=== PATIENT | male | born 1940 | race Caucasian/White ===

== ENCOUNTER 2017-10-29 11:41 | Inpatient (IN) ==
[2017-10-29] MEDS ORDERED: Morphine Inj 4 MG/ML Vial IV.PUSH ONE (13:33)
[2017-10-29] MEDS ORDERED: RESP: Albuterol Concentrated 2.5 MG/0.5 ML Neb NEB ONE (13:35)
[2017-10-29] MEDS ORDERED: MethylPREDNISolone Sod Succinate Inj 125 MG/2 ML Vial IV.PUSH ONE (13:35)
--- NOTE | 2017-10-29 13:44 | ED ---
HPI General Chief Complaint: Respiratory Symptoms Stated Complaint: Poss pneumonia/seen last night History of Present Illness HPI Narrative: 37-year-old male with a past medical history of hypertension, COPD, chronic kidney disease presents to the emergency room complaining of right -sided chest pain patient was seen in the emergency room yesterday RLL pneumonia. Patient received antibiotics yesterday and today as an outpatient however he returns to the emergency room due to pain in the right lower lung area. Pain is pleuritic in nature mild to moderate radiating to the back. Patient denies shortness of breath, productive cough, chest pain otherwise or lower extremity swelling. Related Data Home Medications Medication Instructions Recorded Confirmed aspirin [Aspir-81] 81 mg PO DAILY 10/28/17 10/29/17 levothyroxine [Synthroid] 112 mcg PO DAILY 10/28/17 10/29/17 atenolol 50 mg PO DAILY 10/29/17 10/29/17 Previous Rx's Medication Instructions Recorded azithromycin 500 mg PO DAILY 4 Days #4 tab 10/28/17 Allergies Allergy/AdvReac Type Severity Reaction Status Date / Time No Known Allergies Allergy Verified 10/29/17 13:00 Review of Systems Constitutional Reports chills, Reports fatigue and Reports fever(s) Eyes Denies change in vision ENT Denies headache(s) and Denies nasal congestion Cardiovascular Reports chest pain Respiratory Reports change in phlegm color, Reports cough, Reports excessive phlegm production, Reports pain on inspiration, Reports pain with cough, Reports dyspnea, Reports dyspnea on exertion and Reports wheezing Gastrointestinal Denies abdominal pain Genitourinary Denies difficulty urinating Musculoskeletal Denies myalgias Integumentary/Breasts Denies rash Neurologic Denies headache(s) Psychiatric Denies depression Endocrine Denies polyuria Hematologic/Lymphatic Denies easy bruising FORMERLY [facility], 1928–1983 Medical History Medical History COPD (chronic obstructive pulmonary disease) (Acute) Pneumonia (Acute) Surgical History Surgical History History of appendectomy (Acute) History of tonsillectomy (Acute) Social History Social History Substance History: Active Abuse Smoking Status: Former smoker How Often Do You Have a Drink Containing Alcohol: Monthly or less Recent Travel in [facility] within the Last 8 Weeks: No Recent Out of Country Travel within the Last 8 Weeks: No Substance Abuse Detail Marijuana: Substance Use Status: Active Route Used Substance Abuse: Inhalation Substance Frequency: occ Reason for Use: Get High Immunization History Tetanus Immunization: >5 Years Hx Influenza Vaccine This Season: No Exam Narrative Exam Narrative: GENERAL: Patient is alert and oriented -3 SKIN: Focused skin assessment warm/dry. HEAD: Atraumatic. Normocephalic. EYES: Pupils equal and round. No scleral icterus. No injection or drainage. ENT: No nasal bleeding or discharge. Mucous membranes pink and moist. NECK: Trachea midline. No JVD. CARDIOVASCULAR: Regular rate and rhythm. No murmur appreciated. RESPIRATORY: No accessory muscle use. Decreased air entry on the right with mild rails and scattered rhonchi. There is tender to palpation on the posterior thoracic and subscapular area. GASTROINTESTINAL: Abdomen soft, non-tender, nondistended. Hepatic and splenic margins not palpable. MUSCULOSKELETAL: No obvious deformities. No clubbing. No cyanosis. No edema. NEUROLOGICAL: Awake and alert. No obvious cranial nerve deficits. Motor grossly within normal limits. Normal speech. PSYCHIATRIC: Appropriate mood and affect; insight and judgment normal. Course Hospital Course: Patient feels better after nebulizer treatment. I will admit the patient to the hospital for failure of outpatient treatment and persistent and worsening pneumonia on the right. Reevaluation(s) Reevaluation #1: Patient condition improved during the ER course. I personally reexamined and counseled the patient about his diagnosis, admission and results. Time: 14:59 Initial Documented Vital Signs Temperature 97.5 F L 10/29/17 12:57 Pulse Rate 70 10/29/17 12:57 Respiratory Rate 18 10/29/17 12:57 Blood Pressure 131/62 10/29/17 12:57 Pulse Oximetry 100 10/29/17 12:57 Last Documented Vital Signs Temperature 97.5 F L 10/29/17 12:57 Pulse Rate 69 10/29/17 14:50 Respiratory Rate 24 10/29/17 14:50 Blood Pressure 112/70 10/29/17 14:11 Pulse Oximetry 97 10/29/17 14:11 Medical Decision Making MDM Narrative Medical Screen Exam Complete: Yes Emergency Medical Condition: Yes Lab Data Result diagrams: 10/29/17 14:00 10/29/17 14:00 Lab Results 10/29/17 10/29/17 Range/Units 14:00 14:00 CBC w Diff Auto diff final WBC 15.3 H (4.0-11.0) th/mm3 RBC 3.95 L (4.50-5.90) mil/mm3 Hgb 11.8 L (13.0-17.0) gm/dL Hct 34.4 L (39.0-51.0) % MCV 87.1 (80.0-100.0) fL MCH 30.0 (27.0-34.0) pg MCHC 34.4 (32.0-36.0) % RDW 15.0 (11.6-17.2) % Plt Count 255 (150-450) th/mm3 MPV 8.0 (7.0-11.0) fL Neut % (Auto) 84.1 H (16.0-70.0) % Lymph % (Auto) 7.4 L (9.0-44.0) % [place]kin % (Auto) 4.9 (0.0-8.0) % Eos % (Auto) 1.6 (0.0-4.0) % Baso % (Auto) 2.0 (0.0-2.0) % Neut # (Auto) 12.9 H (1.8-7.7) th/mm3 Lymph # (Auto) 1.1 (1.0-4.8) th/mm3 [place] # (Auto) 0.7 (0.0-0.9) th/mm3 Eos # (Auto) 0.2 (0.0-0.4) th/mm3 Baso # (Auto) 0.3 H (0.0-0.2) th/mm3 WBC Differential . Differential Comment . Sodium 140 (136-145) meq/L Potassium 3.9 (3.5-5.1) meq/L Chloride 105 (98-107) meq/L Carbon Dioxide 25.9 (21.0-32.0) meq/L Anion Gap 9 (5-15) meq/L BUN 39 H (7-18) mg/dL Creatinine 2.40 H (0.60-1.30) mg/dL Estimated GFR 27 L (>89) mL/min Random Glucose 94 (74-106) mg/dL Calcium 10.3 H (8.5-10.1) mg/dL Total Bilirubin 0.7 (0.2-1.0) mg/dL AST 20 (15-37) U/L ALT 22 (12-78) U/L Alkaline Phosphatase 60 (45-117) U/L Total Protein 7.9 (6.4-8.2) g/dL Albumin 3.6 (3.4-5.0) g/dL Imaging Data Radiologist's impression: Chest X-Ray 10/29/17 13:33 CONCLUSION: New right midlung radiopacity which may represent developing airspace disease. COPD Otherwise stable chest. Discharge Plan Discharge Disposition Patient Disposition: Transfer to [facility] Discharge Condition Condition: Fair Discharge Details Discharge Comment: Patient is admitted to the hospital and was accepted by Dr. Nunez Diagnosis: Pneumonia, COPD exacerbation Physicians Team ED Provider: Roderick Ross Rxs /Orders / Referrals /Forms Prescriptions: No Action atenolol 50 mg Tablet 50 mg PO DAILY RF: 0 aspirin [Aspir-81] 81 mg Tablet,Delayed Release (Dr/Ec) 81 mg PO DAILY RF: 0 levothyroxine [Synthroid] 25 mcg Tablet 112 mcg PO DAILY RF: 0 azithromycin 500 mg tablet 500 mg PO DAILY 4 Days Qty: 4 RF: 0 Discharge Interventions Interventions: Vital Signs Last Done: 10/29/17 14:11 Status ED Status: In Room
[2017-10-29] MEDS ORDERED: Sodium Chlor 0.9% Inj 1,000 ML IV.SIG SCH (14:00)
--- NOTE | 2017-10-29 14:17 | XR ---
EXAM DATE: 10/29/2017 1:58 PM EDT AGE/SEX: 77 years / Male INDICATIONS: Shortness of breath. CLINICAL DATA: This is the patient's initial encounter. Patient reports that signs and symptoms have been present for 3 days and indicates a pain score of 0/10. MEDICAL/SURGICAL HISTORY: Chronic obstructive pulmonary disease. None. COMPARISON: [facility]PO, CHEST 1V SINGLE AP, 10/28/2017. . FINDINGS: Lungs are hyperinflated. There is interstitial prominence throughout both lungs. A faint radiopacity has developed in the right midlung which cannot be identified on the previous study. Heart and mediastinal structures are stable. CONCLUSION: New right midlung radiopacity which may represent developing airspace disease. COPD Otherwise stable chest. Electronically signed by: Rios Mccord MD 10/29/2017 2:15 PM EDT
[2017-10-29 14:28] LABS: Chloride 105 meq/L (98-107); Potassium 3.9 meq/L (3.5-5.1); Sodium 140 meq/L (136-145)
[2017-10-29 14:31] LABS: Baso # (Auto) 0.3 th/mm3 (0.0-0.2); Calcium 10.3 mg/dL (8.5-10.1); Eos # (Auto) 0.2 th/mm3 (0.0-0.4); Eos % (Auto) 1.6 % (0.0-4.0); Hematocrit 34.4 % (39.0-51.0); Hemoglobin 11.8 gm/dL (13.0-17.0); Lymph # (Auto) 1.1 th/mm3 (1.0-4.8); Lymph % (Auto) 7.4 % (9.0-44.0); Mean Corpuscular HGB Conc 34.4 % (32.0-36.0); Mean Corpuscular Volume 87.1 fL (80.0-100.0); Mono # (Auto) 0.7 th/mm3 (0.0-0.9); Mono % (Auto) 4.9 % (0.0-8.0); Neut # (Auto) 12.9 th/mm3 (1.8-7.7); Neut % (Auto) 84.1 % (16.0-70.0); Platelet Count 255 th/mm3 (150-450); Red Blood Count 3.95 mil/mm3 (4.50-5.90); White Blood Count 15.3 th/mm3 (4.0-11.0)
[2017-10-29 14:32] LABS: Albumin 3.6 g/dL (3.4-5.0); Anion Gap 9 meq/L (5-15); Blood Urea Nitrogen 39 mg/dL (7-18); Carbon Dioxide 25.9 meq/L (21.0-32.0); Glucose,Random 94 mg/dL (74-106)
[2017-10-29 14:35] LABS: Alanine Aminotransferase 22 U/L (12-78); Aspartate Aminotransferase 20 U/L (15-37); Glomerular Filtration Rate 27 mL/min (>89)
[2017-10-29 14:36] LABS: Total Protein 7.9 g/dL (6.4-8.2)
[2017-10-29 14:38] LABS: Alkaline Phosphatase 60 U/L (45-117)
[2017-10-29] MEDS ORDERED: Acetaminophen 325 MG Tablet PO PRN (15:32)
[2017-10-29] MEDS ORDERED: Morphine Inj 4 MG/ML Vial IV.PUSH PRN (15:56)
--- NOTE | 2017-10-29 16:42 | P.HPIM ---
History of Present Illness Primary Care Physician: Bay Moreno MD Chief Complaint: Chest wall pain History of Present Illness: The patient is a 77-year-old male with past medical history of hypertension and hydronephrosis who is presenting to the hospital with chest wall pain. The patient states that on Saturday he woke up with intense pain in his right chest wall. He says the pain was an 8 out of 10 in severity. The pain is located at the right upper chest and goes around to involve the right shoulder blade. He says that any movement of his right upper extremity makes the pain worse. He says the pain is constant. The patient has been endorsing cold sweats. He came to the emergency department yesterday and was told he had pneumonia and was discharged with antibiotics. He said that he had to leave the emergency department yesterday because he had to get some affairs in order. He represents to the hospital today with the same right upper chest wall pain. He says he has never had pain like this before. He denies any recent trauma to the area. He denies any shortness of breath. He denies any cough or mucus production. He does endorse a chronic slow and dribbling urine stream. Inpatient Certification: I certify that the inpatient services were ordered in accordance with Medicare regulations governing the order. This includes certification that hospital inpatient services are reasonable and necessary and in the case of services not specified as inpatient-only under 42 CFR 419.22(n), that they are appropriately provided as inpatient services in accordance to with the 2-midnight benchmark under 43 CFR 412.3(e) Estimated Total Length of Stay (Days): 2 Plans for Post Hospital Care: Home Review of Systems All other systems reviewed negative except as stated in HPI PMFSH - History History Provided By: Patient - Medical History Medical History: Medical History (Last Updated 10/29/17 @ 16:28 by Cody Nunez DO) Hydronephrosis, right Hypertension Hypothyroidism Pneumonia COPD (chronic obstructive pulmonary disease) - Surgical History Surgical History: Surgical History (Last Reviewed 10/29/17 @ 15:01 by Roderick Ross) History of appendectomy History of tonsillectomy - Family History Family History: Family History (Last Updated 10/29/17 @ 16:28 by Cody Nunez DO) Other Patient denies significant medical history - Social History I have reviewed the patient's Social History: Yes - Tobacco History Smoking Status: Former smoker - Alcohol History How Often Do You Have a Drink Containing Alcohol: Monthly or less - Substance Use History 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 Route Used: Inhalation Frequency: occ Reason for Use: Get High - Travel History Recent Travel in the [place] Within the Last 8 Weeks: No Recent Travel Out of the Country Within the Last 8 Weeks: No - Immunization History Tetanus Immunization: >5 Years Hx Influenza Vaccine This Season: No Medications and Allergies Active Medications: Active Medications Acetaminophen (Tylenol) 650 mg PO Q4H PRN PRN Reason: Temp > 100.4 Aspirin (Ecotrin) 81 mg PO DAILY JAVIER Atenolol (Tenormin) 50 mg PO DAILY JAVIER Heparin Sodium (Porcine) (Heparin Inj) 5,000 units SQ Q8HR JAVIER Sodium Chloride (Ns Inj) 1,000 mls @ 0 mls/hr IV.SIG BOLUS JAVIER Last Infusion: 10/29/17 15:45 Dose: Infused Ceftriaxone Sodium 1,000 mg/ (Sodium Chloride) 100 mls @ 200 mls/hr IV.SIG Q24H JAVIER Azithromycin 500 mg/ Sodium (Chloride) 250 mls @ 250 mls/hr IV.SIG Q24H JAVIER Sodium Chloride (Ns Inj) 1,000 mls @ 100 mls/hr IV.CONT .Q10H JAVIER Levothyroxine Sodium (Synthroid) 112 mcg PO DAILY@0600 JAVIER Morphine Sulfate (Morphine Inj) 4 mg IV.PUSH Q4H PRN PRN Reason: BREAKTHROUGH PAIN Oxycodone HCl (Roxicodone) 5 mg PO Q4H PRN PRN Reason: pain 1-5 Oxycodone HCl (Roxicodone) 10 mg PO Q4H PRN PRN Reason: Pain 6-10 Senna/Docusate Sodium (Diane-Colace) 1 tab PO BID JAVIER Allergies Allergy/AdvReac Type Severity Reaction Status Date / Time No Known Allergies Allergy Verified 10/29/17 13:00 Home Medications Medication Instructions Recorded Confirmed Type aspirin [Aspir-81] 81 mg PO DAILY 10/28/17 10/29/17 History levothyroxine [Synthroid] 112 mcg PO DAILY 10/28/17 10/29/17 History atenolol 50 mg PO DAILY 10/29/17 10/29/17 History Exam Vital signs: Vital Signs 10/29/17 12:57 10/29/17 13:20 10/29/17 14:05 Temperature 97.5 F L Pulse Rate 70 68 Respiratory Rate 18 18 19 Blood Pressure 131/62 123/78 Pulse Oximetry 100 96 10/29/17 14:11 10/29/17 14:50 10/29/17 15:22 Temperature Pulse Rate 68 69 78 Respiratory Rate 20 24 22 Blood Pressure 112/70 108/67 Pulse Oximetry 97 99 10/29/17 16:15 Temperature Pulse Rate 77 Respiratory Rate Blood Pressure 109/69 Pulse Oximetry 99 Intake & Output 10/28/17 10/29/17 10/29/17 18:59 06:59 18:59 Intake Total 1100 / 1100 Balance 1100 / 1100 Weight 92.4 kg Intake: IV 1100 / 1100 NS Inj 1,000 ML @ Wide Open IV. 1000 / 1000 SIG BOLUS JAVIER Rx#:[id number] Rocephin Inj 2,000 MG In NS Inj 100 / 100 100 ML @ 200 mls/hr IV.SIG Q24H JAVIER Rx#:[id number] Narrative: GENERAL: No distress. SKIN: Focused skin assessment warm/dry. HEAD: Atraumatic. Normocephalic. EYES: Pupils equal and round. No scleral icterus. No injection or drainage. ENT: No nasal bleeding or discharge. Mucous membranes pink and moist. NECK: Trachea midline. No JVD. CARDIOVASCULAR: Regular rate and rhythm. No murmur appreciated. RESPIRATORY: No accessory muscle use. Scattered rhonchi on right. GASTROINTESTINAL: Abdomen soft, non-tender, nondistended. Hepatic and splenic margins not palpable. MUSCULOSKELETAL: Tenderness to palpation of right chest wall and right scapular area. Decreased ROM of RUE s/t pain. No obvious deformities. No clubbing. No cyanosis. 1+ edema. NEUROLOGICAL: Awake and alert. No obvious cranial nerve deficits. Motor grossly within normal limits. Normal speech. Results - Labs CBC & Chem 7: 10/29/17 14:00 10/29/17 14:00 Labs: Short CBC 10/29/17 Range/Units 14:00 WBC 15.3 H (4.0-11.0) th/mm3 Hgb 11.8 L (13.0-17.0) gm/dL Hct 34.4 L (39.0-51.0) % Plt Count 255 (150-450) th/mm3 BMP 10/29/17 14:00 Sodium 140 Potassium 3.9 Chloride 105 Carbon Dioxide 25.9 BUN 39 H Creatinine 2.40 H Calcium 10.3 H Liver Function 10/29/17 Range/Units 14:00 Total Bilirubin 0.7 (0.2-1.0) mg/dL AST 20 (15-37) U/L ALT 22 (12-78) U/L Alkaline Phosphatase 60 (45-117) U/L Albumin 3.6 (3.4-5.0) g/dL - Imaging Impressions Chest X-Ray 10/29/17 13:33 CONCLUSION: New right midlung radiopacity which may represent developing airspace disease. COPD Otherwise stable chest. Caprini VTE Risk Assessment Caprini VTE Risk Assessment: Moderate/High Risk (score >= 2) Caprini Risk Assessment Model: Point Value = 1 Point Value = 2 Point Value = 3 Point Value = 5 Age 41-60 Minor surgery BMI > 25 kg/m2 Swollen legs Varicose veins or History of unexplained or recurrent spontaneous Oral contraceptives or hormone replacement Sepsis (< 1 month) Serious lung disease, including pneumonia (< 1 month) Abnormal pulmonary function Acute myocardial infarction Congestive heart failure (< 1 month) History of inflammatory bowel disease Medical patient at bed rest Age 61-74 Arthroscopic surgery Major open surgery (> 45 min) Laparoscopic surgery (> 45 min) Malignancy Confined to bed (> 72 hours) Immobilizing plaster cast Central venous access Age >= 75 History of VTE Family history of VTE Factor V Leiden Prothrombin [id number] Lupus anticoagulant Anticardiolipin antibodies Elevated serum homocysteine Heparin-induced thrombocytopenia Other congenital or acquired thrombophilia Stroke (< 1 month) Elective arthroplasty Hip, pelvis, or leg fracture Acute spinal cord injury (< 1 month) Prophylaxis Regimen: Total Risk Factor Score Risk Level Prophylaxis Regimen 0-1 Low Early ambulation 2 Moderate Order ONE of the following: *Sequential Compression Device (SCD) *Heparin 5000 units SQ BID 3-4 Higher Order ONE of the following medications: *Heparin 5000 units SQ TID *Enoxaparin/Lovenox 40 mg SQ daily (WT < 150 kg, CrCl > 30 mL/min) *Enoxaparin/Lovenox 30 mg SQ daily (WT < 150 kg, CrCl > 10-29 mL/min) *Enoxaparin/Lovenox 30 mg SQ BID (WT < 150 kg, CrCl > 30 mL/min) AND/OR *Sequential Compression Device (SCD) 5 or more Highest Order ONE of the following medications: *Heparin 5000 units SQ TID (Preferred with Epidurals) *Enoxaparin/Lovenox 40 mg SQ daily (WT < 150 kg, CrCl > 30 mL/min) *Enoxaparin/Lovenox 30 mg SQ daily (WT < 150 kg, CrCl > 10-29 mL/min) *Enoxaparin/Lovenox 30 mg SQ BID (WT < 150 kg, CrCl > 30 mL/min) AND *Sequential Compression Device (SCD) Assessment and Plan - Plan CAP/ Musculoskeletal chest wall pain The pt presents with chest wall pain and right scapular pain on the right. Imaging indicative of PNA on that side. Not currently septic. He has leukocytosis. -IV azithromycin and ceftriaxone. -follow blood cultures. -incentive spirometry. -pain control with a bowel regimen. -oxygen and nebs as needed. -trend trops and monitor on telemetry. Renal insufficiency Likely chronic as pt has a history of right hydronephrosis s/p multiple stents. -IVFs. -monitor BMP and avoid nephrotoxins. HTN Blood pressure well controlled. -continue home atenolol. PPx: Heparin
[2017-10-29] MEDS: Sod Chloride 0.9% Inj 1,000 ML IV.CONT SCH (17:02)
[2017-10-29] MEDS: Heparin - SQ 10,000 UNITS/ML Vial SQ SCH ×2 (17:03→21:31)
[2017-10-29] MEDS: Senna/Docusate Sodium 8.6/50 MG Tablet PO SCH (21:31)
[2017-10-29] MEDS ORDERED: Melatonin 5 MG Tablet PO PRN (23:51)
[2017-10-30] MEDS: Sod Chloride 0.9% Inj 1,000 ML IV.CONT SCH ×4 (01:18→22:07)
[2017-10-30] MEDS: Levothyroxine 112 MCG Tablet PO SCH (05:43)
[2017-10-30] MEDS: Heparin - SQ 10,000 UNITS/ML Vial SQ SCH ×3 (05:43→22:02)
[2017-10-30] MEDS: Atenolol 50 MG Tablet PO SCH (08:22)
[2017-10-30] MEDS: Senna/Docusate Sodium 8.6/50 MG Tablet PO SCH ×2 (08:23→22:03)
[2017-10-30 11:10] LABS: Hematocrit 29.9 % (39.0-51.0); Hemoglobin 10.8 gm/dL (13.0-17.0); Mean Corpuscular Hemoglobin 30.9 pg (27.0-34.0); Mean Corpuscular Volume 85.7 fL (80.0-100.0); Mean Platelet Volume 8.5 fL (7.0-11.0); Platelet Count 236 th/mm3 (150-450); Red Blood Count 3.49 mil/mm3 (4.50-5.90); Red Cell Distribution Width 15.8 % (11.6-17.2); White Blood Count 13.1 th/mm3 (4.0-11.0)
[2017-10-30 11:21] LABS: Potassium 3.8 meq/L (3.5-5.1)
--- NOTE | 2017-10-30 11:28 | P.PNIM ---
Subjective Interval history: The patient said that he did not get any sleep overnight. He says his breathing is worse because he has not gotten any sleep. He said he did well with Ambien in the past. He says his right chest wall pain has improved. Physical Exam Vital signs: Vital Signs 10/29/17 12:57 10/29/17 13:20 10/29/17 14:05 Temperature 97.5 F L Pulse Rate 70 68 Respiratory Rate 18 18 19 Blood Pressure 131/62 123/78 Pulse Oximetry 100 96 10/29/17 14:11 10/29/17 14:50 10/29/17 15:22 Temperature Pulse Rate 68 69 78 Respiratory Rate 20 24 22 Blood Pressure 112/70 108/67 Pulse Oximetry 97 99 10/29/17 16:15 10/29/17 16:46 10/29/17 19:50 Temperature 96.8 F L Pulse Rate 77 70 Respiratory Rate 20 Blood Pressure 109/69 169/75 H Pulse Oximetry 99 94 L 94 L 10/29/17 20:00 10/29/17 21:25 10/29/17 22:26 Temperature 97.0 F L Pulse Rate 67 66 Respiratory Rate 18 18 Blood Pressure 119/58 L Pulse Oximetry 96 10/30/17 00:00 10/30/17 08:00 Temperature 97.1 F L 96.4 F L Pulse Rate 61 58 L Respiratory Rate 18 19 Blood Pressure 122/56 L 134/60 Pulse Oximetry 96 98 Intake & Output 10/29/17 10/30/17 10/30/17 18:59 06:59 18:59 Intake Total 1100 / 1100 1050 / 1050 1000 / 1000 Output Total 900 / 900 Balance 1100 / 1100 150 / 150 1000 / 1000 Weight 97.1 kg 97.1 kg Intake: IV 1100 / 1100 1000 / 1000 1000 / 1000 NS Inj 1,000 ML @ 100 mls/hr IV 1000 / 1000 1000 / 1000 .CONT .Q10H JAVIER Rx#:[id number] NS Inj 1,000 ML @ Wide Open IV. 1000 / 1000 SIG BOLUS JAVIER Rx#:[id number] Rocephin Inj 2,000 MG In NS Inj 100 / 100 100 ML @ 200 mls/hr IV.SIG Q24H JAVIER Rx#:[id number] Oral 50 / 50 Output: Urine 900 / 900 Other: Date of Last Bowel Movement 10/29/17 10/29/17 Weight On Admission 97.1 kg Narrative: GENERAL: No distress. SKIN: Focused skin assessment warm/dry. HEAD: Atraumatic. Normocephalic. EYES: Pupils equal and round. No scleral icterus. No injection or drainage. ENT: No nasal bleeding or discharge. Mucous membranes pink and moist. NECK: Trachea midline. No JVD. CARDIOVASCULAR: Regular rate and rhythm. No murmur appreciated. RESPIRATORY: No accessory muscle use. Scattered rhonchi on right. GASTROINTESTINAL: Abdomen soft, non-tender, nondistended. Hepatic and splenic margins not palpable. MUSCULOSKELETAL: Tenderness to palpation of right chest wall and right scapular area. Decreased ROM of RUE s/t pain. No obvious deformities. No clubbing. No cyanosis. 1+ edema. NEUROLOGICAL: Awake and alert. No obvious cranial nerve deficits. Motor grossly within normal limits. Normal speech. Results - Labs CBC & Chem 7: 10/30/17 05:48 10/30/17 05:48 Laboratory Results - last 24 hr 10/29/17 10/29/17 10/29/17 14:00 14:00 15:08 CBC w Diff Auto diff final WBC 15.3 H RBC 3.95 L Hgb 11.8 L Hct 34.4 L MCV 87.1 MCH 30.0 MCHC 34.4 RDW 15.0 Plt Count 255 MPV 8.0 Neut % (Auto) 84.1 H Lymph % (Auto) 7.4 L [place] % (Auto) 4.9 Eos % (Auto) 1.6 Baso % (Auto) 2.0 Neut # (Auto) 12.9 H Lymph # (Auto) 1.1 [place] # (Auto) 0.7 Eos # (Auto) 0.2 Baso # (Auto) 0.3 H WBC Differential . Differential Comment . Sodium 140 Potassium 3.9 Chloride 105 Carbon Dioxide 25.9 Anion Gap 9 BUN 39 H Creatinine 2.40 H Estimated GFR 27 L Random Glucose 94 Lactic Acid 1.6 Calcium 10.3 H Total Bilirubin 0.7 AST 20 ALT 22 Alkaline Phosphatase 60 Troponin I Total Protein 7.9 Albumin 3.6 10/29/17 10/29/17 10/30/17 17:44 23:40 05:48 CBC w Diff WBC RBC Hgb Hct MCV MCH MCHC RDW Plt Count MPV Neut % (Auto) Lymph % (Auto) [place] % (Auto) Eos % (Auto) Baso % (Auto) Neut # (Auto) Lymph # (Auto) [place] # (Auto) Eos # (Auto) Baso # (Auto) WBC Differential Differential Comment Sodium Potassium Chloride Carbon Dioxide Anion Gap BUN Creatinine Estimated GFR Random Glucose Lactic Acid Calcium Total Bilirubin AST ALT Alkaline Phosphatase Troponin I Less than 0.02 L Less than 0.02 L Less than 0.02 L Total Protein Albumin 10/30/17 10/30/17 05:48 05:48 CBC w Diff WBC 13.1 H RBC 3.49 L Hgb 10.8 L Hct 29.9 L MCV 85.7 MCH 30.9 MCHC 36.0 RDW 15.8 Plt Count 236 MPV 8.5 Neut % (Auto) Lymph % (Auto) [place] % (Auto) Eos % (Auto) Baso % (Auto) Neut # (Auto) Lymph # (Auto) [place] # (Auto) Eos # (Auto) Baso # (Auto) WBC Differential Differential Comment Sodium 141 Potassium 3.8 Chloride 108 H Carbon Dioxide Anion Gap BUN Creatinine Estimated GFR Random Glucose Lactic Acid Calcium Total Bilirubin AST ALT Alkaline Phosphatase Troponin I Total Protein Albumin Microbiology 10/29/17 15:08 Blood - Peripheral Aerobic Blood Culture - Preliminary No growth in 1 day 10/29/17 15:08 Blood - Peripheral Anaerobic Blood Culture - Preliminary No growth in 1 day 10/29/17 15:10 Blood - Peripheral Aerobic Blood Culture - Preliminary No growth in 1 day 10/29/17 15:10 Blood - Peripheral Anaerobic Blood Culture - Preliminary No growth in 1 day - Imaging Impressions Chest X-Ray 10/29/17 13:33 CONCLUSION: New right midlung radiopacity which may represent developing airspace disease. COPD Otherwise stable chest. Assessment and Plan - Plan CAP/ Musculoskeletal chest wall pain The pt presents with chest wall pain and right scapular pain on the right. Imaging indicative of PNA on that side. Not currently septic. He has leukocytosis. -continue IV azithromycin and ceftriaxone. -follow blood cultures. -incentive spirometry. -add standing nebs. -oxygen as needed. -pain control with a bowel regimen. Renal insufficiency Likely chronic as pt has a history of right hydronephrosis s/p multiple stents. Has had a recent renal study via his urologist. -IVFs. -monitor BMP and avoid nephrotoxins. -outpt follow-up with urology as scheduled. HTN Blood pressure well controlled. -continue home atenolol. Insomnia Melatonin didn't work. -trial of Ambien. PPx: Heparin Discharge Planning: Will need improvement in respiratory status. Consider discharge in 1-2 days if doing well.
[2017-10-30 11:31] LABS: Calcium 9.2 mg/dL (8.5-10.1); Carbon Dioxide 21.1 meq/L (21.0-32.0)
[2017-10-30] MEDS: Azithromycin Inj 500 MG in Sodium Chlor 0.9% Inj 250 ML IV.SIG SCH (16:19)
[2017-10-30] MEDS: Zolpidem Tartrate 5 MG Tablet PO PRN (22:03)
[2017-10-31] MEDS: Heparin - SQ 10,000 UNITS/ML Vial SQ SCH ×3 (05:16→22:03)
[2017-10-31] MEDS: Levothyroxine 112 MCG Tablet PO SCH (05:16)
[2017-10-31] MEDS: Sod Chloride 0.9% Inj 1,000 ML IV.CONT SCH ×2 (06:54→22:06)
[2017-10-31 07:27] LABS: Baso % (Auto) 0.3 % (0.0-2.0); Eos # (Auto) 0.3 th/mm3 (0.0-0.4); Eos % (Auto) 2.4 % (0.0-4.0); Hematocrit 31.4 % (39.0-51.0); Hemoglobin 10.9 gm/dL (13.0-17.0); Lymph # (Auto) 1.1 th/mm3 (1.0-4.8); Lymph % (Auto) 9.1 % (9.0-44.0); Mean Corpuscular HGB Conc 34.5 % (32.0-36.0); Mean Corpuscular Hemoglobin 29.3 pg (27.0-34.0); Mean Corpuscular Volume 84.9 fL (80.0-100.0); Mean Platelet Volume 8.3 fL (7.0-11.0); Mono # (Auto) 0.6 th/mm3 (0.0-0.9); Mono % (Auto) 5.3 % (0.0-8.0); Neut # (Auto) 9.8 th/mm3 (1.8-7.7); Neut % (Auto) 82.9 % (16.0-70.0); Platelet Count 224 th/mm3 (150-450); Red Cell Distribution Width 15.5 % (11.6-17.2); White Blood Count 11.8 th/mm3 (4.0-11.0)
[2017-10-31 07:31] LABS: Potassium 3.6 meq/L (3.5-5.1)
[2017-10-31 07:37] LABS: Calcium 9.2 mg/dL (8.5-10.1); Carbon Dioxide 23.2 meq/L (21.0-32.0); Magnesium 1.7 mg/dL (1.5-2.5)
[2017-10-31 07:41] LABS: Phosphorus 3.1 mg/dL (2.5-4.9)
[2017-10-31] MEDS: Atenolol 50 MG Tablet PO SCH (08:50)
[2017-10-31] MEDS: Senna/Docusate Sodium 8.6/50 MG Tablet PO SCH ×2 (08:50→21:51)
--- NOTE | 2017-10-31 08:54 | P.PNIM ---
Subjective Interval history: Mr. Max was afebrile with stable vital signs overnight. Patient reports that he has improvement in his chest pain but that he still has some pain when laying on his left side. Patient denies significant cough/sputum production. No reported shortness of breath. Patient reports being tired and having chronic back pain. Patient reports normal urination and decreased bowel movements. He reports that he slept better with Ambien last night. Physical Exam Vital signs: Vital Signs 10/30/17 12:00 10/30/17 16:00 10/30/17 20:00 Temperature 96.6 F L 96.2 F L 97.1 F L Pulse Rate 55 L 56 L 53 L Respiratory Rate 19 17 18 Blood Pressure 139/64 144/69 H 138/64 Pulse Oximetry 97 98 96 10/30/17 20:34 10/30/17 20:52 10/31/17 00:00 Temperature Pulse Rate 56 L 57 L Respiratory Rate 18 20 Blood Pressure Pulse Oximetry 98 10/31/17 02:02 10/31/17 05:12 10/31/17 08:00 Temperature 97.0 F L 96.8 F L Pulse Rate 64 60 Respiratory Rate 20 20 17 Blood Pressure 149/67 H 142/62 H Pulse Oximetry 97 97 Intake & Output 10/30/17 10/31/17 10/31/17 18:59 06:59 18:59 Intake Total 2130 / 2130 2100 / 2100 Output Total 550 / 550 1100 / 1100 Balance 1580 / 1580 1000 / 1000 Intake: IV 2130 / 2130 1999 / 1999 NS Inj 1,000 ML @ 100 mls/hr IV 1780 / 1780 1999 .CONT .Q10H JAVIER Rx#:[id number] Azithromycin Inj 500 MG In NS 250 / 250 Inj 250 ML @ 250 mls/hr IV.SIG Q24H JAVIER Rx#:[id number] Rocephin Inj 1,000 MG In NS Inj 100 / 100 100 ML @ 200 mls/hr IV.SIG Q24H JAVIER Rx#:[id number] Oral 100 / 100 Output: Urine 550 / 550 1100 / 1100 Other: # Voids 600 Date of Last Bowel Movement 10/29/17 10/29/17 Narrative: GENERAL: No distress. SKIN: No visible lesions EYES: EOM grossly I ENT: Mucous membranes pink and moist. CARDIOVASCULAR: Regular rate and rhythm without murmurs. Grossly normal perfusion RESPIRATORY: CTAB; normal rate GASTROINTESTINAL: Abdomen soft, non-tender, nondistended. Normal bowel sounds MUSCULOSKELETAL: Grossly normal ROM and motor function NEUROLOGICAL: Awake and alert. No obvious cranial nerve deficits. Grossly normal peripheral motor/sensory function Results - Labs CBC & Chem 7: 10/31/17 06:34 10/31/17 06:34 Laboratory Results - last 24 hr 10/30/17 10/30/17 10/31/17 05:48 05:48 06:34 CBC w Diff Slide review pending WBC 13.1 H 11.8 H RBC 3.49 L 3.70 L Hgb 10.8 L 10.9 L Hct 29.9 L 31.4 L MCV 85.7 84.9 MCH 30.9 29.3 MCHC 36.0 34.5 RDW 15.8 15.5 Plt Count 236 224 MPV 8.5 8.3 Neut % (Auto) 82.9 H Lymph % (Auto) 9.1 Orange % (Auto) 5.3 Eos % (Auto) 2.4 Baso % (Auto) 0.3 Neut # (Auto) 9.8 H Lymph # (Auto) 1.1 Orange # (Auto) 0.6 Eos # (Auto) 0.3 Baso # (Auto) 0.0 WBC Differential . Diff Scan Auto diff confirmed Differential Comment . Sodium 141 Potassium 3.8 Chloride 108 H Carbon Dioxide 21.1 Anion Gap 12 BUN 38 H Creatinine 2.10 H Estimated GFR 31 L Random Glucose 103 Calcium 9.2 D Phosphorus Magnesium 10/31/17 06:34 CBC w Diff WBC RBC Hgb Hct MCV MCH MCHC RDW Plt Count MPV Neut % (Auto) Lymph % (Auto) Orange % (Auto) Eos % (Auto) Baso % (Auto) Neut # (Auto) Lymph # (Auto) Orange # (Auto) Eos # (Auto) Baso # (Auto) WBC Differential Diff Scan Differential Comment Sodium 142 Potassium 3.6 Chloride 109 H Carbon Dioxide 23.2 Anion Gap 10 BUN 28 H Creatinine 1.60 H Estimated GFR 42 L Random Glucose 81 Calcium 9.2 Phosphorus 3.1 Magnesium 1.7 Microbiology 10/29/17 15:08 Blood - Peripheral Aerobic Blood Culture - Preliminary No growth in 1 day 10/29/17 15:08 Blood - Peripheral Anaerobic Blood Culture - Preliminary No growth in 1 day 10/29/17 15:10 Blood - Peripheral Aerobic Blood Culture - Preliminary No growth in 1 day 10/29/17 15:10 Blood - Peripheral Anaerobic Blood Culture - Preliminary No growth in 1 day Assessment and Plan - Plan Mr. Max is a 77 yo M with: CAP/ Musculoskeletal chest wall pain Impression: chest wall pain and right scapular pain on the right. Imaging indicative of PNA on R. Patient with downtrending leukocytosis (15.3k-> 11.8k). -Continue empiric CAP treatment -continue IV azithromycin and ceftriaxone. -follow blood cultures (negative x2 days) -incentive spirometry. -Continue nebs -Continue to monitor O2 saturations and give O2 as needed -Continue PRN pain control w/ Oxycodone/Morphine Renal insufficiency Impression: Cr 2.4 on admission. Reported history of R hydronephrosis w/ stenting; has upcoming follow-up with Urology Cr trendin.4-> 2.1-> 1.6 today -Continue IVF with NS at 100ml/hr -monitor BMP and avoid nephrotoxins. -outpt follow-up with urology as scheduled. HTN Blood pressure well controlled. -continue home atenolol. Insomnia -Continue PRN Ambien. PPx: Heparin 5K q8hrs Code Status: Full code Discharge Planning: Anticipate discharge tomorrow morning assuming continued improvement
[2017-10-31] MEDS: Azithromycin Inj 500 MG in Sodium Chlor 0.9% Inj 250 ML IV.SIG SCH (16:02)
[2017-10-31] MEDS: Zolpidem Tartrate 5 MG Tablet PO PRN (22:03)
[2017-11-01] MEDS: Heparin - SQ 10,000 UNITS/ML Vial SQ SCH ×2 (05:13→12:59)
[2017-11-01] MEDS: Levothyroxine 112 MCG Tablet PO SCH (05:14)
[2017-11-01 07:56] VITALS: O2SAT 96
[2017-11-01] MEDS: Atenolol 50 MG Tablet PO SCH (08:03)
[2017-11-01] MEDS: Senna/Docusate Sodium 8.6/50 MG Tablet PO SCH (08:04)
[2017-11-01] MEDS: Sod Chloride 0.9% Inj 1,000 ML IV.CONT SCH ×2 (09:37→14:32)
[2017-11-01 09:49] LABS: Baso # (Auto) 0.3 th/mm3 (0.0-0.2); Eos # (Auto) 0.3 th/mm3 (0.0-0.4); Eos % (Auto) 2.3 % (0.0-4.0); Hematocrit 32.7 % (39.0-51.0); Hemoglobin 10.8 gm/dL (13.0-17.0); Lymph # (Auto) 1.2 th/mm3 (1.0-4.8); Lymph % (Auto) 10.9 % (9.0-44.0); Mean Corpuscular HGB Conc 33.2 % (32.0-36.0); Mean Corpuscular Hemoglobin 28.5 pg (27.0-34.0); Mean Corpuscular Volume 85.9 fL (80.0-100.0); Mean Platelet Volume 7.5 fL (7.0-11.0); Mono # (Auto) 0.5 th/mm3 (0.0-0.9); Mono % (Auto) 4.7 % (0.0-8.0); Neut % (Auto) 79.1 % (16.0-70.0); Platelet Count 216 th/mm3 (150-450); Red Cell Distribution Width 14.7 % (11.6-17.2); White Blood Count 11.3 th/mm3 (4.0-11.0)
[2017-11-01 10:15] LABS: Potassium 3.6 meq/L (3.5-5.1)
[2017-11-01 10:20] LABS: Carbon Dioxide 23.4 meq/L (21.0-32.0)
[2017-11-01 11:43] VITALS: RESP 18; TEMP 98.4
--- NOTE | 2017-11-01 12:03 | P.PNIM ---
Subjective Interval history: Mr. Max was afebrile with stable vital signs overnight. Patient reports continued poor sleep; he has also been more weak over the past couple days since being hospitalized. Patient reports that he is breathing well ; no reported chest pain. No urination or bowel abnormalities. Physical Exam Vital signs: Vital Signs 10/31/17 16:00 10/31/17 20:00 10/31/17 20:06 Temperature 96.8 F L 96.6 F L Pulse Rate 74 59 L Respiratory Rate 17 20 20 Blood Pressure 146/68 H 151/72 H Pulse Oximetry 97 98 11/01/17 00:00 11/01/17 01:46 11/01/17 04:00 Temperature 98 F 96.8 F L Pulse Rate 65 69 Respiratory Rate 20 20 20 Blood Pressure 143/73 H 154/69 H Pulse Oximetry 95 95 11/01/17 07:40 11/01/17 07:56 11/01/17 08:00 Temperature 98.8 F Pulse Rate 77 65 65 Respiratory Rate 18 18 Blood Pressure 155/74 H Pulse Oximetry 98 96 11/01/17 09:37 11/01/17 11:42 Temperature 98.4 F Pulse Rate 69 Respiratory Rate 20 18 Blood Pressure 133/75 Pulse Oximetry 96 Intake & Output 10/31/17 11/01/17 11/01/17 18:59 06:59 18:59 Intake Total 1350 / 1350 240 / 240 1000 / 1000 Output Total 775 / 775 Balance 1350 / 1350 -535 / -535 1000 / 1000 Weight 102.5 kg Intake: IV 1350 / 1350 1000 / 1000 NS Inj 1,000 ML @ 100 mls/hr IV 1000 / 1000 1000 / 1000 .CONT .Q10H JAV[facility] Rx#:[id number] Azithromycin Inj 500 MG In NS 250 / 250 Inj 250 ML @ 250 mls/hr IV.SIG Q24H JAVIER Rx#:[id number] Rocephin Inj 1,000 MG In NS Inj 100 / 100 100 ML @ 200 mls/hr IV.SIG Q24H JAVIER Rx#:[id number] Oral 240 / 240 Output: Urine 775 / 775 Other: # Voids 2 2 Date of Last Bowel Movement 10/29/17 10/29/17 Narrative: GENERAL: No distress. SKIN: No visible lesions EYES: EOM grossly I ENT: Mucous membranes pink and moist. CARDIOVASCULAR: Regular rate and rhythm without murmurs. Grossly normal perfusion RESPIRATORY: CTAB; normal rate GASTROINTESTINAL: Abdomen soft, non-tender, nondistended. Normal bowel sounds MUSCULOSKELETAL: Grossly normal ROM and motor function NEUROLOGICAL: Awake and alert. No obvious cranial nerve deficits. Grossly normal peripheral motor/sensory function Results - Labs CBC & Chem 7: 11/01/17 09:30 11/01/17 09:30 Laboratory Results - last 24 hr 11/01/17 11/01/17 09:30 09:30 CBC w Diff Auto diff final WBC 11.3 H RBC 3.80 L Hgb 10.8 L Hct 32.7 L MCV 85.9 MCH 28.5 MCHC 33.2 RDW 14.7 Plt Count 216 MPV 7.5 Neut % (Auto) 79.1 H Lymph % (Auto) 10.9 Pettis % (Auto) 4.7 Eos % (Auto) 2.3 Baso % (Auto) 3.0 H Neut # (Auto) 9.0 H Lymph # (Auto) 1.2 Pettis # (Auto) 0.5 Eos # (Auto) 0.3 Baso # (Auto) 0.3 H WBC Differential . Differential Comment . Sodium 140 Potassium 3.6 Chloride 106 Carbon Dioxide 23.4 Anion Gap 11 BUN 20 H Creatinine 1.40 H Estimated GFR 49 L Random Glucose 87 Calcium 9.0 Microbiology 10/29/17 15:08 Blood - Peripheral Aerobic Blood Culture - Preliminary No growth in 3 days 10/29/17 15:08 Blood - Peripheral Anaerobic Blood Culture - Preliminary No growth in 3 days 10/29/17 15:10 Blood - Peripheral Aerobic Blood Culture - Preliminary No growth in 3 days 10/29/17 15:10 Blood - Peripheral Anaerobic Blood Culture - Preliminary No growth in 3 days Assessment and Plan - Assessment (1) Renal insufficiency Code(s): N28.9 - Disorder of kidney and ureter, unspecified Status: Acute (2) COPD exacerbation Code(s): J44.1 - Chronic obstructive pulmonary disease with (acute) exacerbation Status: Acute (3) HTN (hypertension) Code(s): I10 - Essential (primary) hypertension Status: Acute - Plan Mr. Max is a 77 yo M with: CAP/ Musculoskeletal chest wall pain Impression: chest wall pain and right scapular pain on the right. Imaging indicative of PNA on R. Patient with downtrending leukocytosis (15.3k-> 11.8k). -Continue empiric CAP treatment - IV azithromycin and ceftriaxone (started 10/30) -Will transition to oral Azithromycin and Augmentin at discharge -follow blood cultures (negative x3 days) -incentive spirometry. -Continue nebs -Continue to monitor O2 saturations and give O2 as needed -Continue PRN pain control w/ Oxycodone/Morphine Renal insufficiency Impression: Cr 2.4 on admission. Reported history of R hydronephrosis w/ stenting; has upcoming follow-up with Urology Cr trendin.4-> 2.1-> 1.6-> 1.4 today -Will recommend outpatient BMP -monitor BMP and avoid nephrotoxins. -outpt follow-up with urology as scheduled. HTN Blood pressure well controlled. -continue home atenolol. Discussed with PT; declined HH with PT but patient agreeable to front wheeled walker Insomnia -Continue PRN Ambien. Code Status: Full code Discharge Planning: Anticipate discharge today with follow-up with PCP next week
[2017-11-01] MEDS: Azithromycin Inj 500 MG in Sodium Chlor 0.9% Inj 250 ML IV.SIG SCH (15:00)
[2017-11-01 15:47] VITALS: BP 129/65; PULSE 65
--- NOTE | 2017-11-05 21:16 | P.DS ---
Date of admission: 10/29/17 14:57 Primary care physician: Bay Moreno MD Attending physician on discharge: Elian Castro Anticipated date of discharge: 11/01/17 Brief History from admission: The patient is a 77-year-old male with past medical history of hypertension and hydronephrosis who is presenting to the hospital with chest wall pain. The patient states that on Saturday he woke up with intense pain in his right chest wall. He says the pain was an 8 out of 10 in severity. The pain is located at the right upper chest and goes around to involve the right shoulder blade. He says that any movement of his right upper extremity makes the pain worse. He says the pain is constant. The patient has been endorsing cold sweats. He came to the emergency department yesterday and was told he had pneumonia and was discharged with antibiotics. He said that he had to leave the emergency department yesterday because he had to get some affairs in order. He represents to the hospital today with the same right upper chest wall pain. He says he has never had pain like this before. He denies any recent trauma to the area. He denies any shortness of breath. He denies any cough or mucus production. He does endorse a chronic slow and dribbling urine stream. Patient update on day of discharge: Mr. Max was afebrile with stable vital signs overnight. Patient reports continued poor sleep; he has also been more weak over the past couple days since being hospitalized. Patient reports that he is breathing well ; no reported chest pain. No urination or bowel abnormalities. DS: Diagnosis - Discharge Diagnosis (1) Renal insufficiency Status: Acute (2) COPD exacerbation Status: Acute (3) HTN (hypertension) Status: Acute DS: Medications - Discharge Medications Prescriptions: amoxicillin-pot clavulanate [Augmentin] 1 tab PO Q12H #14 tab azithromycin [Zithromax] 500 mg PO DAILY #5 tab oxycodone 5 mg PO Q4H PRN #12 tab PRN Reason: Acute Pain sennosides-docusate sodium [Senna Plus] 1 tab PO BID #30 tab DS: Summary Hospital Course: Mr. Max is a 77-year-old male with PMH HTN and hydronephrosis who presented to [facility] ED with chest pain and cold sweats; he was recently diagnosed with pneumonia in ED 10/28 and discharged with antibiotics. Vital signs stable in ED. CXR on admission was suggestive of R sided pneumonia. Labs on admission with leukocytosis (WBC ~15K) and renal insufficiency (Cr 2.4). Blood cultures obtained (negative). Patient was empirically treated for CAP with Azithromycin and Azithromycin. Patient's chest pain was controlled with opiate pain medications. Patient's Cr improved to 1.4 during hospitalization. PT consulted; HH advised but patient declined; he was given a wheeled walker on discharge. His chest pain resolved and his leukocytosis downtrended. Patient was discharged home 11/01 on Azithromycin and Augmentin for continued CAP treatment with plans to f/u with his PCP and Urology. - Time Spent with Patient Total time spent providing and/or coordinating discharge services: Less than 30 minutes - Quality: VTE Deep Vein Thrombosis/Pulmonary Embolism Present on Admission: No Exam Vital signs: Initial Documented Vital Signs Temperature 97.5 F L 10/29/17 12:57 Pulse Rate 70 10/29/17 12:57 Respiratory Rate 18 10/29/17 12:57 Blood Pressure 131/62 10/29/17 12:57 Pulse Oximetry 100 10/29/17 12:57 Last Documented Vital Signs Temperature 98.4 F 11/01/17 15:46 Pulse Rate 65 11/01/17 15:46 Respiratory Rate 18 11/01/17 15:46 Blood Pressure 129/65 11/01/17 15:46 Pulse Oximetry 96 11/01/17 15:46 Narrative: GENERAL: No distress. SKIN: No visible lesions EYES: EOM grossly I ENT: Mucous membranes pink and moist. CARDIOVASCULAR: Regular rate and rhythm without murmurs. Grossly normal perfusion RESPIRATORY: CTAB; normal rate GASTROINTESTINAL: Abdomen soft, non-tender, nondistended. Normal bowel sounds MUSCULOSKELETAL: Grossly normal ROM and motor function NEUROLOGICAL: Awake and alert. No obvious cranial nerve deficits. Grossly normal peripheral motor/sensory function Results Procedures completed during hospitalization: None - Impressions ITS Impressions Chest X-Ray 10/29/17 13:33 CONCLUSION: New right midlung radiopacity which may represent developing airspace disease. COPD Otherwise stable chest. Discharge Plan - Discharge Disposition Patient Disposition: 01 Discharge Home - Discharge Condition Condition: Fair - Discharge Order Discharge Orders: Discharge Order (Routine); Ordered 11/01/17 Ordered By: Elian Castro - Physicians Team Primary Care Provider: Bay Moreno Attending Provider: Elian Castro Other Providers: Cat Shelton - Rxs /Orders / Referrals /Forms Prescriptions: New amoxicillin-pot clavulanate [Augmentin] 875-125 mg Tablet 1 tab PO Q12H Qty: 14 RF: 0 azithromycin [Zithromax] 250 mg Tablet 500 mg PO DAILY Qty: 5 RF: 0 oxycodone 5 mg Tablet 5 mg PO Q4H PRN (Reason: Acute Pain) Qty: 12 RF: 0 sennosides-docusate sodium [Senna Plus] 8.6-50 mg Tablet 1 tab PO BID Qty: 30 RF: 0 Continue aspirin [Aspir-81] 81 mg Tablet,Delayed Release (Dr/Ec) 81 mg PO DAILY atenolol 50 mg Tablet 50 mg PO DAILY levothyroxine [Synthroid] 25 mcg Tablet 112 mcg PO DAILY Ambulatory Orders / Order Sets / DME: Walker With Front Wheels (1 each) (Routine) Location: Determined by Patient Ordered By: Elian Castro Basic Metabolic Panel (Routine) Timeframe: 3 Days Location: Determined by Patient Ordered By: Elian Castro Referrals: Bay Moreno MD [Primary Care Provider] - See Instructions (Please follow-up with PCP next week Please also follow-up with your Urologist as scheduled) - Post Discharge Care Plan Care Plan Goals: Your Health Problems: Goals to Promote Your Health: * To prevent worsening of your condition * To maintain your health at the optimal level Directions to Meet Your Goals: * Take your medications as prescribed * Follow your dietary instruction * Follow activity as directed * Keep your appointments as scheduled * Take your immunizations and boosters as scheduled * If your symptoms worsen call your PCP * If no PCP go to Urgent Care or Emergency Room Smoking is dangerous to your health. Avoid second hand smoke. You may reach the 24-hour crisis hotline for domestic abuse at .
== END 2017-11-01 17:45 | disposition home or self-care (01) ==
LOC: PHED 11:41 → PHEDA 14:57 → PHED 16:10 → PH3 16:32
PROVIDERS: ADMIT Family Medicine; ATTEND Family Medicine

== ENCOUNTER 2017-11-14 14:15 | Inpatient (IN) ==
--- NOTE | 2017-11-14 15:24 | XR ---
EXAM DATE: 11/14/2017 12:00 AM EDT AGE/SEX: 77 years / Male INDICATIONS: . Short of breath, sent by the drJigna CLINICAL DATA: This is the patient's initial encounter. Patient reports that signs and symptoms have been present for 1 day and indicates a pain score of 0/10. MEDICAL/SURGICAL HISTORY: . pneumonia 2 weeks ago, COPD None. COMPARISON: [facility], CHEST 1V SINGLE AP, 10/29/2017. . FINDINGS: Near expiratory PA and lateral views. Mild interstitial prominence exaggerated by low lung volumes. N o significant new focal pleural or parenchymal opacities.. The cardiomediastinal contours are unrema rkable. Osseous structures are intact. CONCLUSION: 1. No acute abnormality or significant interval change. Electronically signed by: Germán Katz MD 11/14/2017 3:23 PM EDT
--- NOTE | 2017-11-14 18:11 | ED ---
HPI General Chief complaint: Respiratory Symptoms Stated complaint: Medical Time Seen by Provider: 11/14/17 17:48 Source: patient and RN notes reviewed Mode of arrival: wheelchair Limitations: no limitations History of Present Illness HPI narrative: 77-year-old male presents to the emergency department for evaluation of shortness of breath. He states his primary care physician, Dr. Moreno, symptom to the emergency department because his oxygen saturation becomes low when he stands up. He reports shortness of breath and low back pain. Reports history of chronic back pain with states this is worse than normal. Patient denies any chest pain. No fevers. He reports intermittent chills. No nausea, vomiting, diarrhea. Patient has past medical history of hypertension, COPD, hypothyroidism, pneumonia, renal insufficiency. 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 Patient was recently admitted to the [facility] for pneumonia and received IV antibiotics. He is not currently on antibiotics. Moderate severity. Patient does report having some mild diffuse abdominal cramping as well. Radiation: non-radiation Severity: moderate Exacerbating factors: other (exertion) Associated symptoms: shortness of breath and other (low back pain) Related Data Home Medications Medication Instructions Recorded Confirmed aspirin [Aspir-81] 81 mg PO DAILY 10/28/17 10/29/17 levothyroxine [Synthroid] 112 mcg PO DAILY 10/28/17 10/29/17 atenolol 50 mg PO DAILY 10/29/17 10/29/17 Previous Rx's Medication Instructions Recorded amoxicillin-pot clavulanate 1 tab PO Q12H #14 tab 11/01/17 [Augmentin] azithromycin [Zithromax] 500 mg PO DAILY #5 tab 11/01/17 oxycodone 5 mg PO Q4H PRN #12 tab 11/01/17 sennosides-docusate sodium [Senna 1 tab PO BID #30 tab 11/01/17 Plus] Allergies Allergy/AdvReac Type Severity Reaction Status Date / Time No Known Allergies Allergy Verified 11/14/17 14:41 Review of Systems ROS: all other systems reviewed are negative PMF Family History Family History Other Patient denies significant medical history Social History Social History Substance History: Active Abuse Second Hand Smoke Exposure: No Smoking Status: Former smoker Tobacco Type: Cigarettes How Often Do You Have a Drink Containing Alcohol: 2 to 4 times a month Recent Travel in [facility] [place] within the Last 8 Weeks: No Recent Out of Country Travel within the Last 8 Weeks: No Substance Abuse Detail Marijuana: Substance Use Status: Active Immunization History Tetanus Immunization: <5 Years Hx Influenza Vaccine This Season: No Exam Narrative Exam Narrative: GENERAL: Well-nourished, well-developed male patient, afebrile. SKIN: Focused skin assessment warm/dry. HEAD: Normocephalic. Atraumatic. EYES: No scleral icterus. No injection or drainage. NECK: Supple, trachea midline. No JVD or lymphadenopathy. CARDIOVASCULAR: Regular rate and rhythm without murmurs, gallops, or rubs. Bilateral radial and pedal pulses are 2+ RESPIRATORY: Breath sounds equal bilaterally. No accessory muscle use. Lung sounds are clear to auscultation. GASTROINTESTINAL: Abdomen soft, non-tender, nondistended. MUSCULOSKELETAL: No cyanosis. 2+ bilateral lower extremity edema. BACK: Nontender without obvious deformity. No CVA tenderness. Course Initial Documented Vital Signs Temperature 97.8 F 11/14/17 14:38 Pulse Rate 85 11/14/17 14:38 Respiratory Rate 20 11/14/17 14:38 Blood Pressure 108/54 L 11/14/17 14:38 Pulse Oximetry 99 11/14/17 14:38 Last Documented Vital Signs Temperature 97.8 F 11/14/17 14:38 Pulse Rate 62 11/14/17 18:32 Respiratory Rate 30 H 11/14/17 18:32 Blood Pressure 119/58 L 11/14/17 18:32 Pulse Oximetry 96 11/14/17 18:32 Medical Decision Making [facility] Narrative Medical decision making narrative: 37-year-old male presents to the emergency department for evaluation of shortness of breath, sent by his primary care physician. On saturation is 99-100% on room air. Chest x-ray was done in triage which shows no acute abnormality. IV access is obtained. EKG, CBC, CMP , CK, troponin, magnesium, BNP, PTT, PT/INR are ordered and pending. CT of the chest and CT abdomen/pelvis without contrast ordered and pending. Patient is given morphine 2 mg IV, Zofran 4 mg IV for pain. EKG shows sinus rhythm, heart rate 81, no acute ST changes. CBC shows leukocytosis 16.2, no acute abnormality. CMP shows elevated BUN 59, creatinine 2.77, this is increased from previous BUN of 20, creatinine of 1.40 on November 01. CK is 29. Troponin is less than 0.02. Magnesium is 2.0. PTT is 32.9. PT/INR is 11.4/1.1. CT of the chest shows multiple new findings in the chest highly suspicious for malignancy including numerous bilateral masses, 2 of which are cavitary, and a greater than 7 cm lobular right retrocrural mass. CT of the abdomen/pelvis shows abnormal appearance to the right kidney with loss of architecture, masslike extension expanding the inferior vena cava and possibly involving the arterial cavityand possible extension to the liver, there are 2 low-density lesions the liver, right lobe and central left lobe which cannot be further characterized on noncontrast study, but given the other findings, are suspicious for metastasis, greater than 7 cm lobular right retrocrural mass. Patient reports no history of cancer. He states he has been seeing Dr. Dunlap for urology, Dr. Moreno his primary care physician. Patient will be admitted for further evaluation. Patient complains of further back pain. He is given morphine 4 mg IV. Patient is given normal saline [address] Bazan accepted admission. Medical Screen Exam Complete: Yes Emergency Medical Condition: Yes Differential Diagnosis Differential Diagnosis: Pneumonia versus COPD exacerbation versus CHF versus UTI versus electrolyte abnormality Medical Records Medical records reviewed: Yes I reviewed the patient's medical records. Lab Data Result diagrams: 11/14/17 18:16 11/14/17 18:16 Lab Results 11/14/17 11/14/17 11/14/17 Range/Units 18:16 18:16 18:16 WBC 16.2 H (4.0-11.0) th/mm3 RBC 4.12 L (4.50-5.90) mil/mm3 Hgb 11.7 L (13.0-17.0) gm/dL Hct 36.3 L (39.0-51.0) % MCV 88.1 (80.0-100.0) fL MCH 28.4 (27.0-34.0) pg MCHC 32.2 (32.0-36.0) % RDW 16.2 (11.6-17.2) % Plt Count 335 D (150-450) th/mm3 MPV 8.0 (7.0-11.0) fL Neut % (Auto) 87.1 H (16.0-70.0) % Lymph % (Auto) 6.1 L (9.0-44.0) % [place] % (Auto) 4.7 (0.0-8.0) % Eos % (Auto) 1.7 (0.0-4.0) % Baso % (Auto) 0.4 (0.0-2.0) % Neut # (Auto) 14.1 H (1.8-7.7) th/mm3 Lymph # (Auto) 1.0 (1.0-4.8) th/mm3 [place] # (Auto) 0.8 (0.0-0.9) th/mm3 Eos # (Auto) 0.3 (0.0-0.4) th/mm3 Baso # (Auto) 0.1 (0.0-0.2) th/mm3 WBC Differential . Differential Comment Auto diff final PT 11.4 (9.8-11.6) sec INR 1.1 Ratio APTT 32.9 H (24.3-30.1) sec Sodium 136 (136-145) meq/L Potassium 4.6 (3.5-5.1) meq/L Chloride 102 (98-107) meq/L Carbon Dioxide 21.7 (21.0-32.0) meq/L Anion Gap 12 (5-15) meq/L BUN 59 H (7-18) mg/dL Creatinine 2.77 H (0.60-1.30) mg/dL Estimated GFR 22 L (>89) mL/min Random Glucose 95 (74-106) mg/dL Calcium 9.9 (8.5-10.1) mg/dL Magnesium 2.0 (1.5-2.5) mg/dL Total Bilirubin 0.7 (0.2-1.0) mg/dL AST 30 (15-37) U/L ALT 30 (12-78) U/L Alkaline Phosphatase 73 (45-117) U/L Total Creatine Kinase 29 L (39-308) U/L Troponin I Less than 0.02 L (0.02-0.05) ng/mL Total Protein 8.7 H (6.4-8.2) g/dL Albumin 3.7 (3.4-5.0) g/dL Imaging Data Radiologist's impression: Chest X-Ray 11/14/17 00:00 CONCLUSION: 1. No acute abnormality or significant interval change. Chest CT 11/14/17 18:02 CONCLUSION: 1. Multiple new findings in the chest highly suspicious for malignancy including numerous bilateral irregular margin along masses, 2 of which are cavitary, and a greater than 7 cm lobular right retrocrural mass. Abdomen/Pelvis CT 11/14/17 18:04 CONCLUSION: 1. Abnormal appearance to the right kidney with loss of architecture, masslike extension expanding the inferior vena cava and possibly involving the aortocaval space and possible extension into the liver. 2. There are 2 low density lesions in the liver, right lobe and central left lobe which cannot be further characterized on noncontrast study, but given the other findings, are suspicious for metastasis. 3. Greater than 7 cm lobular right retrocrural mass. Discharge Plan Discharge Disposition Patient Disposition: 30 Still Patient Discharge Details Diagnosis: Lung mass, Mass of right kidney, ANIA (acute kidney injury) Physicians Team ED Provider: Sree Allen ED Midlevel Provider: Darlene Roman Primary Care Provider: Bay Moreno Rxs /Orders / Referrals /Forms Prescriptions: No Action atenolol 50 mg Tablet 50 mg PO DAILY RF: 0 azithromycin [Zithromax] 250 mg Tablet 500 mg PO DAILY Qty: 5 RF: 0 sennosides-docusate sodium [Senna Plus] 8.6-50 mg Tablet 1 tab PO BID Qty: 30 RF: 0 amoxicillin-pot clavulanate [Augmentin] 875-125 mg Tablet 1 tab PO Q12H Qty: 14 RF: 0 oxycodone 5 mg Tablet 5 mg PO Q4H PRN (Reason: Acute Pain) Qty: 12 RF: 0 aspirin [Aspir-81] 81 mg Tablet,Delayed Release (Dr/Ec) 81 mg PO DAILY RF: 0 levothyroxine [Synthroid] 25 mcg Tablet 112 mcg PO DAILY RF: 0 Discharge Interventions Interventions: Vital Signs Last Done: 11/14/17 18:32 Status ED Status: With Doctor
[2017-11-14] MEDS ORDERED: Morphine Sulfate Inj 2 MG/ML Vial IV.PUSH ONE (18:18)
[2017-11-14 18:50] LABS: Baso # (Auto) 0.1 th/mm3 (0.0-0.2); Baso % (Auto) 0.4 % (0.0-2.0); Eos # (Auto) 0.3 th/mm3 (0.0-0.4); Eos % (Auto) 1.7 % (0.0-4.0); Hematocrit 36.3 % (39.0-51.0); Hemoglobin 11.7 gm/dL (13.0-17.0); Lymph % (Auto) 6.1 % (9.0-44.0); Mean Corpuscular HGB Conc 32.2 % (32.0-36.0); Mean Corpuscular Hemoglobin 28.4 pg (27.0-34.0); Mean Corpuscular Volume 88.1 fL (80.0-100.0); Mono # (Auto) 0.8 th/mm3 (0.0-0.9); Mono % (Auto) 4.7 % (0.0-8.0); Neut # (Auto) 14.1 th/mm3 (1.8-7.7); Neut % (Auto) 87.1 % (16.0-70.0); Platelet Count 335 th/mm3 (150-450); Red Blood Count 4.12 mil/mm3 (4.50-5.90); Red Cell Distribution Width 16.2 % (11.6-17.2); White Blood Count 16.2 th/mm3 (4.0-11.0)
[2017-11-14 18:59] LABS: Activated Partial Thrombo Time 32.9 sec (24.3-30.1); INR 1.1 Ratio; Prothrombin Time 11.4 sec (9.8-11.6)
[2017-11-14 19:13] LABS: Albumin 3.7 g/dL (3.4-5.0); Anion Gap 12 meq/L (5-15); Aspartate Aminotransferase 30 U/L (15-37); Blood Urea Nitrogen 59 mg/dL (7-18); Calcium 9.9 mg/dL (8.5-10.1); Carbon Dioxide 21.7 meq/L (21.0-32.0); Chloride 102 meq/L (98-107); Glomerular Filtration Rate 22 mL/min (>89); Glucose,Random 95 mg/dL (74-106); Potassium 4.6 meq/L (3.5-5.1); Sodium 136 meq/L (136-145)
[2017-11-14 19:14] LABS: Alanine Aminotransferase 30 U/L (12-78)
[2017-11-14 19:17] LABS: Alkaline Phosphatase 73 U/L (45-117); Total Protein 8.7 g/dL (6.4-8.2)
[2017-11-14 19:23] LABS: Creatine Kinase 29 U/L (39-308)
--- NOTE | 2017-11-14 19:49 | CT ---
EXAM DATE: 11/14/2017 6:11 PM EDT AGE/SEX: 77 years / Male INDICATIONS: Shortness of breath. CLINICAL DATA: This is the patient's initial encounter. Patient reports that signs and symptoms have been present for 1 day and indicates a pain score of 0/10. MEDICAL/SURGICAL HISTORY: Chronic obstructive pulmonary disease. Hypertension. Chronic renal insu fficiency. Appendectomy. RADIATION DOSE: 5.51 CTDI (mGy) ; Combined studies COMPARISON: POI, CT LUNG SCREENING, 11/21/2016. . TECHNIQUE: Multiple contiguous axial images were obtained through the chest without contrast. Image s were obtained in suspended respiration using multiple row detector helical technique. Using automa celena exposure control and adjustment of the mA and/or kV according to patient size, radiation dose was kept as low as reasonably achievable to obtain optimal diagnostic quality images. DICOM format imag e data is available electronically for review and comparison. FINDINGS: Lungs: Abnormal. There are multiple new irregular margin mass like lesions located medial right midl mendoza measuring 7 mm (image #19), lateral left midlung measuring 5 mm, about the left lower lobe vascul ar bundle measuring 1 cm, posterior lateral right midlung measuring 5 mm, cavitary lesion in the post erior left midlung measuring 1.6 cm, cavitary lesion in the medial right lower lung measuring 6 mm an d a irregular spiculated mass in the right costophrenic angle measuring 6 mm. Mediastinum: There is good visualization of the great vessels of the middle mediastinum. No evidenc e of mediastinal or hilar adenopathy/mass. 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 Coronary artery calcifications. Pleurae: No evidence of focal thickening or pleural effusion. Axillae: Unremarkable. Bony Structures: Unremarkable. Other: There is a new lobular mass in the retrocrural region on the right side measuring 7.2 x 4.9 cm . This causes loss of delineation of the interface with the descending aorta from the 9:00 to 6:[address] density in this mass is 17 Hounsfield units. The mass does cause lateral deviation of t he right diaphragmatic crura. CONCLUSION: 1. Multiple new findings in the chest highly suspicious for malignancy including numerous bilateral irregular margin along masses, 2 of which are cavitary, and a greater than 7 cm lobular right retrocr ural mass. Electronically signed by: Kieran Coles MD 11/14/2017 7:48 PM EDT
--- NOTE | 2017-11-14 19:57 | CT ---
EXAM DATE: 11/14/2017 6:11 PM EDT AGE/SEX: 77 years / Male INDICATIONS: Lower abdomen and back pain. CLINICAL DATA: This is the patient's initial encounter. Patient reports that signs and symptoms have been present for 1 day and indicates a pain score of 10/10. MEDICAL/SURGICAL HISTORY: Chronic obstructive pulmonary disease. Hypertension. Chronic renal insufficiency. Appendectomy. RADIATION DOSE: 5.51 CTDI (mGy) ; Combined studies COMPARISON: No prior exams available for comparison. TECHNIQUE: Multiple contiguous axial images were obtained through the abdomen. Images were obtained using multiple row detector helical technique. Using automated exposure control and adjustment of the mA and/or kV according to patient size, radiation dose was kept as low as reasonably achievable to o btain optimal diagnostic quality images. DICOM format image data is available electronically for rev iew and comparison. FINDINGS: Lower Lungs: New lobular right retrocrural mass measuring 7.2 x 4.9 cm. Liver: 2.2 cm low-density mass in the posterior right lobe and ill-defined hypodensity in the central left lobe measuring 1.3 cm. Peripherally calcified gallstone measuring 2.4 cm. Spleen: Homogeneous density without enlargement. Pancreas: Unremarkable without mass or calcification. Kidneys: Markedly abnormal appearance to the right kidney with diffuse enlargement and loss of delin eation of the central collecting system. There is lobular extension, low density into the IVC measuri ng 4.4 cm and an exophytic component superior and anterior which either indents or invades the right lobe of the liver, measuring 4.8 cm. There is a 3.8 cm exophytic low density lesion arising from the lower pole which could represent a cyst. There is a dominant transcortical cyst in the midpole of the left kidney measuring 4.5 cm. No evidence of hydronephrosis. Adrenal Glands: Unremarkable. 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 Ther e is loss of fat in the aortocaval space adjacent to the introducer adenopathy. Bowel/Mesentery: No dilated loops of small or large bowel. Abdominal Wall: Intact. Retroperitoneum: No evidence of adenopathy in the retrocrural, para-aortic, or deep pelvic regions. Bladder: Contours are smooth. Reproductive Organs: No abnormal masses or calcifications seen. Inguinal: The inguinal region is unremarkable without evidence of adenopathy. Bony Structures: No lytic or sclerotic lesions seen.. CONCLUSION: 1. Abnormal appearance to the right kidney with loss of architecture, masslike extension expanding t he inferior vena cava and possibly involving the aortocaval space and possible extension into the penelope er. 2. There are 2 low density lesions in the liver, right lobe and central left lobe which cannot be fu rther characterized on noncontrast study, but given the other findings, are suspicious for metastasis . 3. Greater than 7 cm lobular right retrocrural mass. Electronically signed by: Kieran Coles MD 11/14/2017 7:56 PM EDT
[2017-11-14] MEDS ORDERED: Morphine Inj 4 MG/ML Vial IV.PUSH ONE (20:23)
[2017-11-14] MEDS ORDERED: Sod Chloride 0.9% Inj 1,000 ML IV.SIG ONE (20:23)
[2017-11-14] MEDS ORDERED: Bisacodyl 10 MG Supp RECTAL PRN (20:38)
[2017-11-14] MEDS ORDERED: Morphine Inj 4 MG/ML Vial IV.PUSH PRN (20:40)
[2017-11-14] MEDS ORDERED: HYDROmorphone PF Inj 2 MG/ML Vial IV.PUSH PRN (20:40)
[2017-11-14] MEDS ORDERED: Naloxone Inj 0.4 MG/ML Vial IV.PUSH PRN (20:40)
[2017-11-14] MEDS ORDERED: Promethazine 25 MG Supp RECTAL PRN (20:41)
[2017-11-14] MEDS: Sod Chloride 0.9% Inj 1,000 ML IV.CONT SCH (21:51)
--- NOTE | 2017-11-14 22:28 | P.HPIM ---
History of Present Illness Service: [facility] Primary Care Physician: Bay Moreno MD Chief Complaint: sob and back pain History of Present Illness: 77-year-old male with a history of COPD, hypertension, hypothyroid, CKD presented to the ED with complaints of sob. He was seen by his PCP who sent him in for evaluation because his O2 sat drops when standing. He complains of sob with exertion and lower back pain that radiates along his belt line. He states since getting morphine he feels no sob and back pain is only worse with movement. He does state he has had a 40 unintentional weight loss in the last 2 months. Denies any associated nausea, vomiting, cough, sputum production or dysuria. Inpatient Certification: I certify that the inpatient services were ordered in accordance with Medicare regulations governing the order. This includes certification that hospital inpatient services are reasonable and necessary and in the case of services not specified as inpatient-only under 42 CFR 419.22(n), that they are appropriately provided as inpatient services in accordance to with the 2-midnight benchmark under 43 CFR 412.3(e) Estimated Total Length of Stay (Days): 2 Plans for Post Hospital Care: Home Review of Systems All other systems reviewed negative except as stated in HPI PMFSH - History History Provided By: Patient - Medical History Medical History: Medical History (Last Updated 11/14/17 @ 22:14 by ANJALI Tillman) COPD (chronic obstructive pulmonary disease) Hydronephrosis, right Hypertension Hypothyroidism Pneumonia - Surgical History Surgical History: Surgical History (Last Reviewed 11/14/17 @ 22:14 by ANJALI Tillman) Heel bone fracture History of appendectomy History of tonsillectomy - Family History Family History: Family History (Last Reviewed 11/14/17 @ 22:13 by ANJALI Tillman) Mother CAD (coronary artery disease) - Tobacco History Second Hand Smoke Exposure: No Smoking Status: Former smoker Tobacco Type: Cigarettes Smoking End Date: 2005 - Alcohol History How Often Do You Have a Drink Containing Alcohol: 2 to 4 times a month - Substance Use History 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 - Travel History Recent Travel in the [place] Within the Last 8 Weeks: No Recent Travel Out of the Country Within the Last 8 Weeks: No - Immunization History Tetanus Immunization: <5 Years Hx Influenza Vaccine This Season: No Medications and Allergies Active Medications: Active Medications Al Hydroxide/Mg Hydroxide (Milk Of Magnesia Liq) 30 ml PO Q12H PRN PRN Reason: Mild Constipation Bisacodyl (Dulcolax Supp) 10 mg RECTAL DAILY PRN PRN Reason: SEVERE CONSITIPATION Hydromorphone HCl (Dilaudid Pf Inj) 1 mg IV.PUSH Q3H PRN PRN Reason: PAIN 6-10;IF UNABLE TO TAKE PO Sodium Chloride (Ns Inj) 1,000 mls @ 100 mls/hr IV.CONT .Q10H JAVIER Last Admin: 11/14/17 21:51 Dose: 100 mls/hr Lactulose (Lactulose Liq) 30 ml PO DAILY PRN PRN Reason: SEVERE CONSITIPATION Morphine Sulfate (Morphine Inj) 2 mg IV.PUSH Q3H PRN PRN Reason: PAIN 3-5; IF UABLE TO TAKE PO Morphine Sulfate (Morphine Inj) 4 mg IV.PUSH Q3H PRN PRN Reason: BREAKTHROUGH PAIN Naloxone HCl (Narcan Inj) 0.4 mg IV.PUSH UNSCH PRN PRN Reason: SEE LABEL COMMENTS Ondansetron HCl (Zofran Odt) 4 mg PO Q6H PRN PRN Reason: NAUSEA OR VOMITING Ondansetron HCl (Zofran Inj) 4 mg IV.PUSH Q6H PRN PRN Reason: NAUSEA OR VOMITING Oxycodone/Acetaminophen (Percocet 10/325 Mg) 1 tab PO Q6H PRN PRN Reason: PAIN SCALE 6 TO 10 Oxycodone/Acetaminophen (Percocet 5/325 Mg) 1 tab PO Q6H PRN PRN Reason: PAIN SCALE 3 TO 5 Promethazine HCl (Phenergan) 25 mg PO Q6H PRN PRN Reason: NAUSEA OR VOMITING Promethazine HCl (Phenergan Supp) 25 mg RECTAL Q6H PRN PRN Reason: NAUSEA OR VOMITING Sennosides (Senokot) 17.2 mg PO Q12H PRN PRN Reason: Moderate Constipation Allergies Allergy/AdvReac Type Severity Reaction Status Date / Time No Known Allergies Allergy Verified 11/14/17 14:41 Home Medications Medication Instructions Recorded Confirmed Type levothyroxine [Synthroid] 112 mcg PO DAILY 10/28/17 11/14/17 History atenolol 50 mg PO DAILY 10/29/17 11/14/17 History Exam Vital signs: Vital Signs 11/14/17 14:38 11/14/17 18:31 11/14/17 18:32 Temperature 97.8 F Pulse Rate 85 62 Respiratory Rate 20 30 H Blood Pressure 108/54 L 119/58 L Pulse Oximetry 99 96 96 11/14/17 20:45 11/14/17 21:11 Temperature Pulse Rate 88 Respiratory Rate 18 18 Blood Pressure 122/66 Pulse Oximetry 100 Intake & Output 11/14/17 11/14/17 11/15/17 06:59 18:59 06:59 Intake Total 1000 / 1000 Balance 1000 / 1000 Weight 90.718 kg Intake: IV 1000 / 1000 NS Inj 1,000 ML @ Wide Open IV. 1000 / 1000 SIG BOLUS ONE Rx#:[id number] Narrative: GENERAL: This is a well-nourished, well-developed patient, who appears in less pain CARDIOVASCULAR: Regular rate and rhythm without murmurs, gallops, or rubs. RESPIRATORY:Diminished breath sounds, no wheezes or rhonchi GASTROINTESTINAL: Abdomen soft, lower abdominal tender, nondistended. Normal active bowel sounds MUSCULOSKELETAL: bilateral lower extremities +2 edema, minimal pitting NEURO: Alert & Oriented x4 to person, place, time, situation. Moves all ext x4 Results - Labs CBC & Chem 7: 11/14/17 18:16 11/14/17 18:16 Labs: Short CBC 11/14/17 Range/Units 18:16 WBC 16.2 H (4.0-11.0) th/mm3 Hgb 11.7 L (13.0-17.0) gm/dL Hct 36.3 L (39.0-51.0) % Plt Count 335 D (150-450) th/mm3 BMP 11/14/17 18:16 Sodium 136 Potassium 4.6 Chloride 102 Carbon Dioxide 21.7 BUN 59 H Creatinine 2.77 H Calcium 9.9 Cardiac Enzymes 11/14/17 Range/Units 18:16 Total Creatine Kinase 29 L (39-308) U/L Troponin I Less than 0.02 L (0.02-0.05) ng/mL Liver Function 11/14/17 Range/Units 18:16 Total Bilirubin 0.7 (0.2-1.0) mg/dL AST 30 (15-37) U/L ALT 30 (12-78) U/L Alkaline Phosphatase 73 (45-117) U/L Albumin 3.7 (3.4-5.0) g/dL - Imaging Impressions Chest X-Ray 11/14/17 00:00 CONCLUSION: 1. No acute abnormality or significant interval change. Chest CT 11/14/17 18:02 CONCLUSION: 1. Multiple new findings in the chest highly suspicious for malignancy including numerous bilateral irregular margin along masses, 2 of which are cavitary, and a greater than 7 cm lobular right retrocrural mass. Abdomen/Pelvis CT 11/14/17 18:04 CONCLUSION: 1. Abnormal appearance to the right kidney with loss of architecture, masslike extension expanding the inferior vena cava and possibly involving the aortocaval space and possible extension into the liver. 2. There are 2 low density lesions in the liver, right lobe and central left lobe which cannot be further characterized on noncontrast study, but given the other findings, are suspicious for metastasis. 3. Greater than 7 cm lobular right retrocrural mass. Caprini VTE Risk Assessment Caprini VTE Risk Assessment: Moderate/High Risk (score >= 2) Caprini Risk Assessment Model: Point Value = 1 Point Value = 2 Point Value = 3 Point Value = 5 Age 41-60 Minor surgery BMI > 25 kg/m2 Swollen legs Varicose veins or History of unexplained or recurrent spontaneous Oral contraceptives or hormone replacement Sepsis (< 1 month) Serious lung disease, including pneumonia (< 1 month) Abnormal pulmonary function Acute myocardial infarction Congestive heart failure (< 1 month) History of inflammatory bowel disease Medical patient at bed rest Age 61-74 Arthroscopic surgery Major open surgery (> 45 min) Laparoscopic surgery (> 45 min) Malignancy Confined to bed (> 72 hours) Immobilizing plaster cast Central venous access Age >= 75 History of VTE Family history of VTE Factor V Leiden Prothrombin 44088H Lupus anticoagulant Anticardiolipin antibodies Elevated serum homocysteine Heparin-induced thrombocytopenia Other congenital or acquired thrombophilia Stroke (< 1 month) Elective arthroplasty Hip, pelvis, or leg fracture Acute spinal cord injury (< 1 month) Prophylaxis Regimen: Total Risk Factor Score Risk Level Prophylaxis Regimen 0-1 Low Early ambulation 2 Moderate Order ONE of the following: *Sequential Compression Device (SCD) *Heparin 5000 units SQ BID 3-4 Higher Order ONE of the following medications: *Heparin 5000 units SQ TID *Enoxaparin/Lovenox 40 mg SQ daily (WT < 150 kg, CrCl > 30 mL/min) *Enoxaparin/Lovenox 30 mg SQ daily (WT < 150 kg, CrCl > 10-29 mL/min) *Enoxaparin/Lovenox 30 mg SQ BID (WT < 150 kg, CrCl > 30 mL/min) AND/OR *Sequential Compression Device (SCD) 5 or more Highest Order ONE of the following medications: *Heparin 5000 units SQ TID (Preferred with Epidurals) *Enoxaparin/Lovenox 40 mg SQ daily (WT < 150 kg, CrCl > 30 mL/min) *Enoxaparin/Lovenox 30 mg SQ daily (WT < 150 kg, CrCl > 10-29 mL/min) *Enoxaparin/Lovenox 30 mg SQ BID (WT < 150 kg, CrCl > 30 mL/min) AND *Sequential Compression Device (SCD) Assessment and Plan - Plan 77-year-old male with a history of COPD, hypertension, hypothyroid, CKD presented to the ED with complaints of sob and back pain. Abdominal and back pain, likely related to multiple lesions Abd CT reviewed and shows 2 lesions in the liver and a 7cm lobular right retrocrural mass -Consult to oncology for evaluation -pain management with IV morphine and Percocet -Consult IR for biopsy of mass Dyspnea Chest CT reviewed and shows numerous bilateral irregular masses -Await oncology recommendations -DuoNeb as needed -walk test ordered -Echo ordered, patient with lower extremity edema Leukocytosis, likely reactive -CBC in AM -UA pending -Hold on antibiotics at this time ANIA on CKD, creatine 2.7, baseline -NS bolus given in ED -trend creatine -avoid nephrotoxins Hypertension, chronic -Resume home atenolol, monitor vitals Hypothyroidism, chronic -Resume home levothyroxine DVT prophylaxis: SCDs, hold chemical until evaluated by onc Discussed Condition With: Patient and RN
[2017-11-14 23:01] LABS: Bilirubin,Urine Negative (Negative); Clarity,Urine Hazy (Clear); Color,Urine Yellow (Yellw/Straw); Glucose,Urine (UA) Negative (Negative); Leukocyte Esterase,Urine Negative (Negative); Mucus,Urine Few /lpf (Occasional); Nitrite,Urine Negative (Negative); Transitional Epi Cells,Urine 1 /hpf
[2017-11-15] MEDS: oxyCODONE/Acetaminophen 10/325 Tablet PO PRN ×4 (05:55→22:02)
[2017-11-15 07:22] LABS: Baso % (Auto) 0.4 % (0.0-2.0); Eos # (Auto) 0.3 th/mm3 (0.0-0.4); Eos % (Auto) 2.3 % (0.0-4.0); Hematocrit 29.4 % (39.0-51.0); Hemoglobin 9.7 gm/dL (13.0-17.0); Lymph % (Auto) 9.1 % (9.0-44.0); Mean Corpuscular Hemoglobin 28.5 pg (27.0-34.0); Mean Corpuscular Volume 86.5 fL (80.0-100.0); Mean Platelet Volume 7.5 fL (7.0-11.0); Mono # (Auto) 0.6 th/mm3 (0.0-0.9); Mono % (Auto) 5.3 % (0.0-8.0); Neut # (Auto) 9.3 th/mm3 (1.8-7.7); Neut % (Auto) 82.9 % (16.0-70.0); Platelet Count 250 th/mm3 (150-450); Red Cell Distribution Width 16.2 % (11.6-17.2); White Blood Count 11.2 th/mm3 (4.0-11.0)
[2017-11-15] MEDS: Atenolol 50 MG Tablet PO SCH (08:31)
[2017-11-15 08:42] LABS: Alanine Aminotransferase 25 U/L (12-78); Albumin 2.9 g/dL (3.4-5.0); Alkaline Phosphatase 60 U/L (45-117); Anion Gap 8 meq/L (5-15); Aspartate Aminotransferase 21 U/L (15-37); Blood Urea Nitrogen 54 mg/dL (7-18); Calcium 8.9 mg/dL (8.5-10.1); Carbon Dioxide 23.9 meq/L (21.0-32.0); Chloride 108 meq/L (98-107); Glomerular Filtration Rate 26 mL/min (>89); Glucose,Random 81 mg/dL (74-106); Potassium 4.3 meq/L (3.5-5.1); Sodium 140 meq/L (136-145); Total Protein 6.8 g/dL (6.4-8.2)
--- NOTE | 2017-11-15 09:41 | US ---
EXAM DATE: 11/15/2017 9:02 AM EDT AGE/SEX: 77 years / Male INDICATIONS: Right leg swelling. CLINICAL DATA: This is the patient's initial encounter. Patient reports that signs and symptoms have been present for 1 day and indicates a pain score of 0/10. MEDICAL/SURGICAL HISTORY: Chronic obstructive pulmonary disease. Hypertension. Hypothyroidism . Hydronephrosis. Appendectomy. Tonsillectomy. Bone fracture. COMPARISON: No prior exams available for comparison. TECHNIQUE: Venous ultrasound of both lower extremities was performed from the inguinal ligament to t he proximal calf. Real-time, color Doppler and spectral tracing, compression and augmentation techni ques were used. FINDINGS: Normal compression of the deep venous system from the inguinal region to the proximal calf . No echogenic clot is seen. Normal response of the venous system to augmentation and respiration. CONCLUSION: 1. No sonographic evidence for lower extremity DVT. Electronically signed by: Germán Katz MD 11/15/2017 9:40 AM EDT
[2017-11-15] MEDS: Sod Chloride 0.9% Inj 1,000 ML IV.CONT SCH ×2 (09:58→17:03)
--- NOTE | 2017-11-15 10:47 | P.PN ---
Subjective Interval history: Nursing denies any deterioration since last night. says he is not as short of breath now. Physical Exam Vital signs: Vital Signs 11/14/17 14:38 11/14/17 18:31 11/14/17 18:32 Temperature 97.8 F Pulse Rate 85 62 Respiratory Rate 20 30 H Blood Pressure 108/54 L 119/58 L Pulse Oximetry 99 96 96 11/14/17 20:45 11/14/17 21:11 11/15/17 01:30 Temperature 98.7 F Pulse Rate 88 86 Respiratory Rate 18 18 17 Blood Pressure 122/66 105/66 Pulse Oximetry 100 96 11/15/17 02:00 11/15/17 04:00 11/15/17 05:44 Temperature 98.0 F Pulse Rate 73 71 Respiratory Rate 19 20 Blood Pressure 110/48 L 100/55 L Pulse Oximetry 96 96 99 11/15/17 08:00 11/15/17 09:00 Temperature 98.2 F Pulse Rate 69 68 Respiratory Rate 18 Blood Pressure 104/62 Pulse Oximetry 100 Intake & Output 11/14/17 11/15/17 11/15/17 18:59 06:59 18:59 Intake Total 1000 / 1000 1000 / 1000 Output Total 100 / 100 Balance 900 / 900 1000 / 1000 Weight 90.718 kg 91.6 kg Intake: IV 1000 / 1000 1000 / 1000 NS Inj 1,000 ML @ 100 mls/hr IV 1000 / 1000 .CONT .Q10H JAVIER Rx#:[id number] NS Inj 1,000 ML @ Wide Open IV. 1000 / 1000 SIG BOLUS ONE Rx#:[id number] Output: Urine 100 / 100 Other: Date of Last Bowel Movement 11/14/17 Results - Labs CBC & Chem 7: 11/15/17 06:59 11/15/17 06:59 Laboratory Results - last 24 hr 11/14/17 11/14/17 11/14/17 18:16 18:16 18:16 WBC 16.2 H RBC 4.12 L Hgb 11.7 L Hct 36.3 L MCV 88.1 MCH 28.4 MCHC 32.2 RDW 16.2 Plt Count 335 D MPV 8.0 Neut % (Auto) 87.1 H Lymph % (Auto) 6.1 L [place] % (Auto) 4.7 Eos % (Auto) 1.7 Baso % (Auto) 0.4 Neut # (Auto) 14.1 H Lymph # (Auto) 1.0 [place] # (Auto) 0.8 Eos # (Auto) 0.3 Baso # (Auto) 0.1 WBC Differential . Differential Comment Auto diff final PT 11.4 INR 1.1 APTT 32.9 H Sodium 136 Potassium 4.6 Chloride 102 Carbon Dioxide 21.7 Anion Gap 12 BUN 59 H Creatinine 2.77 H Estimated GFR 22 L Random Glucose 95 Calcium 9.9 Magnesium 2.0 Total Bilirubin 0.7 AST 30 ALT 30 Alkaline Phosphatase 73 Total Creatine Kinase 29 L Troponin I Less than 0.02 L B-Natriuretic Peptide Total Protein 8.7 H Albumin 3.7 Urine Color Urine Clarity Urine pH Ur Specific [place] Urine Protein Urine Glucose (UA) Urine Ketones Urine Occult Blood Urine Nitrate Urine Bilirubin Urine Urobilinogen Ur Leukocyte Esterase Urine RBC Urine WBC Ur Transition Epith Cell Granular Casts Urine Mucus Micro UA Comment Ur Microscopic Review Urine Culture Comments 11/14/17 11/14/17 11/15/17 18:16 22:30 06:59 WBC 11.2 H RBC 3.40 L Hgb 9.7 L D Hct 29.4 L MCV 86.5 MCH 28.5 MCHC 33.0 RDW 16.2 Plt Count 250 MPV 7.5 Neut % (Auto) 82.9 H Lymph % (Auto) 9.1 [place] % (Auto) 5.3 Eos % (Auto) 2.3 Baso % (Auto) 0.4 Neut # (Auto) 9.3 H Lymph # (Auto) 1.0 [place] # (Auto) 0.6 Eos # (Auto) 0.3 Baso # (Auto) 0.0 WBC Differential . Differential Comment Auto diff final PT INR APTT Sodium Potassium Chloride Carbon Dioxide Anion Gap BUN Creatinine Estimated GFR Random Glucose Calcium Magnesium Total Bilirubin AST ALT Alkaline Phosphatase Total Creatine Kinase Troponin I B-Natriuretic Peptide 106 H Total Protein Albumin Urine Color Yellow Urine Clarity Hazy H Urine pH 5.0 Ur Specific [place] 1.020 Urine Protein Negative Urine Glucose (UA) Negative Urine Ketones Negative Urine Occult Blood Negative Urine Nitrate Negative Urine Bilirubin Negative Urine Urobilinogen Less than 2 Ur Leukocyte Esterase Negative Urine RBC 1 Urine WBC 5 Ur Transition Epith Cell 1 Granular Casts 7 Urine Mucus Few H Micro UA Comment Culture not ind Ur Microscopic Review Not Reportable Urine Culture Comments Culture not ind 11/15/17 06:59 WBC RBC Hgb Hct MCV MCH MCHC RDW Plt Count MPV Neut % (Auto) Lymph % (Auto) [place] % (Auto) Eos % (Auto) Baso % (Auto) Neut # (Auto) Lymph # (Auto) [place] # (Auto) Eos # (Auto) Baso # (Auto) WBC Differential Differential Comment PT INR APTT Sodium 140 Potassium 4.3 Chloride 108 H Carbon Dioxide 23.9 Anion Gap 8 BUN 54 H Creatinine 2.41 H Estimated GFR 26 L Random Glucose 81 Calcium 8.9 D Magnesium Total Bilirubin 0.7 AST 21 ALT 25 Alkaline Phosphatase 60 Total Creatine Kinase Troponin I B-Natriuretic Peptide Total Protein 6.8 D Albumin 2.9 L D Urine Color Urine Clarity Urine pH Ur Specific [place] Urine Protein Urine Glucose (UA) Urine Ketones Urine Occult Blood Urine Nitrate Urine Bilirubin Urine Urobilinogen Ur Leukocyte Esterase Urine RBC Urine WBC Ur Transition Epith Cell Granular Casts Urine Mucus Micro UA Comment Ur Microscopic Review Urine Culture Comments - Imaging Impressions Chest X-Ray 11/14/17 00:00 CONCLUSION: 1. No acute abnormality or significant interval change. Chest CT 11/14/17 18:02 CONCLUSION: 1. Multiple new findings in the chest highly suspicious for malignancy including numerous bilateral irregular margin along masses, 2 of which are cavitary, and a greater than 7 cm lobular right retrocrural mass. Abdomen/Pelvis CT 11/14/17 18:04 CONCLUSION: 1. Abnormal appearance to the right kidney with loss of architecture, masslike extension expanding the inferior vena cava and possibly involving the aortocaval space and possible extension into the liver. 2. There are 2 low density lesions in the liver, right lobe and central left lobe which cannot be further characterized on noncontrast study, but given the other findings, are suspicious for metastasis. 3. Greater than 7 cm lobular right retrocrural mass. Venous Doppler Study 11/15/17 09:02 CONCLUSION: 1. No sonographic evidence for lower extremity DVT. Assessment and Plan - Plan 77-year-old male with a history of COPD, hypertension, hypothyroid, CKD presented to the ED with complaints of sob and back pain. 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 Blood cultures obtained. Urology feels this is likely due to the patient's retrocrural mass, hold off on antibiotics at this time, -trend white count which is improving ANIA on CKD, -improving, continue IVFs Hypertension, chronic -atenolol, monitor vitals Hypothyroidism, chronic -levothyroxine SCDs
[2017-11-15] MEDS ORDERED: fentaNYL Citrate Inj 250 MCG/5 ML Ampul ONE (11:35)
--- NOTE | 2017-11-15 11:59 | ECHRPT ---
Indication: SHORTNESS OF BREATH CONCLUSIONS The left ventricular systolic function is normal with an estimated ejection fraction in the range of 60-65%. Normal left ventricular size and wall thickness. No regional wall motion abnormalities are present. Grade 1 diastolic heart failure. No significant valvular heart disease. Normal estimated pulmonary pressures. BP: / HR: Rhythm: Sinus Technical Quality:Fair FINDINGS LEFT VENTRICLE The left ventricular systolic function is normal with an estimated ejection fraction in the range of 60-65%. Normal left ventricular size. Wall thickness is normal. No regional wall motion abnormalities are present. Grade 1 diastolic heart failure RIGHT VENTRICLE Normal right ventricular size and systolic function. LEFT ATRIUM The left atrial size is normal. RIGHT ATRIUM The right atrial size is normal. ATRIAL SEPTUM Normal atrial septal thickness without atrial level shunting by limited color doppler interrogation. AORTA The aortic root and proximal ascending aorta are normal in size on limited imaging. MITRAL VALVE Structurally normal mitral valve. No mitral valve stenosis or regurgitation. AORTIC VALVE Trileaflet aortic valve. No aortic valve stenosis or regurgitation. TRICUSPID VALVE Structurally normal tricuspid valve. There is trace tricuspid valve regurgitation. Normal estimated pulmonary pressures. PULMONARY VALVE Trivial pulmonary valve regurgitation. VESSELS The inferior vena cava is likely normal in size. Unable to determine collapse secondary to inadequa te subcostal imaging. PERICARDIUM No pericardial effusion. Luly Diaz MD (Electronically Signed) Final Date:15 November 2017 11:58
--- NOTE | 2017-11-15 13:13 | P.RAD ---
Post Procedure Progress Note - Pre Procedure Diagnosis (1) Mass of right kidney - Post Procedure Diagnosis (1) Mass of right kidney - Procedure Information Procedure Date: 11/15/17 Supervising Radiologist: Juice Camacho MD Estimated blood loss (mL): 0 Anesthesia: Local, Conscious Sedation - Plan of Activity Patient to Unit: ROPU Patient Condition: Poor Additional Comments: Retroperitoneal mass biopsied tissue obtained 8cc of purulent fluid removed. 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 Not a defined pocket in the kidney that a drain can be placed into See PACS Report for procedural detail/treatment.
--- NOTE | 2017-11-15 14:25 | P.CONURO ---
History of Present Illness Service: Urology Consult date: 11/15/17 Requesting Physician: Per Paredes Reason for Consult: Abnormal CT Primary Care Provider: Bay Moreno MD Family Provider: Bay Moreno MD Chief Complaint: sob and back pain History of Present Illness: 77-year-old male with a history of COPD, hypertension, hypothyroid, CKD presented to the ED with complaints of sob and right back pain. He was seen by his PCP who sent him in for evaluation because his O2 sat drops when standing. He complains of sob with exertion and lower back pain that radiates along his belt line. He states since getting morphine he feels no sob and back pain is only worse with movement. He does state he has had a 40lb unintentional weight loss in the last 2 months. Denies any associated nausea, vomiting, cough, sputum production or dysuria. He has no fever. no hematuria or any significant abnormal urine findings. CT scan showed: Multiple new findings in the chest highly suspicious for malignancy including numerous bilateral irregular margin along masses, 2 of which are cavitary, and a greater than 7 cm lobular right retrocrural mass.. 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 NO UC available. Pt has no classic histological/cytological or other classic findings related to XGP. He has large retroperitoneal mass that was biopsied, no results yet. Also RP fluid analysis in not conclusive. Oncology is consulted too. His Leukocytosis and Cr is improving with fluids and antbx Review of Systems All other systems reviewed negative except as stated in HPI PMFSH - History History Provided By: Patient - Medical History Medical History: Medical History (Last Updated 11/14/17 @ 22:14 by ANJALI Tillman) COPD (chronic obstructive pulmonary disease) Hydronephrosis, right Hypertension Hypothyroidism Pneumonia - Surgical History Surgical History: Surgical History (Last Reviewed 11/14/17 @ 22:14 by ANJALI Tillman) Heel bone fracture History of appendectomy History of tonsillectomy - Family History Family History: Family History (Last Reviewed 11/14/17 @ 22:13 by ANJALI Tillman) Mother CAD (coronary artery disease) - Tobacco History Second Hand Smoke Exposure: No Tobacco Use In Past 30 Days: No Smoking Status: Former smoker Tobacco Type: Cigarettes Smoking End Date: 2005 - Alcohol History How Often Do You Have a Drink Containing Alcohol: Monthly or less - Substance Use History Substance History: Past History - Substance Use Type Marijuana Status: Active Last Used: one month ago Reason for Use: Calm Down - Travel History Recent Travel in the [place] Within the Last 8 Weeks: No Recent Travel Out of the Country Within the Last 8 Weeks: No - Immunization History Tetanus Immunization: >5 Years Hx Influenza Vaccine This Season: Yes Medications and Allergies Active Medications: Active Medications Al Hydroxide/Mg Hydroxide (Milk Of Magnesia Liq) 30 ml PO Q12H PRN PRN Reason: Mild Constipation Albuterol (Duoneb Neb (Prn)) 1 ampul NEB Q2HR NEB PRN PRN Reason: sob Atenolol (Tenormin) 50 mg PO DAILY [facility] Last Admin: 11/15/17 08:31 Dose: 50 mg Bisacodyl (Dulcolax Supp) 10 mg RECTAL DAILY PRN PRN Reason: SEVERE CONSITIPATION Sodium Chloride (Ns Inj) 1,000 mls @ 100 mls/hr IV.CONT .Q10H [facility] Last Admin: 11/15/17 09:58 Dose: 100 mls/hr Ceftriaxone Sodium 1,000 mg/ (Sodium Chloride) 100 mls @ 200 mls/hr IV.SIG Q12H [facility] Lactulose (Lactulose Liq) 30 ml PO DAILY PRN PRN Reason: SEVERE CONSITIPATION Levothyroxine Sodium (Synthroid) 112 mcg PO DAILY@0600 [facility] Last Admin: 11/15/17 05:48 Dose: 112 mcg Morphine Sulfate (Morphine Inj) 2 mg IV.PUSH Q3H PRN PRN Reason: PAIN 3-5; IF UABLE TO TAKE PO Naloxone HCl (Narcan Inj) 0.4 mg IV.PUSH UNSCH PRN PRN Reason: SEE LABEL COMMENTS Ondansetron HCl (Zofran Odt) 4 mg PO Q6H PRN PRN Reason: NAUSEA OR VOMITING Ondansetron HCl (Zofran Inj) 4 mg IV.PUSH Q6H PRN PRN Reason: NAUSEA OR VOMITING Oxycodone/Acetaminophen (Percocet 10/325 Mg) 1 tab PO Q6H PRN PRN Reason: PAIN SCALE 6 TO 10 Last Admin: 11/15/17 10:26 Dose: 1 tab Oxycodone/Acetaminophen (Percocet 5/325 Mg) 1 tab PO Q6H PRN PRN Reason: PAIN SCALE 3 TO 5 Last Admin: 11/15/17 00:45 Dose: 1 tab Promethazine HCl (Phenergan) 25 mg PO Q6H PRN PRN Reason: NAUSEA OR VOMITING Promethazine HCl (Phenergan Supp) 25 mg RECTAL Q6H PRN PRN Reason: NAUSEA OR VOMITING Sennosides (Senokot) 17.2 mg PO Q12H PRN PRN Reason: Moderate Constipation Allergies Allergy/AdvReac Type Severity Reaction Status Date / Time No Known Allergies Allergy Verified 11/14/17 14:41 Home Medications Medication Instructions Recorded Confirmed Type levothyroxine [Synthroid] 112 mcg PO DAILY 10/28/17 11/14/17 History atenolol 50 mg PO DAILY 10/29/17 11/14/17 History Physical Exam Vital Signs - 24 hr 11/14/17 14:38 11/14/17 18:31 11/14/17 18:32 Temperature 97.8 F Pulse Rate 85 62 Respiratory Rate 20 30 H Blood Pressure 108/54 L 119/58 L Pulse Oximetry 99 96 96 11/14/17 20:45 11/14/17 21:11 11/15/17 01:30 Temperature 98.7 F Pulse Rate 88 86 Respiratory Rate 18 18 17 Blood Pressure 122/66 105/66 Pulse Oximetry 100 96 11/15/17 02:00 11/15/17 04:00 11/15/17 05:44 Temperature 98.0 F Pulse Rate 73 71 Respiratory Rate 19 20 Blood Pressure 110/48 L 100/55 L Pulse Oximetry 96 96 99 11/15/17 08:00 11/15/17 09:00 11/15/17 11:19 Temperature 98.2 F Pulse Rate 69 68 Respiratory Rate 18 18 Blood Pressure 104/62 Pulse Oximetry 100 11/15/17 11:39 Temperature Pulse Rate Respiratory Rate Blood Pressure Pulse Oximetry 97 Physical Exam: GENERAL: This is a well-nourished, well-developed patient, in no apparent distress. SKIN: No rashes, ecchymoses or lesions. Cool and dry. HEAD: Atraumatic. Normocephalic. CARDIOVASCULAR: Regular rate and rhythm without murmurs, gallops, or rubs. RESPIRATORY: Clear to auscultation. Diminished breath sounds GASTROINTESTINAL: Abdomen soft, non-tender, nondistended. . GENITOURINARY: No CVAT MUSCULOSKELETAL: Extremities without clubbing, 2+ edema NEUROLOGICAL: Awake and alert. Laboratory Results - last 24 hr 11/14/17 11/14/17 11/14/17 18:16 18:16 18:16 WBC 16.2 H RBC 4.12 L Hgb 11.7 L Hct 36.3 L MCV 88.1 MCH 28.4 MCHC 32.2 RDW 16.2 Plt Count 335 D MPV 8.0 Neut % (Auto) 87.1 H Lymph % (Auto) 6.1 L [place] % (Auto) 4.7 Eos % (Auto) 1.7 Baso % (Auto) 0.4 Neut # (Auto) 14.1 H Lymph # (Auto) 1.0 [place] # (Auto) 0.8 Eos # (Auto) 0.3 Baso # (Auto) 0.1 WBC Differential . Differential Comment Auto diff final PT 11.4 INR 1.1 APTT 32.9 H Sodium 136 Potassium 4.6 Chloride 102 Carbon Dioxide 21.7 Anion Gap 12 BUN 59 H Creatinine 2.77 H Estimated GFR 22 L Random Glucose 95 Calcium 9.9 Magnesium 2.0 Total Bilirubin 0.7 AST 30 ALT 30 Alkaline Phosphatase 73 Total Creatine Kinase 29 L Troponin I Less than 0.02 L B-Natriuretic Peptide Total Protein 8.7 H Albumin 3.7 Urine Color Urine Clarity Urine pH Ur Specific [place] Urine Protein Urine Glucose (UA) Urine Ketones Urine Occult Blood Urine Nitrate Urine Bilirubin Urine Urobilinogen Ur Leukocyte Esterase Urine RBC Urine WBC Ur Transition Epith Cell Granular Casts Urine Mucus Micro UA Comment Ur Microscopic Review Urine Culture Comments 11/14/17 11/14/17 11/15/17 18:16 22:30 06:59 WBC 11.2 H RBC 3.40 L Hgb 9.7 L D Hct 29.4 L MCV 86.5 MCH 28.5 MCHC 33.0 RDW 16.2 Plt Count 250 MPV 7.5 Neut % (Auto) 82.9 H Lymph % (Auto) 9.1 [place] % (Auto) 5.3 Eos % (Auto) 2.3 Baso % (Auto) 0.4 Neut # (Auto) 9.3 H Lymph # (Auto) 1.0 [place] # (Auto) 0.6 Eos # (Auto) 0.3 Baso # (Auto) 0.0 WBC Differential . Differential Comment Auto diff final PT INR APTT Sodium Potassium Chloride Carbon Dioxide Anion Gap BUN Creatinine Estimated GFR Random Glucose Calcium Magnesium Total Bilirubin AST ALT Alkaline Phosphatase Total Creatine Kinase Troponin I B-Natriuretic Peptide 106 H Total Protein Albumin Urine Color Yellow Urine Clarity Hazy H Urine pH 5.0 Ur Specific [place] 1.020 Urine Protein Negative Urine Glucose (UA) Negative Urine Ketones Negative Urine Occult Blood Negative Urine Nitrate Negative Urine Bilirubin Negative Urine Urobilinogen Less than 2 Ur Leukocyte Esterase Negative Urine RBC 1 Urine WBC 5 Ur Transition Epith Cell 1 Granular Casts 7 Urine Mucus Few H Micro UA Comment Culture not ind Ur Microscopic Review Not Reportable Urine Culture Comments Culture not ind 11/15/17 06:59 WBC RBC Hgb Hct MCV MCH MCHC RDW Plt Count MPV Neut % (Auto) Lymph % (Auto) [place] % (Auto) Eos % (Auto) Baso % (Auto) Neut # (Auto) Lymph # (Auto) [place] # (Auto) Eos # (Auto) Baso # (Auto) WBC Differential Differential Comment PT INR APTT Sodium 140 Potassium 4.3 Chloride 108 H Carbon Dioxide 23.9 Anion Gap 8 BUN 54 H Creatinine 2.41 H Estimated GFR 26 L Random Glucose 81 Calcium 8.9 D Magnesium Total Bilirubin 0.7 AST 21 ALT 25 Alkaline Phosphatase 60 Total Creatine Kinase Troponin I B-Natriuretic Peptide Total Protein 6.8 D Albumin 2.9 L D Urine Color Urine Clarity Urine pH Ur Specific [place] Urine Protein Urine Glucose (UA) Urine Ketones Urine Occult Blood Urine Nitrate Urine Bilirubin Urine Urobilinogen Ur Leukocyte Esterase Urine RBC Urine WBC Ur Transition Epith Cell Granular Casts Urine Mucus Micro UA Comment Ur Microscopic Review Urine Culture Comments Microbiology 11/15/17 13:07 Gram Stain - Final Fluid - Other Result Diagrams: 11/15/17 06:59 11/15/17 06:59 Imaging: ITS Impressions Chest X-Ray 11/14/17 00:00 CONCLUSION: 1. No acute abnormality or significant interval change. Chest CT 11/14/17 18:02 CONCLUSION: 1. Multiple new findings in the chest highly suspicious for malignancy including numerous bilateral irregular margin along masses, 2 of which are cavitary, and a greater than 7 cm lobular right retrocrural mass. Abdomen/Pelvis CT 11/14/17 18:04 CONCLUSION: 1. Abnormal appearance to the right kidney with loss of architecture, masslike extension expanding the inferior vena cava and possibly involving the aortocaval space and possible extension into the liver. 2. There are 2 low density lesions in the liver, right lobe and central left lobe which cannot be further characterized on noncontrast study, but given the other findings, are suspicious for metastasis. 3. Greater than 7 cm lobular right retrocrural mass. Venous Doppler Study 11/15/17 09:02 CONCLUSION: 1. No sonographic evidence for lower extremity DVT. Assessment and Plan - Plan 77y.o M with abnormal HPI and CT scan as per HPI Urology consulted for possible XGP - Continue care as per primary team - Follow oncology recs - Follow up on final biopsy results - No abnormal XGP related findings present as well as no clear diagnosis of renal mass - Most likely its all related to his large right retrocrural mass - No acute intervention needed until clear urological diagnosis is established, Urology remains available as needed Discussed Condition With: Dr Cece OLMSTEAD attending who agrees with this plan
--- NOTE | 2017-11-15 15:02 | CT ---
EXAM DATE: 11/15/2017 11:14 AM EDT AGE/SEX: 77 years / Male INDICATIONS: Abdominal mass. CLINICAL DATA: This is the patient's initial encounter. Patient reports that signs and symptoms have been present for 1 day and indicates a pain score of 0/10. MEDICAL/SURGICAL HISTORY: Chronic obstructive pulmonary disease. Hypertension. Right hydroneph rosis. Hypothyroid. Appendectomy. [place]PAR[place]: [facility] [place] & [place]ELVIS W/O CONTRAST, 11/14/2017. . BIOPSY SITE: . . Abdomen MEDICATION(S): 2mg midazolam (Versed) IV 100mcg fentanyl (Sublimaze) IV DEVICE(S): 18 gauge BARD biopsy needle 18 gauge BARD biopsy needle 17 gauge Introducer Two core specimen(s) sent to the laboratory for pathologic evaluation. . . PROCEDURE: CT guided . . Abdomen biopsy Prior to the procedure informed consent was obtained. Any appropriate prior imaging studies were rev iewed. Using automated exposure control and adjustment of the mA and/or kV according to patient size, radiat ion dose was kept as low as reasonably achievable to obtain optimal diagnostic quality images. DICOM format image data is available electronically for review and comparison. The patient's previous CT imaging of the abdomen was reviewed. This demonstrates an enlarged right ki dney with masslike density extending into the retroperitoneum and up along the diaphragmatic crura in the right. The decision was made to biopsy the lesion along the diaphragmatic crura as it was close to the skin surface. The site was prepped in a sterile fashion. Full sterile technique was used, including cap, mask, aysha rile gloves and gown and a large sterile sheet. Hand hygiene and 2% chlorhexidine and/or betadine/al cohol prep was utilized per protocol for cutaneous antisepsis. The skin and subcutaneous tissues wer e infiltrated with local anesthetic solution. With CT guidance the previously identified mass was localized. A 17-gauge cannula was advanced down t o the lesion. Biopsy was performed using an 18-gauge core needle biopsy gun. After the initial biopsy approximately 7/8 cc of purulent fluid was aspirated from the lesion. 2 other passes were made into the lesion. Adequate hemostasis was obtained with compression at the puncture site. The post procedure images were reviewed. The entire right kidney is abnormal in appearance. I do not see a stone within the right kidney or significant hydronephrosis however primary differential consid eration for this would be a xanthogranulomatous hilar nephritis. Follow-up CT scan reveals no hemorrhage. The patient tolerated the procedure well and there were no complications. The patient was returned to the Radiology Outpatient Unit in stable condition. CONCLUSION: 1. Uncomplicated CT guided biopsy. 2. Samples were sent for pathology. 3. 8 cc of purulent appearing fluid was sent for Gram stain, culture and sensitivity. 4. 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
--- NOTE | 2017-11-15 15:20 | ECG ---
Date Performed: 11/14/2017 Time Performed: 18:25:56 PTAGE: 77 years EKG: Sinus rhythm NORMAL ECG Since the PREVIOUS TRACING , no significant change noted PREVIOUS TRACIN10/28/2017 14.45 DOCTOR: Dorothea Cordova Interpretating Date/Time 11/15/2017 15:15:43
--- NOTE | 2017-11-15 15:34 | XR ---
EXAM DATE: 11/15/2017 1:07 PM EDT AGE/SEX: 77 years / Male INDICATIONS: Evaluate for pneumothorax, post lung biopsy. CLINICAL DATA: This is the patient's subsequent encounter. Patient reports that signs and symptoms h ave been present for 1 day and indicates a pain score of 0/10. MEDICAL/SURGICAL HISTORY: Chronic obstructive pulmonary disease. Hypertension. Appendectomy. COMPARISON: [facility] – [place], [place] CHEST W/O CONTRAST, 11/14/2017. . FINDINGS: No pneumothorax status following aspiration/biopsy in the inferior right medial hemithorax. Cardiomed iastinal contours are within normal limits. Bony thorax is intact.. CONCLUSION: 1. No pneumothorax. Electronically signed by: Germán Katz MD 11/15/2017 3:32 PM EDT
[2017-11-15 17:01] LABS: % Iron Saturation 14.4 % (20-50)
--- NOTE | 2017-11-15 17:34 | MB ---
cc: Alonzo Hooker MD DATE: 11/15/2017 REQUESTING PHYSICIAN: Hospitalist team. REASON FOR CONSULTATION: Newly diagnosed renal mass. HISTORY OF PRESENT ILLNESS: Hal is a 77-year-old gentleman with history of smoking, COPD, hypertension, hypothyroidism, and chronic renal disease, who presented to the emergency room with shortness of breath and right back pain and lower abdominal pain. He was suspected to be hypoxemic when he was seen in the primary physician's office and he was complaining of shortness of breath, both at rest and on exertion, hence he was admitted to the hospital and further workup revealed multiple masses in the abdomen, specifically in the right kidney and on questioning, Mr. Max admitted to having 40 pounds of intended weight loss in the last 2-3 months, but he has not sought specific medical attention for that and a CT scan today showed numerous bilateral irregular lung nodules, 2 of which are cavitary, and a greater than 7 cm lobular right retrocrural mass with an abnormal looking right kidney, possibly pyelonephritis versus mass versus xanthogranulomatous. I was asked to consult him for possible renal cancer and he is scheduled for a CT-guided biopsy this morning. REVIEW OF SYSTEMS: Mr. Max denies any headaches, back pain or bone pains other than those mentioned above. No cough, chest pain or hemoptysis. Abdominal symptoms as mentioned. No nausea, vomiting, blood in the stool or black stools. No constipation, diarrhea, or recent change in bowel habit. No frequency, urgency, or hematuria. B symptoms as mentioned above. PAST MEDICAL HISTORY: As above. He also has hypothyroidism and hypertension. PAST SURGICAL HISTORY: Appendectomy and tonsillectomy. FAMILY HISTORY: Noncontributory. SOCIAL HISTORY: Ex-Smoker and non-alcohol abuser. 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 No occupational exposures to chemicals or radiation. PHYSICAL EXAMINATION: GENERAL: Obese, middle-aged gentleman, appearing older, with evidence of recent weight loss, in mild distress secondary to pain. Not dyspneic looking. Pallor present. No icterus, no palpable adenopathy in the neck or axilla. HEENT: Without oropharyngeal lesions. Alert and oriented x4. CARDIOVASCULAR: S1, S2. Regular rate and rhythm with occasional irregularity. Grade 2 systolic murmur without gallops or rubs. LUNGS: Without crackles or wheeze. ABDOMEN: Obese, distended, soft and with a tender mass in the right half of the abdomen with renal angle fullness on the right and no ascites. EXTREMITIES: Right lower extremity swollen with thickening of the skin over the calf with no definite evidence of calf tenderness. LABORATORY DATA: White count 11.2, hemoglobin 9.7, hematocrit 29.4, platelets 250. The hemoglobin was 11.7 yesterday on admission. Chemistry significant for BNP of 106, creatinine of 2.4. CT abdomen and pelvis as above. Chest x-ray is negative. CT-guided biopsy of the right renal mass was performed this afternoon and results are pending. 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 The pathology from the renal biopsy is pending. Currently, his main problem is shortness of breath, which could be secondary to his anemia, as well as his multiple lung metastasis. In addition, he also has abdominal pain from the tumor and the right leg swelling is worrisome for DVT given his extensive metastatic disease. I ordered an ultrasound Doppler of the right lower extremity and if it is positive, he will need to be on long-term anticoagulation essentially for the rest of his life due to his extensive metastatic disease. His specific therapy for his metastatic renal cancer will be determined after looking at the pathology report on the renal biopsy that was performed today. In the interim, I have recommended iron studies and stool occult blood for anemia workup and I will follow him up in the hospital. Alonzo Hooker MD [facility]/ , 03:39 PM , 03:50 PM
[2017-11-15] MEDS: Temazepam 15 MG Capsule PO PRN (22:02)
[2017-11-16] MEDS: Sod Chloride 0.9% Inj 1,000 ML IV.CONT SCH ×4 (04:08→22:52)
[2017-11-16 07:35] LABS: Baso % (Auto) 0.3 % (0.0-2.0); Eos # (Auto) 0.2 th/mm3 (0.0-0.4); Eos % (Auto) 2.2 % (0.0-4.0); Hematocrit 30.5 % (39.0-51.0); Hemoglobin 10.2 gm/dL (13.0-17.0); Lymph # (Auto) 0.9 th/mm3 (1.0-4.8); Lymph % (Auto) 7.9 % (9.0-44.0); Mean Corpuscular HGB Conc 33.4 % (32.0-36.0); Mean Corpuscular Hemoglobin 29.4 pg (27.0-34.0); Mean Corpuscular Volume 88.2 fL (80.0-100.0); Mono # (Auto) 0.6 th/mm3 (0.0-0.9); Mono % (Auto) 5.3 % (0.0-8.0); Neut # (Auto) 9.2 th/mm3 (1.8-7.7); Neut % (Auto) 84.3 % (16.0-70.0); Platelet Count 227 th/mm3 (150-450); Red Blood Count 3.45 mil/mm3 (4.50-5.90); Red Cell Distribution Width 16.2 % (11.6-17.2); White Blood Count 10.9 th/mm3 (4.0-11.0)
[2017-11-16] MEDS: Atenolol 50 MG Tablet PO SCH (08:15)
[2017-11-16] MEDS: oxyCODONE/Acetaminophen 10/325 Tablet PO PRN ×2 (08:16→15:03)
[2017-11-16] MEDS ORDERED: Senna/Docusate Sodium 8.6/50 MG Tablet PO PRN (11:09)
--- NOTE | 2017-11-16 16:59 | P.PNIM ---
Subjective Interval history: Patient denies that he has been short of breath, he does admit that his back has been hurting with abdominal discomfort radiating through his mid and lower abdomen. He has apparent lung cancer with metastasis to the liver and elsewhere. Physical Exam Vital signs: Vital Signs 11/15/17 17:28 11/15/17 17:36 11/15/17 20:00 Temperature 98.3 F Pulse Rate 61 Respiratory Rate 18 18 Blood Pressure 120/64 Pulse Oximetry 99 100 Pulse Oximetry [Exertion on Room Air] Pulse Oximetry [Resting on Room Air] 11/16/17 00:00 11/16/17 01:05 11/16/17 04:00 Temperature 98.3 F Pulse Rate 59 L 61 58 L Respiratory Rate 16 Blood Pressure 117/55 L Pulse Oximetry 98 Pulse Oximetry [Exertion on Room Air] Pulse Oximetry [Resting on Room Air] 11/16/17 04:03 11/16/17 07:00 11/16/17 08:00 Temperature 98.0 F 98.0 F Pulse Rate 58 L 63 63 Respiratory Rate 17 18 Blood Pressure 114/60 153/81 H Pulse Oximetry 100 93 L Pulse Oximetry [Exertion on Room Air] Pulse Oximetry [Resting on Room Air] 11/16/17 09:18 11/16/17 11:00 11/16/17 11:36 Temperature Pulse Rate 62 Respiratory Rate 18 Blood Pressure Pulse Oximetry Pulse Oximetry [Exertion on Room Air] 97 Pulse Oximetry [Resting on Room Air] 99 11/16/17 12:00 11/16/17 16:21 Temperature 98.6 F Pulse Rate 69 Respiratory Rate 18 18 Blood Pressure 108/72 Pulse Oximetry 99 Pulse Oximetry [Exertion on Room Air] Pulse Oximetry [Resting on Room Air] Intake & Output 11/15/17 11/16/17 11/16/17 18:59 06:59 18:59 Intake Total 2400 / 2400 1620 / 1620 1000 / 1000 Output Total 400 / 400 1100 / 1100 Balance 1999 520 / 520 1000 / 1000 Weight 91.5 kg Intake: IV 1999 900 / 900 1000 / 1000 NS Inj 1,000 ML @ 100 mls/hr IV 1999 900 / 900 1000 / 1000 .CONT .Q10H [facility] Rx#:[id number] Oral 400 / 400 720 / 720 Output: Urine 400 / 400 1100 / 1100 Other: Date of Last Bowel Movement 11/13/17 Narrative: GENERAL: AAOx3, no acute distress SKIN: Warm and dry. No rashes HEAD: Atruamtic, normocephalic. EYES: No scleral icterus. No injection or drainage. ENT: Moist mucous membranes, patent nares, no erythema of oropharynx. NECK: Supple, trachea midline. No JVD or lymphadenopathy. Normal thyroid. CARDIOVASCULAR: Regular rate and rhythm. No murmurs, gallops, or rubs. RESPIRATORY: Scattered congestive sounds bilaterally, bibasilar atelectatic sounds, no crackles.. No accessory muscle use. GASTROINTESTINAL: Abdomen soft, non-tender, nondistended, normal active bowel sounds MUSCULOSKELETAL: No cyanosis, or edema. NEURO: CN II-XII grossly intact, no focal deficits, no slurring of speech Results - Labs CBC & Chem 7: 11/16/17 06:10 11/15/17 06:59 Laboratory Results - last 24 hr 11/15/17 11/16/17 06:59 06:10 WBC 10.9 RBC 3.45 L Hgb 10.2 L Hct 30.5 L MCV 88.2 MCH 29.4 MCHC 33.4 RDW 16.2 Plt Count 227 MPV 8.0 Neut % (Auto) 84.3 H Lymph % (Auto) 7.9 L [place] % (Auto) 5.3 Eos % (Auto) 2.2 Baso % (Auto) 0.3 Neut # (Auto) 9.2 H Lymph # (Auto) 0.9 L [place] # (Auto) 0.6 Eos # (Auto) 0.2 Baso # (Auto) 0.0 WBC Differential . Differential Comment Auto diff final Iron 42 L TIBC 293 % Saturation 14.4 L Ferritin 286 Microbiology 11/15/17 13:07 Fluid - Other Gram Stain - Final 11/15/17 13:07 Fluid - Other Wound Culture - Preliminary No growth in 24 hours 11/15/17 19:09 Blood - Peripheral Aerobic Blood Culture - Preliminary No growth in 1 day 11/15/17 19:09 Blood - Peripheral Anaerobic Blood Culture - Preliminary No growth in 1 day 11/15/17 19:00 Blood - Peripheral Aerobic Blood Culture - Preliminary No growth in 1 day 11/15/17 19:00 Blood - Peripheral Anaerobic Blood Culture - Preliminary No growth in 1 day Assessment and Plan - Plan 77-year-old male with a history of COPD, hypertension, hypothyroid, CKD presented to the ED with complaint of back pain. Abdominal and back pain likely related to multiple lesions Abd CT reviewed and shows 2 lesions in the liver and a 7cm lobular right retrocrural mass Biopsy of masses collected, pathology pending Continue pain management with IV morphine and p.o. Percocet Appreciate oncology consult Lung masses Chest CT reviewed and shows numerous bilateral irregular masses Echocardiogram within normal limits Doppler study of lower extremities within normal limits Appreciate oncology following Suspicious renal mass possible renal mass versus xanthogranulomatous pyelonephritis Urology feels this is likely due to the patient's retrocrural mass, recommend holding off on antibiotics at this time Leukocytosis has normalized Blood cultures negative thus far Constipation This may be contributing to patient's abdominal pain Patient is refusing laxatives and GI motility agents, he feels his constipation is not related to his abdominal pain Acute renal insufficiency Patient has chronic renal insufficiency as well Continue with gentle IV fluid hydration and follow trend which is improving Hypertension, chronic Continue atenolol, monitor vitals Hypothyroidism, chronic Continue levothyroxine DVT prophylaxis SCDs
[2017-11-16] MEDS: Temazepam 15 MG Capsule PO PRN (21:28)
[2017-11-17 06:38] LABS: Hematocrit 29.8 % (39.0-51.0); Hemoglobin 9.9 gm/dL (13.0-17.0); Mean Corpuscular HGB Conc 33.3 % (32.0-36.0); Mean Corpuscular Hemoglobin 28.9 pg (27.0-34.0); Mean Corpuscular Volume 86.9 fL (80.0-100.0); Mean Platelet Volume 7.4 fL (7.0-11.0); Platelet Count 221 th/mm3 (150-450); Red Blood Count 3.43 mil/mm3 (4.50-5.90); Red Cell Distribution Width 16.2 % (11.6-17.2); White Blood Count 10.1 th/mm3 (4.0-11.0)
[2017-11-17 07:19] LABS: Calcium 8.8 mg/dL (8.5-10.1); Carbon Dioxide 21.1 meq/L (21.0-32.0); Potassium 3.6 meq/L (3.5-5.1)
[2017-11-17] MEDS: Atenolol 50 MG Tablet PO SCH (09:27)
[2017-11-17] MEDS: Sod Chloride 0.9% Inj 1,000 ML IV.CONT SCH ×2 (09:28→19:21)
--- NOTE | 2017-11-17 12:27 | P.DIET ---
Nutritional Evaluation Type of nutrition evaluation: initial Nutrition screening: Weight Loss > 10 lbs Screening comments: Reported unintentional 40-lb wt loss over the last two months Subjective Subjective Comments: 75% po intake for breakfast today Objective - Diagnosis Multiple Lung Masses, Mass on Right Kidney, ANIA - Objective [place] body weight: 83.6 kg % IBW: 109 Body Weight Used for Calculations: Actual (91.5kg) Energy Needs - Lower Range (kCal/kg): 22 Energy Needs - Upper Range (kCal/kg): 27 Lower Limit kCal/kg (kCals): 2,013 Upper Limit kCal/kg (kCals): 2,471 Lower Limit Protein Factor (Grams per Kg): 0.9 Upper Limit Protein Factor (Grams per Kg): 1.2 Lower Protein Needs (Protein): 82 Upper Protein Needs (Protein): 110 Dietitian Reviewed in Medical Record: Current diet, Curent medications, Intake & Output, Labs, Medical history Diet Order: Regular Oral Diet Intake Amount: Good 75-90% Objective Comments: PMH: COPD, hydronephrosis, right; HTN, hypothyroidism, PNA Labs Include: BUN 34, Creatinine 1.63, estGFR 41 Meds Include: Tenormin, Synthroid, Zofran LBM 11/11, +UOP 2650ml Assessment Assessment: Pt is at nutritional risk r/t diagnosis and recent unintentional 40-lb wt loss. Pt w/Adequate PO intake 50% or greater for meals here. Send Ensure w/meals for additional nutrition(= 250 kcal and 9g Protein per serving). Labs reviewed- renal labs improving-monitor. Dietitian will follow. Recommendations: 1. Send Ensure w/meals for additional nutrition 2. Dietitian will follow Dietitian to Monitor: Lab values, Renal labs, Supplement acceptance, Intake & Output, Weight change, PO Intake, Medical course
[2017-11-17] MEDS: oxyCODONE/Acetaminophen 10/325 Tablet PO PRN ×2 (13:16→19:24)
--- NOTE | 2017-11-17 16:39 | P.PNIM ---
Subjective Interval history: Patient is resting comfortably today, has no new complaints. Tolerating food well. Physical Exam Vital signs: Vital Signs 11/16/17 19:00 11/16/17 20:00 11/16/17 23:00 Temperature 97.9 F Pulse Rate 64 64 64 Respiratory Rate 20 Blood Pressure 112/70 Pulse Oximetry 98 11/17/17 00:00 11/17/17 03:00 11/17/17 04:00 Temperature 98.0 F 98.0 F Pulse Rate 65 62 61 Respiratory Rate 18 18 Blood Pressure 123/74 126/64 Pulse Oximetry 100 99 11/17/17 06:49 11/17/17 08:00 11/17/17 12:00 Temperature 98.2 F 97.9 F Pulse Rate 63 67 Respiratory Rate 17 18 18 Blood Pressure 142/77 H 110/79 Pulse Oximetry 99 98 Intake & Output 11/16/17 11/17/17 11/17/17 18:59 06:59 18:59 Intake Total 1580 / 1580 1480 / 1480 1000 / 1000 Output Total 1000 / 1000 1650 / 1650 Balance 580 / 580 -170 / -170 1000 / 1000 Weight 92.5 kg Intake: IV 1000 / 1000 1000 / 1000 1000 / 1000 NS Inj 1,000 ML @ 100 mls/hr IV 1000 / 1000 1000 / 1000 1000 / 1000 .CONT .Q10H [facility] Rx#:[id number] Oral 580 / 580 480 / 480 Output: Urine 1000 / 1000 1650 / 1650 Other: Date of Last Bowel Movement 11/11/17 11/11/17 Narrative: GENERAL: AAOx3, no acute distress SKIN: Warm and dry. No rashes HEAD: Atruamtic, normocephalic. EYES: No scleral icterus. No injection or drainage. ENT: Moist mucous membranes, patent nares, no erythema of oropharynx. NECK: Supple, trachea midline. No JVD or lymphadenopathy. Normal thyroid. CARDIOVASCULAR: Regular rate and rhythm. No murmurs, gallops, or rubs. RESPIRATORY: Scattered congestive sounds bilaterally, bibasilar atelectatic sounds, no crackles.. No accessory muscle use. GASTROINTESTINAL: Abdomen soft, non-tender, nondistended, normal active bowel sounds MUSCULOSKELETAL: No cyanosis, or edema. NEURO: CN II-XII grossly intact, no focal deficits, no slurring of speech Results - Labs CBC & Chem 7: 11/17/17 05:35 11/17/17 05:35 Laboratory Results - last 24 hr 11/17/17 11/17/17 05:35 05:35 WBC 10.1 RBC 3.43 L Hgb 9.9 L Hct 29.8 L MCV 86.9 MCH 28.9 MCHC 33.3 RDW 16.2 Plt Count 221 MPV 7.4 Sodium 139 Potassium 3.6 Chloride 107 Carbon Dioxide 21.1 Anion Gap 11 BUN 34 H Creatinine 1.63 H Estimated GFR 41 L Random Glucose 86 Calcium 8.8 Microbiology 11/15/17 19:09 Blood - Peripheral Aerobic Blood Culture - Preliminary No growth in 2 days 11/15/17 19:09 Blood - Peripheral Anaerobic Blood Culture - Preliminary No growth in 2 days 11/15/17 19:00 Blood - Peripheral Aerobic Blood Culture - Preliminary No growth in 2 days 11/15/17 19:00 Blood - Peripheral Anaerobic Blood Culture - Preliminary No growth in 2 days 11/15/17 13:07 Fluid - Other Gram Stain - Final 11/15/17 13:07 Fluid - Other Wound Culture - Preliminary No growth in 48 hours Assessment and Plan - Plan 77-year-old male with a history of COPD, hypertension, hypothyroid, CKD presented to the ED with complaint of back pain. 11/17/17 = no changes today, still awaiting pathology, no change to current plan Abdominal and back pain likely related to multiple lesions Abd CT reviewed and shows 2 lesions in the liver and a 7cm lobular right retrocrural mass Biopsy of masses collected, pathology pending Continue pain management with IV morphine and p.o. Percocet Appreciate oncology consult Lung masses Chest CT reviewed and shows numerous bilateral irregular masses Echocardiogram within normal limits Doppler study of lower extremities within normal limits Appreciate oncology following Suspicious renal mass possible renal mass versus xanthogranulomatous pyelonephritis Urology feels this is likely due to the patient's retrocrural mass, recommend holding off on antibiotics at this time Leukocytosis has normalized Blood cultures negative thus far Constipation This may be contributing to patient's abdominal pain Patient is refusing laxatives and GI motility agents, he feels his constipation is not related to his abdominal pain Acute renal insufficiency Patient has chronic renal insufficiency as well Continue with gentle IV fluid hydration and follow trend which is improving Hypertension, chronic Continue atenolol, monitor vitals Hypothyroidism, chronic Continue levothyroxine DVT prophylaxis SCDs
[2017-11-17] MEDS: Temazepam 15 MG Capsule PO PRN (23:07)
[2017-11-18] MEDS: oxyCODONE/Acetaminophen 10/325 Tablet PO PRN ×4 (04:16→23:26)
[2017-11-18] MEDS: Sod Chloride 0.9% Inj 1,000 ML IV.CONT SCH ×2 (04:19→14:27)
[2017-11-18] MEDS: Morphine Inj 4 MG/ML Vial IV.PUSH PRN ×3 (04:22→18:08)
[2017-11-18] MEDS: Atenolol 50 MG Tablet PO SCH (09:22)
--- NOTE | 2017-11-18 10:26 | P.PNONC ---
Subjective Interval history: Afebrile. Sitting at the bedside. Patient has no complaints at this time. He denies any shortness of breath, pain or bleeding. He reports he has been urinating. He has not had a bowel movement yet, however he does not want medications for this time. Reports normal appetite. Objective Vital Signs/Intake & Output: Vital Signs 11/17/17 11:00 11/17/17 12:00 11/17/17 15:00 Temperature 97.9 F Pulse Rate 68 67 65 Respiratory Rate 18 Blood Pressure 110/79 Pulse Oximetry 98 11/17/17 16:00 11/17/17 19:00 11/17/17 20:00 Temperature 98.0 F 98.5 F Pulse Rate 67 66 62 Respiratory Rate 18 18 Blood Pressure 128/78 127/71 Pulse Oximetry 99 99 11/17/17 23:00 11/18/17 00:00 11/18/17 03:00 Temperature Pulse Rate 62 63 67 Respiratory Rate 18 Blood Pressure 128/71 Pulse Oximetry 98 11/18/17 04:00 11/18/17 09:08 11/18/17 09:41 Temperature 98.5 F Pulse Rate 66 81 Respiratory Rate 18 20 Blood Pressure 123/71 108/72 Pulse Oximetry 99 98 97 Intake & Output 11/17/17 11/18/17 11/18/17 18:59 06:59 18:59 Intake Total 1740 / 1740 2240 / 2240 Output Total 350 / 350 625 / 625 Balance 1390 / 1390 1615 / 1615 Weight 96.3 kg Intake: IV 1000 / 1000 1999 NS Inj 1,000 ML @ 100 mls/hr IV 1000 / 1000 1999 .CONT .Q10H [facility] Rx#:[id number] Oral 740 / 740 240 / 240 Output: Urine 350 / 350 625 / 625 Other: Date of Last Bowel Movement 11/11/17 11/13/17 # Bowel Movements 0 Result Diagrams: 11/19/17 05:59 11/19/17 05:59 Culture Results: Microbiology 11/15/17 19:09 Aerobic Blood Culture - Preliminary Blood - Peripheral No growth in 2 days Anaerobic Blood Culture - Preliminary No growth in 2 days 11/15/17 19:00 Aerobic Blood Culture - Preliminary Blood - Peripheral No growth in 2 days Anaerobic Blood Culture - Preliminary No growth in 2 days 11/15/17 13:07 Gram Stain - Final Fluid - Other Wound Culture - Preliminary No growth in 48 hours Medications: Active Medications Generic Name Dose Route Start Last Admin Trade Name Freq PRN Reason Stop Dose Admin Atenolol 50 mg 11/15/17 09:00 11/18/17 09:22 Tenormin PO 50 mg DAILY [facility] Administration Sodium Chloride 1,000 mls @ 100 mls/hr 11/14/17 20:45 11/18/17 04:19 Ns Inj IV.CONT 100 mls/hr .Q10H [facility] Administration Levothyroxine Sodium 112 mcg 11/15/17 06:00 11/18/17 05:29 Synthroid PO 112 mcg DAILY@0600 [facility] Administration Morphine Sulfate 2 mg 11/14/17 20:40 11/18/17 04:22 Morphine Inj IV.PUSH 2 mg Q3H PRN Administration PAIN 3-5; IF UABLE TO TAKE PO Oxycodone/Acetaminophen 1 tab 11/14/17 20:40 11/18/17 04:16 Percocet 10/325 Mg PO 1 tab Q6H PRN Administration PAIN SCALE 6 TO 10 Oxycodone/Acetaminophen 1 tab 11/14/17 20:40 11/17/17 09:27 Percocet 5/325 Mg PO 1 tab Q6H PRN Administration PAIN SCALE 3 TO 5 Temazepam 15 mg 11/15/17 21:22 11/17/17 23:07 Restoril PO 15 mg HS PRN Administration INSOMNIA Objective Remarks: GENERAL: Elderly male patient, sitting at bedside, in no acute distress. SKIN: Warm and dry. HEAD: Normocephalic. EYES: No scleral icterus. No injection or drainage. NECK: Supple, trachea midline. CARDIOVASCULAR: Regular rate and rhythm without murmurs. RESPIRATORY: Posterior breath sounds equal bilaterally. No accessory muscle use. Band-Aid to right mid back dry/intact. GASTROINTESTINAL: Abdomen soft, non-tender, nondistended. EXTREMITIES: SCD stockings in place. Bilateral non-pitting edema. MUSCULOSKELETAL: Adequate muscle tone. NEUROLOGICAL: No obvious focal deficit. Awake, alert, and oriented x3. PSYCHIATRIC: Appropriate mood and affect; insight and judgment normal. Assessment/Plan - Plan Mr. Max, is a 77-year-old gentleman, who originally presented to the hospital with shortness of breath. Patient is currently being evaluated for metastatic renal carcinoma. Pathology is pending. Plan: 1. Suspected metastatic renal carcinoma, retroperitoneal mass biopsied on 2017, 8 mL of purulent fluid removed, pathology is pending. 2. Shortness of breath, currently controlled. CT chest showed multiple new findings which were highly suspicious for malignancy including numerous bilateral irregular margin along mass, 2 of which are cavitary and a greater than 7 cm lobular right retrocrural mass. 3. Right leg edema, venous Doppler study on 11/15/2017 was negative for RLE DVT. SCD's in place. Given patient's high likelihood of metastatic disease he would be at increased risk of thrombosis, we would therefore recommend DVT prophylaxis with renal dose adjusted Lovenox or subcu heparin. 4. Continue supportive care. - Attending Statement Pt seen in room after [employer]. Discussed and agree with recommendations. Informed pt that we will have a detailed discussion after obtaining path result. He is aware of the most likely dx of mets RCC.
--- NOTE | 2017-11-18 12:23 | P.PNIM ---
Subjective Interval history: Patient states he did not sleep well overnight, having a difficult time waking up and eating. He ate most of his breakfast but feels some stomach pain because he feels he ate before he was fully awake. He has not yet had a bowel movement in the last 3 days. Physical Exam Vital signs: Vital Signs 11/17/17 15:00 11/17/17 16:00 11/17/17 19:00 Temperature 98.0 F Pulse Rate 65 67 66 Respiratory Rate 18 Blood Pressure 128/78 Pulse Oximetry 99 11/17/17 20:00 11/17/17 23:00 11/18/17 00:00 Temperature 98.5 F Pulse Rate 62 62 63 Respiratory Rate 18 18 Blood Pressure 127/71 128/71 Pulse Oximetry 99 98 11/18/17 03:00 11/18/17 04:00 11/18/17 07:00 Temperature Pulse Rate 67 66 69 Respiratory Rate 18 Blood Pressure 123/71 Pulse Oximetry 99 11/18/17 09:08 11/18/17 09:41 Temperature 98.5 F Pulse Rate 81 Respiratory Rate 20 Blood Pressure 108/72 Pulse Oximetry 98 97 Intake & Output 11/17/17 11/18/17 11/18/17 18:59 06:59 18:59 Intake Total 1740 / 1740 2240 / 2240 Output Total 350 / 350 625 / 625 Balance 1390 / 1390 1615 / 1615 Weight 96.3 kg Intake: IV 1000 / 1000 1999 / 1999 NS Inj 1,000 ML @ 100 mls/hr IV 1000 / 1000 1999 .CONT .Q10H [facility] Rx#:[id number] Oral 740 / 740 240 / 240 Output: Urine 350 / 350 625 / 625 Other: Date of Last Bowel Movement 11/11/17 11/13/17 11/11/17 # Bowel Movements 0 Narrative: GENERAL: AAOx3, no acute distress, generally weak and SKIN: Warm and dry. No rashes HEAD: Atruamtic, normocephalic. EYES: No scleral icterus. No injection or drainage. ENT: Moist mucous membranes, patent nares, no erythema of oropharynx. NECK: Supple, trachea midline. No JVD or lymphadenopathy. Normal thyroid. CARDIOVASCULAR: Regular rate and rhythm. No murmurs, gallops, or rubs. RESPIRATORY: Breath sounds clear equal bilaterally. No crackles or wheezes. No accessory muscle use. GASTROINTESTINAL: Abdomen soft, non-tender, nondistended, normal active bowel sounds MUSCULOSKELETAL: No cyanosis, or edema. NEURO: CN II-XII grossly intact, no focal deficits, no slurring of speech Results - Labs CBC & Chem 7: 11/17/17 05:35 11/17/17 05:35 Microbiology 11/15/17 19:09 Blood - Peripheral Aerobic Blood Culture - Preliminary No growth in 3 days 11/15/17 19:09 Blood - Peripheral Anaerobic Blood Culture - Preliminary No growth in 3 days 11/15/17 19:00 Blood - Peripheral Aerobic Blood Culture - Preliminary No growth in 3 days 11/15/17 19:00 Blood - Peripheral Anaerobic Blood Culture - Preliminary No growth in 3 days 11/15/17 13:07 Fluid - Other Gram Stain - Final 11/15/17 13:07 Fluid - Other Wound Culture - Final No growth in 72 hours (aerobically and anaerobically ) Assessment and Plan - Plan 77-year-old male with a history of COPD, hypertension, hypothyroid, CKD presented to the ED with complaint of back pain. 11/17/17 = no changes today, still awaiting pathology, no change to current plan 11/18/17 = poor sleep overnight, persisting abdominal discomfort, still awaiting pathology results Abdominal and back pain likely related to multiple lesions Abd CT reviewed and shows 2 lesions in the liver and a 7cm lobular right retrocrural mass Continue pain management with IV morphine and p.o. Percocet Appreciate oncology consult Lung/Liver masses Chest CT reviewed and shows numerous bilateral irregular masses Echocardiogram within normal limits Doppler study of lower extremities within normal limits Liver biopsy results pending, suspicious for renal cell carcinoma with metastasis Appreciate oncology following Suspicious renal mass possible renal mass versus xanthogranulomatous pyelonephritis Urology feels this is likely due to the patient's retrocrural mass, recommend holding off on antibiotics at this time Leukocytosis has normalized Blood cultures negative thus far Constipation This may be contributing to patient's abdominal pain, patient denies this Patient is still refusing laxatives and GI motility agents Acute renal insufficiency Patient has chronic renal insufficiency as well Continue with gentle IV fluid hydration and follow trend which is improving Hypertension, chronic Continue atenolol, monitor vitals Hypothyroidism, chronic Continue levothyroxine DVT prophylaxis Lovenox
[2017-11-18] MEDS: Enoxaparin Inj 40 MG/0.4 ML Syringe SQ SCH (13:26)
[2017-11-18] MEDS ORDERED: Zolpidem Tartrate 5 MG Tablet PO PRN (23:50)
[2017-11-19] MEDS: Sod Chloride 0.9% Inj 1,000 ML IV.CONT SCH ×3 (00:02→19:45)
[2017-11-19] MEDS: oxyCODONE/Acetaminophen 10/325 Tablet PO PRN ×3 (06:47→21:16)
[2017-11-19 07:03] LABS: Calcium 8.8 mg/dL (8.5-10.1); Carbon Dioxide 20.6 meq/L (21.0-32.0); Potassium 3.9 meq/L (3.5-5.1)
[2017-11-19 07:10] LABS: Hematocrit 29.7 % (39.0-51.0); Hemoglobin 10.2 gm/dL (13.0-17.0); Mean Corpuscular HGB Conc 34.4 % (32.0-36.0); Mean Corpuscular Hemoglobin 29.9 pg (27.0-34.0); Mean Platelet Volume 7.5 fL (7.0-11.0); Platelet Count 199 th/mm3 (150-450); Red Blood Count 3.41 mil/mm3 (4.50-5.90); Red Cell Distribution Width 15.9 % (11.6-17.2); White Blood Count 10.3 th/mm3 (4.0-11.0)
[2017-11-19] MEDS: Morphine Inj 4 MG/ML Vial IV.PUSH PRN ×5 (07:38→23:10)
[2017-11-19] MEDS: Atenolol 50 MG Tablet PO SCH (09:10)
[2017-11-19] MEDS: Enoxaparin Inj 40 MG/0.4 ML Syringe SQ SCH (09:10)
--- NOTE | 2017-11-19 12:23 | P.PNIM ---
Subjective Interval history: Patient states he had another sleepless night. He reports the fatigue from lack of sleep for the last 3 days and starting to build up as inflammation causing body aches and discomfort for him. Physical Exam Vital signs: Vital Signs 11/18/17 15:00 11/18/17 16:37 11/18/17 19:00 Temperature 98.6 F 98.9 F Pulse Rate 66 62 59 L Respiratory Rate 18 16 Blood Pressure 125/65 116/67 Pulse Oximetry 100 98 11/18/17 20:00 11/18/17 23:00 11/19/17 03:00 Temperature 98.6 F 98.7 F Pulse Rate 62 63 Respiratory Rate 16 16 Blood Pressure 133/73 132/71 Pulse Oximetry 100 100 100 11/19/17 07:00 11/19/17 08:00 11/19/17 10:45 Temperature 98.5 F Pulse Rate 69 Respiratory Rate 16 Blood Pressure 124/72 Pulse Oximetry 99 99 100 11/19/17 11:00 Temperature 98.5 F Pulse Rate 62 Respiratory Rate 16 Blood Pressure 131/72 Pulse Oximetry 100 Intake & Output 11/18/17 11/19/17 11/19/17 18:59 06:59 18:59 Intake Total 1480 / 1480 1240 / 1240 1000 / 1000 Output Total 770 / 770 500 / 500 Balance 710 / 710 740 / 740 1000 / 1000 Weight 97 kg Intake: IV 1000 / 1000 1000 / 1000 1000 / 1000 NS Inj 1,000 ML @ 100 mls/hr IV 1000 / 1000 1000 / 1000 1000 / 1000 .CONT .Q10H [facility] Rx#:[id number] Oral 480 / 480 240 / 240 Output: Urine 770 / 770 500 / 500 Other: Date of Last Bowel Movement 11/11/17 11/11/17 11/11/17 Narrative: GENERAL: AAOx3, no acute distress, generally weak and SKIN: Warm and dry. No rashes HEAD: Atruamtic, normocephalic. EYES: No scleral icterus. No injection or drainage. ENT: Moist mucous membranes, patent nares, no erythema of oropharynx. NECK: Supple, trachea midline. No JVD or lymphadenopathy. Normal thyroid. CARDIOVASCULAR: Regular rate and rhythm. No murmurs, gallops, or rubs. RESPIRATORY: Breath sounds clear equal bilaterally. No crackles or wheezes. No accessory muscle use. GASTROINTESTINAL: Abdomen soft, non-tender, nondistended, normal active bowel sounds MUSCULOSKELETAL: No cyanosis, or edema. NEURO: CN II-XII grossly intact, no focal deficits, no slurring of speech Results - Labs CBC & Chem 7: 11/19/17 05:59 11/19/17 05:59 Laboratory Results - last 24 hr 11/19/17 11/19/17 05:59 05:59 WBC 10.3 RBC 3.41 L Hgb 10.2 L Hct 29.7 L MCV 87.0 MCH 29.9 MCHC 34.4 RDW 15.9 Plt Count 199 MPV 7.5 Sodium 139 Potassium 3.9 Chloride 108 H Carbon Dioxide 20.6 L Anion Gap 10 BUN 20 H Creatinine 1.34 H Estimated GFR 52 L Random Glucose 79 Calcium 8.8 Microbiology 11/15/17 19:09 Blood - Peripheral Aerobic Blood Culture - Preliminary No growth in 4 days 11/15/17 19:09 Blood - Peripheral Anaerobic Blood Culture - Preliminary No growth in 4 days 11/15/17 19:00 Blood - Peripheral Aerobic Blood Culture - Preliminary No growth in 4 days 11/15/17 19:00 Blood - Peripheral Anaerobic Blood Culture - Preliminary No growth in 4 days 11/15/17 13:07 Abscess - Abdominal Fungal Smear - Final No fungal elements seen 11/15/17 15:20 Abscess - Abdominal Acid Fast Bacilli Smear - Final No acid fast bacilli seen 11/15/17 13:07 Fluid - Other Gram Stain - Final 11/15/17 13:07 Fluid - Other Wound Culture - Final No growth in 72 hours (aerobically and anaerobically ) Assessment and Plan - Plan 77-year-old male with a history of COPD, hypertension, hypothyroid, CKD presented to the ED with complaint of back pain. 11/17/17 = no changes today, still awaiting pathology, no change to current plan 11/18/17 = poor sleep overnight, persisting abdominal discomfort, still awaiting pathology results 11/19/17 = no sleep overnight again, complains of body aches now, pathology still pending Abdominal and back pain likely related to multiple lesions Abd CT reviewed and shows 2 lesions in the liver and a 7cm lobular right retrocrural mass Continue pain management with IV morphine and p.o. Percocet Appreciate oncology consult Lung/Liver masses Chest CT reviewed and shows numerous bilateral irregular masses Echocardiogram within normal limits Doppler study of lower extremities within normal limits Liver biopsy results pending, suspicious for renal cell carcinoma with metastasis Appreciate oncology following Suspicious renal mass possible renal mass versus xanthogranulomatous pyelonephritis Urology feels this is likely due to the patient's retrocrural mass, recommend holding off on antibiotics at this time Leukocytosis has normalized Blood cultures negative Insomnia Patient failed treatment with Restoril, failed treatment with zolpidem Will give scheduled melatonin prior to bedtime, trazodone added as treatment for breakthrough insomnia Constipation This may be contributing to patient's abdominal pain, patient denies this Patient is still refusing laxatives and GI motility agents Acute renal insufficiency Patient has chronic renal insufficiency as well Continue with gentle IV fluid hydration and follow trend which is improving Hypertension, chronic Continue atenolol, monitor vitals Hypothyroidism, chronic Continue levothyroxine DVT prophylaxis Lovenox
[2017-11-19] MEDS ORDERED: Ketorolac Inj 30 MG/ML (IVP) Vial IV.PUSH ONE (13:00)
--- NOTE | 2017-11-19 16:25 | P.PNONC ---
Subjective Interval history: Afebrile. Patient reports no sleep and 3 nights. Attending has added trazodone and melatonin, patient is hopeful he will get some rest tonight. He reports back pain was also a contributing factor in his insomnia. He was given Toradol today and he states that this helped his pain the most. He also reports the Toradol decrease the all over body aches. Path is still pending. Objective Vital Signs/Intake & Output: Vital Signs 11/18/17 16:37 11/18/17 19:00 11/18/17 20:00 Temperature 98.6 F 98.9 F Pulse Rate 62 59 L Respiratory Rate 18 16 Blood Pressure 125/65 116/67 Pulse Oximetry 100 98 100 11/18/17 23:00 11/19/17 03:00 11/19/17 07:00 Temperature 98.6 F 98.7 F 98.5 F Pulse Rate 62 63 69 Respiratory Rate 16 16 16 Blood Pressure 133/73 132/71 124/72 Pulse Oximetry 100 100 99 11/19/17 08:00 11/19/17 10:45 11/19/17 11:00 Temperature 98.5 F Pulse Rate 62 Respiratory Rate 16 Blood Pressure 131/72 Pulse Oximetry 99 100 100 11/19/17 15:00 Temperature Pulse Rate 58 L Respiratory Rate 16 Blood Pressure 124/65 Pulse Oximetry 99 Intake & Output 11/18/17 11/19/17 11/19/17 18:59 06:59 18:59 Intake Total 1480 / 1480 1240 / 1240 1000 / 1000 Output Total 770 / 770 500 / 500 Balance 710 / 710 740 / 740 1000 / 1000 Weight 97 kg Intake: IV 1000 / 1000 1000 / 1000 1000 / 1000 NS Inj 1,000 ML @ 100 mls/hr IV 1000 / 1000 1000 / 1000 1000 / 1000 .CONT .Q10H [facility] Rx#:[id number] Oral 480 / 480 240 / 240 Output: Urine 770 / 770 500 / 500 Other: Date of Last Bowel Movement 11/11/17 11/11/17 11/11/17 Result Diagrams: 11/19/17 05:59 11/19/17 05:59 Laboratory Results: Laboratory Results - last 24 hr 11/19/17 11/19/17 05:59 05:59 WBC 10.3 RBC 3.41 L Hgb 10.2 L Hct 29.7 L MCV 87.0 MCH 29.9 MCHC 34.4 RDW 15.9 Plt Count 199 MPV 7.5 Sodium 139 Potassium 3.9 Chloride 108 H Carbon Dioxide 20.6 L Anion Gap 10 BUN 20 H Creatinine 1.34 H Estimated GFR 52 L Random Glucose 79 Calcium 8.8 Culture Results: Microbiology 11/15/17 19:09 Aerobic Blood Culture - Preliminary Blood - Peripheral No growth in 4 days Anaerobic Blood Culture - Preliminary No growth in 4 days 11/15/17 19:00 Aerobic Blood Culture - Preliminary Blood - Peripheral No growth in 4 days Anaerobic Blood Culture - Preliminary No growth in 4 days 11/15/17 13:07 Fungal Smear - Final Abscess - Abdominal No fungal elements seen 11/15/17 15:20 Acid Fast Bacilli Smear - Final Abscess - Abdominal No acid fast bacilli seen 11/15/17 13:07 Gram Stain - Final Fluid - Other Wound Culture - Final No growth in 72 hours (aerobically and anaerobically) Medications: Active Medications Generic Name Dose Route Start Last Admin Trade Name Freq PRN Reason Stop Dose Admin Atenolol 50 mg 11/15/17 09:00 11/19/17 09:10 Tenormin PO 50 mg DAILY [facility] Administration Enoxaparin Sodium 40 mg 11/18/17 13:30 11/19/17 09:10 Lovenox Inj SQ 40 mg DAILY [facility] Administration Sodium Chloride 1,000 mls @ 100 mls/hr 11/14/17 20:45 11/19/17 11:34 Ns Inj IV.CONT 100 mls/hr .Q10H [facility] Administration Levothyroxine Sodium 112 mcg 11/15/17 06:00 11/19/17 05:02 Synthroid PO 112 mcg DAILY@0600 [facility] Administration Morphine Sulfate 2 mg 11/14/17 20:40 11/19/17 15:27 Morphine Inj IV.PUSH 2 mg Q3H PRN Administration PAIN 3-5; IF UABLE TO TAKE PO Ondansetron HCl 4 mg 11/14/17 20:41 11/18/17 23:30 Zofran Inj IV.PUSH 4 mg Q6H PRN Administration NAUSEA OR VOMITING Oxycodone/Acetaminophen 1 tab 11/14/17 20:40 11/19/17 13:10 Percocet 10/325 Mg PO 1 tab Q6H PRN Administration PAIN SCALE 6 TO 10 Oxycodone/Acetaminophen 1 tab 11/14/17 20:40 11/17/17 09:27 Percocet 5/325 Mg PO 1 tab Q6H PRN Administration PAIN SCALE 3 TO 5 Objective Remarks: GENERAL: Elderly male patient, sitting at bedside, in no acute distress. SKIN: Warm and dry. HEAD: Normocephalic. EYES: No scleral icterus. No injection or drainage. NECK: Supple, trachea midline. CARDIOVASCULAR: Regular rate and rhythm without murmurs. RESPIRATORY: Posterior breath sounds equal bilaterally. No accessory muscle use. Biopsy site, unremarkable. GASTROINTESTINAL: Abdomen soft, non-tender, nondistended. EXTREMITIES: SCD stockings in place. Bilateral edema. MUSCULOSKELETAL: Adequate muscle tone. NEUROLOGICAL: No obvious focal deficit. Awake, alert, and oriented x3. PSYCHIATRIC: Appropriate mood and affect; insight and judgment normal. Assessment/Plan - Plan Mr. Max, is a 77-year-old gentleman, who originally presented to the hospital with shortness of breath. Patient is currently being evaluated for metastatic renal carcinoma. Pathology is pending. Plan: 1. Suspected metastatic renal carcinoma, retroperitoneal mass biopsied on 2017, 8 mL of purulent fluid removed, pathology is pending. 2. Shortness of breath, currently controlled. CT chest showed multiple new findings which were highly suspicious for malignancy including numerous bilateral irregular margin along mass, 2 of which are cavitary and a greater than 7 cm lobular right retrocrural mass. 3. Right leg edema, venous Doppler study on 11/15/2017 was negative for RLE DVT. SCD's in place. Continue Lovenox for DVT prophylaxis. 4. Back pain, continue pain management. Once pathology has resulted, patient will likely need radiation for better pain control. Monitor for oversedation. 5. Continue supportive care.
[2017-11-19] MEDS: Ketorolac Inj 30 MG/ML (IVP) Vial IV.PUSH PRN ×2 (18:21→22:26)
[2017-11-19] MEDS ORDERED: Melatonin 5 MG Tablet PO SCH (21:00)
[2017-11-19] MEDS ORDERED: traZODone 100 MG Tablet PO PRN (21:00)
[2017-11-20] MEDS: Morphine Inj 4 MG/ML Vial IV.PUSH PRN ×5 (02:25→22:20)
[2017-11-20] MEDS: oxyCODONE/Acetaminophen 10/325 Tablet PO PRN ×5 (03:02→23:38)
[2017-11-20] MEDS: Ketorolac Inj 30 MG/ML (IVP) Vial IV.PUSH PRN ×2 (04:37→12:03)
[2017-11-20] MEDS: Sod Chloride 0.9% Inj 1,000 ML IV.CONT SCH ×3 (04:42→23:40)
[2017-11-20] MEDS: Atenolol 50 MG Tablet PO SCH (09:53)
[2017-11-20] MEDS: Enoxaparin Inj 40 MG/0.4 ML Syringe SQ SCH (09:54)
--- NOTE | 2017-11-20 14:26 | P.PNIM ---
Subjective Interval history: The patient complained about not being able to sleep at all. He said that he heard the results were cancer from biopsy. His friends were at the bedside. Discussed with nursing at the bedside. Physical Exam Vital signs: Vital Signs 11/19/17 15:00 11/19/17 17:18 11/19/17 18:51 Temperature Pulse Rate 58 L Respiratory Rate 16 18 Blood Pressure 124/65 Pulse Oximetry 99 99 11/19/17 19:40 11/19/17 19:43 11/19/17 20:23 Temperature 98.4 F Pulse Rate 63 65 Respiratory Rate 18 16 Blood Pressure 106/62 Pulse Oximetry 97 11/19/17 21:46 11/19/17 22:56 11/19/17 23:12 Temperature Pulse Rate Respiratory Rate 18 18 18 Blood Pressure Pulse Oximetry 11/19/17 23:15 11/20/17 00:06 11/20/17 02:27 Temperature 97.9 F Pulse Rate 59 L 58 L Respiratory Rate 19 18 Blood Pressure 94/60 L Pulse Oximetry 98 11/20/17 03:30 11/20/17 03:58 11/20/17 04:40 Temperature 97.9 F Pulse Rate 54 L 57 L Respiratory Rate 16 18 Blood Pressure 127/66 Pulse Oximetry 95 11/20/17 05:07 11/20/17 10:27 11/20/17 11:00 Temperature 98 F Pulse Rate 63 Respiratory Rate 18 17 20 Blood Pressure 111/66 Pulse Oximetry 98 Intake & Output 11/19/17 11/20/17 11/20/17 18:59 06:59 18:59 Intake Total 1600 / 1600 1999 Output Total 510 / 510 400 / 400 Balance 1090 / 1090 1599 / 1599 Weight 97.2 kg Intake: IV 1000 / 1000 1999 NS Inj 1,000 ML @ 100 mls/hr IV 1000 / 1000 1999 .CONT .Q10H [facility] Rx#:[id number] Oral 600 / 600 Output: Urine 510 / 510 400 / 400 Other: Date of Last Bowel Movement 11/11/17 Narrative: GENERAL: No acute distress. SKIN: Warm and dry. No rashes. HEAD: Atraumatic, normocephalic. EYES: No scleral icterus. No injection or drainage. ENT: Moist mucous membranes, patent nares, no erythema of oropharynx. NECK: Supple, trachea midline. No JVD or lymphadenopathy. Normal thyroid. CARDIOVASCULAR: Regular rate and rhythm. No murmurs, gallops, or rubs. RESPIRATORY: Breath sounds clear equal bilaterally. No crackles or wheezes. No accessory muscle use. GASTROINTESTINAL: Abdomen soft, non-tender, nondistended, normal active bowel sounds MUSCULOSKELETAL: No cyanosis, or edema. NEURO: CN II-XII grossly intact, no focal deficits, no slurring of speech Results - Labs CBC & Chem 7: 11/19/17 05:59 11/19/17 05:59 Microbiology 11/15/17 19:09 Blood - Peripheral Aerobic Blood Culture - Final No growth in 5 days 11/15/17 19:09 Blood - Peripheral Anaerobic Blood Culture - Final No growth in 5 days 11/15/17 19:00 Blood - Peripheral Aerobic Blood Culture - Final No growth in 5 days 11/15/17 19:00 Blood - Peripheral Anaerobic Blood Culture - Final No growth in 5 days Assessment and Plan - Plan Abdominal and back pain likely related to multiple lesions Abd CT reviewed and shows 2 lesions in the liver and a 7cm lobular right retrocrural mass Continue pain management with IV morphine and increase frequency of Percocet. 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 -Appreciate oncology following. Suspicious renal mass possible renal mass versus xanthogranulomatous pyelonephritis Urology feels this is likely due to the patient's retrocrural mass, recommend holding off on antibiotics at this time Leukocytosis has normalized Blood cultures negative Insomnia Ongoing. -Ambien 10 mg HS. Restoril 30 mg HS for breakthrough insomnia. Constipation This may be contributing to patient's abdominal pain, patient denies this Patient is still refusing laxatives and GI motility agents Acute renal insufficiency Patient has chronic renal insufficiency as well Continue with gentle IV fluid hydration and follow trend which is improving -d/c Toradol. Hypertension, chronic Continue atenolol, monitor vitals Hypothyroidism, chronic Continue levothyroxine DVT prophylaxis Lovenox
--- NOTE | 2017-11-20 16:53 | P.PNONC ---
Subjective Interval history: Patient lying in bed, in no acute distress. Patient reports he was still unable to sleep last night. He states he is exhausted. He continues have pain in his back and his right side. He states relief with pain medication depends on the severity of the pain. We have discussed his pathology findings. Objective Vital Signs/Intake & Output: Vital Signs 11/19/17 17:18 11/19/17 18:51 11/19/17 19:40 Temperature Pulse Rate Respiratory Rate 18 18 Blood Pressure Pulse Oximetry 99 11/19/17 19:43 11/19/17 20:23 11/19/17 21:46 Temperature 98.4 F Pulse Rate 63 65 Respiratory Rate 16 18 Blood Pressure 106/62 Pulse Oximetry 97 11/19/17 22:56 11/19/17 23:12 11/19/17 23:15 Temperature 97.9 F Pulse Rate 59 L Respiratory Rate 18 18 19 Blood Pressure 94/60 L Pulse Oximetry 98 11/20/17 00:06 11/20/17 02:27 11/20/17 03:30 Temperature Pulse Rate 58 L Respiratory Rate 18 16 Blood Pressure Pulse Oximetry 11/20/17 03:58 11/20/17 04:40 11/20/17 05:07 Temperature 97.9 F Pulse Rate 54 L 57 L Respiratory Rate 18 18 Blood Pressure 127/66 Pulse Oximetry 95 11/20/17 08:00 11/20/17 10:27 11/20/17 11:00 Temperature 98 F Pulse Rate 63 Respiratory Rate 17 20 Blood Pressure 111/66 Pulse Oximetry 98 98 Intake & Output 11/19/17 11/20/17 11/20/17 18:59 06:59 18:59 Intake Total 1600 / 1600 1999 Output Total 510 / 510 400 / 400 Balance 1090 / 1090 1600 / 1600 Weight 97.2 kg Intake: IV 1000 / 1000 1999 / 1999 NS Inj 1,000 ML @ 100 mls/hr IV 1000 / 1000 1999 .CONT .Q10H [facility] Rx#:[id number] Oral 600 / 600 Output: Urine 510 / 510 400 / 400 Other: Date of Last Bowel Movement 11/11/17 12/11/17 Result Diagrams: 11/19/17 05:59 11/19/17 05:59 Culture Results: Microbiology 11/15/17 19:09 Aerobic Blood Culture - Final Blood - Peripheral No growth in 5 days Anaerobic Blood Culture - Final No growth in 5 days 11/15/17 19:00 Aerobic Blood Culture - Final Blood - Peripheral No growth in 5 days Anaerobic Blood Culture - Final No growth in 5 days 11/15/17 13:07 Fungal Smear - Final Abscess - Abdominal No fungal elements seen 11/15/17 15:20 Acid Fast Bacilli Smear - Final Abscess - Abdominal No acid fast bacilli seen 11/15/17 13:07 Gram Stain - Final Fluid - Other Wound Culture - Final No growth in 72 hours (aerobically and anaerobically) Medications: Active Medications Generic Name Dose Route Start Last Admin Trade Name Freq PRN Reason Stop Dose Admin Atenolol 50 mg 11/15/17 09:00 11/20/17 09:53 Tenormin PO 50 mg DAILY [facility] Administration Enoxaparin Sodium 40 mg 11/18/17 13:30 11/20/17 09:54 Lovenox Inj SQ 40 mg DAILY [facility] Administration Sodium Chloride 1,000 mls @ 100 mls/hr 11/14/17 20:45 11/20/17 04:42 Ns Inj IV.CONT 100 mls/hr .Q10H [facility] Administration Ketorolac Tromethamine 15 mg 11/19/17 16:21 11/20/17 12:03 Toradol Inj IV.PUSH 11/24/17 16:20 15 mg Q6H PRN Administration BACK PAIN Levothyroxine Sodium 112 mcg 11/15/17 06:00 11/20/17 07:14 Synthroid PO 112 mcg DAILY@0600 [facility] Administration Melatonin 5 mg 11/19/17 21:00 11/19/17 21:21 Melatonin PO 5 mg HS [facility] Administration Morphine Sulfate 2 mg 11/14/17 20:40 11/20/17 13:31 Morphine Inj IV.PUSH 2 mg Q3H PRN Administration PAIN 3-5; IF UABLE TO TAKE PO Ondansetron HCl 4 mg 11/14/17 20:41 11/18/17 23:30 Zofran Inj IV.PUSH 4 mg Q6H PRN Administration NAUSEA OR VOMITING Oxycodone/Acetaminophen 1 tab 11/14/17 20:40 11/20/17 10:32 Percocet 10/325 Mg PO 1 tab Q6H PRN Administration PAIN SCALE 6 TO 10 Oxycodone/Acetaminophen 1 tab 11/14/17 20:40 11/17/17 09:27 Percocet 5/325 Mg PO 1 tab Q6H PRN Administration PAIN SCALE 3 TO 5 Trazodone HCl 100 mg 11/19/17 21:00 11/20/17 02:26 Desyrel PO 100 mg HS PRN Administration Breakthrough Insomnia Objective Remarks: GENERAL: Elderly male patient, lying in bed, in no acute distress. SKIN: Warm and dry. HEAD: Normocephalic. EYES: No scleral icterus. No injection or drainage. NECK: Supple, trachea midline. CARDIOVASCULAR: Regular rate and rhythm without murmurs. RESPIRATORY: Anterior breath sounds equal bilaterally. Non-labored at rest. GASTROINTESTINAL: Abdomen soft, non-tender, nondistended. EXTREMITIES: SCD stockings in place. Bilateral edema. MUSCULOSKELETAL: Adequate muscle tone. NEUROLOGICAL: No obvious focal deficit. Awake, alert, and oriented x3. PSYCHIATRIC: Appropriate mood and affect; insight and judgment normal. Assessment/Plan - Plan Mr. Max, is a 77-year-old gentleman, who originally presented to the hospital with shortness of breath. Patient is currently being evaluated for metastatic renal carcinoma. Pathology is pending. Plan: 1. Retroperitoneal mass and abdominal mass biopsied on 11/15/2017, 8 mL of purulent fluid removed, pathology revealed necrotic debris, keratin debris and rare markedly atypical squamous cells, suspicious for squamous cell carcinoma. 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 2. Shortness of breath, currently controlled. CT chest showed multiple new findings which were highly suspicious for malignancy including numerous bilateral irregular margin along mass, 2 of which are cavitary and a greater than 7 cm lobular right retrocrural mass. 3. Right leg edema, venous Doppler study on 11/15/2017 was negative for RLE DVT. SCD's in place. Continue Lovenox for DVT prophylaxis. 4. Back and right side pain, not well controlled. We will increase his morphine breakthrough to 3 mg. Monitor for oversedation. 5. Insomnia, review of records revealed patient did not get trazodone until 2: 00 in the AM. I will change this from a as needed dosing to a scheduled dose. - Attending Statement He is seen in room 241After receiving the pathology report which shows invasive squamous cell cancer. I sat down with patient and had a 30-minute discussion with him regarding further options of diagnosis and therapy. 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 Patient will need a PET CT scan as outpatient and a Port-A-Cath for initiation of systemic therapy. More importantly he will need a molecular testing on the retroperitoneal tissue specimen with K-jeremiah mutation testing at first. If that is negative he would need to be tested it would need to be tested for EGFR, BF, ROS, and PDL 1. If the K-jeremiah is positive would not need further testing and would need to go on systemic chemotherapy only. All these issues were discussed with patient he understands his social situation was reviewed and he claims he has close friends and stepdaughter who will help him through his chemotherapy. I will see him in follow-up in the hospital in office.
[2017-11-20] MEDS ORDERED: Temazepam 15 MG Capsule PO PRN (17:14)
[2017-11-21] MEDS: Sod Chloride 0.9% Inj 1,000 ML IV.CONT SCH ×2 (04:11→17:59)
[2017-11-21] MEDS: Levothyroxine 112 MCG Tablet PO SCH (05:39)
[2017-11-21] MEDS ORDERED: ceFAZolin 2 GM Premix Inj 2 GM/50 ML PIGGYBACK IV.SIG ONE (08:56)
[2017-11-21] MEDS ORDERED: Vancomycin Inj 1 GM/200 ML PIGGYBACK IV.SIG SCH (08:58)
[2017-11-21] MEDS ORDERED: Vancomycin Inj 1,000 MG in Sodium Chlor 0.9% Inj 250 ML IV.SIG SCH (09:00)
[2017-11-21] MEDS: Enoxaparin Inj 40 MG/0.4 ML Syringe SQ SCH (09:44)
[2017-11-21] MEDS: Atenolol 50 MG Tablet PO SCH (09:55)
[2017-11-21] MEDS: oxyCODONE/Acetaminophen 10/325 Tablet PO PRN ×2 (10:08→14:43)
[2017-11-21] MEDS ORDERED: fentaNYL Citrate Inj 250 MCG/5 ML Ampul ONE (11:02)
--- NOTE | 2017-11-21 11:07 | P.PNIM ---
Subjective Interval history: The patient was on a stretcher on the way to getting his port placed. He said that he finally slept last night. He denied any acute complaints. Physical Exam Vital signs: Vital Signs 11/20/17 15:00 11/20/17 17:17 11/20/17 19:00 Temperature 97.6 F 97.2 F L Pulse Rate 65 59 L 73 Respiratory Rate 20 16 Blood Pressure 144/75 H 121/57 L Pulse Oximetry 98 100 11/20/17 20:00 11/21/17 00:00 11/21/17 04:00 Temperature 97.2 F L 97.5 F L Pulse Rate 69 70 Respiratory Rate 16 14 Blood Pressure 128/70 115/64 Pulse Oximetry 100 95 97 11/21/17 07:00 11/21/17 10:00 Temperature 97.9 F Pulse Rate 60 Respiratory Rate 16 Blood Pressure 140/76 Pulse Oximetry 97 Intake & Output 11/20/17 11/21/17 11/21/17 18:59 06:59 18:59 Intake Total 1720 / 1720 1000 / 1000 1000 / 1000 Output Total 650 / 650 500 / 500 Balance 1070 / 1070 500 / 500 1000 / 1000 Weight 97 kg Intake: IV 1000 / 1000 1000 / 1000 1000 / 1000 NS Inj 1,000 ML @ 100 mls/hr IV 1000 / 1000 1000 / 1000 1000 / 1000 .CONT .Q10H [facility] Rx#:[id number] Oral 720 / 720 Output: Urine 650 / 650 500 / 500 Other: Date of Last Bowel Movement 12/11/17 12/11/17 11/11/14 Narrative: GENERAL: No acute distress. SKIN: Warm and dry. No rashes. HEAD: Atraumatic, normocephalic. EYES: No scleral icterus. No injection or drainage. ENT: Moist mucous membranes, patent nares, no erythema of oropharynx. NECK: Supple, trachea midline. No JVD or lymphadenopathy. Normal thyroid. CARDIOVASCULAR: Regular rate and rhythm. No murmurs, gallops, or rubs. RESPIRATORY: Breath sounds clear equal bilaterally. No crackles or wheezes. No accessory muscle use. GASTROINTESTINAL: Abdomen soft, non-tender, nondistended, normal active bowel sounds MUSCULOSKELETAL: No cyanosis, or edema. NEURO: CN II-XII grossly intact, no focal deficits, no slurring of speech Results - Labs CBC & Chem 7: 11/19/17 05:59 11/19/17 05:59 Microbiology 11/15/17 19:09 Blood - Peripheral Aerobic Blood Culture - Final No growth in 5 days 11/15/17 19:09 Blood - Peripheral Anaerobic Blood Culture - Final No growth in 5 days 11/15/17 19:00 Blood - Peripheral Aerobic Blood Culture - Final No growth in 5 days 11/15/17 19:00 Blood - Peripheral Anaerobic Blood Culture - Final No growth in 5 days Assessment and Plan - Plan Abdominal and back pain Abd CT reviewed and shows 2 lesions in the liver and a 7cm lobular right retrocrural mass. -Continue pain management with IV morphine and increase frequency of Percocet. -Appreciate oncology consult Lung/Liver masses Chest CT reviewed and shows numerous bilateral irregular masses. Echocardiogram within normal limits. Doppler study of lower extremities within normal limits. Liver biopsy results and retroperitoneal biopsy results consistent with SCC. -Appreciate oncology following. Port placement scheduled. -PT eval. Suspicious renal mass Possible renal mass versus xanthogranulomatous pyelonephritis. Urology feels this is likely due to the patient's retrocrural mass, recommend holding off on antibiotics at this time. Leukocytosis has normalized. Blood cultures negative. -oncology following. Insomnia Improved. -Ambien 10 mg HS as needed. Constipation This may be contributing to patient's abdominal pain, patient denies this -Patient is still refusing laxatives and GI motility agents Acute renal insufficiency Patient has chronic renal insufficiency as well Continue with gentle IV fluid hydration and follow trend which is improving -d/c Toradol. Hypertension, chronic -Continue atenolol, monitor vitals Hypothyroidism, chronic -Continue levothyroxine DVT prophylaxis Lovenox Discharge Planning: Per oncology. Await PT eval
[2017-11-21] MEDS ORDERED: Lidocaine 1%/Epinephrine 1:100,000 Inj 20 ML Vial ONE (11:19)
[2017-11-21] MEDS ORDERED: *Heparin Central Flush 100 UNIT/ML 5 ML Vial PERIprocedural ONLY IV.FLUSH ONE (11:19)
--- NOTE | 2017-11-21 16:05 | IR ---
EXAM DATE: 11/21/2017 12:00 AM EDT AGE/SEX: 77 years / Male INDICATIONS: Patient here for insertion of Infusaport has metastatic renal cancer. CLINICAL DATA: This is the patient's initial encounter. Patient reports that signs and symptoms have been present for 3 weeks and indicates a pain score of 8/10. MEDICAL/SURGICAL HISTORY: Chronic renal insufficiency. Chronic obstructive pulmonary disease. Hypertension. hypothyroidism,pneumonia,hydronephrosis right. Appendectomy. Tonsillectomy. heel fr acture. biopsy abdominal mass. COMPARISON: No prior exams available for comparison. FLUORO TIME (min): 0.2 IMAGE SERIES: 1 SEDATION TIME (min): 30 MEDICATION(S): 5 mg midazolam (Versed) IV 250 mcg fentanyl (Sublimaze) IV Vancomycin within 2 hrs of procedure, Ancef (or alternative) within 1 hr of procedure. DEVICE(S): Right 8 FR XCELA PLUS PORT . . PROCEDURE : 1. Continuous pulse oximetry and EKG monitoring. 2. Intravenous conscious sedation. 3. Ultrasound guidance for venous access. 4. Fluoroscopic guided implantable central venous port placement. The patient was placed supine. The neck was prepped in sterile fashion. Full sterile technique was u sed, including cap, mask, sterile gloves and gown, and a large sterile sheet. Hand hygiene and 2% ch lorhexidine Betadine was utilized per protocol for cutaneous antisepsis with appropriate dry time for site. Sterile gel and sterile probe cover were utilized for ultrasound guidance. The skin and sub cutaneous tissues were infiltrated with local anesthetic solution. Under direct ultrasound guidance, central venous access was accomplished in the targeted vessel. The ultrasound images depicting access guidance were stored and saved to PACS for permanent record. A s ubcutaneous pocket was created using blunt dissection. The port was introduced to the pocket. The c atheter tubing was fed through a subcutaneous tunnel to the venotomy site. The catheter tubing was c ut to a suitable length and then was introduced through a valved Peel-Away sheath and positioned with catheter tubing tip at the cavo-atrial junction level. The pocket incision was closed with subcutic ular Vicryl suture. Steri-Strips were applied. The port was flushed and locked with heparin solutio n per protocol. Sterile dressing was applied to the site. The patient tolerated the procedure well. Conscious sedation was performed with the prescribed dosages and duration as above in the presence of an independent trained radiology nurse to assist in the monitoring of the patient. EKG and oximetry remained stable throughout the procedure. The patient tolerated the procedure well and there were no complications. The patient was sent to post anesthesia recovery in stable condition. CONCLUSION: 1. Uncomplicated ultrasound and fluoroscopic guided implanted central venous port catheter placement as described in detail above. An 8 [place] Power port was placed. Electronically signed by: Rocael Triplett MD 11/21/2017 4:03 PM EDT
--- NOTE | 2017-11-21 16:05 | P.PNONC ---
Subjective Interval history: Afebrile Pt sitting up on side of bed eating late lunch Recently returned from Infusaport placement Reports he had some back pain after the procedure Objective Vital Signs/Intake & Output: Vital Signs 11/20/17 17:17 11/20/17 19:00 11/20/17 20:00 Temperature 97.6 F 97.2 F L Pulse Rate 59 L 73 Respiratory Rate 20 16 Blood Pressure 144/75 H 121/57 L Pulse Oximetry 98 100 100 11/21/17 00:00 11/21/17 04:00 11/21/17 07:00 Temperature 97.2 F L 97.5 F L Pulse Rate 69 70 60 Respiratory Rate 16 14 Blood Pressure 128/70 115/64 Pulse Oximetry 95 97 11/21/17 10:00 11/21/17 12:10 11/21/17 13:10 Temperature 97.9 F 98.6 F 97.7 F Pulse Rate 66 63 Respiratory Rate 16 20 20 Blood Pressure 140/76 135/74 Pulse Oximetry 97 94 L 93 L 11/21/17 14:48 Temperature 98 F Pulse Rate 68 Respiratory Rate 16 Blood Pressure 145/77 H Pulse Oximetry 97 Intake & Output 11/20/17 11/21/17 11/21/17 18:59 06:59 18:59 Intake Total 1720 / 1720 1000 / 1000 1050 / 1050 Output Total 650 / 650 500 / 500 Balance 1070 / 1070 500 / 500 1050 / 1050 Weight 213 lb 13.574 oz Intake: IV 1000 / 1000 1000 / 1000 1050 / 1050 NS Inj 1,000 ML @ 100 mls/hr IV 1000 / 1000 1000 / 1000 1000 / 1000 .CONT .Q10H [facility] Rx#:[id number] Ancef 2 GM Premix Inj 2 gm In 50 / 50 50 ml @ 100 mls/hr IV.SIG ONCE ONE Rx#:[id number] Oral 720 / 720 Output: Urine 650 / 650 500 / 500 Other: Date of Last Bowel Movement 12/11/17 12/11/17 11/11/14 Result Diagrams: 11/19/17 05:59 11/19/17 05:59 Culture Results: Microbiology 11/15/17 19:09 Aerobic Blood Culture - Final Blood - Peripheral No growth in 5 days Anaerobic Blood Culture - Final No growth in 5 days 11/15/17 19:00 Aerobic Blood Culture - Final Blood - Peripheral No growth in 5 days Anaerobic Blood Culture - Final No growth in 5 days 11/15/17 13:07 Fungal Smear - Final Abscess - Abdominal No fungal elements seen 11/15/17 15:20 Acid Fast Bacilli Smear - Final Abscess - Abdominal No acid fast bacilli seen Medications: Active Medications Generic Name Dose Route Start Last Admin Trade Name Freq PRN Reason Stop Dose Admin Atenolol 50 mg 11/15/17 09:00 11/21/17 09:55 Tenormin PO 50 mg DAILY [facility] Administration Enoxaparin Sodium 40 mg 11/18/17 13:30 11/21/17 09:44 Lovenox Inj SQ Not Given DAILY [facility] Sodium Chloride 1,000 mls @ 100 mls/hr 11/14/17 20:45 11/21/17 09:19 Ns Inj IV.CONT Infused .Q10H [facility] Infusion Vancomycin HCl 1,000 mg/ 250 mls @ 250 mls/hr 11/21/17 09:00 11/21/17 14:37 Sodium Chloride IV.SIG 11/24/17 08:59 250 mls/hr [employer] [facility] Infusion Levothyroxine Sodium 112 mcg 11/21/17 06:00 11/21/17 05:39 Synthroid PO 112 mcg DAILY@0600 [facility] Administration Morphine Sulfate 4 mg 11/20/17 17:16 11/20/17 22:20 Morphine Inj IV.PUSH 4 mg Q4H PRN Administration BREAKTHROUGH PAIN Ondansetron HCl 4 mg 11/14/17 20:41 11/20/17 20:06 Zofran Inj IV.PUSH 4 mg Q6H PRN Administration NAUSEA OR VOMITING Oxycodone/Acetaminophen 1 tab 11/20/17 17:17 11/21/17 14:43 Percocet 10/325 Mg PO 1 tab Q4H PRN Administration Pain Scale 3 To 10 Zolpidem Tartrate 10 mg 11/20/17 17:13 11/20/17 22:20 Ambien PO 10 mg HS PRN Administration INSOMNIA Objective Remarks: GENERAL: Elderly male patient, lying in bed, in no acute distress. SKIN: Warm and dry. HEAD: Normocephalic. EYES: No scleral icterus. No injection or drainage. NECK: Supple, trachea midline. CARDIOVASCULAR: Regular rate and rhythm without murmurs. RESPIRATORY: Anterior breath sounds equal bilaterally; diminished to the bases. GASTROINTESTINAL: Abdomen soft, non-tender, nondistended. EXTREMITIES: SCD stockings in place. Bilateral edema. MUSCULOSKELETAL: Adequate muscle tone. NEUROLOGICAL: No obvious focal deficit. Awake, alert, and oriented x3. Assessment/Plan - Plan Mr. Max, is a 77-year-old gentleman, who originally presented to the hospital with shortness of breath. 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 Pathology from retroperitoneal mass shows atypical squamous cells, suspicious for squamous cell carcinoma. Primary is unknown. Plan: 1. Patient is status post [id number] placement today. 2. Clear for discharge from oncology standpoint. The patient will follow-up in clinic after he has PET scan to discuss chemo/ next plan of care. 3. Continue supportive care.
[2017-11-21] MEDS: Morphine Inj 4 MG/ML Vial IV.PUSH PRN ×2 (16:38→22:19)
[2017-11-22] MEDS: oxyCODONE/Acetaminophen 10/325 Tablet PO PRN ×2 (03:19→09:55)
[2017-11-22] MEDS: Levothyroxine 112 MCG Tablet PO SCH (05:55)
[2017-11-22] MEDS: Morphine Inj 4 MG/ML Vial IV.PUSH PRN (05:55)
[2017-11-22 07:56] VITALS: RESP 18
--- NOTE | 2017-11-22 09:23 | P.DS ---
Date of admission: 11/14/17 20:42 Primary care physician: Bay Moreno MD Anticipated date of discharge: 11/22/17 Brief History from admission: 77-year-old male with a history of COPD, hypertension, hypothyroid, CKD presented to the ED with complaints of sob. He was seen by his PCP who sent him in for evaluation because his O2 sat drops when standing. He complains of sob with exertion and lower back pain that radiates along his belt line. He states since getting morphine he feels no sob and back pain is only worse with movement. He does state he has had a 40 unintentional weight loss in the last 2 months. Denies any associated nausea, vomiting, cough, sputum production or dysuria. Patient update on day of discharge: No complaints, ready to go home. He did get some sleep overnight. DS: Diagnosis - Discharge Diagnosis (1) Mass of right kidney Status: Acute DS: Medications - Discharge Medications Prescriptions: oxycodone-acetaminophen 1 tab PO Q4H PRN #18 tab PRN Reason: Pain Scale 3 To 10 zolpidem 10 mg PO HS PRN #3 tab PRN Reason: Insomnia DS: Summary Hospital Course: Lung/ Liver/ Renal masses Chest CT showed numerous bilateral irregular masses. Echocardiogram within normal limits. Doppler study of lower extremities within normal limits. Abd CT showed 2 lesions in the liver and a 7 cm lobular right retrocrural mass. Oncology and urology were consulted. Liver biopsy and retroperitoneal biopsy results consistent with SCC. A port was placed and the patient will follow up with oncology as an outpt. He received pain control with Percocet and morphine. E-Forcse was checked. He worked with physical therapy. Insomnia Improved with Ambien 10 mg HS. Constipation The patient will continue taking stool softeners at home. Acute renal insufficiency Improved with IVFs. - Time Spent with Patient Total time spent providing and/or coordinating discharge services: Less than 30 minutes - Quality: VTE Deep Vein Thrombosis/Pulmonary Embolism Present on Admission: No Exam Vital signs: Vital Signs 11/21/17 10:00 11/21/17 12:10 11/21/17 13:10 Temperature 97.9 F 98.6 F 97.7 F Pulse Rate 66 63 Respiratory Rate 16 20 20 Blood Pressure 140/76 135/74 Pulse Oximetry 97 94 L 93 L 11/21/17 14:48 11/21/17 15:00 11/21/17 20:00 Temperature 98 F Pulse Rate 68 65 70 Respiratory Rate 16 20 Blood Pressure 145/77 H 113/71 Pulse Oximetry 97 96 11/21/17 22:35 11/21/17 23:00 11/22/17 00:00 Temperature Pulse Rate 72 Respiratory Rate 7 L 18 16 Blood Pressure Pulse Oximetry 95 11/22/17 04:00 11/22/17 05:51 11/22/17 06:03 Temperature Pulse Rate 69 Respiratory Rate 18 16 16 Blood Pressure 114/67 Pulse Oximetry 95 11/22/17 07:55 11/22/17 08:00 Temperature 97.9 F Pulse Rate 68 Respiratory Rate 18 Blood Pressure 122/69 Pulse Oximetry 96 96 Intake & Output 11/21/17 11/22/17 11/22/17 18:59 06:59 18:59 Intake Total 2280 / 2280 240 / 240 Output Total 1250 / 1250 525 / 525 Balance 1030 / 1030 -285 / -285 Weight 98.2 kg Intake: IV 1800 / 1800 NS Inj 1,000 ML @ 100 mls/hr IV 1500 / 1500 .CONT .Q10H [facility] Rx#:[id number] Vancomycin Inj 1,000 MG In NS 250 / 250 Inj 250 ML @ 250 mls/hr IV.SIG EARLY CHILDHOOD [facility], [facility]–1983 Rx#:[id number] Ancef 2 GM Premix Inj 2 gm In 50 / 50 50 ml @ 100 mls/hr IV.SIG ONCE ONE Rx#:[id number] Oral 480 / 480 240 / 240 Output: Urine 1250 / 1250 525 / 525 Other: Date of Last Bowel Movement 11/11/14 11/11/14 11/11/14 Narrative: GENERAL: No acute distress. SKIN: Warm and dry. No rashes. HEAD: Atraumatic, normocephalic. EYES: No scleral icterus. No injection or drainage. ENT: Moist mucous membranes, patent nares, no erythema of oropharynx. NECK: Supple, trachea midline. No JVD or lymphadenopathy. Normal thyroid. CARDIOVASCULAR: Regular rate and rhythm. No murmurs, gallops, or rubs. RESPIRATORY: Breath sounds clear equal bilaterally. No crackles or wheezes. No accessory muscle use. GASTROINTESTINAL: Abdomen soft, non-tender, nondistended, normal active bowel sounds MUSCULOSKELETAL: No cyanosis, or edema. NEURO: CN II-XII grossly intact, no focal deficits, no slurring of speech Results Procedures completed during hospitalization: See hospital course - Impressions ITS Impressions Chest CT 11/14/17 18:02 CONCLUSION: 1. Multiple new findings in the chest highly suspicious for malignancy including numerous bilateral irregular margin along masses, 2 of which are cavitary, and a greater than 7 cm lobular right retrocrural mass. Abdomen/Pelvis CT 11/14/17 18:04 CONCLUSION: 1. Abnormal appearance to the right kidney with loss of architecture, masslike extension expanding the inferior vena cava and possibly involving the aortocaval space and possible extension into the liver. 2. There are 2 low density lesions in the liver, right lobe and central left lobe which cannot be further characterized on noncontrast study, but given the other findings, are suspicious for metastasis. 3. Greater than 7 cm lobular right retrocrural mass. Abdomen Biopsy CT 11/15/17 00:00 CONCLUSION: 1. Uncomplicated CT guided biopsy. 2. Samples were sent for pathology. 3. 8 cc of purulent appearing fluid was sent for Gram stain, culture and sensitivity. 4. 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 No sonographic evidence for lower extremity DVT. Chest X-Ray 11/15/17 13:07 CONCLUSION: 1. No pneumothorax. Port Line Insertion 11/21/17 00:00 CONCLUSION: 1. Uncomplicated ultrasound and fluoroscopic guided implanted central venous port catheter placement as described in detail above. An 8 [place] Power port was placed. Discharge Plan - Discharge Disposition Patient Disposition: 01 Discharge Home - Discharge Condition Condition: Stable - Discharge Order Discharge Orders: Discharge Order (Routine); Ordered 11/22/17 Ordered By: Cody Nunez Oncology Clear for Discharge (Routine); Ordered 11/21/17 Ordered By: Nataly Ling - Discharge Details Anticipated Discharge Date: 11/22/17 Discharge Comment: OK to discharge patient once I have seen him, thanks - Physicians Team Primary Care Provider: Bay Moreno Attending Provider: Cody Nunez Other Providers: Alonzo Hooker MD ; Cat Shelton ; Vic Zhao MD
[2017-11-22] MEDS: Atenolol 50 MG Tablet PO SCH (09:56)
[2017-11-22] MEDS: Enoxaparin Inj 40 MG/0.4 ML Syringe SQ SCH (09:56)
[2017-11-22 12:59] VITALS: BP 130/72; PULSE 76; TEMP 98.2; O2SAT 95
== END 2017-11-22 13:23 | disposition home or self-care (01) ==
LOC: NEPE 14:15 → NEDA 20:42 → HCIN 11-15 01:25
PROVIDERS: ADMIT Hospitalist; ATTEND Hospitalist

== ENCOUNTER 2017-11-26 13:55 | Inpatient (IN) ==
--- NOTE | 2017-11-26 14:35 | ED ---
HPI General Chief complaint: Recheck/Abnormal Lab/Rx Stated complaint: Legs Swelling Complaint Time Seen by Provider: 11/26/17 14:12 History of Present Illness HPI narrative: 77-year-old male with a history of HTN, COPD, CKD, retroperitoneal mass recently diagnosed as squamous cell carcinoma presents to the emergency department for evaluation of lower extremity edema for 3 days. Patient states that he has a history of chronic swelling around his ankles however the swelling is much worse than it has ever been previously. He does complain of discomfort in his legs due to the swelling. He denies any chest pain, shortness of breath, abdominal pain, nausea, vomiting, diarrhea, fever, chills. He does note that he has had decreased urinary output since he was discharged from the hospital last week. States that he has a history of kidney disease and about 2 months ago was told by his urologist Dr. Dunlap that on renogram his right kidney is not working that only his left kidney is functioning. Patient complains of low back pain which has been present for a while, this is not new. No other complaints. PCP Dr. Moreno. Related Data Home Medications Medication Instructions Recorded Confirmed levothyroxine [Synthroid] 112 mcg PO DAILY 10/28/17 11/26/17 atenolol 50 mg PO DAILY 10/29/17 11/26/17 Previous Rx's Medication Instructions Recorded oxycodone-acetaminophen 1 tab PO Q4H PRN #18 tab 11/22/17 zolpidem 10 mg PO HS PRN #3 tab 11/22/17 Allergies Allergy/AdvReac Type Severity Reaction Status Date / Time No Known Allergies Allergy Verified 11/14/17 14:41 Review of Systems ROS: all other systems reviewed are negative PMFSH Social History Social History Substance History: Past History Second Hand Smoke Exposure: No Smoking Status: Former smoker Tobacco Type: Cigarettes Smoking End Date: 2005 How Often Do You Have a Drink Containing Alcohol: Never Recent Travel in [facility] within the Last 8 Weeks: No Recent Out of Country Travel within the Last 8 Weeks: No Exam Narrative Exam Narrative: GENERAL: Well-nourished and well-developed pleasant patient in no acute distress who is nontoxic appearing. SKIN: Warm and dry. HEAD: Normocephalic and atraumatic. EYES: No injection, drainage, or hyphema noted. PERRLA. EOMI. ENT: No nasal drainage noted. Oropharynx is clear NECK: Supple and the trachea is midline. CARDIOVASCULAR: Regular rate and rhythm. RESPIRATORY: Breath sounds are equal bilaterally with no accessory muscle use, wheezing, rhonchi, or crackles. GASTROINTESTINAL: Abdomen is soft, non-tender, and nondistended. MUSCULOSKELETAL: Bilateral lower extremity edema 2+ from knees to toes. No obvious deformities, cyanosis, or ecchymosis is present throughout the upper and lower extremities. Patient has full range of motion without any signs of neurovascular compromise. Distal pulses are 2+ throughout. NEUROLOGICAL: Awake, alert, and oriented. Normal speech and gait. Cranial nerves are grossly intact. Course Initial Documented Vital Signs Temperature 98.0 F 11/26/17 14:05 Pulse Rate 84 11/26/17 14:05 Respiratory Rate 16 11/26/17 14:05 Blood Pressure 105/59 L 11/26/17 14:05 Pulse Oximetry 98 11/26/17 14:05 Last Documented Vital Signs Temperature 98.0 F 11/26/17 14:05 Pulse Rate 80 11/26/17 17:21 Respiratory Rate 17 11/26/17 17:21 Blood Pressure 107/58 L 11/26/17 17:21 Pulse Oximetry 100 11/26/17 17:21 Medical Decision Making LETY Attestation LETY supervised visit: Yes Attestation: I, Dr. Burciaga, have reviewed the advance practice practitioner' s documentation and am in agreement, met with the patient face to face, made the diagnosis, and the medical decision making was done by me. *My assessment and Findings: marked pitting edema on bilateral lower extremities. [facility] Narrative Medical decision making narrative: 77-year-old male presents to the emergency department for evaluation of bilateral lower extremity edema. Patient is afebrile, vital signs are stable. IV access is obtained, labs have been drawn and sent. Patient is placed on cardiac telemetry and pulse oximetry monitoring. Patient was discharged from our facility 4 days ago. During that admission he was found to have a retroperitoneal mass and abdominal mass that was biopsied and showed squamous cell carcinoma. He also had an echocardiogram done 11/15/17 which showed EF 60-65%. CBC shows anemia with a hemoglobin 9.9, hematocrit 30.5. Coags are unremarkable. CMP show acute on chronic kidney disease with creatinine 2.01, BUN 29, GFR 33. Hyperkalemia noted with K 5.2. Troponin less than 0.02. Bilateral lower extremity ultrasound is negative for DVT. Chest x-ray shows new small right-sided effusion with new mild right lower lobe infiltrate. Patient is having productive cough. Patient will be admitted for hospital- acquired pneumonia due to recent hospitalization and new diagnosis of pneumonia. Patient administered cefepime 1 g IV, vancomycin 1 g IV, Levaquin in 750 mg IV. Patient also administered 1 L of NS for acute on chronic kidney injury and Lasix 20 mg IV for lower extremity edema. I spoke with Dr. Kline [facility] who agrees to admit patient to his service. Medical Screen Exam Complete: Yes Emergency Medical Condition: Yes Differential Diagnosis Differential Diagnosis: Fluid overload versus DVT versus CHF versus dependent edema Lab Data Result diagrams: 11/26/17 14:42 11/26/17 14:42 Lab Results 11/26/17 11/26/17 11/26/17 Range/Units 14:42 14:42 14:42 WBC 11.4 H (4.0-11.0) th/mm3 RBC 3.40 L (4.50-5.90) mil/mm3 Hgb 9.9 L (13.0-17.0) gm/dL Hct 30.5 L (39.0-51.0) % MCV 89.7 (80.0-100.0) fL MCH 29.1 (27.0-34.0) pg MCHC 32.4 (32.0-36.0) % RDW 16.5 (11.6-17.2) % Plt Count 212 (150-450) th/mm3 MPV 7.8 (7.0-11.0) fL Neut % (Auto) 85.3 H (16.0-70.0) % Lymph % (Auto) 6.9 L (9.0-44.0) % Isabela % (Auto) 5.7 (0.0-8.0) % Eos % (Auto) 1.4 (0.0-4.0) % Baso % (Auto) 0.7 (0.0-2.0) % Neut # (Auto) 9.8 H (1.8-7.7) th/mm3 Lymph # (Auto) 0.8 L (1.0-4.8) th/mm3 Isabela # (Auto) 0.6 (0.0-0.9) th/mm3 Eos # (Auto) 0.2 (0.0-0.4) th/mm3 Baso # (Auto) 0.1 (0.0-0.2) th/mm3 WBC Differential . Differential Comment Auto diff final PT 11.3 (9.8-11.6) sec INR 1.1 Ratio APTT 28.2 (24.3-30.1) sec Sodium 145 (136-145) meq/L Potassium 5.2 H (3.5-5.1) meq/L Chloride 110 H (98-107) meq/L Carbon Dioxide 22.8 (21.0-32.0) meq/L Anion Gap 12 (5-15) meq/L BUN 29 H (7-18) mg/dL Creatinine 2.01 H (0.60-1.30) mg/dL Estimated GFR 33 L (>89) mL/min Random Glucose 93 (74-106) mg/dL Calcium 8.9 (8.5-10.1) mg/dL Total Bilirubin 0.5 (0.2-1.0) mg/dL AST 21 (15-37) U/L ALT 20 (12-78) U/L Alkaline Phosphatase 111 (45-117) U/L Troponin I Less than 0.02 L (0.02-0.05) ng/mL B-Natriuretic Peptide (0-100) pg/mL Total Protein 7.0 (6.4-8.2) g/dL Albumin 2.9 L (3.4-5.0) g/dL 11/26/17 Range/Units 14:42 WBC (4.0-11.0) th/mm3 RBC (4.50-5.90) mil/mm3 Hgb (13.0-17.0) gm/dL Hct (39.0-51.0) % MCV (80.0-100.0) fL MCH (27.0-34.0) pg MCHC (32.0-36.0) % RDW (11.6-17.2) % Plt Count (150-450) th/mm3 MPV (7.0-11.0) fL Neut % (Auto) (16.0-70.0) % Lymph % (Auto) (9.0-44.0) % Isabela % (Auto) (0.0-8.0) % Eos % (Auto) (0.0-4.0) % Baso % (Auto) (0.0-2.0) % Neut # (Auto) (1.8-7.7) th/mm3 Lymph # (Auto) (1.0-4.8) th/mm3 Isabela # (Auto) (0.0-0.9) th/mm3 Eos # (Auto) (0.0-0.4) th/mm3 Baso # (Auto) (0.0-0.2) th/mm3 WBC Differential Differential Comment PT (9.8-11.6) sec INR Ratio APTT (24.3-30.1) sec Sodium (136-145) meq/L Potassium (3.5-5.1) meq/L Chloride (98-107) meq/L Carbon Dioxide (21.0-32.0) meq/L Anion Gap (5-15) meq/L BUN (7-18) mg/dL Creatinine (0.60-1.30) mg/dL Estimated GFR (>89) mL/min Random Glucose (74-106) mg/dL Calcium (8.5-10.1) mg/dL Total Bilirubin (0.2-1.0) mg/dL AST (15-37) U/L ALT (12-78) U/L Alkaline Phosphatase (45-117) U/L Troponin I (0.02-0.05) ng/mL B-Natriuretic Peptide 155 H (0-100) pg/mL Total Protein (6.4-8.2) g/dL Albumin (3.4-5.0) g/dL Imaging Data Radiologist's impression: Chest X-Ray 11/26/17 14:28 CONCLUSION: New small right-sided effusion with a new mild right lower lung infiltrate. Venous Doppler Study 11/26/17 14:28 CONCLUSION: 1. No evidence of DVT. No significant change. Discharge Plan Discharge Disposition Patient Disposition: 30 Still Patient Discharge Condition Condition: Good Discharge Details Diagnosis: HAP (hospital-acquired pneumonia), Acute on chronic renal insufficiency, Bilateral edema of lower extremity Physicians Team ED Provider: Manas Burciaga ED Midlevel Provider: Katy Webster Primary Care Provider: UNKNOWN, Attending Provider: Saurabh Kline Other Providers: Cat Shelton Discharge Interventions Interventions: ED Discharge Assessment Last Done: 11/26/17 18:14 Vital Signs Last Done: 11/26/17 14:44 Status ED Status: Left Department Discharge Information Discharge Date/Time: 11/26/17 18:15
--- NOTE | 2017-11-26 15:16 | US ---
EXAM DATE: 11/26/2017 2:28 PM EDT AGE/SEX: 77 years / Male INDICATIONS: Bilateral leg swelling. CLINICAL DATA: This is the patient's initial encounter. Patient reports that signs and symptoms have been present for 3 days and indicates a pain score of 0/10. MEDICAL/SURGICAL HISTORY: Chronic obstructive pulmonary disease. Hypertension. Hypothyroidism . Lung cancer. Right hydronephrosis. None. [place] [facility] [place]15[place]. . TECHNIQUE: Venous ultrasound of both lower extremities was performed from the inguinal ligament to t he proximal calf. Real-time, color Doppler and spectral tracing, compression and augmentation techni ques were used. FINDINGS: Right Leg: Normal compression of the deep venous system from the inguinal region to the proximal cary f. No echogenic clot is seen. Normal response of the venous system to augmentation and respiration. Left Leg: Normal compression of the deep venous system from the inguinal region to the proximal calf . No echogenic clot is seen. Normal response of the venous system to augmentation and respiration. Other: None. CONCLUSION: 1. No evidence of DVT. No significant change. Electronically signed by: Charlie Daniels MD 11/26/2017 3:15 PM EDT
[2017-11-26 15:19] LABS: Albumin 2.9 g/dL (3.4-5.0); Anion Gap 12 meq/L (5-15); Aspartate Aminotransferase 21 U/L (15-37); Blood Urea Nitrogen 29 mg/dL (7-18); Calcium 8.9 mg/dL (8.5-10.1); Carbon Dioxide 22.8 meq/L (21.0-32.0); Chloride 110 meq/L (98-107); Glomerular Filtration Rate 33 mL/min (>89); Glucose,Random 93 mg/dL (74-106); Potassium 5.2 meq/L (3.5-5.1); Sodium 145 meq/L (136-145)
[2017-11-26 15:22] LABS: Baso # (Auto) 0.1 th/mm3 (0.0-0.2); Baso % (Auto) 0.7 % (0.0-2.0); Eos # (Auto) 0.2 th/mm3 (0.0-0.4); Eos % (Auto) 1.4 % (0.0-4.0); Hematocrit 30.5 % (39.0-51.0); Hemoglobin 9.9 gm/dL (13.0-17.0); Lymph # (Auto) 0.8 th/mm3 (1.0-4.8); Lymph % (Auto) 6.9 % (9.0-44.0); Mean Corpuscular HGB Conc 32.4 % (32.0-36.0); Mean Corpuscular Hemoglobin 29.1 pg (27.0-34.0); Mean Corpuscular Volume 89.7 fL (80.0-100.0); Mean Platelet Volume 7.8 fL (7.0-11.0); Mono # (Auto) 0.6 th/mm3 (0.0-0.9); Mono % (Auto) 5.7 % (0.0-8.0); Neut # (Auto) 9.8 th/mm3 (1.8-7.7); Neut % (Auto) 85.3 % (16.0-70.0); Platelet Count 212 th/mm3 (150-450); Red Cell Distribution Width 16.5 % (11.6-17.2); White Blood Count 11.4 th/mm3 (4.0-11.0)
[2017-11-26 15:24] LABS: Alanine Aminotransferase 20 U/L (12-78); Alkaline Phosphatase 111 U/L (45-117)
[2017-11-26 15:25] LABS: Activated Partial Thrombo Time 28.2 sec (24.3-30.1); INR 1.1 Ratio; Prothrombin Time 11.3 sec (9.8-11.6)
--- NOTE | 2017-11-26 15:33 | XR ---
EXAM DATE: 11/26/2017 2:28 PM EDT AGE/SEX: 77 years / Male INDICATIONS: Short of breath, edema both lower extremities, pain left arm CLINICAL DATA: This is the patient's initial encounter. Patient reports that signs and symptoms have been present for 3 days and indicates a pain score of 3/10. MEDICAL/SURGICAL HISTORY: Carcinoma, lung. . infusaport COMPARISON: [facility] – [place], CHEST EXPIRATION ONLY, 11/15/2017. . FINDINGS: There is a new mild infiltrate in the right lung base. There is a small right effusion. The left lung is grossly clear. No definite pulmonary edema is seen. The heart size is stable. There is a new righ t-sided central line in place. The [id number] appears to be in good position. There is no pneumoth orax. The bony structures are stable. CONCLUSION: New small right-sided effusion with a new mild right lower lung infiltrate. Electronically signed by: Charlie Daniels MD 11/26/2017 3:32 PM EDT
[2017-11-26] MEDS ORDERED: Sod Chloride 0.9% Inj 1,000 ML IV.SIG SCH (15:45)
[2017-11-26] MEDS ORDERED: Vancomycin Inj 1 GM/200 ML PIGGYBACK IV.SIG SCH (16:00)
[2017-11-26] MEDS ORDERED: Morphine Inj 4 MG/ML Vial IV.PUSH ONE (16:24)
--- NOTE | 2017-11-26 16:59 | P.HP ---
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 Patient states that he has a history of chronic swelling around his ankles however the swelling is much worse than it has ever been previously. He does complain of discomfort in his legs due to the swelling. He denies any chest pain, shortness of breath, abdominal pain, nausea, vomiting, diarrhea, fever, chills. He does note that he has had decreased urinary output since he was discharged from the hospital last week. States that he has a history of kidney disease and about 2 months ago was told by his urologist Dr. Dunlap that on renogram his right kidney is not working that only his left kidney is functioning. Patient complains of low back pain which has been present for a while, this is not new. No other complaints. PCP Dr. Moreno. recently discharged from this facility, when he was sent by PCP due to O2 desaturation, found mass on right kidney, CT chest showed numerous bilateral irregular masses, CT abdomen showed 2 lesions in the liver and a 7 cm lobular right retrocrural mass, Liver biopsy and retroperitoneal biopsy demonstrated SCC, seen in Emergency Room, discussed with patient and His Stepdaughter Miss Middleton the patient developed worsening lower extremities also he stopped voiding once he was discharged, will perform Renal US, will need Nephrology consult, Albumin, IV fluids and diuretics, Wilkinson cath for strict Is and Os. Review of Systems All other systems reviewed negative except as stated in HPI PMFSH - History History Provided By: Patient - Medical History Medical History: Medical History (Last Reviewed 11/21/17 @ 12:35 by Glen Gracia) COPD (chronic obstructive pulmonary disease) Hydronephrosis, right Hypertension Hypothyroidism Pneumonia - Surgical History Surgical History: Surgical History (Last Reviewed 11/21/17 @ 12:35 by Glen Gracia) Heel bone fracture History of appendectomy History of tonsillectomy - Family History Family History: Family History (Last Reviewed 11/14/17 @ 22:13 by ANJALI Tillman) Mother CAD (coronary artery disease) - Tobacco History Second Hand Smoke Exposure: No Tobacco Use In Past 30 Days: No Smoking Status: Former smoker Tobacco Type: Cigarettes Smoking End Date: 2005 - Alcohol History How Often Do You Have a Drink Containing Alcohol: Never - Substance Use History Substance History: Past History - Travel History Recent Travel in the [place] Within the Last 8 Weeks: No Recent Travel Out of the Country Within the Last 8 Weeks: No - Immunization History Tetanus Immunization: Unsure Medications and Allergies Active Medications: Active Medications Sodium Chloride (Ns Inj) 1,000 mls @ 0 mls/hr IV.SIG BOLUS JAVIER Levofloxacin/Dextrose (Levaquin 750 Mg Premix Inj) 150 mls @ 100 mls/hr IV.SIG ONCE ONE Stop: 11/26/17 17:09 Vancomycin/Sodium Chloride (Vancomycin Inj) 1 gm in 200 mls @ 200 mls/hr IV.SIG 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 JAVIER Allergies Allergy/AdvReac Type Severity Reaction Status Date / Time No Known Allergies Allergy Verified 11/14/17 14:41 Home Medications Medication Instructions Recorded Confirmed Type levothyroxine [Synthroid] 112 mcg PO DAILY 10/28/17 11/26/17 History atenolol 50 mg PO DAILY 10/29/17 11/26/17 History Exam Vital signs: Vital Signs 11/26/17 14:05 11/26/17 14:44 Temperature 98.0 F Pulse Rate 84 79 Respiratory Rate 16 17 Blood Pressure 105/59 L 118/64 Pulse Oximetry 98 97 Intake & Output 11/25/17 11/26/17 11/26/17 18:59 06:59 18:59 Weight 90.718 kg Narrative: GENERAL: Well-developed patient, in no apparent distress. CARDIOVASCULAR: Regular rate and rhythm without murmurs, gallops, or rubs. RESPIRATORY: Clear to auscultation. Breath sounds equal bilaterally. No wheezes , rales, or rhonchi. GASTROINTESTINAL: Abdomen soft, tender on palpation and distended. MUSCULOSKELETAL: Extremities without clubbing, cyanosis, Edema 4+, Anasarca NEURO: Alert & Oriented x4 to person, place, time, situation. Moves all ext x4 Results - Labs CBC & Chem 7: 11/26/17 14:42 11/26/17 14:42 Labs: Laboratory Results - last 24 hr 11/26/17 11/26/17 11/26/17 14:42 14:42 14:42 WBC 11.4 H RBC 3.40 L Hgb 9.9 L Hct 30.5 L MCV 89.7 MCH 29.1 MCHC 32.4 RDW 16.5 Plt Count 212 MPV 7.8 Neut % (Auto) 85.3 H Lymph % (Auto) 6.9 L Wayne % (Auto) 5.7 Eos % (Auto) 1.4 Baso % (Auto) 0.7 Neut # (Auto) 9.8 H Lymph # (Auto) 0.8 L Wayne # (Auto) 0.6 Eos # (Auto) 0.2 Baso # (Auto) 0.1 WBC Differential . Differential Comment Auto diff final PT 11.3 INR 1.1 APTT 28.2 Sodium 145 Potassium 5.2 H Chloride 110 H Carbon Dioxide 22.8 Anion Gap 12 BUN 29 H Creatinine 2.01 H Estimated GFR 33 L Random Glucose 93 Calcium 8.9 Total Bilirubin 0.5 AST 21 ALT 20 Alkaline Phosphatase 111 Troponin I Less than 0.02 L B-Natriuretic Peptide Total Protein 7.0 Albumin 2.9 L 11/26/17 14:42 WBC RBC Hgb Hct MCV MCH MCHC RDW Plt Count MPV Neut % (Auto) Lymph % (Auto) Wayne % (Auto) Eos % (Auto) Baso % (Auto) Neut # (Auto) Lymph # (Auto) Wayne # (Auto) Eos # (Auto) Baso # (Auto) WBC Differential Differential Comment PT INR APTT Sodium Potassium Chloride Carbon Dioxide Anion Gap BUN Creatinine Estimated GFR Random Glucose Calcium Total Bilirubin AST ALT Alkaline Phosphatase Troponin I B-Natriuretic Peptide 155 H Total Protein Albumin - Imaging Impressions Chest X-Ray 11/26/17 14:28 CONCLUSION: New small right-sided effusion with a new mild right lower lung infiltrate. Venous Doppler Study 11/26/17 14:28 CONCLUSION: 1. No evidence of DVT. No significant change. Caprini VTE Risk Assessment Caprini VTE Risk Assessment: Moderate/High Risk (score >= 2) Caprini Risk Assessment Model: Point Value = 1 Point Value = 2 Point Value = 3 Point Value = 5 Age 41-60 Minor surgery BMI > 25 kg/m2 Swollen legs Varicose veins or History of unexplained or recurrent spontaneous Oral contraceptives or hormone replacement Sepsis (< 1 month) Serious lung disease, including pneumonia (< 1 month) Abnormal pulmonary function Acute myocardial infarction Congestive heart failure (< 1 month) History of inflammatory bowel disease Medical patient at bed rest Age 61-74 Arthroscopic surgery Major open surgery (> 45 min) Laparoscopic surgery (> 45 min) Malignancy Confined to bed (> 72 hours) Immobilizing plaster cast Central venous access Age >= 75 History of VTE Family history of VTE Factor V Leiden Prothrombin [id number] Lupus anticoagulant Anticardiolipin antibodies Elevated serum homocysteine Heparin-induced thrombocytopenia Other congenital or acquired thrombophilia Stroke (< 1 month) Elective arthroplasty Hip, pelvis, or leg fracture Acute spinal cord injury (< 1 month) Prophylaxis Regimen: Total Risk Factor Score Risk Level Prophylaxis Regimen 0-1 Low Early ambulation 2 Moderate Order ONE of the following: *Sequential Compression Device (SCD) *Heparin 5000 units SQ BID 3-4 Higher Order ONE of the following medications: *Heparin 5000 units SQ TID *Enoxaparin/Lovenox 40 mg SQ daily (WT < 150 kg, CrCl > 30 mL/min) *Enoxaparin/Lovenox 30 mg SQ daily (WT < 150 kg, CrCl > 10-29 mL/min) *Enoxaparin/Lovenox 30 mg SQ BID (WT < 150 kg, CrCl > 30 mL/min) AND/OR *Sequential Compression Device (SCD) 5 or more Highest Order ONE of the following medications: *Heparin 5000 units SQ TID (Preferred with Epidurals) *Enoxaparin/Lovenox 40 mg SQ daily (WT < 150 kg, CrCl > 30 mL/min) *Enoxaparin/Lovenox 30 mg SQ daily (WT < 150 kg, CrCl > 10-29 mL/min) *Enoxaparin/Lovenox 30 mg SQ BID (WT < 150 kg, CrCl > 30 mL/min) AND *Sequential Compression Device (SCD) Assessment and Plan - Plan 1. Anasarca will give Albumin, Diuretics and IV fluids 2. Acute Kidney Injury on chronic Kidney disease III at this time worsening Creatinine level obtain Renal US, urinary electrolytes, Nephrology consult, Albumin every 12 hours, continue gentle hydration, and diuretics, Wilkinson cath for strict Is and Os. 3. Hypertension continue Home medicines 4. COPD at this time non exacerbated continue bronchodilator, Mucolytic and Incentive spirometry 5. Health care associated Pneumonia will give him Cefepime and vancomycin, to avoid Nephrotoxin from Vancomycin depend vancomycin level, blood culture, sputum culture, legionella antigen and Pneumococcal antigen 6. Retroperitoneal squamous cell carcinoma unknown primary, Hematology to follow I am not sure how much of this compromise is related to the retroperitoneal Carcinoma. consult doctor Alonzo Hooker 7. Hypothyroidism continue Hormonal replacement echocardiogram done 11/15/17 which showed EF 60-65%. CBC shows anemia with a hemoglobin 9.9, hematocrit 30.5. Coags are unremarkable. CMP show acute on chronic kidney disease with creatinine 2.01, BUN 29, GFR 33. Hyperkalemia noted with K 5.2. Troponin less than 0.02. Bilateral lower extremity ultrasound is negative for DVT. Chest x-ray shows new small right-sided effusion with new mild right lower lobe infiltrate. Patient is having productive cough. Patient will be admitted for HCAP due to recent hospitalization and new diagnosis of pneumonia. Patient administered cefepime 1 g IV, vancomycin 1 g IV, Levaquin in 750 mg IV. Patient also administered 1 L of NS for acute on chronic kidney injury and Lasix 20 mg IV for lower extremity edema. DVT prophylaxis with Heparin Code Status: Full Code. Discussed Condition With: patient and his Stepdaughter Miss Middleton Discharge Planning: once cleared by specialists.
[2017-11-26] MEDS ORDERED: Acetaminophen 325 MG Tablet PO PRN (17:11)
[2017-11-26] MEDS ORDERED: Bisacodyl 10 MG Supp RECTAL PRN (17:11)
[2017-11-26] MEDS ORDERED: Vancomycin Inj 1,000 MG in Sodium Chlor 0.9% Inj 250 ML IV.SIG ONE ×2 (18:00→21:00)
[2017-11-26] MEDS: Heparin - SQ 10,000 UNITS/ML Vial SQ SCH (18:41)
[2017-11-26 18:43] LABS: Bilirubin,Urine Negative (Negative); Clarity,Urine Clear (Clear); Color,Urine Yellow (Yellw/Straw); Glucose,Urine (UA) Negative (Negative); Hyaline Casts,Urine 1 /lpf (0-3); Leukocyte Esterase,Urine Negative (Negative); Mucus,Urine Few /lpf (Occasional); Nitrite,Urine Negative (Negative); Specific Gravity,Urine 1.015 (1.002-1.035)
[2017-11-26] MEDS: oxyCODONE/Acetaminophen 10/325 Tablet PO PRN ×2 (18:46→23:22)
[2017-11-26] MEDS ORDERED: Vancomycin Consult Pharmacy OTHER PRN (18:53)
[2017-11-26] MEDS: guaiFENesin 600 MG ER Tablet PO SCH (20:57)
[2017-11-26] MEDS: Albumin Human 25% Inj 100 ML IV.SIG SCH (20:57)
[2017-11-26] MEDS: Sodium Chloride 0.45 % Inj 1,000 ML IV.CONT SCH (21:29)
--- NOTE | 2017-11-26 21:45 | MB ---
cc: Alonzo Hooker MD DATE: 11/26/2017 REQUESTING PHYSICIAN: Saurabh Kline MD REASON FOR CONSULTATION: Evaluation of retroperitoneal squamous cell carcinoma. HISTORY OF PRESENT ILLNESS: A 77-year-old gentleman, who is known to me from recent consultation in the hospital. He has been recently diagnosed with a retroperitoneal mass, biopsy of which was positive for squamous cell cancer with multiple lung lesions which were cavitating. The suspicion was of metastatic squamous cell lung cancer. He was discharged home with a plan to obtain a PET/CT scan and followup in the office for chemotherapy, etc. In the interim, he is admitted again now with bilateral leg swelling up to his groins and he has been having difficulty urinating. He has no urge to urinate and the quantity of urination is very minimal according to him. This has been going on for the last several days. Hence, the patient came to the emergency room and is admitted to the hospital. He is quite comfortable now except for chronic pain in the renal mass for which is requiring narcotics. REVIEW OF SYSTEMS: No headaches, motor or sensory symptoms. No cough or hemoptysis. No chest pains or palpitations. He does have shortness of breath on exertion and history of chronic right low back pain in the renal angle and also radiating to the left side. He has no radiation of the pain into the legs. He has bilateral leg swellings, no abdominal pain, distention, nausea or vomiting. No constipation or diarrhea, blood in the stool or black stools. No fevers, night sweats, or recent weight loss. PAST MEDICAL HISTORY: COPD, right hydronephrosis and nonfunctioning right kidney, hypertension, hypothyroidism, pneumonia. PAST SURGICAL HISTORY: He had appendectomy and tonsillectomy in the past. FAMILY HISTORY: Noncontributory. SOCIAL HISTORY: Heavy smoker and alcohol abuse in the past. PHYSICAL EXAMINATION: GENERAL: Reveals an obese, middle-aged gentleman, appearing older, chronically ill-appearing, in no acute distress. Pallor present. No icterus. No palpable adenopathy in the neck or axilla. Alert and oriented x4. HEENT: Dry mucous membranes. No oropharyngeal lesions. BACK: No spinal tenderness, but right renal angle fullness or tenderness noted. CARDIOVASCULAR: S1, S2, regular rate and rhythm. LUNGS: Bilaterally clear. Decreased air entry to the bases. No crackles or wheeze. ABDOMEN: Obese, distended, soft and tender in the right hypochondrium without definite palpable masses, guarding, rigidity or rebound. No free fluid clinically. EXTREMITIES: Bilateral 3 to 4+ edema without evidence of DVTs. No calf tenderness bilaterally. LABORATORY DATA: White count 11.4, hemoglobin 9.9, hematocrit 30.5, MCV 89.7, platelets 212. Creatinine is 2.0 with GFR of 33, potassium 5.2. Troponin I 0.02. BNP 155. IMAGING DATA: Ultrasound Doppler, bilateral lower extremities, negative. Chest x-ray shows new small right pleural effusion with a new mild right lower lung infiltrate. ASSESSMENT AND PLAN: A 77-year-old gentleman with metastatic squamous cell cancer on biopsy for retroperitoneal mass thought to be metastatic lung cancer. Please see my previous notes and consultations for details. At this point, he is admitted with worsening renal insufficiency, anasarca, specifically bilateral lower extremity swelling, possible urinary obstruction and hydronephrosis. An ultrasound of the retroperitoneum is pending at this time. He has anemia from renal insufficiency and malignancy. I will start him on Procrit for the same and await the ultrasound of the kidneys and nephrology input. The plan for his malignancy remains the same, i.e., obtaining a PET/CT scan and considering a repeat lung biopsy to get more tissue for molecular testing for possible immunotherapy versus targeted therapy, as opposed to chemotherapy if molecular markers are negative. I will see him in followup in consultation in hospital. MD HERIBERTO Tejeda/te/do , 08:09 PM , 08:20 PM
--- NOTE | 2017-11-26 23:16 | US ---
EXAM DATE: 11/26/2017 12:00 AM EDT AGE/SEX: 77 years / Male INDICATIONS: Increased lab values. CLINICAL DATA: This is the patient's initial encounter. Patient reports that signs and symptoms have been present for 3 weeks and indicates a pain score of 5/10. MEDICAL/SURGICAL HISTORY: Chronic obstructive pulmonary disease. Hypothyroidism. Hypertension . Hydronephrosis, right. Pneumonia. Appendectomy. Tonsillectomy. COMPARISON: No prior exams available for comparison. MEASUREMENTS: Right Kidney:__13.7 x 8.8 x 8.8 cm Left Kidney:__13.8 x 5.6 x 6.1 cm FINDINGS: Right Kidney: There is diffuse heterogeneity to the entire right kidney. The heterogeneous renal mass appears to extend into the posterior aspect of the liver. There is cystic change in this region. Left Kidney: There is a 4.4 cm cyst at the superior pole the left kidney. No hydronephrosis is seen. Bladder: Only a left ureteral jet is seen. No right ureteral jet is seen. Other: None. CONCLUSION: 1. Diffuse abnormal appearance of the right kidney consistent with a large mass. This appears to inv arnel into the liver. 2. 4.4 cm cyst at the superior aspect of the left kidney. Electronically signed by: Daniel Lisa MD 11/26/2017 11:14 PM EDT
[2017-11-27 05:03] LABS: Calcium 8.8 mg/dL (8.5-10.1); Carbon Dioxide 26.5 meq/L (21.0-32.0); Potassium 4.5 meq/L (3.5-5.1)
[2017-11-27 05:13] LABS: Baso % (Auto) 0.5 % (0.0-2.0); Eos # (Auto) 0.2 th/mm3 (0.0-0.4); Eos % (Auto) 1.8 % (0.0-4.0); Hematocrit 26.8 % (39.0-51.0); Hemoglobin 9.2 gm/dL (13.0-17.0); Lymph % (Auto) 10.5 % (9.0-44.0); Mean Corpuscular HGB Conc 34.2 % (32.0-36.0); Mean Corpuscular Hemoglobin 30.4 pg (27.0-34.0); Mean Corpuscular Volume 88.9 fL (80.0-100.0); Mean Platelet Volume 7.7 fL (7.0-11.0); Mono # (Auto) 0.5 th/mm3 (0.0-0.9); Neut # (Auto) 7.3 th/mm3 (1.8-7.7); Neut % (Auto) 81.2 % (16.0-70.0); Platelet Count 184 th/mm3 (150-450); Red Blood Count 3.02 mil/mm3 (4.50-5.90); Red Cell Distribution Width 16.1 % (11.6-17.2)
[2017-11-27] MEDS: Heparin - SQ 10,000 UNITS/ML Vial SQ SCH ×2 (06:14→17:47)
[2017-11-27] MEDS: oxyCODONE/Acetaminophen 10/325 Tablet PO PRN ×2 (06:15→14:59)
[2017-11-27] MEDS: Levothyroxine 112 MCG Tablet PO SCH (06:15)
[2017-11-27] MEDS: Sodium Chloride 0.45 % Inj 1,000 ML IV.CONT SCH ×2 (08:02→09:32)
[2017-11-27] MEDS: Atenolol 50 MG Tablet PO SCH (08:17)
[2017-11-27] MEDS: guaiFENesin 600 MG ER Tablet PO SCH ×2 (08:17→21:56)
[2017-11-27] MEDS: Albumin Human 25% Inj 100 ML IV.SIG SCH ×2 (08:19→21:48)
[2017-11-27] MEDS ORDERED: Naloxone Inj 0.4 MG/ML Vial IV.PUSH PRN (09:05)
[2017-11-27] MEDS: HYDROmorphone PF Inj 2 MG/ML Vial IV.PUSH PRN ×3 (09:30→17:45)
--- NOTE | 2017-11-27 10:55 | P.CON ---
History of Present Illness Service: Radiation oncology Consult date: 11/27/17 Requesting Physician: Alonzo Hooker Reason for Consult: Abdominal mass and pain Primary Care Provider: UNKNOWN Family Provider: Bay Moreno MD Chief Complaint: Leg Swelling History of Present Illness: This is a 77-year-old white male which apparently was admitted to the hospital initially a few weeks ago for the complaints of back pain. 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 Patient also has a multiple bilateral metastatic lung lesions. Patient was discharged charged with the intent of seeing the patient outpatient having a PET scan to complete his metastatic workup. In the interim the patient developed bilateral leg swelling and difficulty urinating for which he was readmitted again. Today I received a call from Dr. Hooker requesting for me to see the patient in consult for palliative radiation therapy to the retroperitoneal mass. A consult has been placed for discussion of palliative or therapy treatment options. Review of Systems Constitutional: Reports body ache(s), Reports fatigue, Reports malaise Eyes: Denies blind spots, Denies blurry vision, Denies bulging eyes, Denies change in vision, Denies double vision, Denies discharge, Denies dry eyes, Denies floaters, Denies irritation, Denies itchy eyes, Denies loss of vision, Denies pain, Denies requires corrective lenses, Denies sensitivity to light, Denies other Ears, Nose, Mouth, and Throat: Denies abnormal hearing, Denies bleeding gums, Denies bad breath, Denies change in voice, Denies dental pain, Denies difficulty swallowing, Denies dizziness, Denies dry mouth, Denies ear discharge , Denies ear pain, Denies facial pain, Denies headache(s), Denies hearing loss, Denies hoarseness, Denies lip swelling, Denies nosebleed, Denies mouth lesions, Denies mouth pain, Denies nasal congestion, Denies nasal discharge, Denies nasal obstruction, Denies nasal trauma, Denies neck lump, Denies neck pain, Denies nose pain, Denies pain with swallowing, Denies poor balance, Denies post nasal drip, Denies ringing in the ears, Denies sinus pain, Denies sinus pressure , Denies sore throat, Denies throat swelling, Denies tongue swelling, Denies other Cardiovascular: Denies chest pain, Denies chest pain at rest, Denies chest pain with activity, Denies excessive sweating, Denies fainting, Denies fast heart rate, Denies foot swelling, Denies generalized swelling, Denies irregular heart rhythm, Denies leg pain with activity, Denies leg sores, Denies leg swelling, Denies lightheadedness, Denies radiating jaw, neck or arm pain, Denies rapid, pounding, or irregular heartbeat, Denies shortness of breath, Denies shortness of breath with activity, Denies shortness of breath when lying down, Denies shortness of breath causing sudden awakening, Denies slow heart rate, Denies other Respiratory: Denies change in phlegm color, Denies chest congestion, Denies cough, Denies coughing up blood, Denies excessive phlegm production, Denies pain on inspiration, Denies pain with cough, Denies shortness of breath, Denies shortness of breath with activity, Denies snoring, Denies stridor, Denies wheezing, Denies other Gastrointestinal: Reports abdominal pain Genitourinary: Reports difficulty urinating, Reports side pain Musculoskeletal: Reports back pain, Reports joint pain Skin/Breast: Denies acne, Denies bleeding lesions, Denies boil, Denies breast swelling, Denies breast skin changes, Denies breast pain, Denies breast lump, Denies change in breast shape, Denies change in hair, Denies change in skin color, Denies changing lesions, Denies dry skin, Denies excessive hair growth, Denies hair loss, Denies itching, Denies lesions, Denies nail changes, Denies new lesions, Denies nipple discharge, Denies non-healing lesions, Denies redness , Denies sensitivity to light, Denies rash, Denies skin pain, Denies skin ulcer , Denies sores, Denies stretch parker, Denies unusual bruising, Denies wounds, Denies yellowing of the skin, Denies other Neurologic: Denies abnormal hearing, Denies abnormal movements, Denies abnormal speech, Denies abnormal walking, Denies behavioral changes, Denies burning sensations, Denies confusion, Denies dizziness, Denies fainting, Denies frequent falls, Denies headache(s), Denies lack of coordination, Denies localized weakness, Denies loss of vision, Denies memory loss, Denies numbness, Denies other visual disturbances, Denies radiating pain, Denies restless legs, Denies convulsions, Denies seizure-like activity, Denies sensory deficit, Denies tingling, Denies tingling/numbness/burning sensations, Denies tremor(s), Denies unsteadiness, Denies weakness, Denies other Psychiatric: Denies abnormal sleep pattern, Denies anxiety, Denies behavioral changes, Denies change in appetite, Denies change in sex drive, Denies confusion , Denies depression, Denies difficulty concentrating, Denies hearing things others do not hear, Denies hopelessness, Denies irritability, Denies lack of enjoyment, Denies memory loss, Denies mood swings, Denies panic attacks, Denies paranoia, Denies seeing things others do not see, Denies sensing things others do not sense, Denies tactile hallucinations, Denies thoughts of hurting/killing others, Denies thoughts of hurting/killing yourself, Denies other Endocrine: Denies cold intolerance, Denies excessive sweating, Denies flushing, Denies heat intolerance, Denies increased hunger, Denies increased thirst, Denies increased urination, Denies rapid, pounding, or irregular heartbeat, Denies other Allergic/Immunologic: Denies GI upset with certain foods, Denies hives, Denies itchy eyes, Denies lip swelling, Denies seasonal runny nose, Denies throat swelling, Denies tongue swelling, Denies wheezing, Denies other PMFSH - History History Provided By: Patient - Medical History Medical History: Medical History (Last Reviewed 11/27/17 @ 07:54 by Cody Esparza) COPD (chronic obstructive pulmonary disease) Hydronephrosis, right Hypertension Hypothyroidism Pneumonia - Surgical History Surgical History: Surgical History (Last Reviewed 11/27/17 @ 07:54 by Cody Esparza) Heel bone fracture History of appendectomy History of tonsillectomy - Family History Family History: Family History (Last Reviewed 11/14/17 @ 22:13 by ANJALI Tillman) Mother CAD (coronary artery disease) - Tobacco History Second Hand Smoke Exposure: No Tobacco Use In Past 30 Days: No Smoking Status: Former smoker Tobacco Type: Cigarettes Smoking End Date: 2005 - Alcohol History How Often Do You Have a Drink Containing Alcohol: Never - Substance Use History Substance History: Past History - Travel History Recent Travel in the [place] Within the Last 8 Weeks: No Recent Travel Out of the Country Within the Last 8 Weeks: No - Immunization History Tetanus Immunization: Unsure Medications and Allergies Active Medications: Active Medications Acetaminophen (Tylenol) 650 mg PO Q4H PRN PRN Reason: Temp > 100.4 Al Hydroxide/Mg Hydroxide (Milk Of Magnesia Liq) 30 ml PO Q12H PRN PRN Reason: Mild Constipation Albuterol (Duoneb Neb (Eric)) 1 ampul NEB Q4HR NEB [facility] Last Admin: 11/27/17 08:33 Dose: 1 ampul Atenolol (Tenormin) 50 mg PO DAILY [facility] Last Admin: 11/27/17 08:17 Dose: 50 mg Bisacodyl (Dulcolax Supp) 10 mg RECTAL DAILY PRN PRN Reason: SEVERE CONSITIPATION Cefepime HCl (Maxipime Inj) 1,000 mg IV.SIG DAILY@1800 [facility] Epoetin Gio (Epogen Inj) 10,000 unit SQ MoWeFr@0900 [facility] Last Admin: 11/27/17 08:18 Dose: 10,000 unit Furosemide (Lasix Inj) 20 mg IV.PUSH BID@0900,1800 [facility] Guaifenesin (Mucinex Er) 600 mg PO BID [facility] Last Admin: 11/27/17 08:17 Dose: 600 mg Heparin Sodium (Porcine) (Heparin Inj) 5,000 units SQ Q12H [facility] Last Admin: 11/27/17 06:14 Dose: 5,000 units Hydromorphone HCl (Dilaudid Pf Inj) 1 mg IV.PUSH Q4H PRN PRN Reason: BREAKTHROUGH PAIN Last Admin: 11/27/17 09:30 Dose: 1 mg Sodium Chloride (Ns Inj) 1,000 mls @ 0 mls/hr IV.SIG BOLUS [facility] Last Infusion: 11/26/17 18:37 Dose: Infused Levofloxacin/Dextrose (Levaquin 250 Mg Premix Inj) 250 mg in 50 mls @ 50 mls/ hr IV.SIG Q24H ERIC Sodium Chloride (1/2 Normal Saline Inj) 1,000 mls @ 84 mls/hr IV.CONT .[id number] [facility] Last Admin: 11/27/17 09:32 Dose: 84 mls/hr Albumin Human (Flexbumin 25% Inj) 100 mls @ 60 mls/hr IV.SIG Q12H [facility]CI Last Infusion: 11/27/17 08:54 Dose: Infused Vancomycin HCl 1,250 mg/ (Sodium Chloride) 262.5 mls @ 250 mls/hr IV.SIG Q24H ERIC Lactulose (Lactulose Liq) 30 ml PO DAILY PRN PRN Reason: SEVERE CONSITIPATION Levothyroxine Sodium (Synthroid) 112 mcg PO DAILY@0600 [facility] Last Admin: 11/27/17 06:15 Dose: 112 mcg Miscellaneous Information ([facility] Ordered Lab Info) 0 each OTHER ONCE ONE Stop: 11/29/17 17:46 Naloxone HCl (Narcan Inj) 0.4 mg IV.PUSH ONCE PRN PRN Reason: Opioid overdose Ondansetron HCl (Zofran Inj) 4 mg IV.PUSH Q4H PRN PRN Reason: NAUSEA OR VOMITING Oxycodone/Acetaminophen (Percocet 10/325 Mg) 1 tab PO Q4H PRN PRN Reason: Pain 7 to 10 Oxycodone/Acetaminophen (Percocet 5/325 Mg) 1 tab PO Q4H PRN PRN Reason: Pain 3 to 6 Pharmacy Profile Note (Vancomycin Consult Pharmacy) 1 each OTHER UNSCH PRN PRN Reason: Pharmacy to dose Sennosides (Senokot) 17.2 mg PO Q12H PRN PRN Reason: Moderate Constipation Zolpidem Tartrate (Ambien) 10 mg PO HS PRN PRN Reason: Insomnia Last Admin: 11/26/17 23:22 Dose: 10 mg Allergies Allergy/AdvReac Type Severity Reaction Status Date / Time No Known Allergies Allergy Verified 11/14/17 14:41 Home Medications Medication Instructions Recorded Confirmed Type levothyroxine [Synthroid] 112 mcg PO DAILY 10/28/17 11/26/17 History atenolol 50 mg PO DAILY 10/29/17 11/26/17 History Physical Exam Vital signs: Vital Signs 11/26/17 14:05 11/26/17 14:44 11/26/17 17:21 Temperature 98.0 F Pulse Rate 84 79 80 Respiratory Rate 16 17 17 Blood Pressure 105/59 L 118/64 107/58 L Pulse Oximetry 98 97 100 11/26/17 18:35 11/26/17 19:25 11/26/17 20:00 Temperature 97.7 F 98.1 F Pulse Rate 86 88 87 Respiratory Rate 20 18 18 Blood Pressure 116/68 102/65 Pulse Oximetry 99 98 11/27/17 00:00 11/27/17 00:30 11/27/17 02:59 Temperature 98.0 F Pulse Rate 84 77 Respiratory Rate 18 18 Blood Pressure 105/60 Pulse Oximetry 98 11/27/17 04:00 11/27/17 04:30 11/27/17 06:57 Temperature 98.0 F Pulse Rate 76 75 Respiratory Rate 18 12 Blood Pressure 152/70 H Pulse Oximetry 97 11/27/17 08:00 11/27/17 08:34 11/27/17 08:44 Temperature 97.8 F Pulse Rate 81 79 78 Respiratory Rate 16 20 Blood Pressure 153/73 H Pulse Oximetry 95 96 Intake & Output 11/26/17 11/27/17 11/27/17 18:59 06:59 18:59 Intake Total 1390 / 1390 450 / 450 1100 / 1100 Output Total 1500 / 1500 Balance 1390 / 1390 -1050 / -1050 1100 / 1100 Weight 90.718 kg 101.6 kg Intake: IV 1150 / 1150 450 / 450 1100 / 1100 1/2 Normal Saline Inj 1,000 ML 1000 / 1000 @ 84 mls/hr IV.CONT .[id number] [facility] Rx#:[id number] Flexbumin 25% Inj 100 ML @ 60 100 / 100 100 / 100 mls/hr IV.SIG Q12H ERIC Rx#: [id number] Maxipime Inj 1,000 MG In NS Inj 100 / 100 100 ML @ 200 mls/hr IV.SIG ONCE ONE Rx#:[id number] Levaquin 750 mg Premix Inj 150 150 / 150 ML @ 100 mls/hr IV.SIG ONCE ONE Rx#:[id number] NS Inj 1,000 ML @ Wide Open IV. 1000 / 1000 SIG B[facility]US [facility] Rx#:[id number] Vancomycin Inj 1,000 MG In NS 250 / 250 Inj 250 ML @ 250 mls/hr IV.SIG ONCE ONE Rx#:[id number] Oral 240 / 240 Output: Urine 1500 / 1500 - Constitutional no acute distress, average body habitus, cooperative - Routine HEENT Exam Head: Present: normocephalic, atraumatic Eye: Present: EOMI ENT: Present: mucous membranes moist, nares patent, external ear normal - Routine Neck Exam Present: supple - Routine Respiratory Exam Comments: To auscultation bilateral lungs were clear to auscultation. - Routine Cardiovascular Exam Comments: Heart was regular in rate and rhythm with no murmurs - Routine Abdominal Exam Present: tenderness - Routine Extremities Exam Comments: There was 2+ swelling of bilateral lower extremities. No clinical signs symptoms of DVT. - Routine Back/Spine/Pelvis Exam Back/Spine: Present: vertebral tenderness Comments: To the palpation percussion posterior back there was pain elicited in the right flank radiating to the middle of the spine. No masses palpated. - Routine Skin Exam Present: intact - Routine Neurological Exam Present: alert, oriented X3 - Routine Psychiatric Exam Present: normal affect, normal thought process, cooperative, good insight, good judgment Assessment and Plan - Assessment (1) Mass of right kidney Code(s): N28.89 - Other specified disorders of kidney and ureter Status: Acute - Plan Radiology: Ultrasound kidneys/renal/bladder 11/26/2017: CONCLUSION: 1. Diffuse abnormal appearance of the right kidney consistent with a large mass. This appears to invade into the liver. 2. 4.4 cm cyst at the superior aspect of the left kidney. Chest x-ray 12/06/2017: CONCLUSION: New small right-sided effusion with a new mild right lower lung infiltrate. 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 Patient been evaluated for palliative or therapy treatment options. Plan: I have discussed this case with Dr. Hooker. I have reviewed his films. I discussed with the patient the merits of palliative radiation therapy for pain control. I discussed side effects and complications of palliative radiation therapy to the abdomen. Discussed side effects complications that include but limited to: Weakness and fatigue, erythema the skin, necrosis of the skin, pain of the treated area, bone damage and rib fracture, liver damage, venoocclusive disease of the liver which lead to , stomach damage and perforation which lead to , bowel damage and perforation which lead to , bowel adhesions, nerve damage and spinal cord damage, nausea vomiting and diarrhea, decreased blood counts. Also kidney damage, bone damage and spinal cord damage. Also bowel damage and perforation which could lead to . After thorough discussion the patient understood everything that was explained. He wanted to proceed forward with radiation therapy for palliation of the pain. Patient is to return tomorrow for simulation and treatment planning and consent. He was advised if I could be of any further assistance or to please let me know otherwise we will proceed as above. Dr. Hooker thank you very much for the referral of this patient and allow me to participate in his care. Should you have any further questions or concerns please do not hesitate to contact me.
--- NOTE | 2017-11-27 11:06 | ECG ---
Date Performed: 11/26/2017 Time Performed: 16:27:14 PTAGE: 77 years EKG: Sinus rhythm NORMAL ECG PREVIOUS TRACING : 11/14/2017 18.25 DOCTOR: Williams Fry Interpretating Date/Time 11/27/2017 11:05:43
--- NOTE | 2017-11-27 12:20 | P.PNIM ---
Subjective Interval history: No new complaints from the patient today. He is breathing better. He complains of back pain still. Pain medications are adjusted. Plan for radiation therapy on 12/02/2017. Physical Exam Vital signs: Vital Signs 11/26/17 14:05 11/26/17 14:44 11/26/17 17:21 Temperature 98.0 F Pulse Rate 84 79 80 Respiratory Rate 16 17 17 Blood Pressure 105/59 L 118/64 107/58 L Pulse Oximetry 98 97 100 11/26/17 18:35 11/26/17 19:25 11/26/17 20:00 Temperature 97.7 F 98.1 F Pulse Rate 86 88 87 Respiratory Rate 20 18 18 Blood Pressure 116/68 102/65 Pulse Oximetry 99 98 11/27/17 00:00 11/27/17 00:30 11/27/17 02:59 Temperature 98.0 F Pulse Rate 84 77 Respiratory Rate 18 18 Blood Pressure 105/60 Pulse Oximetry 98 11/27/17 04:00 11/27/17 04:30 11/27/17 06:57 Temperature 98.0 F Pulse Rate 76 75 Respiratory Rate 18 12 Blood Pressure 152/70 H Pulse Oximetry 97 11/27/17 08:00 11/27/17 08:34 11/27/17 08:44 Temperature 97.8 F Pulse Rate 81 79 78 Respiratory Rate 16 20 Blood Pressure 153/73 H Pulse Oximetry 95 96 Intake & Output 11/26/17 11/27/17 11/27/17 18:59 06:59 18:59 Intake Total 1390 / 1390 450 / 450 1100 / 1100 Output Total 1500 / 1500 Balance 1390 / 1390 -1050 / -1050 1100 / 1100 Weight 90.718 kg 101.6 kg Intake: IV 1150 / 1150 450 / 450 1100 / 1100 1/2 Normal Saline Inj 1,000 ML 1000 / 1000 @ 84 mls/hr IV.CONT .[id number] [facility] Rx#:[id number] Flexbumin 25% Inj 100 ML @ 60 100 / 100 100 / 100 mls/hr IV.SIG Q12H [facility] Rx#: [id number] Maxipime Inj 1,000 MG In NS Inj 100 / 100 100 ML @ 200 mls/hr IV.SIG ONCE ONE Rx#:[id number] Levaquin 750 mg Premix Inj 150 150 / 150 ML @ 100 mls/hr IV.SIG ONCE ONE Rx#:[id number] NS Inj 1,000 ML @ Wide Open IV. 1000 / 1000 SIG BOLUS [facility] Rx#:[id number] Vancomycin Inj 1,000 MG In NS 250 / 250 Inj 250 ML @ 250 mls/hr IV.SIG ONCE ONE Rx#:[id number] Oral 240 / 240 Output: Urine 1500 / 1500 Narrative: GENERAL: NAD, A&Ox3 HEAD: Normocephalic. NECK: Supple, trachea midline. No lymphadenopathy. EYES: No scleral icterus. No injection or drainage. CARDIOVASCULAR: Regular rate and rhythm without murmurs, gallops, or rubs. RESPIRATORY: Breath sounds equal bilaterally. No accessory muscle use. GASTROINTESTINAL: Abdomen soft, non-tender, nondistended. MUSCULOSKELETAL: No cyanosis. bilateral lower extremity edema. SKIN: Warm and dry. NEURO: No focal neurological deficits. Results - Labs CBC & Chem 7: 11/27/17 03:00 11/27/17 03:00 Laboratory Results - last 24 hr 11/26/17 11/26/17 11/26/17 14:42 14:42 14:42 WBC 11.4 H RBC 3.40 L Hgb 9.9 L Hct 30.5 L MCV 89.7 MCH 29.1 MCHC 32.4 RDW 16.5 Plt Count 212 MPV 7.8 Neut % (Auto) 85.3 H Lymph % (Auto) 6.9 L [place] % (Auto) 5.7 Eos % (Auto) 1.4 Baso % (Auto) 0.7 Neut # (Auto) 9.8 H Lymph # (Auto) 0.8 L [place] # (Auto) 0.6 Eos # (Auto) 0.2 Baso # (Auto) 0.1 WBC Differential . Differential Comment Auto diff final PT 11.3 INR 1.1 APTT 28.2 Sodium 145 Potassium 5.2 H Chloride 110 H Carbon Dioxide 22.8 Anion Gap 12 BUN 29 H Creatinine 2.01 H Estimated GFR 33 L Random Glucose 93 Calcium 8.9 Total Bilirubin 0.5 AST 21 ALT 20 Alkaline Phosphatase 111 Troponin I Less than 0.02 L B-Natriuretic Peptide Total Protein 7.0 Albumin 2.9 L Urine Color Urine Clarity Urine pH Ur Specific [place] Urine Protein Urine Glucose (UA) Urine Ketones Urine Occult Blood Urine Nitrate Urine Bilirubin Urine Urobilinogen Ur Leukocyte Esterase Urine WBC Hyaline Casts Urine Mucus Micro UA Comment Ur Microscopic Review Urine Culture Comments 11/26/17 11/26/17 11/27/17 14:42 18:04 03:00 WBC 9.0 RBC 3.02 L Hgb 9.2 L Hct 26.8 L MCV 88.9 MCH 30.4 MCHC 34.2 RDW 16.1 Plt Count 184 MPV 7.7 Neut % (Auto) 81.2 H Lymph % (Auto) 10.5 [place] % (Auto) 6.0 Eos % (Auto) 1.8 Baso % (Auto) 0.5 Neut # (Auto) 7.3 Lymph # (Auto) 1.0 [place] # (Auto) 0.5 Eos # (Auto) 0.2 Baso # (Auto) 0.0 WBC Differential . Differential Comment Auto diff final PT INR APTT Sodium Potassium Chloride Carbon Dioxide Anion Gap BUN Creatinine Estimated GFR Random Glucose Calcium Total Bilirubin AST ALT Alkaline Phosphatase Troponin I B-Natriuretic Peptide 155 H Total Protein Albumin Urine Color Yellow Urine Clarity Clear Urine pH 5.0 Ur Specific [place] 1.015 Urine Protein Negative Urine Glucose (UA) Negative Urine Ketones Negative Urine Occult Blood Negative Urine Nitrate Negative Urine Bilirubin Negative Urine Urobilinogen Less than 2 Ur Leukocyte Esterase Negative Urine WBC 3 Hyaline Casts 1 Urine Mucus Few H Micro UA Comment Culture not ind Ur Microscopic Review Not Reportable Urine Culture Comments Culture not ind 11/27/17 03:00 WBC RBC Hgb Hct MCV MCH MCHC RDW Plt Count MPV Neut % (Auto) Lymph % (Auto) [place] % (Auto) Eos % (Auto) Baso % (Auto) Neut # (Auto) Lymph # (Auto) [place] # (Auto) Eos # (Auto) Baso # (Auto) WBC Differential Differential Comment PT INR APTT Sodium 142 Potassium 4.5 Chloride 109 H Carbon Dioxide 26.5 Anion Gap 7 BUN 31 H Creatinine 1.88 H Estimated GFR 35 L Random Glucose 89 Calcium 8.8 Total Bilirubin AST ALT Alkaline Phosphatase Troponin I B-Natriuretic Peptide Total Protein Albumin Urine Color Urine Clarity Urine pH Ur Specific [place] Urine Protein Urine Glucose (UA) Urine Ketones Urine Occult Blood Urine Nitrate Urine Bilirubin Urine Urobilinogen Ur Leukocyte Esterase Urine WBC Hyaline Casts Urine Mucus Micro UA Comment Ur Microscopic Review Urine Culture Comments Microbiology 11/26/17 21:43 Blood - Peripheral Aerobic Blood Culture - Preliminary No growth in 1 day 11/26/17 21:43 Blood - Peripheral Anaerobic Blood Culture - Preliminary No growth in 1 day 11/26/17 21:38 Blood - Peripheral Aerobic Blood Culture - Preliminary No growth in 1 day 11/26/17 21:38 Blood - Peripheral Anaerobic Blood Culture - Preliminary No growth in 1 day 11/26/17 21:00 Urine - Clean Catch Urine Streptococcus pneumoniae Antigen ( M - Final Presumptive negative for streptococcus pneumoniae antigen, suggesting no current or recent infection. Infection due to Streptococcus pneumoniae cannot be ruled out since the antigen present in the sample may be below the detection limit of the test. 11/26/17 21:00 Urine - Clean Catch Urine Legionella Antigen - Final Presumptive negative for Legionella pneumophila serogroup 1 antigen in urine, suggesting no recent or recurrent infection. Infection due to Legionella cannot be ruled out since other serogroups and species may cause disease, antigen may not be present in urine in early infection, and the level of antigen present in the urine may be below the detection limit of the test. 11/26/17 18:04 Nasal Wash Influenza Types A,B Antigen - Final Negative for FLU A and B antigen Infection due to influenza A or B cannot be ruled out since the antigen present in the sample may be below the detection limit of the test. - Imaging Impressions Abdomen/Bladder Ultrasound 11/26/17 00:00 CONCLUSION: 1. Diffuse abnormal appearance of the right kidney consistent with a large mass. This appears to invade into the liver. 2. 4.4 cm cyst at the superior aspect of the left kidney. Chest X-Ray 11/26/17 14:28 CONCLUSION: New small right-sided effusion with a new mild right lower lung infiltrate. Venous Doppler Study 11/26/17 14:28 CONCLUSION: 1. No evidence of DVT. No significant change. Assessment and Plan - Plan 77-year-old male admitted secondary to back pain with pneumonia. 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 Radiation therapy and planning process Tentative plan for 12/02/2017 Continue pain treatments This may be a component of the patient's pain Healthcare associated pneumonia Cefepime Vancomycin Probiotics Follow cultures COPD No acute exacerbation Continue bronchodilators Continue mucolytic's Incentive spirometry Anasarca Continue diuresis Degree is not significant enough for paracentesis IV fluids discontinued Acute kidney injury Improving Continue diuresis Continue to monitor renal function IV fluids discontinued Hypertension Continue baseline treatment Follow blood pressures Adjust treatments as needed Hypothyroidism Continue hormone replacements DVT prophylaxis Heparin
[2017-11-27] MEDS ORDERED: Vancomycin Inj 1,000 MG in Sodium Chlor 0.9% Inj 250 ML IV.SIG ONE (13:00)
[2017-11-27] MEDS: Lactobacillus Acidophilus/L. Spores Tablet PO SCH ×3 (13:41→17:47)
--- NOTE | 2017-11-27 13:52 | P.PNONC ---
Subjective Interval history: Afebrile. Patient lying in bed resting, he states he did not get much sleep last night. He still has episodes of back pain, he reports it is relieved with current medication regimen. Denies any shortness of breath. Objective Vital Signs/Intake & Output: Vital Signs 11/26/17 14:05 11/26/17 14:44 11/26/17 17:21 Temperature 98.0 F Pulse Rate 84 79 80 Respiratory Rate 16 17 17 Blood Pressure 105/59 L 118/64 107/58 L Pulse Oximetry 98 97 100 11/26/17 18:35 11/26/17 19:25 11/26/17 20:00 Temperature 97.7 F 98.1 F Pulse Rate 86 88 87 Respiratory Rate 20 18 18 Blood Pressure 116/68 102/65 Pulse Oximetry 99 98 11/27/17 00:00 11/27/17 00:30 11/27/17 02:59 Temperature 98.0 F Pulse Rate 84 77 Respiratory Rate 18 18 Blood Pressure 105/60 Pulse Oximetry 98 11/27/17 04:00 11/27/17 04:30 11/27/17 06:57 Temperature 98.0 F Pulse Rate 76 75 Respiratory Rate 18 12 Blood Pressure 152/70 H Pulse Oximetry 97 11/27/17 08:00 11/27/17 08:34 11/27/17 08:44 Temperature 97.8 F Pulse Rate 81 79 78 Respiratory Rate 16 20 Blood Pressure 153/73 H Pulse Oximetry 95 96 11/27/17 13:03 11/27/17 13:05 Temperature Pulse Rate 71 Respiratory Rate 12 Blood Pressure Pulse Oximetry Intake & Output 11/26/17 11/27/17 11/27/17 18:59 06:59 18:59 Intake Total 1390 / 1390 450 / 450 1352 / 1352 Output Total 1500 / 1500 Balance 1390 / 1390 -1050 / -1050 1352 / 1352 Weight 90.718 kg 101.6 kg Intake: IV 1150 / 1150 450 / 450 1352 / 1352 1/2 Normal Saline Inj 1,000 ML 1252 / 1252 @ 84 mls/hr IV.CONT .[id number] [facility] Rx#:[id number] Flexbumin 25% Inj 100 ML @ 60 100 / 100 100 / 100 mls/hr IV.SIG Q12H [facility] Rx#: [id number] Maxipime Inj 1,000 MG In NS Inj 100 / 100 100 ML @ 200 mls/hr IV.SIG ONCE ONE Rx#:[id number] Levaquin 750 mg Premix Inj 150 150 / 150 ML @ 100 mls/hr IV.SIG ONCE ONE Rx#:[id number] NS Inj 1,000 ML @ Wide Open IV. 1000 / 1000 SIG BOLUS [facility] Rx#:[id number] Vancomycin Inj 1,000 MG In NS 250 / 250 Inj 250 ML @ 250 mls/hr IV.SIG ONCE ONE Rx#:[id number] Oral 240 / 240 Output: Urine 1500 / 1500 Result Diagrams: 11/27/17 03:00 11/27/17 03:00 Laboratory Results: Laboratory Results - last 24 hr 11/26/17 11/26/17 11/26/17 14:42 14:42 14:42 WBC 11.4 H RBC 3.40 L Hgb 9.9 L Hct 30.5 L MCV 89.7 MCH 29.1 MCHC 32.4 RDW 16.5 Plt Count 212 MPV 7.8 Neut % (Auto) 85.3 H Lymph % (Auto) 6.9 L [place] % (Auto) 5.7 Eos % (Auto) 1.4 Baso % (Auto) 0.7 Neut # (Auto) 9.8 H Lymph # (Auto) 0.8 L [place] # (Auto) 0.6 Eos # (Auto) 0.2 Baso # (Auto) 0.1 WBC Differential . Differential Comment Auto diff final PT 11.3 INR 1.1 APTT 28.2 Sodium 145 Potassium 5.2 H Chloride 110 H Carbon Dioxide 22.8 Anion Gap 12 BUN 29 H Creatinine 2.01 H Estimated GFR 33 L Random Glucose 93 Calcium 8.9 Total Bilirubin 0.5 AST 21 ALT 20 Alkaline Phosphatase 111 Troponin I Less than 0.02 L B-Natriuretic Peptide Total Protein 7.0 Albumin 2.9 L Urine Color Urine Clarity Urine pH Ur Specific [place] Urine Protein Urine Glucose (UA) Urine Ketones Urine Occult Blood Urine Nitrate Urine Bilirubin Urine Urobilinogen Ur Leukocyte Esterase Urine WBC Hyaline Casts Urine Mucus Micro UA Comment Ur Microscopic Review Urine Culture Comments 11/26/17 11/26/17 11/27/17 14:42 18:04 03:00 WBC 9.0 RBC 3.02 L Hgb 9.2 L Hct 26.8 L MCV 88.9 MCH 30.4 MCHC 34.2 RDW 16.1 Plt Count 184 MPV 7.7 Neut % (Auto) 81.2 H Lymph % (Auto) 10.5 [place] % (Auto) 6.0 Eos % (Auto) 1.8 Baso % (Auto) 0.5 Neut # (Auto) 7.3 Lymph # (Auto) 1.0 [place] # (Auto) 0.5 Eos # (Auto) 0.2 Baso # (Auto) 0.0 WBC Differential . Differential Comment Auto diff final PT INR APTT Sodium Potassium Chloride Carbon Dioxide Anion Gap BUN Creatinine Estimated GFR Random Glucose Calcium Total Bilirubin AST ALT Alkaline Phosphatase Troponin I B-Natriuretic Peptide 155 H Total Protein Albumin Urine Color Yellow Urine Clarity Clear Urine pH 5.0 Ur Specific [place] 1.015 Urine Protein Negative Urine Glucose (UA) Negative Urine Ketones Negative Urine Occult Blood Negative Urine Nitrate Negative Urine Bilirubin Negative Urine Urobilinogen Less than 2 Ur Leukocyte Esterase Negative Urine WBC 3 Hyaline Casts 1 Urine Mucus Few H Micro UA Comment Culture not ind Ur Microscopic Review Not Reportable Urine Culture Comments Culture not ind 11/27/17 03:00 WBC RBC Hgb Hct MCV MCH MCHC RDW Plt Count MPV Neut % (Auto) Lymph % (Auto) [place] % (Auto) Eos % (Auto) Baso % (Auto) Neut # (Auto) Lymph # (Auto) [place] # (Auto) Eos # (Auto) Baso # (Auto) WBC Differential Differential Comment PT INR APTT Sodium 142 Potassium 4.5 Chloride 109 H Carbon Dioxide 26.5 Anion Gap 7 BUN 31 H Creatinine 1.88 H Estimated GFR 35 L Random Glucose 89 Calcium 8.8 Total Bilirubin AST ALT Alkaline Phosphatase Troponin I B-Natriuretic Peptide Total Protein Albumin Urine Color Urine Clarity Urine pH Ur Specific [place] Urine Protein Urine Glucose (UA) Urine Ketones Urine Occult Blood Urine Nitrate Urine Bilirubin Urine Urobilinogen Ur Leukocyte Esterase Urine WBC Hyaline Casts Urine Mucus Micro UA Comment Ur Microscopic Review Urine Culture Comments Culture Results: Microbiology 11/26/17 21:43 Aerobic Blood Culture - Preliminary Blood - Peripheral No growth in 1 day Anaerobic Blood Culture - Preliminary No growth in 1 day 11/26/17 21:38 Aerobic Blood Culture - Preliminary Blood - Peripheral No growth in 1 day Anaerobic Blood Culture - Preliminary No growth in 1 day 11/26/17 21:00 Streptococcus pneumoniae Antigen (M - Final Urine - Clean Catch Urine Presumptive negative for streptococcus pneumoniae antigen, suggesting no current or recent infection. Infection due to Streptococcus pneumoniae cannot be ruled out since the antigen present in the sample may be below the detection limit of the test. 11/26/17 21:00 Legionella Antigen - Final Urine - Clean Catch Urine Presumptive negative for Legionella pneumophila serogroup 1 antigen in urine, suggesting no recent or recurrent infection. Infection due to Legionella cannot be ruled out since other serogroups and species may cause disease, antigen may not be present in urine in early infection, and the level of antigen present in the urine may be below the detection limit of the test. 11/26/17 18:04 Influenza Types A,B Antigen - Final Nasal Wash Negative for FLU A and B antigen Infection due to influenza A or B cannot be ruled out since the antigen present in the sample may be below the detection limit of the test. Imaging Studies: Impressions Abdomen/Bladder Ultrasound 11/26/17 00:00 CONCLUSION: 1. Diffuse abnormal appearance of the right kidney consistent with a large mass. This appears to invade into the liver. 2. 4.4 cm cyst at the superior aspect of the left kidney. Chest X-Ray 11/26/17 14:28 CONCLUSION: New small right-sided effusion with a new mild right lower lung infiltrate. Venous Doppler Study 11/26/17 14:28 CONCLUSION: 1. No evidence of DVT. No significant change. Medications: Active Medications Generic Name Dose Route Start Last Admin Trade Name Freq PRN Reason Stop Dose Admin Albuterol 1 ampul 11/26/17 20:00 11/27/17 12:40 Duoneb Neb (Eric) NEB Not Given Q4HR NEB [facility] Atenolol 50 mg 11/27/17 09:00 11/27/17 08:17 Tenormin PO 50 mg DAILY ERIC Administration Epoetin Gio 10,000 unit 11/27/17 09:00 11/27/17 08:18 Epogen Inj SQ 10,000 unit MoWeFr@0900 [facility] Administration Guaifenesin 600 mg 11/26/17 21:00 11/27/17 08:17 Mucinex Er PO 600 mg BID ERIC Administration Heparin Sodium (Porcine) 5,000 units 11/26/17 18:00 11/27/17 06:14 Heparin Inj SQ 5,000 units Q12H [facility] Administration Hydromorphone HCl 1 mg 11/27/17 09:05 11/27/17 09:30 Dilaudid Pf Inj IV.PUSH 1 mg Q4H PRN Administration BREAKTHROUGH PAIN Sodium Chloride 1,000 mls @ 0 mls/hr 11/26/17 15:45 11/26/17 18:37 Ns Inj IV.SIG Infused BOLUS [facility] Infusion Wide Open Albumin Human 100 mls @ 60 mls/hr 11/26/17 20:00 11/27/17 08:54 Flexbumin 25% Inj IV.SIG Infused Q12H [facility] Infusion Levothyroxine Sodium 112 mcg 11/27/17 06:00 11/27/17 06:15 Synthroid PO 112 mcg DAILY@0600 [facility] Administration Zolpidem Tartrate 10 mg 11/26/17 17:14 11/26/17 23:22 Ambien PO 10 mg HS PRN Administration Insomnia Objective Remarks: GENERAL: Chronically ill-appearing elderly male patient, in no acute distress. SKIN: Pale, warm and dry. HEAD: Normocephalic. EYES: No scleral icterus. No injection or drainage. NECK: Supple, trachea midline. CARDIOVASCULAR: Regular rate and rhythm without murmurs. RESPIRATORY: Breath sounds equal bilaterally. Nonlabored at rest. GASTROINTESTINAL: Abdomen soft, non-tender, nondistended. EXTREMITIES: No cyanosis. 3+ pitting edema BLE. MUSCULOSKELETAL: Adequate muscle tone. NEUROLOGICAL: No obvious focal deficit. Awake, alert, and oriented x3. PSYCHIATRIC: Appropriate mood and affect; insight and judgment normal. Assessment/Plan - Plan Mr. 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 Patient was discharged last week, with the plan to follow-up outpatient and obtain a PET scan, possible lung biopsy for molecular testing for possible immunotherapy versus targeted therapy versus chemotherapy. The patient presented back to the hospital for increased bilateral lower extremity and scrotum swelling. He is currently hospitalized with acute kidney injury on chronic kidney disease stage III, healthcare associated pneumonia. He also has a history of hypertension, COPD and hypothyroidism. Plan: 1. 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 We will continue to plan for outpatient PET scan once patient's acute illness is treated and he is discharged. Radiation oncology consulted and plans to begin palliative radiation. Radiation simulation tomorrow. 2. Anasarca, currently on albumin, diuretics and IV fluids. 3. Acute kidney injury on chronic kidney disease stage III, management per nephrology. 4. Healthcare associated pneumonia, continues on cefepime, Levaquin and vancomycin. Management per attending. 5. Anemia from renal insufficiency, continue Epogen 10,000 units subcu on Saturday and Fridays. 6. Lower extremity ultrasound, negative for DVTs. On heparin 5000 units subcu twice daily for DVT prophylaxis. - Attending Statement Pt seen in Rm [id number] and scans reviewed. Mr. Max will benefit from palliative radiation to the right renal mass which is causing him siginificant pain. I called and discussed case with Dr. Boggs who was kind enough to eval pt and plan on XRT. Will follow up in hospital with plans as before.
--- NOTE | 2017-11-27 15:08 | P.CONNP ---
History of Present Illness Service: Nephrology Consult date: 11/27/17 Primary Care Provider: UNKNOWN Family Provider: Bay Moreno MD Chief Complaint: Leg Swelling History of Present Illness: 77-year-old with a retroperitoneal mass invading right kidney and liver, nonfunctional right kidney, came in with weakness, he follows with Dr. Dunlap who has removed a stent about a month ago, he said he has functional kidney on the left side, patient follows with oncology as outpatient, he has anasarca and edema which is getting better with diuretics Creatinine was 2.01 which improved to 1.88 ultrasound showed a large mass involving the right kidney and liver mass He has a diagnosis of squamous cell cancer possibly from lung Review of Systems Constitutional: Reports anorexia, Reports lack of energy, Reports weight loss Respiratory: Reports shortness of breath Gastrointestinal: Reports constipation, Reports nausea Genitourinary: Reports decreased urination, Reports difficulty urinating Musculoskeletal: Reports muscle weakness Skin/Breast: Reports other Neurologic: Reports weakness Psychiatric: Reports anxiety, Reports depression PMFSH - History History Provided By: Patient - Medical History Medical History: Medical History (Last Reviewed 11/27/17 @ 15:06 by Michelle Jade MD) COPD (chronic obstructive pulmonary disease) Hydronephrosis, right Hypertension Hypothyroidism Pneumonia - Surgical History Surgical History: Surgical History (Last Reviewed 11/27/17 @ 15:06 by Michelle Jade MD) Heel bone fracture History of appendectomy History of tonsillectomy - Family History Family History: Family History (Last Reviewed 11/27/17 @ 15:06 by Michelle Jade MD) Mother CAD (coronary artery disease) - Social History I have reviewed the patient's Social History: Yes - Tobacco History Second Hand Smoke Exposure: No Tobacco Use In Past 30 Days: No Smoking Status: Former smoker Tobacco Type: Cigarettes Smoking End Date: 2005 - Alcohol History How Often Do You Have a Drink Containing Alcohol: Never - Substance Use History Substance History: Past History - Travel History Recent Travel in the [place] Within the Last 8 Weeks: No Recent Travel Out of the Country Within the Last 8 Weeks: No - Immunization History Tetanus Immunization: Unsure Medications and Allergies Active Medications: Active Medications Acetaminophen (Tylenol) 650 mg PO Q4H PRN PRN Reason: Temp > 100.4 Al Hydroxide/Mg Hydroxide (Milk Of Magnesia Liq) 30 ml PO Q12H PRN PRN Reason: Mild Constipation Albuterol (Duoneb Neb ([facility])) 1 ampul NEB Q4HR NEB [facility] Last Admin: 11/27/17 12:40 Dose: Not Given Atenolol (Tenormin) 50 mg PO DAILY [facility] Last Admin: 11/27/17 08:17 Dose: 50 mg Bisacodyl (Dulcolax Supp) 10 mg RECTAL DAILY PRN PRN Reason: SEVERE CONSITIPATION Cefepime HCl (Maxipime Inj) 1,000 mg IV.SIG DAILY@1800 [facility] Epoetin Gio (Epogen Inj) 10,000 unit SQ MoWeFr@0900 [facility] Last Admin: 11/27/17 08:18 Dose: 10,000 unit Furosemide (Lasix Inj) 20 mg IV.PUSH BID@0900,1800 [facility] Guaifenesin (Mucinex Er) 600 mg PO BID [facility] Last Admin: 11/27/17 08:17 Dose: 600 mg Heparin Sodium (Porcine) (Heparin Inj) 5,000 units SQ Q12H [facility] Last Admin: 11/27/17 06:14 Dose: 5,000 units Hydromorphone HCl (Dilaudid Pf Inj) 1 mg IV.PUSH Q4H PRN PRN Reason: BREAKTHROUGH PAIN Last Admin: 11/27/17 13:40 Dose: 1 mg Sodium Chloride (Ns Inj) 1,000 mls @ 0 mls/hr IV.SIG BOLUS [facility] Last Infusion: 11/26/17 18:37 Dose: Infused Levofloxacin/Dextrose (Levaquin 250 Mg Premix Inj) 250 mg in 50 mls @ 50 mls/ hr IV.SIG Q24H [facility] Albumin Human (Flexbumin 25% Inj) 100 mls @ 60 mls/hr IV.SIG Q12H [facility] Last Infusion: 11/27/17 08:54 Dose: Infused Lactobacillus Acidophilus (Lactinex) 1 tab PO TID [facility] Last Admin: 11/27/17 13:43 Dose: Not Given Lactulose (Lactulose Liq) 30 ml PO DAILY PRN PRN Reason: SEVERE CONSITIPATION Levothyroxine Sodium (Synthroid) 112 mcg PO DAILY@0600 [facility] Last Admin: 11/27/17 06:15 Dose: 112 mcg Naloxone HCl (Narcan Inj) 0.4 mg IV.PUSH ONCE PRN PRN Reason: Opioid overdose Ondansetron HCl (Zofran Inj) 4 mg IV.PUSH Q4H PRN PRN Reason: NAUSEA OR VOMITING Oxycodone/Acetaminophen (Percocet 10/325 Mg) 1 tab PO Q4H PRN PRN Reason: Pain 7 to 10 Last Admin: 11/27/17 14:59 Dose: 1 tab Oxycodone/Acetaminophen (Percocet 5/325 Mg) 1 tab PO Q4H PRN PRN Reason: Pain 3 to 6 Pharmacy Profile Note (Vancomycin Consult Pharmacy) 1 each OTHER UNSCH PRN PRN Reason: Pharmacy to dose Sennosides (Senokot) 17.2 mg PO Q12H PRN PRN Reason: Moderate Constipation Zolpidem Tartrate (Ambien) 10 mg PO HS PRN PRN Reason: Insomnia Last Admin: 11/26/17 23:22 Dose: 10 mg Allergies Allergy/AdvReac Type Severity Reaction Status Date / Time No Known Allergies Allergy Verified 11/14/17 14:41 Home Medications Medication Instructions Recorded Confirmed Type levothyroxine [Synthroid] 112 mcg PO DAILY 10/28/17 11/26/17 History atenolol 50 mg PO DAILY 10/29/17 11/26/17 History Exam Vital signs: Vital Signs 11/26/17 17:21 11/26/17 18:35 11/26/17 19:25 Temperature 97.7 F Pulse Rate 80 86 88 Respiratory Rate 17 20 18 Blood Pressure 107/58 L 116/68 Pulse Oximetry 100 99 11/26/17 20:00 11/27/17 00:00 11/27/17 00:30 Temperature 98.1 F 98.0 F Pulse Rate 87 84 77 Respiratory Rate 18 18 Blood Pressure 102/65 105/60 Pulse Oximetry 98 98 11/27/17 02:59 11/27/17 04:00 11/27/17 04:30 Temperature 98.0 F Pulse Rate 76 75 Respiratory Rate 18 18 Blood Pressure 152/70 H Pulse Oximetry 97 11/27/17 06:57 11/27/17 08:00 11/27/17 08:34 Temperature 97.8 F Pulse Rate 81 79 Respiratory Rate 12 16 20 Blood Pressure 153/73 H Pulse Oximetry 95 96 11/27/17 08:44 11/27/17 13:03 11/27/17 13:05 Temperature Pulse Rate 78 71 Respiratory Rate 12 Blood Pressure Pulse Oximetry Intake & Output 11/26/17 11/27/17 11/27/17 18:59 06:59 18:59 Intake Total 1390 / 1390 450 / 450 1602 / 1602 Output Total 1500 / 1500 250 / 250 Balance 1390 / 1390 -1050 / -1050 1352 / 1352 Weight 90.718 kg 101.6 kg Intake: IV 1150 / 1150 450 / 450 1602 / 1602 1/2 Normal Saline Inj 1,000 ML 1252 / 1252 @ 84 mls/hr IV.CONT .[id number] [facility] Rx#:[id number] Flexbumin 25% Inj 100 ML @ 60 100 / 100 100 / 100 mls/hr IV.SIG Q12H [facility] Rx#: [id number] Maxipime Inj 1,000 MG In NS Inj 100 / 100 100 ML @ 200 mls/hr IV.SIG ONCE ONE Rx#:[id number] Levaquin 750 mg Premix Inj 150 150 / 150 ML @ 100 mls/hr IV.SIG ONCE ONE Rx#:[id number] NS Inj 1,000 ML @ Wide Open IV. 1000 / 1000 SIG BOLUS [facility] Rx#:[id number] Vancomycin Inj 1,000 MG In NS 250 / 250 250 / 250 Inj 250 ML @ 250 mls/hr IV.SIG ONCE ONE Rx#:[id number] Oral 240 / 240 Output: Urine 1500 / 1500 250 / 250 Narrative: GENERAL: Well-nourished, well-developed patient. SKIN: Warm and dry. HEAD: Normocephalic. EYES: No scleral icterus. No injection or drainage. NECK: Supple, trachea midline. No JVD or lymphadenopathy. CARDIOVASCULAR: Regular rate and rhythm without murmurs, gallops, or rubs. RESPIRATORY: Breath sounds equal bilaterally. No accessory muscle use. GASTROINTESTINAL: Abdomen soft, non-tender, distended. EXTREMITIES: 2+ edema NEUROLOGICAL: Awake, alert, and oriented x 3. Non-focal. Results - Lab Results 11/27/17 03:00 11/27/17 03:00 Most recent lab results Calcium 8.8 mg/dL (8.5-10.1) 11/27/17 03:00 Assessment and Plan - Assessment (1) HTN (hypertension) Code(s): I10 - Essential (primary) hypertension Status: Acute (2) Lung mass Code(s): R91.8 - Other nonspecific abnormal finding of lung field Status: Acute (3) Mass of right kidney Code(s): N28.89 - Other specified disorders of kidney and ureter Status: Acute (4) ANIA (acute kidney injury) Code(s): N17.9 - Acute kidney failure, unspecified Status: Acute - Plan Acute renal failure continue to improve Creatinine declined with diuretic Follow-up Avoid nephrotoxin He has only left functional kidney Metastatic squamous cell cancer for possible primary from the lung
[2017-11-27] MEDS ORDERED: Morphine Sulfate 30 MG SR Tablet PO ONE (16:13)
[2017-11-27] MEDS: Levofloxacin 250 mg Premix Inj 250 MG/50 ML PIGGYBACK IV.SIG SCH (16:46)
[2017-11-27] MEDS ORDERED: Vancomycin Inj 1,250 MG in Sodium Chlor 0.9% Inj 250 ML IV.SIG SCH (18:00)
[2017-11-27] MEDS ORDERED: CEFEPIME IV.SIG SCH (18:00)
--- NOTE | 2017-11-27 20:02 | ECG ---
Date Performed: 11/27/2017 Time Performed: 17:14:18 PTAGE: 77 years EKG: Sinus rhythm NORMAL ECG PREVIOUS TRACING : 11/26/2017 16.27 No significant change from previous tracing noted. DOCTOR: Nitish Guerrero Interpretating Date/Time 11/27/2017 20:00:36
[2017-11-28] MEDS: oxyCODONE/Acetaminophen 10/325 Tablet PO PRN ×3 (00:15→16:37)
[2017-11-28] MEDS: Levothyroxine 112 MCG Tablet PO SCH (05:06)
[2017-11-28] MEDS: Heparin - SQ 10,000 UNITS/ML Vial SQ SCH ×2 (05:06→17:06)
[2017-11-28 07:40] LABS: Alanine Aminotransferase 15 U/L (12-78); Albumin 3.1 g/dL (3.4-5.0); Anion Gap 11 meq/L (5-15); Aspartate Aminotransferase 17 U/L (15-37); Blood Urea Nitrogen 22 mg/dL (7-18); Calcium 9.2 mg/dL (8.5-10.1); Carbon Dioxide 23.2 meq/L (21.0-32.0); Chloride 105 meq/L (98-107); Glomerular Filtration Rate 44 mL/min (>89); Glucose,Random 80 mg/dL (74-106); Sodium 139 meq/L (136-145)
[2017-11-28 07:45] LABS: Alkaline Phosphatase 86 U/L (45-117); Total Protein 6.8 g/dL (6.4-8.2); Vancomycin,Random 11.5 Comment
[2017-11-28] MEDS: Lactobacillus Acidophilus/L. Spores Tablet PO SCH ×3 (08:00→17:06)
[2017-11-28] MEDS: Albumin Human 25% Inj 100 ML IV.SIG SCH ×2 (08:03→19:55)
[2017-11-28] MEDS: guaiFENesin 600 MG ER Tablet PO SCH ×2 (08:03→21:11)
[2017-11-28] MEDS: Atenolol 50 MG Tablet PO SCH (08:04)
[2017-11-28] MEDS: Morphine Sulfate 30 MG SR Tablet PO SCH ×2 (08:04→21:12)
[2017-11-28] MEDS: Vancomycin Inj 1,500 MG in Sodium Chlor 0.9% Inj 500 ML IV.SIG SCH (11:42)
[2017-11-28] MEDS ORDERED: Morphine Inj 4 MG/ML Vial IV.PUSH PRN (11:44)
--- NOTE | 2017-11-28 13:51 | P.PNIM ---
Subjective Interval history: Improved pain control today. Renal function is improving. Fluid overload is improving. Low potassium today. Physical Exam Vital signs: Vital Signs 11/27/17 15:00 11/27/17 15:42 11/27/17 16:00 Temperature 97.7 F Pulse Rate 68 72 Respiratory Rate 16 12 14 Blood Pressure 138/73 Pulse Oximetry 93 L 11/27/17 18:03 11/27/17 20:00 11/27/17 20:24 Temperature 97.7 F Pulse Rate 71 80 Respiratory Rate 18 Blood Pressure 123/67 Pulse Oximetry 98 98 11/28/17 00:00 11/28/17 04:00 11/28/17 07:00 Temperature 97.5 F L 97.8 F Pulse Rate 74 78 Respiratory Rate 18 18 12 Blood Pressure 143/73 H 123/67 Pulse Oximetry 96 96 11/28/17 07:59 11/28/17 08:00 11/28/17 09:00 Temperature 97.7 F Pulse Rate 73 74 72 Respiratory Rate 18 Blood Pressure 124/77 Pulse Oximetry 97 11/28/17 12:00 11/28/17 13:48 Temperature 98 F Pulse Rate 75 Respiratory Rate 18 12 Blood Pressure 134/70 Pulse Oximetry 96 Intake & Output 11/27/17 11/28/17 11/28/17 18:59 06:59 18:59 Intake Total 1752 / 1752 1060 / 1060 615 / 615 Output Total 525 / 525 2150 / 2150 1500 / 1500 Balance 1227 / 1227 -1090 / -1090 -885 / -885 Weight 101.6 kg Intake: IV 1752 / 1752 100 / 100 615 / 615 1/2 Normal Saline Inj 1,000 ML 1252 / 1252 @ 84 mls/hr IV.CONT .[id number] [facility] Rx#:[id number] Flexbumin 25% Inj 100 ML @ 60 100 / 100 100 / 100 100 / 100 mls/hr IV.SIG Q12H [facility] Rx#: [id number] Maxipime Inj 1,000 MG In NS Inj 100 / 100 100 ML @ 200 mls/hr IV.SIG DAILY@1800 [facility] Rx#:[id number] Levaquin 250 mg Premix Inj 250 50 / 50 mg In 50 ml @ 50 mls/hr IV.SIG Q24H [facility] Rx#:[id number] Vancomycin Inj 1,000 MG In NS 250 / 250 Inj 250 ML @ 250 mls/hr IV.SIG ONCE ONE Rx#:[id number] Vancomycin Inj 1,500 MG In NS 515 / 515 Inj 500 ML @ 250 mls/hr IV.SIG Q24H [facility] Rx#:[id number] Oral 960 / 960 Output: Urine 525 / 525 2150 / 2150 1500 / 1500 Other: Date of Last Bowel Movement 11/26/17 # Emeses 1 Narrative: GENERAL: NAD, A&Ox3 HEAD: Normocephalic. NECK: Supple, trachea midline. No lymphadenopathy. EYES: No scleral icterus. No injection or drainage. CARDIOVASCULAR: Regular rate and rhythm without murmurs, gallops, or rubs. RESPIRATORY: Breath sounds equal bilaterally. No accessory muscle use. GASTROINTESTINAL: Abdomen soft, non-tender, nondistended. MUSCULOSKELETAL: No cyanosis, bilateral lower extremity edema. SKIN: Warm and dry. NEURO: No focal neurological deficits. Results - Labs CBC & Chem 7: 11/27/17 03:00 11/28/17 06:06 Laboratory Results - last 24 hr 11/27/17 11/28/17 18:21 06:06 Sodium 139 Potassium 4.0 Chloride 105 Carbon Dioxide 23.2 Anion Gap 11 BUN 22 H Creatinine 1.56 H Estimated GFR 44 L Random Glucose 80 Calcium 9.2 Total Bilirubin 0.6 AST 17 ALT 15 Alkaline Phosphatase 86 Troponin I Less than 0.02 L Less than 0.02 L Total Protein 6.8 Albumin 3.1 L Random Vancomycin 11.5 Microbiology 11/26/17 21:43 Blood - Peripheral Aerobic Blood Culture - Preliminary No growth in 2 days 11/26/17 21:43 Blood - Peripheral Anaerobic Blood Culture - Preliminary No growth in 2 days 11/26/17 21:38 Blood - Peripheral Aerobic Blood Culture - Preliminary No growth in 2 days 11/26/17 21:38 Blood - Peripheral Anaerobic Blood Culture - Preliminary No growth in 2 days Assessment and Plan - Plan 77-year-old male admitted secondary to back pain with pneumonia. Retroperitoneal squamous cell carcinoma present. Patient has nausea with Dilaudid. Dilaudid changed to IV morphine for breakthrough. Continue MS Contin. Continue Percocet as needed for pain. Anasarca and lower extremity edema are improving with diuretics. Continue following renal function for now. Radiation therapy plan for retroperitoneal mass. Retroperitoneal squamous cell carcinoma Radiation therapy and planning process Tentative plan for 12/02/2017 Continue pain treatments This may be a component of the patient's pain Healthcare associated pneumonia Cefepime Vancomycin Probiotics Follow cultures COPD No acute exacerbation Continue bronchodilators Continue mucolytic's Incentive spirometry Anasarca Continue diuresis Degree is not significant enough for paracentesis IV fluids discontinued Acute kidney injury Improving Continue diuresis Continue to monitor renal function IV fluids discontinued Hypertension Continue baseline treatment Follow blood pressures Adjust treatments as needed Hypothyroidism Continue hormone replacements DVT prophylaxis Heparin
--- NOTE | 2017-11-28 14:58 | P.PNNP ---
Subjective Interval history: Patient is improved Patient with weakness and anasarca Physical Exam Vital signs: Vital Signs 11/27/17 15:00 11/27/17 15:42 11/27/17 16:00 Temperature 97.7 F Pulse Rate 68 72 Respiratory Rate 16 12 14 Blood Pressure 138/73 Pulse Oximetry 93 L 11/27/17 18:03 11/27/17 20:00 11/27/17 20:24 Temperature 97.7 F Pulse Rate 71 80 Respiratory Rate 18 Blood Pressure 123/67 Pulse Oximetry 98 98 11/28/17 00:00 11/28/17 04:00 11/28/17 07:00 Temperature 97.5 F L 97.8 F Pulse Rate 74 78 Respiratory Rate 18 18 12 Blood Pressure 143/73 H 123/67 Pulse Oximetry 96 96 11/28/17 07:59 11/28/17 08:00 11/28/17 09:00 Temperature 97.7 F Pulse Rate 73 74 72 Respiratory Rate 18 Blood Pressure 124/77 Pulse Oximetry 97 11/28/17 12:00 11/28/17 13:48 Temperature 98 F Pulse Rate 75 Respiratory Rate 18 12 Blood Pressure 134/70 Pulse Oximetry 96 Intake & Output 11/27/17 11/28/17 11/28/17 18:59 06:59 18:59 Intake Total 1752 / 1752 1060 / 1060 615 / 615 Output Total 525 / 525 2150 / 2150 1500 / 1500 Balance 1227 / 1227 -1090 / -1090 -885 / -885 Weight 101.6 kg Intake: IV 1752 / 1752 100 / 100 615 / 615 1/2 Normal Saline Inj 1,000 ML 1252 / 1252 @ 84 mls/hr IV.CONT .[id number] [facility] Rx#:[id number] Flexbumin 25% Inj 100 ML @ 60 100 / 100 100 / 100 100 / 100 mls/hr IV.SIG Q12H [facility] Rx#: [id number] Maxipime Inj 1,000 MG In NS Inj 100 / 100 100 ML @ 200 mls/hr IV.SIG DAILY@1800 [facility] Rx#:[id number] Levaquin 250 mg Premix Inj 250 50 / 50 mg In 50 ml @ 50 mls/hr IV.SIG Q24H [facility] Rx#:[id number] Vancomycin Inj 1,000 MG In NS 250 / 250 Inj 250 ML @ 250 mls/hr IV.SIG ONCE ONE Rx#:[id number] Vancomycin Inj 1,500 MG In NS 515 / 515 Inj 500 ML @ 250 mls/hr IV.SIG Q24H [facility] Rx#:[id number] Oral 960 / 960 Output: Urine 525 / 525 2150 / 2150 1500 / 1500 Other: Date of Last Bowel Movement 11/26/17 # Emeses 1 Narrative: GENERAL: NAD, A&Ox3 HEAD: Normocephalic. NECK: Supple, trachea midline. No lymphadenopathy. EYES: No scleral icterus. No injection or drainage. CARDIOVASCULAR: Regular rate and rhythm without murmurs, gallops, or rubs. RESPIRATORY: Breath sounds equal bilaterally. No accessory muscle use. GASTROINTESTINAL: Abdomen soft, non-tender, nondistended. MUSCULOSKELETAL: No cyanosis, bilateral lower extremity edema. SKIN: Warm and dry. NEURO: No focal neurological deficits. 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
[2017-11-28] MEDS: Levofloxacin 250 mg Premix Inj 250 MG/50 ML PIGGYBACK IV.SIG SCH (16:25)
--- NOTE | 2017-11-28 16:44 | P.PNONC ---
Subjective Interval history: Patient lying in bed, resting. He reports his pain is slightly improved today. He states he was unable to get sleep last night due to being up all night urinating with the diuretics. He has had a reduction in his lower extremity edema. Patient had radiation simulation today and the plan is for him to start radiation Saturday. Objective Vital Signs/Intake & Output: Vital Signs 11/27/17 18:03 11/27/17 20:00 11/27/17 20:24 Temperature 97.7 F Pulse Rate 71 80 Respiratory Rate 18 Blood Pressure 123/67 Pulse Oximetry 98 98 11/28/17 00:00 11/28/17 04:00 11/28/17 07:00 Temperature 97.5 F L 97.8 F Pulse Rate 74 78 Respiratory Rate 18 18 12 Blood Pressure 143/73 H 123/67 Pulse Oximetry 96 96 11/28/17 07:59 11/28/17 08:00 11/28/17 09:00 Temperature 97.7 F Pulse Rate 73 74 72 Respiratory Rate 18 Blood Pressure 124/77 Pulse Oximetry 97 11/28/17 12:00 11/28/17 13:48 11/28/17 15:37 Temperature 98 F Pulse Rate 75 Respiratory Rate 18 12 12 Blood Pressure 134/70 Pulse Oximetry 96 Intake & Output 11/27/17 11/28/17 11/28/17 18:59 06:59 18:59 Intake Total 1752 / 1752 1060 / 1060 855 / 855 Output Total 525 / 525 2150 / 2150 1800 / 1800 Balance 1227 / 1227 -1090 / -1090 -945 / -945 Weight 101.6 kg Intake: IV 1752 / 1752 100 / 100 615 / 615 1/2 Normal Saline Inj 1,000 ML 1252 / 1252 @ 84 mls/hr IV.CONT .[id number] [facility] Rx#:[id number] Flexbumin 25% Inj 100 ML @ 60 100 / 100 100 / 100 100 / 100 mls/hr IV.SIG Q12H [facility] Rx#: [id number] Maxipime Inj 1,000 MG In NS Inj 100 / 100 100 ML @ 200 mls/hr IV.SIG DAILY@1800 [facility] Rx#:[id number] Levaquin 250 mg Premix Inj 250 50 / 50 mg In 50 ml @ 50 mls/hr IV.SIG Q24H [facility] Rx#:[id number] Vancomycin Inj 1,000 MG In NS 250 / 250 Inj 250 ML @ 250 mls/hr IV.SIG ONCE ONE Rx#:[id number] Vancomycin Inj 1,500 MG In NS 515 / 515 Inj 500 ML @ 250 mls/hr IV.SIG Q24H [facility] Rx#:[id number] Oral 960 / 960 240 / 240 Output: Urine 525 / 525 2150 / 2150 1800 / 1800 Other: Date of Last Bowel Movement 11/26/17 # Emeses 1 Result Diagrams: 11/27/17 03:00 11/28/17 06:06 Laboratory Results: Laboratory Results - last 24 hr 11/27/17 11/28/17 18:21 06:06 Sodium 139 Potassium 4.0 Chloride 105 Carbon Dioxide 23.2 Anion Gap 11 BUN 22 H Creatinine 1.56 H Estimated GFR 44 L Random Glucose 80 Calcium 9.2 Total Bilirubin 0.6 AST 17 ALT 15 Alkaline Phosphatase 86 Troponin I Less than 0.02 L Less than 0.02 L Total Protein 6.8 Albumin 3.1 L Random Vancomycin 11.5 Culture Results: Microbiology 11/26/17 21:43 Aerobic Blood Culture - Preliminary Blood - Peripheral No growth in 2 days Anaerobic Blood Culture - Preliminary No growth in 2 days 11/26/17 21:38 Aerobic Blood Culture - Preliminary Blood - Peripheral No growth in 2 days Anaerobic Blood Culture - Preliminary No growth in 2 days 11/26/17 21:00 Streptococcus pneumoniae Antigen (M - Final Urine - Clean Catch Urine Presumptive negative for streptococcus pneumoniae antigen, suggesting no current or recent infection. Infection due to Streptococcus pneumoniae cannot be ruled out since the antigen present in the sample may be below the detection limit of the test. 11/26/17 21:00 Legionella Antigen - Final Urine - Clean Catch Urine Presumptive negative for Legionella pneumophila serogroup 1 antigen in urine, suggesting no recent or recurrent infection. Infection due to Legionella cannot be ruled out since other serogroups and species may cause disease, antigen may not be present in urine in early infection, and the level of antigen present in the urine may be below the detection limit of the test. 11/26/17 18:04 Influenza Types A,B Antigen - Final Nasal Wash Negative for FLU A and B antigen Infection due to influenza A or B cannot be ruled out since the antigen present in the sample may be below the detection limit of the test. Medications: Active Medications Generic Name Dose Route Start Last Admin Trade Name Bienvenidoq PRN Reason Stop Dose Admin Albuterol 1 ampul 11/26/17 20:00 11/28/17 12:42 Duoneb Neb ([facility]) NEB Not Given Q4HR NEB [facility] Atenolol 50 mg 11/27/17 09:00 11/28/17 08:04 Tenormin PO 50 mg DAILY [facility] Administration Epoetin Gio 10,000 unit 11/27/17 09:00 11/27/17 08:18 Epogen Inj SQ 10,000 unit MoWeFr@0900 [facility] Administration Furosemide 20 mg 11/28/17 16:00 11/28/17 16:25 Lasix Inj IV.PUSH 20 mg BID@0800,1600 [facility] Administration Guaifenesin 600 mg 11/26/17 21:00 11/28/17 08:03 Mucinex Er PO 600 mg BID [facility] Administration Heparin Sodium (Porcine) 5,000 units 11/26/17 18:00 11/28/17 05:06 Heparin Inj SQ 5,000 units Q12H [facility] Administration Levofloxacin/Dextrose 250 mg in 50 mls @ 50 mls/hr 11/27/17 17:00 11/28/17 16 :25 Levaquin 250 Mg Premix Inj IV.SIG 50 mls/hr Q24H [facility] Administration Albumin Human 100 mls @ 60 mls/hr 11/26/17 20:00 11/28/17 09:25 Flexbumin 25% Inj IV.SIG Infused Q12H [facility] Infusion Cefepime HCl 1,000 mg/ Sodium 100 mls @ 200 mls/hr 11/27/17 18:00 11/27/17 18 :30 Chloride IV.SIG Infused DAILY@1800 [facility] Infusion Vancomycin HCl 1,500 mg/ 515 mls @ 250 mls/hr 11/28/17 12:00 11/28/17 13:46 Sodium Chloride IV.SIG Infused Q24H [facility] Infusion Lactobacillus Acidophilus 1 tab 11/27/17 13:00 11/28/17 12:02 Lactinex PO Not Given TID [facility] Levothyroxine Sodium 112 mcg 11/27/17 06:00 11/28/17 05:06 Synthroid PO 112 mcg DAILY@0600 [facility] Administration Morphine Sulfate 30 mg 11/28/17 09:00 11/28/17 08:04 Oramorph Sr PO 30 mg Q12HR [facility] Administration Ondansetron HCl 4 mg 11/26/17 17:11 11/27/17 21:09 Zofran Inj IV.PUSH 4 mg Q4H PRN Administration NAUSEA OR VOMITING Oxycodone/Acetaminophen 1 tab 11/27/17 09:05 11/28/17 16:37 Percocet 10/325 Mg PO 1 tab Q4H PRN Administration Pain 7 to 10 Zolpidem Tartrate 10 mg 11/26/17 17:14 11/28/17 00:15 Ambien PO 10 mg HS PRN Administration Insomnia Objective Remarks: GENERAL: Chronically ill-appearing elderly male patient, in no acute distress. SKIN: Pale, warm and dry. HEAD: Normocephalic. EYES: No scleral icterus. No injection or drainage. NECK: Supple, trachea midline. CARDIOVASCULAR: Regular rate and rhythm without murmurs. RESPIRATORY: Breath sounds equal bilaterally. Nonlabored at rest. GASTROINTESTINAL: Abdomen soft, non-tender, nondistended. EXTREMITIES: No cyanosis. 3+ pitting edema BLE. MUSCULOSKELETAL: Adequate muscle tone. NEUROLOGICAL: No obvious focal deficit. Awake, alert, and oriented x3. PSYCHIATRIC: Appropriate mood and affect; insight and judgment normal. Assessment/Plan - Plan Mr. 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 Patient was discharged last week, with the plan to follow-up outpatient and obtain a PET scan, possible lung biopsy for molecular testing for possible immunotherapy versus targeted therapy versus chemotherapy. The patient presented back to the hospital for increased bilateral lower extremity and scrotum swelling. He is currently hospitalized with acute kidney injury on chronic kidney disease stage III, healthcare associated pneumonia. He also has a history of hypertension, COPD and hypothyroidism. Plan: 1. 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 We will continue to plan for outpatient PET scan once patient's acute illness is treated and he is discharged. Status post radiation simulation today. Plan for radiation to likely start on Saturday. 2. Anasarca, currently on albumin, diuretics and IV fluids. 3. Acute kidney injury on chronic kidney disease stage III, management per nephrology. 4. Healthcare associated pneumonia, continues on cefepime, Levaquin and vancomycin. Management per attending. 5. Anemia from renal insufficiency, continue Epogen 10,000 units subcu on Saturday and Fridays. 6. Lower extremity ultrasound, negative for DVTs. On heparin 5000 units subcu twice daily for DVT prophylaxis. - Attending Statement Pt seen in room this am. Pain better controlled. XRT to begin ? tomorrow. Will f /u.
[2017-11-29] MEDS: oxyCODONE/Acetaminophen 10/325 Tablet PO PRN ×4 (02:30→21:49)
[2017-11-29] MEDS: Levothyroxine 112 MCG Tablet PO SCH (05:11)
[2017-11-29] MEDS: Heparin - SQ 10,000 UNITS/ML Vial SQ SCH ×2 (05:12→18:23)
[2017-11-29 07:12] LABS: Baso % (Auto) 0.5 % (0.0-2.0); Eos # (Auto) 0.2 th/mm3 (0.0-0.4); Eos % (Auto) 2.3 % (0.0-4.0); Hematocrit 26.7 % (39.0-51.0); Hemoglobin 9.1 gm/dL (13.0-17.0); Lymph # (Auto) 0.6 th/mm3 (1.0-4.8); Lymph % (Auto) 6.7 % (9.0-44.0); Mean Corpuscular HGB Conc 34.3 % (32.0-36.0); Mean Corpuscular Hemoglobin 29.1 pg (27.0-34.0); Mean Platelet Volume 7.6 fL (7.0-11.0); Mono # (Auto) 0.6 th/mm3 (0.0-0.9); Mono % (Auto) 6.3 % (0.0-8.0); Neut # (Auto) 7.5 th/mm3 (1.8-7.7); Neut % (Auto) 84.2 % (16.0-70.0); Platelet Count 191 th/mm3 (150-450); Red Blood Count 3.14 mil/mm3 (4.50-5.90); White Blood Count 8.9 th/mm3 (4.0-11.0)
[2017-11-29 07:30] LABS: Albumin 3.6 g/dL (3.4-5.0); Anion Gap 9 meq/L (5-15); Aspartate Aminotransferase 12 U/L (15-37); Blood Urea Nitrogen 22 mg/dL (7-18); Calcium 9.6 mg/dL (8.5-10.1); Carbon Dioxide 26.7 meq/L (21.0-32.0); Chloride 101 meq/L (98-107); Glomerular Filtration Rate 41 mL/min (>89); Glucose,Random 88 mg/dL (74-106); Potassium 3.5 meq/L (3.5-5.1); Sodium 137 meq/L (136-145)
[2017-11-29 07:31] LABS: Alanine Aminotransferase 18 U/L (12-78)
[2017-11-29 07:33] LABS: Alkaline Phosphatase 87 U/L (45-117); Total Protein 7.1 g/dL (6.4-8.2)
[2017-11-29] MEDS: guaiFENesin 600 MG ER Tablet PO SCH ×2 (08:15→20:55)
[2017-11-29] MEDS: Lactobacillus Acidophilus/L. Spores Tablet PO SCH (08:15)
[2017-11-29] MEDS: Morphine Sulfate 30 MG SR Tablet PO SCH ×2 (08:15→20:54)
[2017-11-29] MEDS: Albumin Human 25% Inj 100 ML IV.SIG SCH ×2 (08:21→20:54)
[2017-11-29] MEDS: Atenolol 50 MG Tablet PO SCH (08:29)
--- NOTE | 2017-11-29 10:34 | P.PNIM ---
Subjective Interval history: Peripheral edema continues to improve. Slight worsening of creatinine today likely related to diuresis. No new complaints from patient. Pain control. Physical Exam Vital signs: Vital Signs 11/28/17 12:00 11/28/17 13:48 11/28/17 15:37 Temperature 98 F Pulse Rate 75 Respiratory Rate 18 12 12 Blood Pressure 134/70 Pulse Oximetry 96 11/28/17 16:00 11/28/17 20:00 11/29/17 00:00 Temperature 98.1 F 98.6 F 98.6 F Pulse Rate 65 75 69 Respiratory Rate 18 16 16 Blood Pressure 140/70 104/51 L 140/62 Pulse Oximetry 96 98 94 L 11/29/17 04:00 11/29/17 08:00 Temperature 98.2 F 97.4 F L Pulse Rate 70 66 Respiratory Rate 18 18 Blood Pressure 122/71 134/71 Pulse Oximetry 98 97 Intake & Output 11/28/17 11/29/17 11/29/17 18:59 06:59 18:59 Intake Total 1005 / 1005 100 / 100 Output Total 1800 / 1800 1100 / 1100 Balance -795 / -795 -1000 / -1000 Weight 95.3 kg Intake: IV 765 / 765 100 / 100 Flexbumin 25% Inj 100 ML @ 60 100 / 100 100 / 100 mls/hr IV.SIG Q12H [facility] Rx#: [id number] Maxipime Inj 1,000 MG In NS Inj 100 / 100 100 ML @ 200 mls/hr IV.SIG DAILY@1800 [facility] Rx#:[id number] Levaquin 250 mg Premix Inj 250 50 / 50 mg In 50 ml @ 50 mls/hr IV.SIG Q24H [facility] Rx#:[id number] Vancomycin Inj 1,500 MG In NS 515 / 515 Inj 500 ML @ 250 mls/hr IV.SIG Q24H [facility] Rx#:[id number] Oral 240 / 240 Output: Urine 1800 / 1800 1100 / 1100 Other: Date of Last Bowel Movement 11/26/17 Narrative: GENERAL: NAD, A&Ox3 HEAD: Normocephalic. NECK: Supple, trachea midline. No lymphadenopathy. EYES: No scleral icterus. No injection or drainage. CARDIOVASCULAR: Regular rate and rhythm without murmurs, gallops, or rubs. RESPIRATORY: Breath sounds equal bilaterally. No accessory muscle use. GASTROINTESTINAL: Abdomen soft, non-tender, nondistended. MUSCULOSKELETAL: No cyanosis, bilateral lower extremity edema (improving) SKIN: Warm and dry. NEURO: No focal neurological deficits. Results - Labs CBC & Chem 7: 11/29/17 06:30 11/29/17 06:30 Laboratory Results - last 24 hr 11/29/17 11/29/17 06:30 06:30 WBC 8.9 RBC 3.14 L Hgb 9.1 L Hct 26.7 L MCV 85.0 D MCH 29.1 MCHC 34.3 RDW 16.0 Plt Count 191 MPV 7.6 Neut % (Auto) 84.2 H Lymph % (Auto) 6.7 L [place] % (Auto) 6.3 Eos % (Auto) 2.3 Baso % (Auto) 0.5 Neut # (Auto) 7.5 Lymph # (Auto) 0.6 L [place] # (Auto) 0.6 Eos # (Auto) 0.2 Baso # (Auto) 0.0 WBC Differential . Differential Comment Auto diff final Sodium 137 Potassium 3.5 Chloride 101 Carbon Dioxide 26.7 Anion Gap 9 BUN 22 H Creatinine 1.64 H Estimated GFR 41 L Random Glucose 88 Calcium 9.6 Total Bilirubin 0.9 AST 12 L ALT 18 Alkaline Phosphatase 87 Total Protein 7.1 Albumin 3.6 Microbiology 11/26/17 21:43 Blood - Peripheral Aerobic Blood Culture - Preliminary No growth in 2 days 11/26/17 21:43 Blood - Peripheral Anaerobic Blood Culture - Preliminary No growth in 2 days 11/26/17 21:38 Blood - Peripheral Aerobic Blood Culture - Preliminary No growth in 2 days 11/26/17 21:38 Blood - Peripheral Anaerobic Blood Culture - Preliminary No growth in 2 days Assessment and Plan - Plan 77-year-old male admitted secondary to back pain with pneumonia. Retroperitoneal squamous cell carcinoma present. Probiotics discontinued based on patient request. IV diuretics discontinued and patient has now started on Lasix p.o. 40 mg daily. Continue to monitor renal function for renal strain. Retroperitoneal squamous cell carcinoma Radiation therapy and planning process Tentative plan for 12/02/2017 Continue pain treatments This may be a component of the patient's pain Healthcare associated pneumonia Cefepime Vancomycin Probiotics Follow cultures COPD No acute exacerbation Continue bronchodilators Continue mucolytic's Incentive spirometry Anasarca Continue diuresis Degree is not significant enough for paracentesis IV fluids discontinued Acute kidney injury Improving Continue diuresis Continue to monitor renal function IV fluids discontinued Hypertension Continue baseline treatment Follow blood pressures Adjust treatments as needed Hypothyroidism Continue hormone replacements DVT prophylaxis Heparin
[2017-11-29] MEDS: Vancomycin Inj 1,500 MG in Sodium Chlor 0.9% Inj 500 ML IV.SIG SCH (12:26)
[2017-11-29] MEDS: Levofloxacin 250 mg Premix Inj 250 MG/50 ML PIGGYBACK IV.SIG SCH (16:43)
[2017-11-29] MEDS ORDERED: Pharmacy Ordered Lab Info OTHER ONE (17:45)
[2017-11-30 04:47] LABS: Baso # (Auto) 0.1 th/mm3 (0.0-0.2); Baso % (Auto) 0.8 % (0.0-2.0); Eos # (Auto) 0.2 th/mm3 (0.0-0.4); Hematocrit 27.1 % (39.0-51.0); Hemoglobin 9.1 gm/dL (13.0-17.0); Lymph # (Auto) 0.9 th/mm3 (1.0-4.8); Lymph % (Auto) 10.1 % (9.0-44.0); Mean Corpuscular HGB Conc 33.5 % (32.0-36.0); Mean Corpuscular Volume 86.5 fL (80.0-100.0); Mean Platelet Volume 7.4 fL (7.0-11.0); Mono # (Auto) 0.7 th/mm3 (0.0-0.9); Mono % (Auto) 7.7 % (0.0-8.0); Neut # (Auto) 6.7 th/mm3 (1.8-7.7); Neut % (Auto) 79.4 % (16.0-70.0); Platelet Count 189 th/mm3 (150-450); Red Blood Count 3.13 mil/mm3 (4.50-5.90); Red Cell Distribution Width 15.6 % (11.6-17.2); White Blood Count 8.5 th/mm3 (4.0-11.0)
[2017-11-30] MEDS: Levothyroxine 112 MCG Tablet PO SCH (05:28)
[2017-11-30] MEDS: Heparin - SQ 10,000 UNITS/ML Vial SQ SCH ×2 (05:28→17:11)
[2017-11-30] MEDS: Morphine Sulfate 30 MG SR Tablet PO SCH ×2 (08:25→21:11)
[2017-11-30] MEDS: Furosemide 40 MG Tablet PO SCH (08:25)
[2017-11-30] MEDS: Albumin Human 25% Inj 100 ML IV.SIG SCH ×2 (08:26→21:43)
[2017-11-30] MEDS: guaiFENesin 600 MG ER Tablet PO SCH ×2 (08:26→21:11)
[2017-11-30] MEDS: Atenolol 50 MG Tablet PO SCH (08:26)
--- NOTE | 2017-11-30 11:09 | P.PNIM ---
Subjective Interval history: No complaints today. Patient says he slept better last night. No fevers. Physical Exam Vital signs: Vital Signs 11/29/17 12:00 11/29/17 16:00 11/29/17 19:49 Temperature 98.3 F 98.6 F Pulse Rate 69 68 Respiratory Rate 20 20 Blood Pressure 128/71 129/74 Pulse Oximetry 98 95 95 11/29/17 20:00 11/29/17 20:55 11/29/17 22:59 Temperature 98.5 F Pulse Rate 68 Respiratory Rate 18 19 Blood Pressure 127/70 Pulse Oximetry 96 97 11/30/17 00:00 11/30/17 04:00 11/30/17 07:00 Temperature 97.9 F 97.6 F Pulse Rate 67 70 Respiratory Rate 18 18 12 Blood Pressure 140/73 130/73 Pulse Oximetry 95 96 11/30/17 08:00 11/30/17 09:00 11/30/17 11:05 Temperature 98.3 F Pulse Rate 65 63 Respiratory Rate 20 Blood Pressure 141/61 H Pulse Oximetry 93 L 95 Intake & Output 11/29/17 11/30/17 11/30/17 18:59 06:59 18:59 Intake Total 1265 / 1265 700 / 700 100 / 100 Output Total 900 / 900 1100 / 1100 200 / 200 Balance 365 / 365 -400 / -400 -100 / -100 Weight 97 kg Intake: IV 665 / 665 200 / 200 100 / 100 Flexbumin 25% Inj 100 ML @ 60 100 / 100 100 / 100 100 / 100 mls/hr IV.SIG Q12H [facility] Rx#: [id number] Maxipime Inj 1,000 MG In NS Inj 100 / 100 100 ML @ 200 mls/hr IV.SIG DAILY@1800 [facility] Rx#:[id number] Levaquin 250 mg Premix Inj 250 50 / 50 mg In 50 ml @ 50 mls/hr IV.SIG Q24H [facility] Rx#:[id number] Vancomycin Inj 1,500 MG In NS 515 / 515 Inj 500 ML @ 250 mls/hr IV.SIG Q24H [facility] Rx#:[id number] Oral 600 / 600 500 / 500 Output: Urine 900 / 900 1100 / 1100 200 / 200 Other: Date of Last Bowel Movement 11/29/17 11/26/17 Narrative: GENERAL: NAD, A&Ox3 HEAD: Normocephalic. NECK: Supple, trachea midline. No lymphadenopathy. EYES: No scleral icterus. No injection or drainage. CARDIOVASCULAR: Regular rate and rhythm without murmurs, gallops, or rubs. RESPIRATORY: Breath sounds equal bilaterally. No accessory muscle use. GASTROINTESTINAL: Abdomen soft, non-tender, nondistended. MUSCULOSKELETAL: No cyanosis, bilateral lower extremity edema (improving) SKIN: Warm and dry. NEURO: No focal neurological deficits. Results - Labs CBC & Chem 7: 11/30/17 03:54 11/29/17 06:30 Laboratory Results - last 24 hr 11/30/17 03:54 WBC 8.5 RBC 3.13 L Hgb 9.1 L Hct 27.1 L MCV 86.5 MCH 29.0 MCHC 33.5 RDW 15.6 Plt Count 189 MPV 7.4 Neut % (Auto) 79.4 H Lymph % (Auto) 10.1 [place] % (Auto) 7.7 Eos % (Auto) 2.0 Baso % (Auto) 0.8 Neut # (Auto) 6.7 Lymph # (Auto) 0.9 L [place] # (Auto) 0.7 Eos # (Auto) 0.2 Baso # (Auto) 0.1 WBC Differential . Differential Comment Auto diff final Microbiology 11/26/17 21:43 Blood - Peripheral Aerobic Blood Culture - Preliminary No growth in 4 days 11/26/17 21:43 Blood - Peripheral Anaerobic Blood Culture - Preliminary No growth in 4 days 11/26/17 21:38 Blood - Peripheral Aerobic Blood Culture - Preliminary No growth in 4 days 11/26/17 21:38 Blood - Peripheral Anaerobic Blood Culture - Preliminary No growth in 4 days Assessment and Plan - Plan 77-year-old male admitted secondary to back pain with pneumonia. Retroperitoneal squamous cell carcinoma present. Continue Lasix. Awaiting radiation treatment on 12/02/2017. Patient reports good rest last night. No complaints. Retroperitoneal squamous cell carcinoma Radiation therapy and planning process Tentative plan for 12/02/2017 Continue pain treatments This may be a component of the patient's pain Healthcare associated pneumonia Cefepime Vancomycin Probiotics Follow cultures COPD No acute exacerbation Continue bronchodilators Continue mucolytic's Incentive spirometry Anasarca Continue diuresis Degree is not significant enough for paracentesis IV fluids discontinued Acute kidney injury Improving Continue diuresis Continue to monitor renal function IV fluids discontinued Hypertension Continue baseline treatment Follow blood pressures Adjust treatments as needed Hypothyroidism Continue hormone replacements DVT prophylaxis Heparin
[2017-11-30] MEDS: Vancomycin Inj 1,500 MG in Sodium Chlor 0.9% Inj 500 ML IV.SIG SCH (11:30)
[2017-11-30] MEDS ORDERED: Pharmacy Ordered Lab Info OTHER ONE (11:45)
--- NOTE | 2017-11-30 11:56 | P.PNONC ---
Subjective Interval history: Patient sleeping on approach, awakens easily to voice. He states he got his first good night sleep last night, however he still feels a little groggy this morning. No other complaints at this time. Objective Vital Signs/Intake & Output: Vital Signs 11/29/17 12:00 11/29/17 16:00 11/29/17 19:49 Temperature 98.3 F 98.6 F Pulse Rate 69 68 Respiratory Rate 20 20 Blood Pressure 128/71 129/74 Pulse Oximetry 98 95 95 11/29/17 20:00 11/29/17 20:55 11/29/17 22:59 Temperature 98.5 F Pulse Rate 68 Respiratory Rate 18 19 Blood Pressure 127/70 Pulse Oximetry 96 97 11/30/17 00:00 11/30/17 04:00 11/30/17 07:00 Temperature 97.9 F 97.6 F Pulse Rate 67 70 Respiratory Rate 18 18 12 Blood Pressure 140/73 130/73 Pulse Oximetry 95 96 11/30/17 08:00 11/30/17 09:00 11/30/17 11:05 Temperature 98.3 F Pulse Rate 65 63 Respiratory Rate 20 Blood Pressure 141/61 H Pulse Oximetry 93 L 95 Intake & Output 11/29/17 11/30/17 11/30/17 18:59 06:59 18:59 Intake Total 1265 / 1265 700 / 700 100 / 100 Output Total 900 / 900 1100 / 1100 200 / 200 Balance 365 / 365 -400 / -400 -100 / -100 Weight 97 kg Intake: IV 665 / 665 200 / 200 100 / 100 Flexbumin 25% Inj 100 ML @ 60 100 / 100 100 / 100 100 / 100 mls/hr IV.SIG Q12H [facility] Rx#: [id number] Maxipime Inj 1,000 MG In NS Inj 100 / 100 100 ML @ 200 mls/hr IV.SIG DAILY@1800 [facility] Rx#:[id number] Levaquin 250 mg Premix Inj 250 50 / 50 mg In 50 ml @ 50 mls/hr IV.SIG Q24H [facility] Rx#:[id number] Vancomycin Inj 1,500 MG In NS 515 / 515 Inj 500 ML @ 250 mls/hr IV.SIG Q24H [facility] Rx#:[id number] Oral 600 / 600 500 / 500 Output: Urine 900 / 900 1100 / 1100 200 / 200 Other: Date of Last Bowel Movement 10/12/18 10/09/18 Result Diagrams: 11/30/17 03:54 11/30/17 11:19 Laboratory Results: Laboratory Results - last 24 hr 11/30/17 03:54 WBC 8.5 RBC 3.13 L Hgb 9.1 L Hct 27.1 L MCV 86.5 MCH 29.0 MCHC 33.5 RDW 15.6 Plt Count 189 MPV 7.4 Neut % (Auto) 79.4 H Lymph % (Auto) 10.1 [place] % (Auto) 7.7 Eos % (Auto) 2.0 Baso % (Auto) 0.8 Neut # (Auto) 6.7 Lymph # (Auto) 0.9 L [place] # (Auto) 0.7 Eos # (Auto) 0.2 Baso # (Auto) 0.1 WBC Differential . Differential Comment Auto diff final Culture Results: Microbiology 11/26/17 21:43 Aerobic Blood Culture - Preliminary Blood - Peripheral No growth in 4 days Anaerobic Blood Culture - Preliminary No growth in 4 days 11/26/17 21:38 Aerobic Blood Culture - Preliminary Blood - Peripheral No growth in 4 days Anaerobic Blood Culture - Preliminary No growth in 4 days 11/26/17 21:00 Streptococcus pneumoniae Antigen (M - Final Urine - Clean Catch Urine Presumptive negative for streptococcus pneumoniae antigen, suggesting no current or recent infection. Infection due to Streptococcus pneumoniae cannot be ruled out since the antigen present in the sample may be below the detection limit of the test. 11/26/17 21:00 Legionella Antigen - Final Urine - Clean Catch Urine Presumptive negative for Legionella pneumophila serogroup 1 antigen in urine, suggesting no recent or recurrent infection. Infection due to Legionella cannot be ruled out since other serogroups and species may cause disease, antigen may not be present in urine in early infection, and the level of antigen present in the urine may be below the detection limit of the test. Medications: Active Medications Generic Name Dose Route Start Last Admin Trade Name Freq PRN Reason Stop Dose Admin Albuterol 1 ampul 11/26/17 20:00 11/30/17 11:06 Duoneb Neb (Eric) NEB Not Given Q4HR NEB ERIC Atenolol 50 mg 11/27/17 09:00 11/30/17 08:26 Tenormin PO 50 mg DAILY ERIC Administration Epoetin Gio 10,000 unit 11/27/17 09:00 11/29/17 08:17 Epogen Inj SQ 10,000 unit MoWeFr@0900 ERIC Administration Furosemide 40 mg 11/30/17 09:00 11/30/17 08:25 Lasix PO 40 mg DAILY ERIC Administration Guaifenesin 600 mg 11/26/17 21:00 11/30/17 08:26 Mucinex Er PO 600 mg BID ERIC Administration Heparin Sodium (Porcine) 5,000 units 11/26/17 18:00 11/30/17 05:28 Heparin Inj SQ 5,000 units Q12H ERIC Administration Levofloxacin/Dextrose 250 mg in 50 mls @ 50 mls/hr 11/27/17 17:00 11/29/17 17 :45 Levaquin 250 Mg Premix Inj IV.SIG Infused Q24H ERIC Infusion Albumin Human 100 mls @ 60 mls/hr 11/26/17 20:00 11/30/17 08:53 Flexbumin 25% Inj IV.SIG Infused Q12H [facility] Infusion Cefepime HCl 1,000 mg/ Sodium 100 mls @ 200 mls/hr 11/27/17 18:00 11/29/17 20 :54 Chloride IV.SIG Infused DAILY@1800 ERIC Infusion Vancomycin HCl 1,500 mg/ 515 mls @ 250 mls/hr 11/28/17 12:00 11/30/17 11:30 Sodium Chloride IV.SIG 250 mls/hr Q24H ERIC Administration Levothyroxine Sodium 112 mcg 11/27/17 06:00 11/30/17 05:28 Synthroid PO 112 mcg DAILY@0600 ERIC Administration Morphine Sulfate 30 mg 11/28/17 09:00 11/30/17 08:25 Oramorph Sr PO 30 mg Q12HR ERIC Administration Morphine Sulfate 2 mg 11/28/17 11:44 11/29/17 18:28 Morphine Inj IV.PUSH 2 mg Q4H PRN Administration BREAKTHROUGH PAIN Ondansetron HCl 4 mg 11/26/17 17:11 11/29/17 16:41 Zofran Inj IV.PUSH 4 mg Q4H PRN Administration NAUSEA OR VOMITING Oxycodone/Acetaminophen 1 tab 11/27/17 09:05 11/29/17 21:49 Percocet 10/325 Mg PO 1 tab Q4H PRN Administration Pain 7 to 10 Zolpidem Tartrate 10 mg 11/26/17 17:14 11/29/17 21:50 Ambien PO 10 mg HS PRN Administration Insomnia Objective Remarks: GENERAL: Chronically ill-appearing elderly male patient, in no acute distress. SKIN: Pale, warm and dry. HEAD: Normocephalic. EYES: No scleral icterus. No injection or drainage. NECK: Supple, trachea midline. CARDIOVASCULAR: Regular rate and rhythm without murmurs. RESPIRATORY: Breath sounds equal bilaterally. Nonlabored at rest. GASTROINTESTINAL: Abdomen soft, non-tender, nondistended. EXTREMITIES: No cyanosis. 2+ pitting edema BLE. MUSCULOSKELETAL: Adequate muscle tone. NEUROLOGICAL: No obvious focal deficit. Awake, alert, and oriented x3. PSYCHIATRIC: Appropriate mood and affect; insight and judgment normal. Assessment/Plan - Plan Mr. 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 Patient was discharged last week, with the plan to follow-up outpatient and obtain a PET scan, possible lung biopsy for molecular testing for possible immunotherapy versus targeted therapy versus chemotherapy. The patient presented back to the hospital for increased bilateral lower extremity and scrotum swelling. He is currently hospitalized with acute kidney injury on chronic kidney disease stage III, healthcare associated pneumonia. He also has a history of hypertension, COPD and hypothyroidism. Plan: 1. 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 We will continue to plan for outpatient PET scan once patient's acute illness is treated and he is discharged. Status post radiation simulation today. Plan for radiation to likely start on Saturday. 2. Anasarca, currently on albumin, diuretics and IV fluids. 3. Acute kidney injury on chronic kidney disease stage III, management per nephrology. 4. Healthcare associated pneumonia, continues on cefepime, Levaquin and vancomycin. Management per attending. 5. Anemia from renal insufficiency, continue Epogen 10,000 units subcu on Saturday and Fridays. 6. Lower extremity ultrasound, negative for DVTs. On heparin 5000 units subcu twice daily for DVT prophylaxis. 7. Continue supportive care. - Attending Statement The exam, history, and the medical decision-making described in the above note were completed with the assistance of the mid-level provider. I reviewed and agree with the findings presented. I attest that I had a [id number] encounter with the patient on the same day, and personally performed and documented my assessment and findings in the medical record. Patient slept well overnight and is feeling better today. He has no new pulmonary symptom. Continue antibiotic per primary team. Patient likely can start palliative radiation on Saturday.
[2017-11-30 12:52] LABS: Alanine Aminotransferase 15 U/L (12-78)
[2017-11-30 12:54] LABS: Alkaline Phosphatase 81 U/L (45-117); Total Protein 7.4 g/dL (6.4-8.2); Vancomycin,Trough 18.3 mcg/mL (5.0-10.0)
[2017-11-30 13:17] LABS: Albumin 3.9 g/dL (3.4-5.0); Anion Gap 11 meq/L (5-15); Aspartate Aminotransferase 22 U/L (15-37); Blood Urea Nitrogen 27 mg/dL (7-18); Carbon Dioxide 24.7 meq/L (21.0-32.0); Chloride 100 meq/L (98-107); Glomerular Filtration Rate 40 mL/min (>89); Glucose,Random 82 mg/dL (74-106); Potassium 3.6 meq/L (3.5-5.1); Sodium 136 meq/L (136-145)
[2017-11-30] MEDS: Levofloxacin 250 mg Premix Inj 250 MG/50 ML PIGGYBACK IV.SIG SCH (16:00)
[2017-11-30] MEDS: oxyCODONE/Acetaminophen 10/325 Tablet PO PRN (17:19)
[2017-12-01] MEDS: Heparin - SQ 10,000 UNITS/ML Vial SQ SCH ×2 (05:44→18:09)
[2017-12-01] MEDS: Levothyroxine 112 MCG Tablet PO SCH (05:44)
[2017-12-01] MEDS: oxyCODONE/Acetaminophen 10/325 Tablet PO PRN ×2 (05:46→17:04)
[2017-12-01 07:47] LABS: Baso # (Auto) 0.1 th/mm3 (0.0-0.2); Baso % (Auto) 0.7 % (0.0-2.0); Eos # (Auto) 0.2 th/mm3 (0.0-0.4); Eos % (Auto) 2.3 % (0.0-4.0); Hematocrit 28.9 % (39.0-51.0); Hemoglobin 9.6 gm/dL (13.0-17.0); Lymph # (Auto) 0.8 th/mm3 (1.0-4.8); Lymph % (Auto) 8.4 % (9.0-44.0); Mean Corpuscular HGB Conc 33.3 % (32.0-36.0); Mean Corpuscular Volume 87.1 fL (80.0-100.0); Mean Platelet Volume 7.3 fL (7.0-11.0); Mono # (Auto) 0.7 th/mm3 (0.0-0.9); Mono % (Auto) 6.8 % (0.0-8.0); Neut % (Auto) 81.8 % (16.0-70.0); Platelet Count 204 th/mm3 (150-450); Red Blood Count 3.31 mil/mm3 (4.50-5.90); Red Cell Distribution Width 16.2 % (11.6-17.2); White Blood Count 9.7 th/mm3 (4.0-11.0)
[2017-12-01 08:01] LABS: Alanine Aminotransferase 19 U/L (12-78); Albumin 3.9 g/dL (3.4-5.0); Anion Gap 9 meq/L (5-15); Aspartate Aminotransferase 15 U/L (15-37); Blood Urea Nitrogen 28 mg/dL (7-18); Calcium 9.6 mg/dL (8.5-10.1); Carbon Dioxide 30.2 meq/L (21.0-32.0); Chloride 99 meq/L (98-107); Glomerular Filtration Rate 39 mL/min (>89); Glucose,Random 85 mg/dL (74-106); Potassium 3.4 meq/L (3.5-5.1); Sodium 138 meq/L (136-145)
[2017-12-01 08:04] LABS: Alkaline Phosphatase 84 U/L (45-117); Total Protein 7.3 g/dL (6.4-8.2)
--- NOTE | 2017-12-01 08:04 | P.PNNP ---
Subjective Interval history: This is al late entry for 11/30/2017. Patient was seen, has mild back pain, no SOB. Physical Exam Vital signs: Vital Signs 11/30/17 09:00 11/30/17 11:05 11/30/17 12:00 Temperature 97.7 F Pulse Rate 63 65 Respiratory Rate 20 Blood Pressure 125/61 Pulse Oximetry 95 96 11/30/17 12:17 11/30/17 15:36 11/30/17 15:38 Temperature Pulse Rate 71 Respiratory Rate 12 Blood Pressure Pulse Oximetry 96 11/30/17 16:00 11/30/17 16:50 11/30/17 20:00 Temperature 98.1 F 98.1 F Pulse Rate 70 75 64 Respiratory Rate 18 18 Blood Pressure 120/76 115/57 L Pulse Oximetry 97 95 11/30/17 21:00 12/01/17 00:00 12/01/17 00:10 Temperature 98.3 F Pulse Rate 62 Respiratory Rate 18 18 Blood Pressure 119/57 L Pulse Oximetry 98 95 12/01/17 04:00 12/01/17 07:00 12/01/17 07:58 Temperature 97.8 F 98 F Pulse Rate 69 68 Respiratory Rate 18 12 20 Blood Pressure 124/59 L 131/62 Pulse Oximetry 96 93 L Intake & Output 11/30/17 12/01/17 12/01/17 18:59 06:59 18:59 Intake Total 1005 / 1005 100 / 100 Output Total 750 / 750 350 / 350 Balance 255 / 255 -250 / -250 Weight 97.3 kg Intake: IV 765 / 765 100 / 100 Flexbumin 25% Inj 100 ML @ 60 100 / 100 100 / 100 mls/hr IV.SIG Q12H [facility] Rx#: [id number] Maxipime Inj 1,000 MG In NS Inj 100 / 100 100 ML @ 200 mls/hr IV.SIG DAILY@1800 [facility] Rx#:[id number] Levaquin 250 mg Premix Inj 250 50 / 50 mg In 50 ml @ 50 mls/hr IV.SIG Q24H [facility] Rx#:[id number] Vancomycin Inj 1,500 MG In NS 515 / 515 Inj 500 ML @ 250 mls/hr IV.SIG Q24H [facility] Rx#:[id number] Oral 240 / 240 Output: Urine 750 / 750 350 / 350 Other: Date of Last Bowel Movement 11/26/17 11/29/17 11/26/17 Narrative: GENERAL: NAD, A&Ox3 HEAD: Normocephalic. NECK: Supple, trachea midline. No lymphadenopathy. EYES: No scleral icterus. No injection or drainage. CARDIOVASCULAR: Regular rate and rhythm without murmurs, gallops, or rubs. RESPIRATORY: Breath sounds equal bilaterally. No accessory muscle use. GASTROINTESTINAL: Abdomen soft, non-tender, nondistended. MUSCULOSKELETAL: No cyanosis, bilateral lower extremity edema (improving) SKIN: Warm and dry. NEURO: No focal neurological deficits. Assessment and Plan - Assessment (1) HTN (hypertension) Code(s): I10 - Essential (primary) hypertension Status: Acute (2) Lung mass Code(s): R91.8 - Other nonspecific abnormal finding of lung field Status: Acute (3) Mass of right kidney Code(s): N28.89 - Other specified disorders of kidney and ureter Status: Acute (4) ANIA (acute kidney injury) Code(s): N17.9 - Acute kidney failure, unspecified Status: Acute - Plan Acute renal failure continue to improve Creatinine declined with diuretic/albumin Avoid nephrotoxin He has only left functional kidney 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 Creatinine is stable at 1.6, Follow the urine out put and BMP.
[2017-12-01] MEDS: Albumin Human 25% Inj 100 ML IV.SIG SCH ×2 (08:15→21:10)
[2017-12-01] MEDS: Furosemide 40 MG Tablet PO SCH (08:15)
[2017-12-01] MEDS: guaiFENesin 600 MG ER Tablet PO SCH ×2 (08:15→21:10)
[2017-12-01] MEDS: Morphine Sulfate 30 MG SR Tablet PO SCH ×2 (08:15→21:09)
[2017-12-01] MEDS: Atenolol 50 MG Tablet PO SCH (08:15)
--- NOTE | 2017-12-01 08:55 | P.PNNP ---
Subjective Interval history: Patient is alert, eating better, no SOB, no dysuria. Physical Exam Vital signs: Vital Signs 11/30/17 09:00 11/30/17 11:05 11/30/17 12:00 Temperature 97.7 F Pulse Rate 63 65 Respiratory Rate 20 Blood Pressure 125/61 Pulse Oximetry 95 96 11/30/17 12:17 11/30/17 15:36 11/30/17 15:38 Temperature Pulse Rate 71 Respiratory Rate 12 Blood Pressure Pulse Oximetry 96 11/30/17 16:00 11/30/17 16:50 11/30/17 20:00 Temperature 98.1 F 98.1 F Pulse Rate 70 75 64 Respiratory Rate 18 18 Blood Pressure 120/76 115/57 L Pulse Oximetry 97 95 11/30/17 21:00 12/01/17 00:00 12/01/17 00:10 Temperature 98.3 F Pulse Rate 62 Respiratory Rate 18 18 Blood Pressure 119/57 L Pulse Oximetry 98 95 12/01/17 04:00 12/01/17 07:00 12/01/17 07:58 Temperature 97.8 F 98 F Pulse Rate 69 68 Respiratory Rate 18 12 20 Blood Pressure 124/59 L 131/62 Pulse Oximetry 96 93 L Intake & Output 11/30/17 12/01/17 12/01/17 18:59 06:59 18:59 Intake Total 1005 / 1005 100 / 100 100 / 100 Output Total 750 / 750 350 / 350 Balance 255 / 255 -250 / -250 100 / 100 Weight 97.3 kg Intake: IV 765 / 765 100 / 100 100 / 100 Flexbumin 25% Inj 100 ML @ 60 100 / 100 100 / 100 100 / 100 mls/hr IV.SIG Q12H [facility] Rx#: [id number] Maxipime Inj 1,000 MG In NS Inj 100 / 100 100 ML @ 200 mls/hr IV.SIG DAILY@1800 [facility] Rx#:[id number] Levaquin 250 mg Premix Inj 250 50 / 50 mg In 50 ml @ 50 mls/hr IV.SIG Q24H [facility] Rx#:[id number] Vancomycin Inj 1,500 MG In NS 515 / 515 Inj 500 ML @ 250 mls/hr IV.SIG Q24H [facility] Rx#:[id number] Oral 240 / 240 Output: Urine 750 / 750 350 / 350 Other: Date of Last Bowel Movement 11/26/17 11/29/17 11/26/17 Narrative: GENERAL: NAD, A&Ox3 HEAD: Normocephalic. NECK: Supple, trachea midline. No lymphadenopathy. EYES: No scleral icterus. No injection or drainage. CARDIOVASCULAR: Regular rate and rhythm without murmurs, gallops, or rubs. RESPIRATORY: Breath sounds equal bilaterally. No accessory muscle use. GASTROINTESTINAL: Abdomen soft, non-tender, nondistended. MUSCULOSKELETAL: No cyanosis, bilateral lower extremity edema (improving) SKIN: Warm and dry. NEURO: No focal neurological deficits. Assessment and Plan - Assessment (1) HTN (hypertension) Code(s): I10 - Essential (primary) hypertension Status: Acute (2) Lung mass Code(s): R91.8 - Other nonspecific abnormal finding of lung field Status: Acute (3) Mass of right kidney Code(s): N28.89 - Other specified disorders of kidney and ureter Status: Acute (4) ANIA (acute kidney injury) Code(s): N17.9 - Acute kidney failure, unspecified Status: Acute - Plan Acute renal failure continue to improve Creatinine declined with diuretic/albumin Avoid nephrotoxin He has only left functional kidney 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 Creatinine is stable , now 1.7, Follow the urine out put and BMP. Possible lung Biopsy.
[2017-12-01] MEDS: Vancomycin Inj 1,500 MG in Sodium Chlor 0.9% Inj 500 ML IV.SIG SCH (11:12)
--- NOTE | 2017-12-01 14:05 | P.PNIM ---
Subjective Interval history: Respiratory status has stabilized. Fluid balance is improved. Creatinine slightly increased today. Plan for radiation therapy tomorrow. Physical Exam Vital signs: Vital Signs 11/30/17 15:36 11/30/17 15:38 11/30/17 16:00 Temperature 98.1 F Pulse Rate 70 Respiratory Rate 12 18 Blood Pressure 120/76 Pulse Oximetry 96 97 11/30/17 16:50 11/30/17 20:00 11/30/17 21:00 Temperature 98.1 F Pulse Rate 75 64 Respiratory Rate 18 Blood Pressure 115/57 L Pulse Oximetry 95 98 12/01/17 00:00 12/01/17 00:10 12/01/17 04:00 Temperature 98.3 F 97.8 F Pulse Rate 62 69 Respiratory Rate 18 18 18 Blood Pressure 119/57 L 124/59 L Pulse Oximetry 95 96 12/01/17 07:00 12/01/17 07:58 12/01/17 08:55 Temperature 98 F Pulse Rate 68 64 Respiratory Rate 12 20 Blood Pressure 131/62 Pulse Oximetry 93 L 12/01/17 09:51 12/01/17 11:47 12/01/17 12:36 Temperature 98 F Pulse Rate 69 65 Respiratory Rate 18 Blood Pressure 122/72 Pulse Oximetry 93 L 94 L Intake & Output 11/30/17 12/01/17 12/01/17 18:59 06:59 18:59 Intake Total 1005 / 1005 100 / 100 1095 / 1095 Output Total 750 / 750 350 / 350 400 / 400 Balance 255 / 255 -250 / -250 695 / 695 Weight 97.3 kg Intake: IV 765 / 765 100 / 100 615 / 615 Flexbumin 25% Inj 100 ML @ 60 100 / 100 100 / 100 100 / 100 mls/hr IV.SIG Q12H [facility] Rx#: [id number] Maxipime Inj 1,000 MG In NS Inj 100 / 100 100 ML @ 200 mls/hr IV.SIG DAILY@1800 [facility] Rx#:[id number] Levaquin 250 mg Premix Inj 250 50 / 50 mg In 50 ml @ 50 mls/hr IV.SIG Q24H [facility] Rx#:[id number] Vancomycin Inj 1,500 MG In NS 515 / 515 515 / 515 Inj 500 ML @ 250 mls/hr IV.SIG Q24H [facility] Rx#:[id number] Oral 240 / 240 480 / 480 Output: Urine 750 / 750 350 / 350 400 / 400 Other: Date of Last Bowel Movement 11/26/17 11/29/17 11/26/17 Narrative: GENERAL: NAD, A&Ox3 HEAD: Normocephalic. NECK: Supple, trachea midline. No lymphadenopathy. EYES: No scleral icterus. No injection or drainage. CARDIOVASCULAR: Regular rate and rhythm without murmurs, gallops, or rubs. RESPIRATORY: Breath sounds equal bilaterally. No accessory muscle use. GASTROINTESTINAL: Abdomen soft, non-tender, nondistended. MUSCULOSKELETAL: No cyanosis, bilateral lower extremity edema (improving) SKIN: Warm and dry. NEURO: No focal neurological deficits. Results - Labs CBC & Chem 7: 12/01/17 06:28 12/01/17 06:28 Laboratory Results - last 24 hr 12/01/17 12/01/17 06:28 06:28 WBC 9.7 RBC 3.31 L Hgb 9.6 L Hct 28.9 L MCV 87.1 MCH 29.0 MCHC 33.3 RDW 16.2 Plt Count 204 MPV 7.3 Neut % (Auto) 81.8 H Lymph % (Auto) 8.4 L [place] % (Auto) 6.8 Eos % (Auto) 2.3 Baso % (Auto) 0.7 Neut # (Auto) 8.0 H Lymph # (Auto) 0.8 L [place] # (Auto) 0.7 Eos # (Auto) 0.2 Baso # (Auto) 0.1 WBC Differential . Differential Comment Auto diff final Sodium 138 Potassium 3.4 L Chloride 99 Carbon Dioxide 30.2 Anion Gap 9 BUN 28 H Creatinine 1.72 H Estimated GFR 39 L Random Glucose 85 Calcium 9.6 Total Bilirubin 0.7 AST 15 ALT 19 Alkaline Phosphatase 84 Total Protein 7.3 Albumin 3.9 Microbiology 11/26/17 21:43 Blood - Peripheral Aerobic Blood Culture - Final No growth in 5 days 11/26/17 21:43 Blood - Peripheral Anaerobic Blood Culture - Final No growth in 5 days 11/26/17 21:38 Blood - Peripheral Aerobic Blood Culture - Final No growth in 5 days 11/26/17 21:38 Blood - Peripheral Anaerobic Blood Culture - Final No growth in 5 days Assessment and Plan - Plan 77-year-old male admitted secondary to back pain with pneumonia. Retroperitoneal squamous cell carcinoma present. Lasix decreased, new dose 20 mg p.o. daily (increased creatinine today). Awaiting radiation treatment on 12/02/2017. Patient reports good rest last night. No complaints. Labs ordered for continued monitoring of renal function. Retroperitoneal squamous cell carcinoma Radiation therapy and planning process Tentative plan for 12/02/2017 Continue pain treatments This may be a component of the patient's pain Healthcare associated pneumonia Cefepime Vancomycin Probiotics Follow cultures COPD No acute exacerbation Continue bronchodilators Continue mucolytic's Incentive spirometry Anasarca Continue diuresis Degree is not significant enough for paracentesis IV fluids discontinued Acute kidney injury Improving Continue diuresis Continue to monitor renal function IV fluids discontinued Hypertension Continue baseline treatment Follow blood pressures Adjust treatments as needed Hypothyroidism Continue hormone replacements DVT prophylaxis Heparin
[2017-12-01] MEDS: Levofloxacin 250 mg Premix Inj 250 MG/50 ML PIGGYBACK IV.SIG SCH (16:57)
[2017-12-02] MEDS: Levothyroxine 112 MCG Tablet PO SCH (06:27)
[2017-12-02] MEDS: Heparin - SQ 10,000 UNITS/ML Vial SQ SCH ×2 (06:27→17:21)
[2017-12-02] MEDS: oxyCODONE/Acetaminophen 10/325 Tablet PO PRN (06:27)
[2017-12-02 07:48] LABS: Baso # (Auto) 0.1 th/mm3 (0.0-0.2); Baso % (Auto) 0.9 % (0.0-2.0); Eos # (Auto) 0.2 th/mm3 (0.0-0.4); Eos % (Auto) 2.4 % (0.0-4.0); Hematocrit 26.8 % (39.0-51.0); Hemoglobin 9.4 gm/dL (13.0-17.0); Lymph # (Auto) 0.9 th/mm3 (1.0-4.8); Lymph % (Auto) 9.3 % (9.0-44.0); Mean Corpuscular HGB Conc 35.2 % (32.0-36.0); Mean Corpuscular Hemoglobin 30.5 pg (27.0-34.0); Mean Corpuscular Volume 86.6 fL (80.0-100.0); Mean Platelet Volume 7.7 fL (7.0-11.0); Mono # (Auto) 0.5 th/mm3 (0.0-0.9); Mono % (Auto) 5.3 % (0.0-8.0); Neut # (Auto) 7.5 th/mm3 (1.8-7.7); Neut % (Auto) 82.1 % (16.0-70.0); Platelet Count 208 th/mm3 (150-450); Red Blood Count 3.09 mil/mm3 (4.50-5.90); White Blood Count 9.2 th/mm3 (4.0-11.0)
[2017-12-02 08:10] LABS: Albumin 3.9 g/dL (3.4-5.0); Anion Gap 10 meq/L (5-15); Aspartate Aminotransferase 23 U/L (15-37); Blood Urea Nitrogen 30 mg/dL (7-18); Carbon Dioxide 28.7 meq/L (21.0-32.0); Chloride 99 meq/L (98-107); Glomerular Filtration Rate 41 mL/min (>89); Glucose,Random 84 mg/dL (74-106); Potassium 3.1 meq/L (3.5-5.1); Sodium 138 meq/L (136-145)
[2017-12-02 08:12] LABS: Alanine Aminotransferase 19 U/L (12-78)
[2017-12-02 08:14] LABS: Alkaline Phosphatase 84 U/L (45-117); Total Protein 7.1 g/dL (6.4-8.2)
[2017-12-02] MEDS: Albumin Human 25% Inj 100 ML IV.SIG SCH ×2 (08:30→21:40)
[2017-12-02] MEDS: Morphine Sulfate 30 MG SR Tablet PO SCH ×2 (10:27→20:07)
[2017-12-02] MEDS: Atenolol 50 MG Tablet PO SCH (10:27)
[2017-12-02] MEDS: Furosemide 20 MG Tablet PO SCH (10:27)
[2017-12-02] MEDS: guaiFENesin 600 MG ER Tablet PO SCH ×2 (10:29→20:08)
[2017-12-02] MEDS: Vancomycin Inj 1,250 MG in Sodium Chlor 0.9% Inj 250 ML IV.SIG SCH (12:15)
--- NOTE | 2017-12-02 13:51 | P.PNIM ---
Subjective Interval history: The patient was resting in bed. He said he felt tired. He said he was supposed to go for radiation at 4 PM. Discussed with nursing and oncology. Physical Exam Vital signs: Vital Signs 12/01/17 15:38 12/01/17 16:41 12/01/17 20:00 Temperature 98.1 F 98.4 F Pulse Rate 64 68 72 Respiratory Rate 18 18 Blood Pressure 140/76 126/71 Pulse Oximetry 100 97 12/01/17 20:27 12/01/17 22:17 12/02/17 00:00 Temperature 98.5 F Pulse Rate 75 Respiratory Rate 18 18 Blood Pressure 130/70 Pulse Oximetry 99 96 12/02/17 04:00 12/02/17 07:11 12/02/17 08:00 Temperature 98.1 F 98.7 F Pulse Rate 70 90 Respiratory Rate 18 18 18 Blood Pressure 123/59 L 122/59 L Pulse Oximetry 95 90 L 12/02/17 12:00 12/02/17 12:44 Temperature 98.4 F Pulse Rate 92 H 90 Respiratory Rate 18 Blood Pressure 100/59 L Pulse Oximetry 90 L Intake & Output 12/01/17 12/02/17 12/02/17 18:59 06:59 18:59 Intake Total 1865 / 1865 640 / 640 100 / 100 Output Total 1100 / 1100 800 / 800 Balance 765 / 765 -160 / -160 100 / 100 Weight 96.2 kg Intake: IV 665 / 665 200 / 200 100 / 100 Flexbumin 25% Inj 100 ML @ 60 100 / 100 100 / 100 100 / 100 mls/hr IV.SIG Q12H [facility] Rx#: [id number] Maxipime Inj 1,000 MG In NS Inj 100 / 100 100 ML @ 200 mls/hr IV.SIG DAILY@1800 [facility] Rx#:[id number] Levaquin 250 mg Premix Inj 250 50 / 50 mg In 50 ml @ 50 mls/hr IV.SIG Q24H [facility] Rx#:[id number] Vancomycin Inj 1,500 MG In NS 515 / 515 Inj 500 ML @ 250 mls/hr IV.SIG Q24H [facility] Rx#:[id number] Oral 1200 / 1200 440 / 440 Output: Urine 1100 / 1100 800 / 800 Other: Date of Last Bowel Movement 11/26/17 Narrative: GENERAL: NAD. HEAD: Normocephalic. NECK: Supple, trachea midline. No lymphadenopathy. EYES: No scleral icterus. No injection or drainage. CARDIOVASCULAR: Regular rate and rhythm without murmurs, gallops, or rubs. RESPIRATORY: Breath sounds equal bilaterally. No accessory muscle use. GASTROINTESTINAL: Abdomen soft, non-tender, nondistended. MUSCULOSKELETAL: No cyanosis, 1+ bilateral lower extremity edema. SKIN: Warm and dry. NEURO: No focal neurological deficits. Results - Labs CBC & Chem 7: 12/02/17 05:56 12/02/17 05:56 Laboratory Results - last 24 hr 12/02/17 12/02/17 05:56 05:56 WBC 9.2 RBC 3.09 L Hgb 9.4 L Hct 26.8 L MCV 86.6 MCH 30.5 MCHC 35.2 RDW 16.0 Plt Count 208 MPV 7.7 Neut % (Auto) 82.1 H Lymph % (Auto) 9.3 [place] % (Auto) 5.3 Eos % (Auto) 2.4 Baso % (Auto) 0.9 Neut # (Auto) 7.5 Lymph # (Auto) 0.9 L [place] # (Auto) 0.5 Eos # (Auto) 0.2 Baso # (Auto) 0.1 WBC Differential . Differential Comment Auto diff final Sodium 138 Potassium 3.1 L Chloride 99 Carbon Dioxide 28.7 Anion Gap 10 BUN 30 H Creatinine 1.64 H Estimated GFR 41 L Random Glucose 84 Calcium 10.0 Total Bilirubin 0.7 AST 23 ALT 19 Alkaline Phosphatase 84 Total Protein 7.1 Albumin 3.9 Microbiology 11/26/17 21:43 Blood - Peripheral Aerobic Blood Culture - Final No growth in 5 days 11/26/17 21:43 Blood - Peripheral Anaerobic Blood Culture - Final No growth in 5 days 11/26/17 21:38 Blood - Peripheral Aerobic Blood Culture - Final No growth in 5 days 11/26/17 21:38 Blood - Peripheral Anaerobic Blood Culture - Final No growth in 5 days Assessment and Plan - Plan 77-year-old male admitted secondary to back pain with pneumonia. 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 -Continue diuresis -Continue to monitor renal function Hypertension Continue baseline treatment Follow blood pressures Adjust treatments as needed Hypothyroidism Continue hormone replacements Hypokalemia Exacerbated by diuresis. -replete and monitor. DVT prophylaxis Heparin Discharge Planning: C when cleared by oncology
--- NOTE | 2017-12-02 15:49 | P.PNONC ---
Subjective Interval history: Patient complaining of insomnia Due to start radiation today Breathing somewhat improved Objective Vital Signs/Intake & Output: Vital Signs 12/01/17 16:41 12/01/17 20:00 12/01/17 20:27 Temperature 98.4 F Pulse Rate 68 72 Respiratory Rate 18 Blood Pressure 126/71 Pulse Oximetry 97 99 12/01/17 22:17 12/02/17 00:00 12/02/17 04:00 Temperature 98.5 F 98.1 F Pulse Rate 75 70 Respiratory Rate 18 Blood Pressure 130/70 123/59 L Pulse Oximetry 96 95 12/02/17 07:11 12/02/17 08:00 12/02/17 12:00 Temperature 98.7 F 98.4 F Pulse Rate 90 92 H Respiratory Rate 18 Blood Pressure 122/59 L 100/59 L Pulse Oximetry 90 L 90 L 12/02/17 12:44 Temperature Pulse Rate 90 Respiratory Rate Blood Pressure Pulse Oximetry Intake & Output 12/01/17 12/02/17 12/02/17 18:59 06:59 18:59 Intake Total 1865 / 1865 640 / 640 362.5 / 362.5 Output Total 1100 / 1100 800 / 800 Balance 765 / 765 -160 / -160 362.5 / 362.5 Weight 212 lb 1.355 oz Intake: IV 665 / 665 200 / 200 362.5 / 362.5 Flexbumin 25% Inj 100 ML @ 60 100 / 100 100 / 100 100 / 100 mls/hr IV.SIG Q12H [facility] Rx#: [id number] Maxipime Inj 1,000 MG In NS Inj 100 / 100 100 ML @ 200 mls/hr IV.SIG DAILY@1800 [facility] Rx#:[id number] Levaquin 250 mg Premix Inj 250 50 / 50 mg In 50 ml @ 50 mls/hr IV.SIG Q24H [facility] Rx#:[id number] Vancomycin Inj 1,250 MG In NS 262.5 / 262.5 Inj 250 ML @ 250 mls/hr IV.SIG Q24H [facility] Rx#:[id number] Vancomycin Inj 1,500 MG In NS 515 / 515 Inj 500 ML @ 250 mls/hr IV.SIG Q24H [facility] Rx#:[id number] Oral 1200 / 1200 440 / 440 Output: Urine 1100 / 1100 800 / 800 Other: Date of Last Bowel Movement 11/26/17 11/30/17 Result Diagrams: 12/02/17 05:56 12/02/17 05:56 Laboratory Results: Laboratory Results - last 24 hr 12/02/17 12/02/17 05:56 05:56 WBC 9.2 RBC 3.09 L Hgb 9.4 L Hct 26.8 L MCV 86.6 MCH 30.5 MCHC 35.2 RDW 16.0 Plt Count 208 MPV 7.7 Neut % (Auto) 82.1 H Lymph % (Auto) 9.3 [place] % (Auto) 5.3 Eos % (Auto) 2.4 Baso % (Auto) 0.9 Neut # (Auto) 7.5 Lymph # (Auto) 0.9 L [place] # (Auto) 0.5 Eos # (Auto) 0.2 Baso # (Auto) 0.1 WBC Differential . Differential Comment Auto diff final Sodium 138 Potassium 3.1 L Chloride 99 Carbon Dioxide 28.7 Anion Gap 10 BUN 30 H Creatinine 1.64 H Estimated GFR 41 L Random Glucose 84 Calcium 10.0 Total Bilirubin 0.7 AST 23 ALT 19 Alkaline Phosphatase 84 Total Protein 7.1 Albumin 3.9 Culture Results: Microbiology 11/26/17 21:43 Aerobic Blood Culture - Final Blood - Peripheral No growth in 5 days Anaerobic Blood Culture - Final No growth in 5 days 11/26/17 21:38 Aerobic Blood Culture - Final Blood - Peripheral No growth in 5 days Anaerobic Blood Culture - Final No growth in 5 days Medications: Active Medications Generic Name Dose Route Start Last Admin Trade Name Freq PRN Reason Stop Dose Admin Atenolol 50 mg 11/27/17 09:00 12/02/17 10:27 Tenormin PO 50 mg DAILY [facility] Administration Epoetin Gio 10,000 unit 11/27/17 09:00 12/02/17 10:28 Epogen Inj SQ 10,000 unit [email or web address] [facility] Administration Furosemide 20 mg 12/02/17 09:00 12/02/17 10:27 Lasix PO 20 mg DAILY [facility] Administration Guaifenesin 600 mg 11/26/17 21:00 12/02/17 10:29 Mucinex Er PO 600 mg BID J[facility]IER Administration Heparin Sodium (Porcine) 5,000 units 11/26/17 18:00 12/02/17 06:27 Heparin Inj SQ 5,000 units Q12H [facility] Administration Levofloxacin/Dextrose 250 mg in 50 mls @ 50 mls/hr 11/27/17 17:00 12/01/17 18 :09 Levaquin 250 Mg Premix Inj IV.SIG Infused Q24H [facility] Infusion Albumin Human 100 mls @ 60 mls/hr 11/26/17 20:00 12/02/17 10:31 Flexbumin 25% Inj IV.SIG Infused Q12H [facility] Infusion Cefepime HCl 1,000 mg/ Sodium 100 mls @ 200 mls/hr 11/27/17 18:00 12/01/17 19 :23 Chloride IV.SIG Infused DAILY@1800 [facility] Infusion Vancomycin HCl 1,250 mg/ 262.5 mls @ 250 mls/hr 12/02/17 13:00 12/02/17 15:10 Sodium Chloride IV.SIG Infused Q24H [facility] Infusion Lactulose 30 ml 11/26/17 17:11 12/02/17 10:26 Lactulose Liq PO 30 ml DAILY PRN Administration SEVERE CONSITIPATION Levothyroxine Sodium 112 mcg 11/27/17 06:00 12/02/17 06:27 Synthroid PO 112 mcg DAILY@0600 [facility] Administration Morphine Sulfate 30 mg 11/28/17 09:00 12/02/17 10:27 Oramorph Sr PO 30 mg Q12HR [facility] Administration Morphine Sulfate 2 mg 11/28/17 11:44 11/29/17 18:28 Morphine Inj IV.PUSH 2 mg Q4H PRN Administration BREAKTHROUGH PAIN Ondansetron HCl 4 mg 11/26/17 17:11 12/01/17 17:04 Zofran Inj IV.PUSH 4 mg Q4H PRN Administration NAUSEA OR VOMITING Oxycodone/Acetaminophen 1 tab 11/27/17 09:05 12/02/17 06:27 Percocet 10/325 Mg PO 1 tab Q4H PRN Administration Pain 7 to 10 Zolpidem Tartrate 10 mg 11/26/17 17:14 12/01/17 21:10 Ambien PO 10 mg HS PRN Administration Insomnia Objective Remarks: GENERAL: Chronically ill-appearing elderly male patient, in no acute distress. SKIN: Pale, warm and dry. HEAD: Normocephalic. EYES: No scleral icterus. No injection or drainage. NECK: Supple, trachea midline. CARDIOVASCULAR: Regular rate and rhythm without murmurs. RESPIRATORY: Breath sounds equal bilaterally. Nonlabored at rest. GASTROINTESTINAL: Abdomen soft, non-tender, nondistended. EXTREMITIES: No cyanosis. 2+ pitting edema BLE. MUSCULOSKELETAL: Adequate muscle tone. NEUROLOGICAL: No obvious focal deficit. Awake, alert, and oriented x3. Assessment/Plan - Plan Mr. 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 Patient was discharged last week, with the plan to follow-up outpatient and obtain a PET scan, possible lung biopsy for molecular testing for possible immunotherapy versus targeted therapy versus chemotherapy. The patient presented back to the hospital for increased bilateral lower extremity and scrotum swelling. He is currently hospitalized with acute kidney injury on chronic kidney disease stage III, healthcare associated pneumonia. He also has a history of hypertension, COPD and hypothyroidism. Plan: 1. Palliative radiation to begin today. 2. Continue antibiotics for pneumonia. Management per attending. 3. Continue Epogen for chronic renal insufficiency on Saturday. 4. The patient will need PET scan as outpatient. Continue supportive care
[2017-12-02] MEDS: Levofloxacin 250 mg Premix Inj 250 MG/50 ML PIGGYBACK IV.SIG SCH (17:23)
[2017-12-03] MEDS: Levothyroxine 112 MCG Tablet PO SCH (06:25)
[2017-12-03] MEDS: Heparin - SQ 10,000 UNITS/ML Vial SQ SCH ×2 (06:25→17:14)
[2017-12-03 09:38] LABS: Carbon Dioxide 27.8 meq/L (21.0-32.0); Magnesium 1.5 mg/dL (1.5-2.5); Potassium 3.3 meq/L (3.5-5.1)
[2017-12-03] MEDS: Albumin Human 25% Inj 100 ML IV.SIG SCH ×2 (09:43→20:59)
[2017-12-03] MEDS: Atenolol 50 MG Tablet PO SCH (09:47)
[2017-12-03] MEDS: Morphine Sulfate 30 MG SR Tablet PO SCH ×2 (09:47→20:58)
[2017-12-03] MEDS: guaiFENesin 600 MG ER Tablet PO SCH ×2 (09:47→20:59)
[2017-12-03] MEDS: Furosemide 20 MG Tablet PO SCH (09:48)
[2017-12-03] MEDS: Vancomycin Inj 1,250 MG in Sodium Chlor 0.9% Inj 250 ML IV.SIG SCH (13:32)
[2017-12-03] MEDS: oxyCODONE/Acetaminophen 10/325 Tablet PO PRN (13:39)
--- NOTE | 2017-12-03 15:10 | P.PNONC ---
Subjective Interval history: Patient sitting in bed, eating lunch. He reports he slept well last night. Status post day 2 of palliative radiation. Per patient he will receive a total of 15 treatments. Objective Vital Signs/Intake & Output: Vital Signs 12/02/17 16:00 12/02/17 20:00 12/02/17 20:17 Temperature 99.1 F 97.8 F Pulse Rate 78 78 75 Respiratory Rate 20 18 Blood Pressure 104/51 L 97/64 L Pulse Oximetry 94 L 95 12/02/17 23:49 12/03/17 00:00 12/03/17 04:00 Temperature 98.2 F 97.6 F Pulse Rate 71 68 63 Respiratory Rate 18 16 Blood Pressure 105/56 L 108/54 L Pulse Oximetry 92 L 95 12/03/17 04:08 12/03/17 08:00 12/03/17 12:00 Temperature 99.0 F 98.1 F Pulse Rate 68 68 73 Respiratory Rate 20 20 Blood Pressure 113/58 L 114/55 L Pulse Oximetry 93 L 93 L Intake & Output 12/02/17 12/03/17 12/03/17 18:59 06:59 18:59 Intake Total 1372.5 / 1372.5 200 / 200 100 / 100 Output Total 350 / 350 Balance 1372.5 / 1372.5 200 / 200 -250 / -250 Weight 96.2 kg Intake: IV 412.5 / 412.5 200 / 200 100 / 100 Flexbumin 25% Inj 100 ML @ 60 100 / 100 100 / 100 100 / 100 mls/hr IV.SIG Q12H [facility] Rx#: [id number] Maxipime Inj 1,000 MG In NS Inj 100 / 100 100 ML @ 200 mls/hr IV.SIG DAILY@1800 [facility] Rx#:[id number] Levaquin 250 mg Premix Inj 250 50 / 50 mg In 50 ml @ 50 mls/hr IV.SIG Q24H [facility] Rx#:[id number] Vancomycin Inj 1,250 MG In NS 262.5 / 262.5 Inj 250 ML @ 250 mls/hr IV.SIG Q24H [facility] Rx#:[id number] Oral 960 / 960 Output: Urine 350 / 350 Other: # Voids 3 Date of Last Bowel Movement 11/30/17 12/02/17 12/02/17 Result Diagrams: 12/02/17 05:56 12/03/17 08:42 Laboratory Results: Laboratory Results - last 24 hr 12/03/17 08:42 Sodium 138 Potassium 3.3 L Chloride 101 Carbon Dioxide 27.8 Anion Gap 9 BUN 39 H Creatinine 2.12 H Estimated GFR 31 L Random Glucose 91 Calcium 10.0 Magnesium 1.5 Culture Results: Microbiology 11/26/17 21:43 Aerobic Blood Culture - Final Blood - Peripheral No growth in 5 days Anaerobic Blood Culture - Final No growth in 5 days 11/26/17 21:38 Aerobic Blood Culture - Final Blood - Peripheral No growth in 5 days Anaerobic Blood Culture - Final No growth in 5 days Medications: Active Medications Generic Name Dose Route Start Last Admin Trade Name Freq PRN Reason Stop Dose Admin Atenolol 50 mg 11/27/17 09:00 12/03/17 09:47 Tenormin PO 50 mg DAILY [facility] Administration Epoetin Gio 10,000 unit 11/27/17 09:00 12/02/17 10:28 Epogen Inj SQ 10,000 unit [email or web address] [facility] Administration Furosemide 20 mg 12/02/17 09:00 12/03/17 09:48 Lasix PO 20 mg DAILY [facility] Administration Guaifenesin 600 mg 11/26/17 21:00 12/03/17 09:47 Mucinex Er PO 600 mg BID J[facility] Administration Heparin Sodium (Porcine) 5,000 units 11/26/17 18:00 12/03/17 06:25 Heparin Inj SQ 5,000 units Q12H [facility] Administration Levofloxacin/Dextrose 250 mg in 50 mls @ 50 mls/hr 11/27/17 17:00 12/02/17 18 :33 Levaquin 250 Mg Premix Inj IV.SIG Infused Q24H [facility] Infusion Albumin Human 100 mls @ 60 mls/hr 11/26/17 20:00 12/03/17 13:00 Flexbumin 25% Inj IV.SIG Infused Q12H [facility] Infusion Cefepime HCl 1,000 mg/ Sodium 100 mls @ 200 mls/hr 11/27/17 18:00 12/02/17 19 :34 Chloride IV.SIG Infused DAILY@1800 [facility] Infusion Vancomycin HCl 1,250 mg/ 262.5 mls @ 250 mls/hr 12/02/17 13:00 12/03/17 13:32 Sodium Chloride IV.SIG 175 mls/hr Q24H [facility] Administration Lactulose 30 ml 11/26/17 17:11 12/02/17 10:26 Lactulose Liq PO 30 ml DAILY PRN Administration SEVERE CONSITIPATION Levothyroxine Sodium 112 mcg 11/27/17 06:00 12/03/17 06:25 Synthroid PO 112 mcg DAILY@0600 [facility] Administration Morphine Sulfate 30 mg 11/28/17 09:00 12/03/17 09:47 Oramorph Sr PO 30 mg Q12HR [facility] Administration Morphine Sulfate 2 mg 11/28/17 11:44 11/29/17 18:28 Morphine Inj IV.PUSH 2 mg Q4H PRN Administration BREAKTHROUGH PAIN Ondansetron HCl 4 mg 11/26/17 17:11 12/02/17 17:19 Zofran Inj IV.PUSH 4 mg Q4H PRN Administration NAUSEA OR VOMITING Oxycodone/Acetaminophen 1 tab 11/27/17 09:05 12/03/17 13:39 Percocet 10/325 Mg PO 1 tab Q4H PRN Administration Pain 7 to 10 Oxycodone/Acetaminophen 1 tab 11/27/17 09:05 12/02/17 18:41 Percocet 5/325 Mg PO 1 tab Q4H PRN Administration Pain 3 to 6 Zolpidem Tartrate 10 mg 11/26/17 17:14 12/02/17 21:39 Ambien PO 10 mg HS PRN Administration Insomnia Objective Remarks: GENERAL: Chronically ill-appearing elderly male patient, in no acute distress. SKIN: Pale, warm and dry. HEAD: Normocephalic. EYES: No scleral icterus. No injection or drainage. NECK: Supple, trachea midline. CARDIOVASCULAR: Regular rate and rhythm without murmurs. RESPIRATORY: Breath sounds equal bilaterally. Nonlabored at rest. GASTROINTESTINAL: Abdomen soft, non-tender, nondistended. EXTREMITIES: No cyanosis. 2+ pitting edema BLE. MUSCULOSKELETAL: Adequate muscle tone. NEUROLOGICAL: No obvious focal deficit. Awake, alert, and oriented x3. PSYCHIATRIC: Appropriate mood and affect; insight and judgment normal. Assessment/Plan - Plan Mr. 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 Patient was discharged last week, with the plan to follow-up outpatient and obtain a PET scan, possible lung biopsy for molecular testing for possible immunotherapy versus targeted therapy versus chemotherapy. The patient presented back to the hospital for increased bilateral lower extremity and scrotum swelling. He is currently hospitalized with acute kidney injury on chronic kidney disease stage III, healthcare associated pneumonia. He also has a history of hypertension, COPD and hypothyroidism. Plan: 1. Palliative radiation started on Saturday. Patient has received treatment #2 today. 2. Continue antibiotics for pneumonia. Management per attending. 3. Continue Epogen for chronic renal insufficiency on Saturday. 4. The patient will need PET scan as outpatient. Continue supportive care
[2017-12-03] MEDS ORDERED: Dextrose 5%/NaCl 0.9% Inj 1,000 ML IV.CONT SCH (15:45)
--- NOTE | 2017-12-03 16:02 | P.PNIM ---
Subjective Interval history: The patient said he had radiation therapy this morning. He said that he had a little bit of a bellyache. He said he has been urinating normally. No acute concerns at this time. Discussed with nephrology. Physical Exam Vital signs: Vital Signs 12/02/17 16:00 12/02/17 20:00 12/02/17 20:17 Temperature 99.1 F 97.8 F Pulse Rate 78 78 75 Respiratory Rate 20 18 Blood Pressure 104/51 L 97/64 L Pulse Oximetry 94 L 95 12/02/17 23:49 12/03/17 00:00 12/03/17 04:00 Temperature 98.2 F 97.6 F Pulse Rate 71 68 63 Respiratory Rate 18 16 Blood Pressure 105/56 L 108/54 L Pulse Oximetry 92 L 95 12/03/17 04:08 12/03/17 08:00 12/03/17 12:00 Temperature 99.0 F 98.1 F Pulse Rate 68 68 73 Respiratory Rate 20 20 Blood Pressure 113/58 L 114/55 L Pulse Oximetry 93 L 93 L Intake & Output 12/02/17 12/03/17 12/03/17 18:59 06:59 18:59 Intake Total 1372.5 / 1372.5 200 / 200 362.5 / 362.5 Output Total 350 / 350 Balance 1372.5 / 1372.5 200 / 200 12.5 / 12.5 Weight 96.2 kg Intake: IV 412.5 / 412.5 200 / 200 362.5 / 362.5 Flexbumin 25% Inj 100 ML @ 60 100 / 100 100 / 100 100 / 100 mls/hr IV.SIG Q12H [facility] Rx#: [id number] Maxipime Inj 1,000 MG In NS Inj 100 / 100 100 ML @ 200 mls/hr IV.SIG DAILY@1800 [facility] Rx#:[id number] Levaquin 250 mg Premix Inj 250 50 / 50 mg In 50 ml @ 50 mls/hr IV.SIG Q24H [facility] Rx#:[id number] Vancomycin Inj 1,250 MG In NS 262.5 / 262.5 262.5 / 262.5 Inj 250 ML @ 250 mls/hr IV.SIG Q24H [facility] Rx#:[id number] Oral 960 / 960 Output: Urine 350 / 350 Other: # Voids 3 Date of Last Bowel Movement 11/30/17 12/02/17 12/02/17 Narrative: GENERAL: NAD. HEAD: Normocephalic. NECK: Supple, trachea midline. No lymphadenopathy. EYES: No scleral icterus. No injection or drainage. CARDIOVASCULAR: Regular rate and rhythm without murmurs, gallops, or rubs. RESPIRATORY: Breath sounds equal bilaterally. No accessory muscle use. GASTROINTESTINAL: Abdomen soft, non-tender, nondistended. MUSCULOSKELETAL: No cyanosis, 1+ bilateral lower extremity edema. SKIN: Warm and dry. NEURO: No focal neurological deficits. Results - Labs CBC & Chem 7: 12/02/17 05:56 12/03/17 08:42 Laboratory Results - last 24 hr 12/03/17 08:42 Sodium 138 Potassium 3.3 L Chloride 101 Carbon Dioxide 27.8 Anion Gap 9 BUN 39 H Creatinine 2.12 H Estimated GFR 31 L Random Glucose 91 Calcium 10.0 Magnesium 1.5 Assessment and Plan - Plan 77-year-old male admitted secondary to back pain with pneumonia. 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 Continue per oncology. -Continue pain treatments as needed. Healthcare associated pneumonia S/p cefepime and vancomycin. -d/c antibiotics. COPD No acute exacerbation. -Continue bronchodilators and oxygen as needed. -Incentive spirometry and encourage ambulation. Acute kidney injury Nephrology consult appreciated. Creatinine trending up. May be exacerbated by vancomycin. -Continue Lasix 20 mg daily. -Continue to monitor renal function. -d/c antibiotics 12/03. Course completed. -nephrology following. Hypokalemia Exacerbated by diuresis. -replete and monitor. DVT prophylaxis Heparin Discharge Planning: [facility] when cleared by oncology
[2017-12-03] MEDS: Levofloxacin 250 mg Premix Inj 250 MG/50 ML PIGGYBACK IV.SIG SCH (16:06)
[2017-12-03] MEDS ORDERED: Potassium Chloride 25 MEQ Effervescent Tablet PO ONE (16:15)
--- NOTE | 2017-12-03 21:06 | P.PNNP ---
Subjective Interval history: Patient stated the right kidney undergoing radiation treatment Physical Exam Vital signs: Vital Signs 12/02/17 23:49 12/03/17 00:00 12/03/17 04:00 Temperature 98.2 F 97.6 F Pulse Rate 71 68 63 Respiratory Rate 18 16 Blood Pressure 105/56 L 108/54 L Pulse Oximetry 92 L 95 12/03/17 04:08 12/03/17 08:00 12/03/17 12:00 Temperature 99.0 F 98.1 F Pulse Rate 68 68 73 Respiratory Rate 20 20 Blood Pressure 113/58 L 114/55 L Pulse Oximetry 93 L 93 L 12/03/17 16:00 12/03/17 18:33 Temperature 98.3 F Pulse Rate 71 68 Respiratory Rate 20 Blood Pressure 107/58 L Pulse Oximetry 95 Intake & Output 12/03/17 12/03/17 12/04/17 06:59 18:59 06:59 Intake Total 200 / 200 892.5 / 892.5 Output Total 350 / 350 Balance 200 / 200 542.5 / 542.5 Weight 96.2 kg Intake: IV 200 / 200 412.5 / 412.5 Flexbumin 25% Inj 100 ML @ 60 100 / 100 100 / 100 mls/hr IV.SIG Q12H [facility] Rx#: [id number] Maxipime Inj 1,000 MG In NS Inj 100 / 100 100 ML @ 200 mls/hr IV.SIG DAILY@1800 [facility] Rx#:[id number] Levaquin 250 mg Premix Inj 250 50 / 50 mg In 50 ml @ 50 mls/hr IV.SIG Q24H [facility] Rx#:[id number] Vancomycin Inj 1,250 MG In NS 262.5 / 262.5 Inj 250 ML @ 250 mls/hr IV.SIG Q24H [facility] Rx#:[id number] Oral 480 / 480 Output: Urine 350 / 350 Other: Date of Last Bowel Movement 12/02/17 12/02/17 Narrative: GENERAL: NAD. HEAD: Normocephalic. NECK: Supple, trachea midline. No lymphadenopathy. EYES: No scleral icterus. No injection or drainage. CARDIOVASCULAR: Regular rate and rhythm without murmurs, gallops, or rubs. RESPIRATORY: Breath sounds equal bilaterally. No accessory muscle use. GASTROINTESTINAL: Abdomen soft, mild tenderness right side, nondistended. MUSCULOSKELETAL: No cyanosis, 1+ bilateral lower extremity edema. SKIN: Warm and dry. NEURO: No focal neurological deficits. Assessment and Plan - Assessment (1) HTN (hypertension) Code(s): I10 - Essential (primary) hypertension Status: Acute (2) Lung mass Code(s): R91.8 - Other nonspecific abnormal finding of lung field Status: Acute (3) Mass of right kidney Code(s): N28.89 - Other specified disorders of kidney and ureter Status: Acute (4) ANIA (acute kidney injury) Code(s): N17.9 - Acute kidney failure, unspecified Status: Acute - Plan Acute renal failure Avoid nephrotoxin He has only left functional kidney 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 Creatinine is higher 2.1 he is well hydrated getting albumin small dose of Lasix was given potassium replaced He is undergoing radiation treatment of possibility of tumor lysis Check serum phosphorus serum uric acid repeat BMP in the a.m.
[2017-12-04] MEDS: Heparin - SQ 10,000 UNITS/ML Vial SQ SCH ×2 (06:01→17:01)
[2017-12-04] MEDS: Levothyroxine 112 MCG Tablet PO SCH (06:01)
[2017-12-04 08:11] LABS: Calcium 9.9 mg/dL (8.5-10.1); Carbon Dioxide 27.2 meq/L (21.0-32.0); Magnesium 1.6 mg/dL (1.5-2.5); Phosphorus 2.8 mg/dL (2.5-4.9); Potassium 3.6 meq/L (3.5-5.1); Uric Acid 9.8 mg/dl (2.6-7.2)
[2017-12-04] MEDS: Albumin Human 25% Inj 100 ML IV.SIG SCH ×2 (10:25→20:51)
[2017-12-04] MEDS: guaiFENesin 600 MG ER Tablet PO SCH ×2 (10:25→20:51)
[2017-12-04] MEDS: Furosemide 20 MG Tablet PO SCH (10:25)
[2017-12-04] MEDS: Atenolol 50 MG Tablet PO SCH (10:26)
[2017-12-04] MEDS: Morphine Sulfate 30 MG SR Tablet PO SCH ×2 (10:26→20:50)
[2017-12-04] MEDS: oxyCODONE/Acetaminophen 10/325 Tablet PO PRN (12:36)
[2017-12-04] MEDS ORDERED: Pharmacy Ordered Lab Info OTHER ONE (12:45)
[2017-12-04] MEDS ORDERED: Sodium Chloride 0.9% 2 ML Flush PRN IV.FLUSH (14:37)
--- NOTE | 2017-12-04 16:15 | P.PNIM ---
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 He was hospitalized primarily for hospital-acquired pneumonia but has completed treatment for that. Physical Exam Vital signs: Vital Signs 12/03/17 18:33 12/03/17 20:00 12/03/17 21:00 Temperature 97.2 F L Pulse Rate 68 71 68 Respiratory Rate 19 Blood Pressure 124/95 H Pulse Oximetry 95 12/04/17 00:00 12/04/17 00:08 12/04/17 04:00 Temperature 98.1 F 97.8 F Pulse Rate 70 67 72 Respiratory Rate 17 16 Blood Pressure 118/68 102/53 L Pulse Oximetry 98 92 L 12/04/17 04:05 12/04/17 08:00 12/04/17 12:00 Temperature 98.6 F 98.4 F Pulse Rate 72 71 79 Respiratory Rate 18 18 Blood Pressure 120/60 124/68 Pulse Oximetry 94 L Intake & Output 12/03/17 12/04/17 12/04/17 18:59 06:59 18:59 Intake Total 892.5 / 892.5 100 / 100 100 / 100 Output Total 350 / 350 Balance 542.5 / 542.5 100 / 100 100 / 100 Weight 96.2 kg Intake: IV 412.5 / 412.5 100 / 100 100 / 100 Flexbumin 25% Inj 100 ML @ 60 100 / 100 100 / 100 100 / 100 mls/hr IV.SIG Q12H [facility] Rx#: [id number] Levaquin 250 mg Premix Inj 250 50 / 50 mg In 50 ml @ 50 mls/hr IV.SIG Q24H [facility] Rx#:[id number] Vancomycin Inj 1,250 MG In NS 262.5 / 262.5 Inj 250 ML @ 250 mls/hr IV.SIG Q24H [facility] Rx#:[id number] Oral 480 / 480 Output: Urine 350 / 350 Other: # Voids 2 Date of Last Bowel Movement 12/02/17 12/02/17 12/02/17 Narrative: GENERAL: AAOx3, no acute distress SKIN: Warm and dry. No rashes HEAD: Atruamtic, normocephalic. EYES: No scleral icterus. No injection or drainage. ENT: Moist mucous membranes, patent nares, no erythema of oropharynx. NECK: Supple, trachea midline. No JVD or lymphadenopathy. Normal thyroid. CARDIOVASCULAR: Regular rate and rhythm. No murmurs, gallops, or rubs. RESPIRATORY: Mostly clear, only scattered congestive sounds. No crackles or wheezes. No accessory muscle use. GASTROINTESTINAL: Abdomen soft, non-tender, nondistended, normal active bowel sounds MUSCULOSKELETAL: No cyanosis, or edema. NEURO: CN II-XII grossly intact, no focal deficits, no slurring of speech Results - Labs CBC & Chem 7: 12/02/17 05:56 12/04/17 06:27 Laboratory Results - last 24 hr 12/04/17 06:27 Sodium 140 Potassium 3.6 Chloride 102 Carbon Dioxide 27.2 Anion Gap 11 BUN 45 H Creatinine 2.12 H Estimated GFR 31 L Random Glucose 89 Uric Acid 9.8 H Calcium 9.9 Phosphorus 2.8 Magnesium 1.6 Assessment and Plan - Plan 77-year-old male admitted secondary to back pain with pneumonia. 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 Continue PRN analgesia Appreciate oncology Healthcare associated pneumonia S/p cefepime and vancomycin, antibiotics discontinued, treatment completed COPD No acute exacerbation, continue duo nebs as needed, oxygen as needed Encourage incentive spirometry and ambulation Acute kidney injury Creatinine stable around 2.12 Continue to monitor renal function Continue Lasix 20 mg daily Nephrology consult appreciated Hypokalemia Stable, continue to monitor DVT prophylaxis Heparin Discharge Planning Home health care recommended when cleared by oncology Patient has no place to stay, states he needs to be with his dog
[2017-12-04] MEDS: Levofloxacin 250 mg Premix Inj 250 MG/50 ML PIGGYBACK IV.SIG SCH (16:56)
--- NOTE | 2017-12-04 18:40 | P.PNNP ---
Subjective Interval history: patient undergoing radiation Physical Exam Vital signs: Vital Signs 12/03/17 20:00 12/03/17 21:00 12/04/17 00:00 Temperature 97.2 F L 98.1 F Pulse Rate 71 68 70 Respiratory Rate 19 17 Blood Pressure 124/95 H 118/68 Pulse Oximetry 95 98 12/04/17 00:08 12/04/17 04:00 12/04/17 04:05 Temperature 97.8 F Pulse Rate 67 72 72 Respiratory Rate 16 Blood Pressure 102/53 L Pulse Oximetry 92 L 12/04/17 08:00 12/04/17 12:00 12/04/17 16:00 Temperature 98.6 F 98.4 F 98.4 F Pulse Rate 71 79 69 Respiratory Rate 18 18 17 Blood Pressure 120/60 124/68 120/56 L Pulse Oximetry 94 L 93 L 12/04/17 17:00 Temperature Pulse Rate 71 Respiratory Rate Blood Pressure Pulse Oximetry Intake & Output 12/03/17 12/04/17 12/04/17 18:59 06:59 18:59 Intake Total 892.5 / 892.5 100 / 100 630 / 630 Output Total 350 / 350 Balance 542.5 / 542.5 100 / 100 630 / 630 Weight 96.2 kg Intake: IV 412.5 / 412.5 100 / 100 150 / 150 Flexbumin 25% Inj 100 ML @ 60 100 / 100 100 / 100 100 / 100 mls/hr IV.SIG Q12H [facility] Rx#: [id number] Levaquin 250 mg Premix Inj 250 50 / 50 50 / 50 mg In 50 ml @ 50 mls/hr IV.SIG Q24H [facility] Rx#:[id number] Vancomycin Inj 1,250 MG In NS 262.5 / 262.5 Inj 250 ML @ 250 mls/hr IV.SIG Q24H [facility] Rx#:[id number] Oral 480 / 480 480 / 480 Output: Urine 350 / 350 Other: # Voids 2 1 Date of Last Bowel Movement 12/02/17 12/02/17 12/02/17 # Bowel Movements 1 Narrative: GENERAL: AAOx3, no acute distress SKIN: Warm and dry. No rashes HEAD: Atruamtic, normocephalic. EYES: No scleral icterus. No injection or drainage. ENT: Moist mucous membranes, patent nares, no erythema of oropharynx. NECK: Supple, trachea midline. No JVD or lymphadenopathy. Normal thyroid. CARDIOVASCULAR: Regular rate and rhythm. No murmurs, gallops, or rubs. RESPIRATORY: Mostly clear, only scattered congestive sounds. No crackles or wheezes. No accessory muscle use. GASTROINTESTINAL: Abdomen soft, non-tender, nondistended, normal active bowel sounds MUSCULOSKELETAL: No cyanosis, or edema. 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 Creatinine is 2.1 he is well hydrated getting albumin small dose of Lasix was given potassium replaced uric acid high normal PO4 add Allopurinol 100 mg daily
[2017-12-04] MEDS: Sodium Chloride 0.9% 2 ML Flush BID IV.FLUSH SCH (20:56)
[2017-12-05] MEDS: Levothyroxine 112 MCG Tablet PO SCH (06:02)
[2017-12-05] MEDS: Heparin - SQ 10,000 UNITS/ML Vial SQ SCH ×2 (06:03→17:27)
[2017-12-05 08:00] LABS: Calcium 9.6 mg/dL (8.5-10.1); Carbon Dioxide 26.7 meq/L (21.0-32.0); Potassium 3.5 meq/L (3.5-5.1)
[2017-12-05] MEDS: Allopurinol 100 MG Tablet PO SCH (08:24)
[2017-12-05] MEDS: Atenolol 50 MG Tablet PO SCH (08:24)
[2017-12-05] MEDS: guaiFENesin 600 MG ER Tablet PO SCH ×2 (08:24→20:09)
[2017-12-05] MEDS: Furosemide 20 MG Tablet PO SCH (08:24)
[2017-12-05] MEDS: Morphine Sulfate 30 MG SR Tablet PO SCH ×2 (08:24→21:59)
[2017-12-05] MEDS: Albumin Human 25% Inj 100 ML IV.SIG SCH ×2 (08:25→20:10)
[2017-12-05] MEDS: Sodium Chloride 0.9% 2 ML Flush BID IV.FLUSH SCH ×2 (08:36→20:17)
[2017-12-05] MEDS: oxyCODONE/Acetaminophen 10/325 Tablet PO PRN ×2 (11:11→20:09)
--- NOTE | 2017-12-05 14:26 | P.PNONC ---
Subjective Interval history: Patient sleeping on approach, awakens easily to voice. Reports back pain, states he was just given a pain pill that he is waiting for it to kick in. Status post radiation today. Objective Vital Signs/Intake & Output: Vital Signs 12/04/17 16:00 12/04/17 17:00 12/04/17 19:54 Temperature 98.4 F Pulse Rate 69 71 73 Respiratory Rate 17 Blood Pressure 120/56 L Pulse Oximetry 93 L 12/04/17 19:58 12/04/17 23:54 12/05/17 04:00 Temperature 98.5 F 98 F Pulse Rate 70 69 72 Respiratory Rate 18 18 Blood Pressure 128/71 120/56 L Pulse Oximetry 95 94 L 12/05/17 04:45 12/05/17 08:00 12/05/17 09:00 Temperature 98.9 F 99.2 F Pulse Rate 77 72 75 Respiratory Rate 20 18 Blood Pressure 115/64 126/64 Pulse Oximetry 94 L 95 12/05/17 12:00 Temperature 98.9 F Pulse Rate 74 Respiratory Rate 18 Blood Pressure 127/59 L Pulse Oximetry 95 Intake & Output 12/04/17 12/05/17 12/05/17 18:59 06:59 18:59 Intake Total 630 / 630 100 / 100 100 / 100 Output Total 500 / 500 Balance 630 / 630 -400 / -400 100 / 100 Weight 97.1 kg Intake: IV 150 / 150 100 / 100 100 / 100 Flexbumin 25% Inj 100 ML @ 60 100 / 100 100 / 100 100 / 100 mls/hr IV.SIG Q12H [facility] Rx#: [id number] Levaquin 250 mg Premix Inj 250 50 / 50 mg In 50 ml @ 50 mls/hr IV.SIG Q24H [facility] Rx#:[id number] Oral 480 / 480 Output: Urine 500 / 500 Other: # Voids 1 Date of Last Bowel Movement 12/02/17 12/03/17 12/02/17 # Bowel Movements 1 Result Diagrams: 12/02/17 05:56 12/05/17 06:04 Laboratory Results: Laboratory Results - last 24 hr 12/05/17 06:04 Sodium 139 Potassium 3.5 Chloride 102 Carbon Dioxide 26.7 Anion Gap 10 BUN 47 H Creatinine 1.84 H Estimated GFR 36 L Random Glucose 90 Calcium 9.6 Medications: Active Medications Generic Name Dose Route Start Last Admin Trade Name Freq PRN Reason Stop Dose Admin Allopurinol 100 mg 12/05/17 09:00 12/05/17 08:24 Zyloprim PO 100 mg DAILY [facility] Administration Atenolol 50 mg 11/27/17 09:00 12/05/17 08:24 Tenormin PO 50 mg DAILY [facility] Administration Epoetin Gio 10,000 unit 11/27/17 09:00 12/04/17 10:26 Epogen Inj SQ 10,000 unit MoWeFr@0900 [facility] Administration Furosemide 20 mg 12/04/17 09:00 12/05/17 08:24 Lasix PO 20 mg DAILY [facility] Administration Guaifenesin 600 mg 11/26/17 21:00 12/05/17 08:24 Mucinex Er PO 600 mg BID [facility] Administration Heparin Sodium (Porcine) 5,000 units 11/26/17 18:00 12/05/17 06:03 Heparin Inj SQ 5,000 units Q12H [facility] Administration Levofloxacin/Dextrose 250 mg in 50 mls @ 50 mls/hr 11/27/17 17:00 12/04/17 18 :06 Levaquin 250 Mg Premix Inj IV.SIG Infused Q24H [facility] Infusion Albumin Human 100 mls @ 60 mls/hr 11/26/17 20:00 12/05/17 09:55 Flexbumin 25% Inj IV.SIG Infused Q12H [facility] Infusion Lactulose 30 ml 11/26/17 17:11 12/02/17 10:26 Lactulose Liq PO 30 ml DAILY PRN Administration [employer] Levothyroxine Sodium 112 mcg 11/27/17 06:00 12/05/17 06:02 Synthroid PO 112 mcg DAILY@0600 [facility] Administration Morphine Sulfate 30 mg 11/28/17 09:00 12/05/17 08:24 Oramorph Sr PO 30 mg Q12HR [facility] Administration Morphine Sulfate 2 mg 11/28/17 11:44 11/29/17 18:28 Morphine Inj IV.PUSH 2 mg Q4H PRN Administration [employer] Ondansetron HCl 4 mg 11/26/17 17:11 12/03/17 22:06 Zofran Inj IV.PUSH 4 mg Q4H PRN Administration NAUSEA OR VOMITING Oxycodone/Acetaminophen 1 tab 11/27/17 09:05 12/05/17 11:11 Percocet 10/325 Mg PO 1 tab Q4H PRN Administration Pain 7 to 10 Oxycodone/Acetaminophen 1 tab 11/27/17 09:05 12/02/17 18:41 Percocet 5/325 Mg PO 1 tab Q4H PRN Administration Pain 3 to 6 Sodium Chloride 2 ml 12/04/17 21:00 12/05/17 08:36 Ns Flush IV.FLUSH 2 ml BID [facility] Administration Zolpidem Tartrate 10 mg 11/26/17 17:14 12/04/17 20:56 Ambien PO 10 mg HS PRN Administration Insomnia Objective Remarks: GENERAL: Chronically ill-appearing elderly male patient, in no acute distress. SKIN: Pale, warm and dry. HEAD: Normocephalic. EYES: No scleral icterus. No injection or drainage. NECK: Supple, trachea midline. CARDIOVASCULAR: Regular rate and rhythm without murmurs. RESPIRATORY: Breath sounds equal bilaterally. Nonlabored at rest. GASTROINTESTINAL: Abdomen soft, non-tender, nondistended. EXTREMITIES: No cyanosis. 2+ pitting edema BLE. MUSCULOSKELETAL: Adequate muscle tone. NEUROLOGICAL: No obvious focal deficit. Alert, and oriented x3. PSYCHIATRIC: Appropriate mood and affect; insight and judgment normal. Assessment/Plan - Plan Mr. 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 Patient was discharged last week, with the plan to follow-up outpatient and obtain a PET scan, possible lung biopsy for molecular testing for possible immunotherapy versus targeted therapy versus chemotherapy. The patient presented back to the hospital for increased bilateral lower extremity and scrotum swelling. He is currently hospitalized with acute kidney injury on chronic kidney disease stage III, healthcare associated pneumonia. He also has a history of hypertension, COPD and hypothyroidism. Plan: 1. Palliative radiation started on Saturday. Patient has received treatment #4 today. 2. Continue antibiotics for pneumonia. Management per attending. 3. Continue Epogen for chronic renal insufficiency on Saturday. 4. The patient will need PET scan as outpatient. - Attending Statement Pt evaluated in room. Agree with [employer] plan. Will follow up as in pt if pt remains in hospital next week.
--- NOTE | 2017-12-05 14:47 | P.PNNP ---
Subjective Interval history: Patient feels tired Physical Exam Vital signs: Vital Signs 12/04/17 16:00 12/04/17 17:00 12/04/17 19:54 Temperature 98.4 F Pulse Rate 69 71 73 Respiratory Rate 17 Blood Pressure 120/56 L Pulse Oximetry 93 L 12/04/17 19:58 12/04/17 23:54 12/05/17 04:00 Temperature 98.5 F 98 F Pulse Rate 70 69 72 Respiratory Rate 18 18 Blood Pressure 128/71 120/56 L Pulse Oximetry 95 94 L 12/05/17 04:45 12/05/17 08:00 12/05/17 09:00 Temperature 98.9 F 99.2 F Pulse Rate 77 72 75 Respiratory Rate 20 18 Blood Pressure 115/64 126/64 Pulse Oximetry 94 L 95 12/05/17 12:00 Temperature 98.9 F Pulse Rate 74 Respiratory Rate 18 Blood Pressure 127/59 L Pulse Oximetry 95 Intake & Output 12/04/17 12/05/17 12/05/17 18:59 06:59 18:59 Intake Total 630 / 630 100 / 100 100 / 100 Output Total 500 / 500 Balance 630 / 630 -400 / -400 100 / 100 Weight 97.1 kg Intake: IV 150 / 150 100 / 100 100 / 100 Flexbumin 25% Inj 100 ML @ 60 100 / 100 100 / 100 100 / 100 mls/hr IV.SIG Q12H [facility] Rx#: [id number] Levaquin 250 mg Premix Inj 250 50 / 50 mg In 50 ml @ 50 mls/hr IV.SIG Q24H [facility] Rx#:[id number] Oral 480 / 480 Output: Urine 500 / 500 Other: # Voids 1 Date of Last Bowel Movement 12/02/17 12/03/17 12/02/17 # Bowel Movements 1 Narrative: GENERAL: AAOx3, no acute distress SKIN: Warm and dry. No rashes HEAD: Atruamtic, normocephalic. EYES: No scleral icterus. No injection or drainage. ENT: Moist mucous membranes, patent nares, no erythema of oropharynx. NECK: Supple, trachea midline. No JVD or lymphadenopathy. Normal thyroid. CARDIOVASCULAR: Regular rate and rhythm. No murmurs, gallops, or rubs. RESPIRATORY: Mostly clear, only scattered congestive sounds. No crackles or wheezes. No accessory muscle use. GASTROINTESTINAL: Abdomen soft, non-tender, nondistended, normal active bowel sounds MUSCULOSKELETAL: No cyanosis, or edema. 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 Creatinine is 1.8 he is well hydrated getting albumin small dose of Lasix was given on Allopurinol 100 mg daily
[2017-12-05] MEDS: Levofloxacin 250 mg Premix Inj 250 MG/50 ML PIGGYBACK IV.SIG SCH (16:42)
--- NOTE | 2017-12-05 17:58 | P.PNIM ---
Subjective Interval history: Patient returned from radiation today. He states the radiation does not cause much discomfort but the table is hard which is exacerbated his back pain. His pain is not well covered with long-acting narcotic, I pointed out he has also a short acting option and he requested it. Physical Exam Vital signs: Vital Signs 12/04/17 19:54 12/04/17 19:58 12/04/17 23:54 Temperature 98.5 F Pulse Rate 73 70 69 Respiratory Rate 18 Blood Pressure 128/71 Pulse Oximetry 95 12/05/17 04:00 12/05/17 04:45 12/05/17 08:00 Temperature 98 F 98.9 F 99.2 F Pulse Rate 72 77 72 Respiratory Rate 18 20 18 Blood Pressure 120/56 L 115/64 126/64 Pulse Oximetry 94 L 94 L 95 12/05/17 09:00 12/05/17 12:00 12/05/17 16:00 Temperature 98.9 F 98.5 F Pulse Rate 75 74 68 Respiratory Rate 18 18 Blood Pressure 127/59 L 126/61 Pulse Oximetry 95 95 Intake & Output 12/04/17 12/05/17 12/05/17 18:59 06:59 18:59 Intake Total 630 / 630 100 / 100 150 / 150 Output Total 500 / 500 Balance 630 / 630 -400 / -400 150 / 150 Weight 97.1 kg Intake: IV 150 / 150 100 / 100 150 / 150 Flexbumin 25% Inj 100 ML @ 60 100 / 100 100 / 100 100 / 100 mls/hr IV.SIG Q12H [facility] Rx#: [id number] Levaquin 250 mg Premix Inj 250 50 / 50 50 / 50 mg In 50 ml @ 50 mls/hr IV.SIG Q24H [facility] Rx#:[id number] Oral 480 / 480 Output: Urine 500 / 500 Other: # Voids 1 Date of Last Bowel Movement 12/02/17 12/03/17 12/02/17 # Bowel Movements 1 Narrative: GENERAL: AAOx3, no acute distress SKIN: Warm and dry. No rashes HEAD: Atruamtic, normocephalic. EYES: No scleral icterus. No injection or drainage. ENT: Moist mucous membranes, patent nares, no erythema of oropharynx. NECK: Supple, trachea midline. No JVD or lymphadenopathy. Normal thyroid. CARDIOVASCULAR: Regular rate and rhythm. No murmurs, gallops, or rubs. RESPIRATORY: Mostly clear, only scattered congestive sounds. No crackles or wheezes. No accessory muscle use. GASTROINTESTINAL: Abdomen soft, non-tender, nondistended, normal active bowel sounds MUSCULOSKELETAL: No cyanosis, or edema. NEURO: CN II-XII grossly intact, no focal deficits, no slurring of speech Results - Labs CBC & Chem 7: 12/02/17 05:56 12/05/17 06:04 Laboratory Results - last 24 hr 12/05/17 06:04 Sodium 139 Potassium 3.5 Chloride 102 Carbon Dioxide 26.7 Anion Gap 10 BUN 47 H Creatinine 1.84 H Estimated GFR 36 L Random Glucose 90 Calcium 9.6 Assessment and Plan - Plan 77-year-old male admitted secondary to back pain with pneumonia. 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 Continue PRN analgesia Appreciate oncology Healthcare associated pneumonia S/p cefepime and vancomycin, antibiotics discontinued, treatment completed COPD No acute exacerbation, continue duo nebs as needed, oxygen as needed Encourage incentive spirometry and ambulation Back pain Aggravated today by hard table for radiation treatments Patient took Percocet in addition to long-acting narcotic Acute kidney injury Creatinine improved at 1.4 Continue to monitor renal function Continue Lasix 20 mg daily Nephrology consult appreciated Hypokalemia Stable, continue to monitor DVT prophylaxis Heparin Discharge Planning Home health care recommended when cleared by oncology Patient has no place to stay, states he needs to be with his dog
[2017-12-06] MEDS: Levothyroxine 112 MCG Tablet PO SCH (05:06)
[2017-12-06] MEDS: Heparin - SQ 10,000 UNITS/ML Vial SQ SCH ×2 (05:06→17:50)
[2017-12-06] MEDS: Morphine Sulfate 30 MG SR Tablet PO SCH ×2 (08:32→20:44)
[2017-12-06] MEDS: Furosemide 20 MG Tablet PO SCH (08:32)
[2017-12-06] MEDS: guaiFENesin 600 MG ER Tablet PO SCH ×2 (08:33→20:44)
[2017-12-06] MEDS: Atenolol 50 MG Tablet PO SCH (08:34)
[2017-12-06] MEDS: Allopurinol 100 MG Tablet PO SCH (08:37)
[2017-12-06] MEDS: Albumin Human 25% Inj 100 ML IV.SIG SCH ×2 (09:41→20:45)
[2017-12-06] MEDS: Sodium Chloride 0.9% 2 ML Flush BID IV.FLUSH SCH ×2 (10:02→20:44)
[2017-12-06] MEDS: oxyCODONE/Acetaminophen 10/325 Tablet PO PRN ×2 (10:40→17:42)
--- NOTE | 2017-12-06 15:31 | P.PNIM ---
Subjective Interval history: Patient is undergoing palliative radiation treatments of squamous cell carcinoma which has metastasized to his right retroperitoneum. He is experiencing some abdominal pain today related to cumulative effects of radiation and complains of back pain related to and during treatments on a hard table. Physical Exam Vital signs: Vital Signs 12/05/17 16:00 12/05/17 20:00 12/06/17 00:00 Temperature 98.5 F 99 F 97.9 F Pulse Rate 68 75 72 Respiratory Rate Blood Pressure 126/61 130/60 119/59 L Pulse Oximetry 95 99 93 L 12/06/17 04:00 12/06/17 08:00 12/06/17 12:00 Temperature 98.9 F 98.7 F 98.2 F Pulse Rate 73 79 80 Respiratory Rate Blood Pressure 126/62 150/72 H 113/65 Pulse Oximetry 93 L 94 L 97 Intake & Output 12/05/17 12/06/17 12/06/17 18:59 06:59 18:59 Intake Total 930 / 930 100 / 100 100 / 100 Output Total 700 / 700 Balance 930 / 930 -600 / -600 100 / 100 Weight 96.1 kg Intake: IV 150 / 150 100 / 100 100 / 100 Flexbumin 25% Inj 100 ML @ 60 100 / 100 100 / 100 100 / 100 mls/hr IV.SIG Q12H [facility] Rx#: [id number] Levaquin 250 mg Premix Inj 250 50 / 50 mg In 50 ml @ 50 mls/hr IV.SIG Q24H [facility] Rx#:[id number] Oral 780 / 780 Output: Urine 700 / 700 Other: Date of Last Bowel Movement 12/02/17 12/04/17 12/06/17 # Bowel Movements 1 Narrative: GENERAL: AAOx3, no acute distress SKIN: Warm and dry. No rashes HEAD: Atruamtic, normocephalic. EYES: No scleral icterus. No injection or drainage. ENT: Moist mucous membranes, patent nares, no erythema of oropharynx. NECK: Supple, trachea midline. No JVD or lymphadenopathy. Normal thyroid. CARDIOVASCULAR: Regular rate and rhythm. No murmurs, gallops, or rubs. RESPIRATORY: Mostly clear, only scattered congestive sounds. No crackles or wheezes. No accessory muscle use. GASTROINTESTINAL: Abdomen soft, non-tender, nondistended, normal active bowel sounds MUSCULOSKELETAL: No cyanosis, or edema. NEURO: CN II-XII grossly intact, no focal deficits, no slurring of speech Results - Labs CBC & Chem 7: 12/02/17 05:56 12/05/17 06:04 Assessment and Plan - Plan 77-year-old male admitted secondary to back pain with pneumonia. 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 Continue PRN analgesia Appreciate oncology Healthcare associated pneumonia S/p cefepime and vancomycin, antibiotics discontinued, treatment completed COPD No acute exacerbation, continue duo nebs as needed, oxygen as needed Encourage incentive spirometry and ambulation Back pain Aggravated today by hard table for radiation treatments Patient took Percocet in addition to long-acting narcotic Acute kidney injury Creatinine improved at 1.4 Continue to monitor renal function Continue Lasix 20 mg daily Nephrology consult appreciated Hypokalemia Stable, continue to monitor DVT prophylaxis Heparin Discharge Planning Home health care recommended Oncology indicating patient may or may not be here next week Patient is a candidate for discharge pending place to stay, his home has black mold
--- NOTE | 2017-12-06 16:57 | MB ---
cc: Alonzo Hooker MD DATE: 12/06/2017 REASON FOR VISIT: Followup of metastatic squamous cell cancer to the right kidney. SUBJECTIVE: Mr. Max is feeling much better. He feels that the radiation is improving his right renal pain day by day. He states that he is still not ready to go home. He also has social issues with his home requiring fumigation, etc. Other than that, he is doing well with no hematuria. REVIEW OF SYSTEMS: No headaches, motor or sensory symptoms. He does have chronic back pain. No recent change in that. No cough, chest pain or shortness of breath. No abdominal pain or distention. No frequency, urgency, or hematuria. No fever or night sweats. PHYSICAL EXAMINATION: GENERAL: Chronically ill-appearing, in no acute distress. Pallor present. HEENT: No icterus. NECK: No lymphadenopathy. NEUROLOGIC: Alert and oriented x4. LUNGS: Clear to auscultation. ABDOMEN: Soft, nondistended, nontender without palpable organomegaly. Physically, no right renal mass could be felt. No free fluid clinically. EXTREMITIES: No edema or evidence of DVTs. LABORATORY DATA: No recent labs. IMPRESSION: Metastatic squamous cell cancer, possibly of lung origin, right renal mass with significant pain, which is very well controlled with ongoing radiation. PLAN: Radiation completed in 10 more treatments. Now patient needs to be evaluated with a PET/CT scan for possible lung primary and possible biopsy of the lung mass for molecular studies. We will continue current care per primary team and I will see him in followup in the hospital next week. Discussed with patient. MD HERIBERTO Tejeda/jennifer , 03:52 PM , 03:58 PM
--- NOTE | 2017-12-06 17:26 | P.PNNP ---
Subjective Interval history: Patient has less right sided pain Physical Exam Vital signs: Vital Signs 12/05/17 20:00 12/06/17 00:00 12/06/17 04:00 Temperature 99 F 97.9 F 98.9 F Pulse Rate 75 72 73 Respiratory Rate Blood Pressure 130/60 119/59 L 126/62 Pulse Oximetry 99 93 L 93 L 12/06/17 08:00 12/06/17 12:00 12/06/17 16:00 Temperature 98.7 F 98.2 F 98.6 F Pulse Rate 79 80 77 Respiratory Rate Blood Pressure 150/72 H 113/65 130/73 Pulse Oximetry 94 L 97 91 L Intake & Output 12/05/17 12/06/17 12/06/17 18:59 06:59 18:59 Intake Total 930 / 930 100 / 100 100 / 100 Output Total 700 / 700 Balance 930 / 930 -600 / -600 100 / 100 Weight 96.1 kg Intake: IV 150 / 150 100 / 100 100 / 100 Flexbumin 25% Inj 100 ML @ 60 100 / 100 100 / 100 100 / 100 mls/hr IV.SIG Q12H [facility] Rx#: [id number] Levaquin 250 mg Premix Inj 250 50 / 50 mg In 50 ml @ 50 mls/hr IV.SIG Q24H [facility] Rx#:[id number] Oral 780 / 780 Output: Urine 700 / 700 Other: Date of Last Bowel Movement 12/02/17 12/04/17 12/06/17 # Bowel Movements 1 Narrative: GENERAL: AAOx3, no acute distress SKIN: Warm and dry. No rashes HEAD: Atruamtic, normocephalic. EYES: No scleral icterus. No injection or drainage. ENT: Moist mucous membranes, patent nares, no erythema of oropharynx. NECK: Supple, trachea midline. No JVD or lymphadenopathy. Normal thyroid. CARDIOVASCULAR: Regular rate and rhythm. No murmurs, gallops, or rubs. RESPIRATORY: Mostly clear, only scattered congestive sounds. No crackles or wheezes. No accessory muscle use. GASTROINTESTINAL: Abdomen soft, non-tender, nondistended, normal active bowel sounds MUSCULOSKELETAL: No cyanosis, or edema. 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 Patient is undergoing radiation Creatinine is 1.8 he is well hydrated getting albumin small dose of Lasix was given on Allopurinol 100 mg daily
[2017-12-06] MEDS: Levofloxacin 250 mg Premix Inj 250 MG/50 ML PIGGYBACK IV.SIG SCH (17:44)
[2017-12-07] MEDS: Levothyroxine 112 MCG Tablet PO SCH (06:47)
[2017-12-07] MEDS: Heparin - SQ 10,000 UNITS/ML Vial SQ SCH ×2 (06:47→17:27)
[2017-12-07] MEDS: Furosemide 20 MG Tablet PO SCH (08:08)
[2017-12-07] MEDS: guaiFENesin 600 MG ER Tablet PO SCH ×2 (08:08→20:21)
[2017-12-07] MEDS: Allopurinol 100 MG Tablet PO SCH (08:09)
[2017-12-07] MEDS: Morphine Sulfate 30 MG SR Tablet PO SCH ×2 (08:09→21:58)
[2017-12-07] MEDS: Atenolol 50 MG Tablet PO SCH (08:09)
[2017-12-07] MEDS: Albumin Human 25% Inj 100 ML IV.SIG SCH ×2 (08:10→20:21)
[2017-12-07] MEDS: oxyCODONE/Acetaminophen 10/325 Tablet PO PRN ×3 (10:25→20:20)
[2017-12-07] MEDS: Sodium Chloride 0.9% 2 ML Flush BID IV.FLUSH SCH ×2 (10:29→20:21)
--- NOTE | 2017-12-07 10:58 | P.PN ---
Subjective Interval history: Patient doing well. Reports that he is tolerating p.o. and voiding/stooling well. Patient has no current concerns. No overnight events per RN. Physical Exam Vital signs: Vital Signs 12/06/17 12:00 12/06/17 16:00 12/06/17 20:00 Temperature 98.2 F 98.6 F 98.7 F Pulse Rate 80 83 71 Respiratory Rate 16 Blood Pressure 113/65 130/73 130/66 Pulse Oximetry 97 91 L 93 L 12/07/17 00:00 12/07/17 04:00 12/07/17 08:00 Temperature 98.1 F 98.0 F 98.6 F Pulse Rate 69 72 75 Respiratory Rate 20 Blood Pressure 125/79 134/62 135/73 Pulse Oximetry 96 93 L 95 Intake & Output 12/06/17 12/07/17 12/07/17 18:59 06:59 18:59 Intake Total 100 / 100 150 / 150 Output Total 800 / 800 700 / 700 Balance -700 / -700 -550 / -550 Weight 96.1 kg Intake: IV 100 / 100 150 / 150 Flexbumin 25% Inj 100 ML @ 60 100 / 100 100 / 100 mls/hr IV.SIG Q12H [facility] Rx#: [id number] Levaquin 250 mg Premix Inj 250 50 / 50 mg In 50 ml @ 50 mls/hr IV.SIG Q24H [facility] Rx#:[id number] Output: Urine 800 / 800 700 / 700 Other: # Voids 3 2 Date of Last Bowel Movement 12/06/17 12/06/17 # Bowel Movements 0 Narrative: GENERAL: Well-nourished male, in no acute distress, lying comfortably in bed SKIN: Warm and dry. HEAD: Normocephalic. EYES: No scleral icterus. No injection or drainage. PERRLA. NECK: Supple, trachea midline. No JVD or lymphadenopathy. CARDIOVASCULAR: Regular rate and rhythm without murmurs, gallops, or rubs. RESPIRATORY: Breath sounds equal bilaterally. No accessory muscle use. GASTROINTESTINAL: Abdomen soft, non-tender, nondistended. MUSCULOSKELETAL: No cyanosis, or edema. BACK: Nontender without obvious deformity. No CVA tenderness. NEURO: AAO x3, no focal deficits. 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 Retroperitoneal squamous cell carcinoma Continuing radiation started on 12/02 Continue Morphine, Oxycodone, and Zofran PRN Appreciate oncology recommendations Onc Reccs 12/06: Radiation completed in 10 more treatments. Now patient needs to be evaluated with a PET/CT scan for possible lung primary and possible biopsy of the lung mass for molecular studies. We will continue current care per primary team and I will see him in followup in the hospital next week. Discussed with patient. 2. Healthcare associated pneumonia, resolved s/p ABX, treatment completed Bld Cx NG at 5 days x4 (final) 3. COPD No acute exacerbation Continue Duonebs and Mucinex PRN Encourage incentive spirometry and ambulation 3. Back pain Aggravated by hard table for radiation treatments Cont. Morphine and Oxycodone PRN 4. Acute kidney injury/Anasarca, improving Cr 1.84 today from 2.12 Continue to monitor, not on IVF due to edema If creatinine starts to increase consider gentle hydration Avoid nephrotoxic medications Follow-up BMP in AM Continue Lasix, Epo, Albumin Nephrology consulted, appreciate assistance with mgmt Nephro Reccs 12/06: Acute renal failure Avoid nephrotoxin He has only left functional kidney 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 Patient is undergoing radiation Creatinine is 1.8 he is well hydrated getting albumin small dose of Lasix was given on Allopurinol 100 mg daily 5. Hypokalemia, resolved K3.5 on 12/05 We will check stat BMP today Follow-up CMP in AM 6. DVT PPX: Heparin 7. Hypothyroidism Continue Levothyroxine 8. Hypertension Continue Atenolol Continue to monitor BP's Adjust dose as needed 9. Gout Prophylaxis Continue Allopurinol at 100mg QD (low-dose due to renal insufficiency) 10. Dispo: F/U Creatinine, Home health care recommended, patient is a candidate for discharge pending place to stay, his home has black mold. Code Status: full Discharge Planning: patient, RN
[2017-12-07] MEDS ORDERED: Sod Chloride 0.9% Inj 1,000 ML IV.CONT SCH (13:00)
--- NOTE | 2017-12-07 13:20 | P.PNONC ---
Subjective Interval history: Afebrile. Patient sitting at bedside eating lunch. He reports his right kidney pain has decreased since starting radiation, however his back pain persists. No other complaints at this time. He reports a decent appetite, denies N/V/D. Denies shortness of breath or chest pain. Objective Vital Signs/Intake & Output: Vital Signs 12/06/17 16:00 12/06/17 20:00 12/07/17 00:00 Temperature 98.6 F 98.7 F 98.1 F Pulse Rate 83 71 69 Respiratory Rate 19 16 19 Blood Pressure 130/73 130/66 125/79 Pulse Oximetry 91 L 93 L 96 12/07/17 04:00 12/07/17 08:00 Temperature 98.0 F 98.6 F Pulse Rate 72 75 Respiratory Rate 15 20 Blood Pressure 134/62 135/73 Pulse Oximetry 93 L 95 Intake & Output 12/06/17 12/07/17 12/07/17 18:59 06:59 18:59 Intake Total 100 / 100 150 / 150 Output Total 800 / 800 700 / 700 Balance -700 / -700 -550 / -550 Weight 96.1 kg Intake: IV 100 / 100 150 / 150 Flexbumin 25% Inj 100 ML @ 60 100 / 100 100 / 100 mls/hr IV.SIG Q12H [facility] Rx#: [id number] Levaquin 250 mg Premix Inj 250 50 / 50 mg In 50 ml @ 50 mls/hr IV.SIG Q24H [facility] Rx#:[id number] Output: Urine 800 / 800 700 / 700 Other: # Voids 3 2 Date of Last Bowel Movement 12/06/17 12/06/17 # Bowel Movements 0 Result Diagrams: 12/02/17 05:56 12/05/17 06:04 Medications: Active Medications Generic Name Dose Route Start Last Admin Trade Name Freq PRN Reason Stop Dose Admin Allopurinol 100 mg 12/05/17 09:00 12/07/17 08:09 Zyloprim PO 100 mg DAILY [facility] Administration Atenolol 50 mg 11/27/17 09:00 12/07/17 08:09 Tenormin PO 50 mg DAILY [facility] Administration Epoetin Gio 10,000 unit 11/27/17 09:00 12/06/17 08:31 Epogen Inj SQ 10,000 unit [id number] [facility] Administration Furosemide 20 mg 12/04/17 09:00 12/07/17 08:08 Lasix PO 20 mg DAILY [facility] Administration Guaifenesin 600 mg 11/26/17 21:00 12/07/17 08:08 Mucinex Er PO 600 mg BID [facility] Administration Heparin Sodium (Porcine) 5,000 units 11/26/17 18:00 12/07/17 06:47 Heparin Inj SQ 5,000 units Q12H [facility] Administration Albumin Human 100 mls @ 60 mls/hr 11/26/17 20:00 12/07/17 12:16 Flexbumin 25% Inj IV.SIG 60 mls/hr Q12H [facility] Infusion Lactulose 30 ml 11/26/17 17:11 12/02/17 10:26 Lactulose Liq PO 30 ml DAILY PRN Administration SEVERE CONSITIPATION Levothyroxine Sodium 112 mcg 11/27/17 06:00 12/07/17 06:47 Synthroid PO 112 mcg DAILY@0600 [facility] Administration Morphine Sulfate 30 mg 11/28/17 09:00 12/07/17 08:09 Oramorph Sr PO 30 mg Q12HR [facility] Administration Morphine Sulfate 2 mg 11/28/17 11:44 11/29/17 18:28 Morphine Inj IV.PUSH 2 mg Q4H PRN Administration BREAKTHROUGH PAIN Ondansetron HCl 4 mg 11/26/17 17:11 12/03/17 22:06 Zofran Inj IV.PUSH 4 mg Q4H PRN Administration NAUSEA OR VOMITING Oxycodone/Acetaminophen 1 tab 11/27/17 09:05 12/07/17 10:25 Percocet 10/325 Mg PO 1 tab Q4H PRN Administration Pain 7 to 10 Oxycodone/Acetaminophen 1 tab 11/27/17 09:05 12/02/17 18:41 Percocet 5/325 Mg PO 1 tab Q4H PRN Administration Pain 3 to 6 Sodium Chloride 2 ml 12/04/17 21:00 12/07/17 10:29 Ns Flush IV.FLUSH 2 ml BID [facility] Administration Zolpidem Tartrate 10 mg 11/26/17 17:14 12/05/17 21:59 Ambien PO 10 mg HS PRN Administration Insomnia Objective Remarks: GENERAL: Chronically ill-appearing elderly male patient, in no acute distress. SKIN: Pale, warm and dry. HEAD: Normocephalic. EYES: No scleral icterus. No injection or drainage. NECK: Supple, trachea midline. CARDIOVASCULAR: +S1/S2 without murmurs. RESPIRATORY: Posterior breath sounds clear, equal bilaterally. Nonlabored at rest. GASTROINTESTINAL: Abdomen soft, non-tender, nondistended. EXTREMITIES: No cyanosis. 3+ pitting edema BLE to mid calf. MUSCULOSKELETAL: Decreased muscle tone. NEUROLOGICAL: No obvious focal deficit. Alert, and oriented x3. PSYCHIATRIC: Appropriate mood and affect; insight and judgment normal. Assessment/Plan - Plan Mr. 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 Patient was discharged last week, with the plan to follow-up outpatient and obtain a PET scan, possible lung biopsy for molecular testing for possible immunotherapy versus targeted therapy versus chemotherapy. The patient presented back to the hospital for increased bilateral lower extremity and scrotum swelling. He is currently hospitalized with acute kidney injury on chronic kidney disease stage III, healthcare associated pneumonia. He also has a history of hypertension, COPD and hypothyroidism. Plan: 1. Palliative radiation started on Saturday. Patient has received treatment 5 of 15 treatments. 2. Pneumonia, has completed antibiotics. 3. Continue Epogen for chronic renal insufficiency on Saturday. 4. The patient will need PET scan as outpatient. From an oncology standpoint, the patient could be discharged home. However, the patient states he cannot go home because his house has black mold in it. He also states he needs a place to stay that can accommodate his dog. It appears case management is working on placement issues. If he is placed, he will need daily transportation for his radiation treatments.
[2017-12-07 13:55] LABS: Calcium 9.8 mg/dL (8.5-10.1); Potassium 3.5 meq/L (3.5-5.1)
--- NOTE | 2017-12-07 15:43 | P.PNNP ---
Physical Exam Vital signs: Vital Signs 12/06/17 16:00 12/06/17 20:00 12/07/17 00:00 Temperature 98.6 F 98.7 F 98.1 F Pulse Rate 83 71 69 Respiratory Rate 19 16 19 Blood Pressure 130/73 130/66 125/79 Pulse Oximetry 91 L 93 L 96 12/07/17 04:00 12/07/17 08:00 12/07/17 12:00 Temperature 98.0 F 98.6 F 99.2 F Pulse Rate 72 75 84 Respiratory Rate 19 Blood Pressure 134/62 135/73 122/64 Pulse Oximetry 93 L 95 96 Intake & Output 12/06/17 12/07/17 12/07/17 18:59 06:59 18:59 Intake Total 100 / 100 150 / 150 Output Total 800 / 800 700 / 700 Balance -700 / -700 -550 / -550 Weight 96.1 kg Intake: IV 100 / 100 150 / 150 Flexbumin 25% Inj 100 ML @ 60 100 / 100 100 / 100 mls/hr IV.SIG Q12H [facility] Rx#: [id number] Levaquin 250 mg Premix Inj 250 50 / 50 mg In 50 ml @ 50 mls/hr IV.SIG Q24H [facility] Rx#:[id number] Output: Urine 800 / 800 700 / 700 Other: # Voids 3 2 Date of Last Bowel Movement 12/06/17 12/06/17 # Bowel Movements 0 Assessment and Plan - Assessment (1) HTN (hypertension) Code(s): I10 - Essential (primary) hypertension Status: Chronic (2) Lung mass Code(s): R91.8 - Other nonspecific abnormal finding of lung field Status: Acute (3) Mass of right kidney Code(s): N28.89 - Other specified disorders of kidney and ureter Status: Acute (4) ANIA (acute kidney injury) Code(s): N17.9 - Acute kidney failure, unspecified Status: Acute - Plan Acute renal failure Creatinine stable at 1.9 1.5L UOP Avoid nephrotoxin He has only left functional kidney 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 Patient is undergoing radiation Maintain hydration Getting albumin infusion, lasix 20mg PO daily. on Allopurinol 100 mg daily
[2017-12-08] MEDS: Heparin - SQ 10,000 UNITS/ML Vial SQ SCH ×2 (06:26→17:06)
[2017-12-08] MEDS: Levothyroxine 112 MCG Tablet PO SCH (06:26)
[2017-12-08] MEDS: Albumin Human 25% Inj 100 ML IV.SIG SCH ×3 (08:55→22:44)
[2017-12-08] MEDS: Sodium Chloride 0.9% 2 ML Flush BID IV.FLUSH SCH ×2 (08:59→20:57)
[2017-12-08] MEDS: Allopurinol 100 MG Tablet PO SCH (08:59)
[2017-12-08] MEDS: Atenolol 50 MG Tablet PO SCH (08:59)
[2017-12-08] MEDS: Morphine Sulfate 30 MG SR Tablet PO SCH ×2 (08:59→21:15)
[2017-12-08] MEDS: guaiFENesin 600 MG ER Tablet PO SCH ×2 (08:59→20:01)
[2017-12-08] MEDS: Furosemide 20 MG Tablet PO SCH (08:59)
[2017-12-08] MEDS: oxyCODONE/Acetaminophen 10/325 Tablet PO PRN ×2 (10:48→20:00)
[2017-12-08 11:20] LABS: Baso % (Auto) 0.3 % (0.0-2.0); Eos # (Auto) 0.2 th/mm3 (0.0-0.4); Eos % (Auto) 1.8 % (0.0-4.0); Hematocrit 27.3 % (39.0-51.0); Hemoglobin 9.3 gm/dL (13.0-17.0); Lymph # (Auto) 0.4 th/mm3 (1.0-4.8); Lymph % (Auto) 3.8 % (9.0-44.0); Mean Corpuscular Hemoglobin 29.9 pg (27.0-34.0); Mean Corpuscular Volume 87.9 fL (80.0-100.0); Mean Platelet Volume 7.8 fL (7.0-11.0); Mono # (Auto) 0.9 th/mm3 (0.0-0.9); Mono % (Auto) 8.3 % (0.0-8.0); Neut % (Auto) 85.8 % (16.0-70.0); Platelet Count 195 th/mm3 (150-450); Red Cell Distribution Width 16.4 % (11.6-17.2); White Blood Count 10.4 th/mm3 (4.0-11.0)
[2017-12-08 11:43] LABS: Alanine Aminotransferase 19 U/L (12-78); Albumin 4.3 g/dL (3.4-5.0); Anion Gap 10 meq/L (5-15); Aspartate Aminotransferase 19 U/L (15-37); Blood Urea Nitrogen 52 mg/dL (7-18); Calcium 9.9 mg/dL (8.5-10.1); Carbon Dioxide 27.9 meq/L (21.0-32.0); Chloride 102 meq/L (98-107); Glomerular Filtration Rate 41 mL/min (>89); Glucose,Random 89 mg/dL (74-106); Potassium 3.4 meq/L (3.5-5.1); Sodium 140 meq/L (136-145)
[2017-12-08 11:45] LABS: Alkaline Phosphatase 101 U/L (45-117); Total Protein 7.7 g/dL (6.4-8.2)
--- NOTE | 2017-12-08 14:03 | P.PNNP ---
Subjective Interval history: no acute complaints Physical Exam Vital signs: Vital Signs 12/07/17 16:00 12/07/17 20:00 12/07/17 23:57 Temperature 98.2 F 98.1 F 98.5 F Pulse Rate 76 80 71 Respiratory Rate 20 20 18 Blood Pressure 128/68 129/74 126/66 Pulse Oximetry 95 96 93 L 12/08/17 00:00 12/08/17 04:00 12/08/17 08:00 Temperature 98.5 F 98.7 F Pulse Rate 73 88 78 Respiratory Rate 18 20 Blood Pressure 130/71 137/64 Pulse Oximetry 92 L 93 L 12/08/17 09:12 Temperature Pulse Rate 76 Respiratory Rate Blood Pressure Pulse Oximetry Intake & Output 12/07/17 12/08/17 12/08/17 18:59 06:59 18:59 Intake Total 100 / 100 100 / 100 100 / 100 Output Total 600 / 600 450 / 450 Balance -500 / -500 -350 / -350 100 / 100 Weight 97.7 kg Intake: IV 100 / 100 100 / 100 100 / 100 Flexbumin 25% Inj 100 ML @ 60 100 / 100 100 / 100 100 / 100 mls/hr IV.SIG Q12H [facility] Rx#: [id number] Output: Urine 600 / 600 450 / 450 Other: Date of Last Bowel Movement 12/06/17 12/06/17 - Constitutional no acute distress - Routine HEENT Exam Head: Present: normocephalic Eye: Present: EOMI ENT: Present: mucous membranes moist - Routine Neck Exam Present: supple - Routine Respiratory Exam Present: CTA bilaterally - Routine Cardiovascular Exam Present: RRR - Routine Abdominal Exam Present: soft - Routine Skin Exam Present: intact - Routine Neurological Exam Present: alert - Detailed Neurological Exam: Coma Scale Eye Opening: Spontaneous - Routine Psychiatric Exam Present: normal affect Assessment and Plan - Assessment (1) HTN (hypertension) Code(s): I10 - Essential (primary) hypertension Status: Chronic (2) Lung mass Code(s): R91.8 - Other nonspecific abnormal finding of lung field Status: Acute (3) Mass of right kidney Code(s): N28.89 - Other specified disorders of kidney and ureter Status: Acute (4) ANIA (acute kidney injury) Code(s): N17.9 - Acute kidney failure, unspecified Status: Acute - Plan Acute renal failure Creatinine 1.9 -> 1.6 1L UOP Avoid nephrotoxin He has only left functional kidney 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 Patient is undergoing radiation Maintain hydration Getting albumin infusion, lasix 20mg PO daily. Renal function improving on Allopurinol 100 mg daily
--- NOTE | 2017-12-08 14:44 | P.PN ---
Subjective Interval history: Patient doing well. Patient is tolerating p.o., voiding/stooling well. Patient has no concerns, he reports that when he does leave here he has to go somewhere that we will accommodate his dog as well. Physical Exam Vital signs: Vital Signs 12/07/17 16:00 12/07/17 20:00 12/07/17 23:57 Temperature 98.2 F 98.1 F 98.5 F Pulse Rate 76 80 71 Respiratory Rate 20 20 18 Blood Pressure 128/68 129/74 126/66 Pulse Oximetry 95 96 93 L 12/08/17 00:00 12/08/17 04:00 12/08/17 08:00 Temperature 98.5 F 98.7 F Pulse Rate 73 88 78 Respiratory Rate 18 20 Blood Pressure 130/71 137/64 Pulse Oximetry 92 L 93 L 12/08/17 09:12 Temperature Pulse Rate 76 Respiratory Rate Blood Pressure Pulse Oximetry Intake & Output 12/07/17 12/08/17 12/08/17 18:59 06:59 18:59 Intake Total 100 / 100 100 / 100 100 / 100 Output Total 600 / 600 450 / 450 Balance -500 / -500 -350 / -350 100 / 100 Weight 97.7 kg Intake: IV 100 / 100 100 / 100 100 / 100 Flexbumin 25% Inj 100 ML @ 60 100 / 100 100 / 100 100 / 100 mls/hr IV.SIG Q12H [facility] Rx#: [id number] Output: Urine 600 / 600 450 / 450 Other: Date of Last Bowel Movement 12/06/17 12/06/17 Narrative: GENERAL: Well-nourished male, in no acute distress, lying comfortably in bed SKIN: Warm and dry. HEAD: Normocephalic. EYES: No scleral icterus. No injection or drainage. PERRLA. NECK: Supple, trachea midline. No JVD or lymphadenopathy. CARDIOVASCULAR: Regular rate and rhythm without murmurs, gallops, or rubs. RESPIRATORY: Breath sounds equal bilaterally. No accessory muscle use. GASTROINTESTINAL: Abdomen soft, non-tender, nondistended. MUSCULOSKELETAL: No cyanosis, or edema. BACK: Nontender without obvious deformity. No CVA tenderness. NEURO: AAO x3, no focal deficits. Results - Labs CBC & Chem 7: 12/08/17 09:22 12/08/17 09:22 Laboratory Results - last 24 hr 10/21/18 10/21/18 09:22 09:22 WBC 10.4 RBC 3.10 L Hgb 9.3 L Hct 27.3 L MCV 87.9 MCH 29.9 MCHC 34.0 RDW 16.4 Plt Count 195 MPV 7.8 Neut % (Auto) 85.8 H Lymph % (Auto) 3.8 L Fisher % (Auto) 8.3 H Eos % (Auto) 1.8 Baso % (Auto) 0.3 Neut # (Auto) 9.0 H Lymph # (Auto) 0.4 L Fisher # (Auto) 0.9 Eos # (Auto) 0.2 Baso # (Auto) 0.0 WBC Differential . Differential Comment Auto diff final Sodium 140 Potassium 3.4 L Chloride 102 Carbon Dioxide 27.9 Anion Gap 10 BUN 52 H Creatinine 1.66 H Estimated GFR 41 L Random Glucose 89 Calcium 9.9 Total Bilirubin 0.9 AST 19 ALT 19 Alkaline Phosphatase 101 Total Protein 7.7 D Albumin 4.3 Assessment and Plan - Assessment (1) Pneumonia Code(s): J18.9 - Pneumonia, unspecified organism Status: Resolved (2) HTN (hypertension) Code(s): I10 - Essential (primary) hypertension Status: Chronic (3) ANIA (acute kidney injury) Code(s): N17.9 - Acute kidney failure, unspecified Status: Acute - Plan This is a 77-year-old male admitted secondary to back pain wit 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 Retroperitoneal squamous cell carcinoma Continuing radiation started on 12/02 Continue Morphine, Oxycodone, and Zofran PRN Appreciate oncology recommendations Onc Reccs 11/29: Palliative radiation started on Saturday. Patient has received treatment 5 of 15 treatments. Pneumonia, has completed antibiotics. Continue Epogen for chronic renal insufficiency on Saturday. The patient will need PET scan as outpatient. From an oncology standpoint, the patient could be discharged home. However, the patient states he cannot go home because his house has black mold in it. He also states he needs a place to stay that can accommodate his dog. It appears case management is working on placement issues. If he is placed, he will need daily transportation for his radiation treatments. 2. Healthcare associated pneumonia, resolved s/p ABX, treatment completed Bld Cx NG at 5 days x4 (final) 3. COPD No acute exacerbation Continue Duonebs and Mucinex PRN Encourage incentive spirometry and ambulation 3. Back pain Aggravated by hard table for radiation treatments Cont. Morphine and Oxycodone PRN 4. Acute kidney injury/Anasarca, improving Cr 1.96 today today from 1.84 Continue to monitor, not on IVF due to edema Avoid nephrotoxic medications Follow-up BMP in AM Continue Lasix, Epo, Albumin Nephrology consulted, appreciate assistance with mgmt Nephro Reccs 12/08: Maintain hydration Getting albumin infusion, lasix 20mg PO daily. Renal function improving on Allopurinol 100 mg daily 5. Hypokalemia K3.4, will replace Follow-up K and Mag in AM 6. DVT PPX: Heparin 7. Hypothyroidism Continue Levothyroxine 8. Anemia Hgb 9.4 from 9.3 Will obtain Fe studies Cont. to monitor 9. Hypertension Continue Atenolol Continue to monitor BP's Adjust dose as needed 10. Gout Prophylaxis Continue Allopurinol at 100mg QD (low-dose due to renal insufficiency) 11. Dispo: Pending placement, [facility] working on D/C planning, Home health care recommended but his home has black mold. 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
[2017-12-09] MEDS: Levothyroxine 112 MCG Tablet PO SCH (06:31)
[2017-12-09] MEDS: Heparin - SQ 10,000 UNITS/ML Vial SQ SCH ×2 (06:31→18:28)
[2017-12-09 07:46] LABS: Albumin 4.1 g/dL (3.4-5.0); Anion Gap 9 meq/L (5-15); Aspartate Aminotransferase 15 U/L (15-37); Blood Urea Nitrogen 55 mg/dL (7-18); Calcium 9.5 mg/dL (8.5-10.1); Carbon Dioxide 25.6 meq/L (21.0-32.0); Chloride 104 meq/L (98-107); Glomerular Filtration Rate 44 mL/min (>89); Glucose,Random 89 mg/dL (74-106); Magnesium 1.7 mg/dL (1.5-2.5); Potassium 3.6 meq/L (3.5-5.1); Sodium 139 meq/L (136-145)
[2017-12-09 07:47] LABS: Alanine Aminotransferase 17 U/L (12-78); Total Iron Binding Capacity 143 mcg/dL (250-450)
[2017-12-09 07:51] LABS: % Iron Saturation 12.6 % (20-50); Alkaline Phosphatase 94 U/L (45-117); Baso # (Auto) 0.1 th/mm3 (0.0-0.2); Baso % (Auto) 0.5 % (0.0-2.0); Eos # (Auto) 0.2 th/mm3 (0.0-0.4); Eos % (Auto) 2.1 % (0.0-4.0); Hematocrit 25.9 % (39.0-51.0); Hemoglobin 8.6 gm/dL (13.0-17.0); Iron 18 mcg/dL (65-175); Lymph # (Auto) 0.5 th/mm3 (1.0-4.8); Lymph % (Auto) 4.7 % (9.0-44.0); Mean Corpuscular HGB Conc 33.4 % (32.0-36.0); Mean Corpuscular Hemoglobin 28.9 pg (27.0-34.0); Mean Corpuscular Volume 86.7 fL (80.0-100.0); Mean Platelet Volume 8.3 fL (7.0-11.0); Mono # (Auto) 0.9 th/mm3 (0.0-0.9); Mono % (Auto) 8.6 % (0.0-8.0); Neut % (Auto) 84.1 % (16.0-70.0); Platelet Count 169 th/mm3 (150-450); Red Blood Count 2.98 mil/mm3 (4.50-5.90); Total Protein 6.9 g/dL (6.4-8.2); White Blood Count 10.8 th/mm3 (4.0-11.0)
[2017-12-09 08:54] LABS: Eosinophils 1 % (0-4); Lymphocytes 9 % (9-44); Monocytes 8 % (0-8); Myelocytes 1 % (0-0); Ovalocytes 1+; Platelet Estimate Normal (Normal); Platelet Morphology Normal (Normal); Toxic Granulation 1+
[2017-12-09] MEDS: guaiFENesin 600 MG ER Tablet PO SCH ×2 (10:00→22:01)
[2017-12-09] MEDS: Furosemide 20 MG Tablet PO SCH (10:00)
[2017-12-09] MEDS: Allopurinol 100 MG Tablet PO SCH (10:01)
[2017-12-09] MEDS: Morphine Sulfate 30 MG SR Tablet PO SCH ×2 (10:01→22:01)
[2017-12-09] MEDS: Atenolol 50 MG Tablet PO SCH (10:01)
[2017-12-09] MEDS: Albumin Human 25% Inj 100 ML IV.SIG SCH ×2 (10:02→22:02)
[2017-12-09] MEDS: Sodium Chloride 0.9% 2 ML Flush BID IV.FLUSH SCH ×2 (10:03→21:51)
--- NOTE | 2017-12-09 13:27 | P.PNNP ---
Subjective Interval history: Patient doing okay undergoing radiation Physical Exam Vital signs: Vital Signs 12/08/17 14:53 12/08/17 16:24 12/08/17 20:00 Temperature 98.1 F 98.7 F Pulse Rate 82 72 82 Respiratory Rate 18 18 Blood Pressure 119/63 112/69 Pulse Oximetry 95 96 12/09/17 00:00 12/09/17 04:00 12/09/17 08:00 Temperature 98.9 F 98.9 F 99.2 F Pulse Rate 74 79 83 Respiratory Rate 18 18 24 Blood Pressure 121/60 121/63 111/73 Pulse Oximetry 95 92 L 93 L Intake & Output 12/08/17 12/09/17 12/09/17 18:59 06:59 18:59 Intake Total 580 / 580 100 / 100 Output Total 220 / 220 300 / 300 Balance 360 / 360 -200 / -200 Weight 97.5 kg Intake: IV 100 / 100 100 / 100 Flexbumin 25% Inj 100 ML @ 60 100 / 100 mls/hr IV.SIG Q12H JAVIER Rx#: [id number] Flexbumin 25% Inj 100 ML @ 60 100 / 100 mls/hr IV.SIG Q12H JAVIER Rx#: [id number] Oral 480 / 480 Output: Urine 220 / 220 300 / 300 Other: # Voids 3 Date of Last Bowel Movement 12/06/17 # Bowel Movements 0 Narrative: GENERAL: Well-nourished male, in no acute distress, lying comfortably in bed SKIN: Warm and dry. HEAD: Normocephalic. EYES: No scleral icterus. No injection or drainage. PERRLA. NECK: Supple, trachea midline. No JVD or lymphadenopathy. CARDIOVASCULAR: Regular rate and rhythm without murmurs, gallops, or rubs. RESPIRATORY: Breath sounds equal bilaterally. No accessory muscle use. GASTROINTESTINAL: Abdomen soft, non-tender, nondistended. MUSCULOSKELETAL: No cyanosis, or edema. BACK: Nontender without obvious deformity. No CVA tenderness. NEURO: AAO x3, no focal deficits. 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 Patient is undergoing radiation We will sign off for now on Allopurinol 100 mg daily
--- NOTE | 2017-12-09 13:39 | P.PN ---
Subjective Interval history: Patient doing well, reports he is tolerating p.o. Patient is voiding/stooling well. No overnight concerns per RN. Physical Exam Vital signs: Vital Signs 12/08/17 14:53 12/08/17 16:24 12/08/17 20:00 Temperature 98.1 F 98.7 F Pulse Rate 82 72 82 Respiratory Rate 18 18 Blood Pressure 119/63 112/69 Pulse Oximetry 95 96 12/09/17 00:00 12/09/17 04:00 12/09/17 08:00 Temperature 98.9 F 98.9 F 99.2 F Pulse Rate 74 79 83 Respiratory Rate 18 18 24 Blood Pressure 121/60 121/63 111/73 Pulse Oximetry 95 92 L 93 L Intake & Output 12/08/17 12/09/17 12/09/17 18:59 06:59 18:59 Intake Total 580 / 580 100 / 100 Output Total 220 / 220 300 / 300 Balance 360 / 360 -200 / -200 Weight 97.5 kg Intake: IV 100 / 100 100 / 100 Flexbumin 25% Inj 100 ML @ 60 100 / 100 mls/hr IV.SIG Q12H JAVIER Rx#: [id number] Flexbumin 25% Inj 100 ML @ 60 100 / 100 mls/hr IV.SIG Q12H JAVIER Rx#: [id number] Oral 480 / 480 Output: Urine 220 / 220 300 / 300 Other: # Voids 3 Date of Last Bowel Movement 12/06/17 # Bowel Movements 0 Narrative: GENERAL: Well-nourished male, in no acute distress, lying comfortably in bed SKIN: Warm and dry. HEAD: Normocephalic. EYES: No scleral icterus. No injection or drainage. PERRLA. NECK: Supple, trachea midline. No JVD or lymphadenopathy. CARDIOVASCULAR: Regular rate and rhythm without murmurs, gallops, or rubs. RESPIRATORY: Breath sounds equal bilaterally. No accessory muscle use. GASTROINTESTINAL: Abdomen soft, non-tender, nondistended. MUSCULOSKELETAL: No cyanosis, or edema. BACK: Nontender without obvious deformity. No CVA tenderness. NEURO: AAO x3, no focal deficits. Results - Labs CBC & Chem 7: 12/09/17 06:19 12/09/17 06:19 Laboratory Results - last 24 hr 12/09/17 12/09/17 06:19 06:19 WBC 10.8 RBC 2.98 L Hgb 8.6 L Hct 25.9 L MCV 86.7 MCH 28.9 MCHC 33.4 RDW 16.0 Plt Count 169 MPV 8.3 Prelim Diff (Auto) Slide review pending Neut % (Auto) 84.1 H Lymph % (Auto) 4.7 L [place] % (Auto) 8.6 H Eos % (Auto) 2.1 Baso % (Auto) 0.5 Neut # (Auto) 9.0 H Lymph # (Auto) 0.5 L [place] # (Auto) 0.9 Eos # (Auto) 0.2 Baso # (Auto) 0.1 WBC Differential Manual diff final Seg Neuts % (Manual) 74 H Band Neuts % (Manual) 7 H Lymphocytes % (Manual) 9 Monocytes % (Manual) 8 Eosinophils % (Manual) 1 Myelocytes % (Man) 1 H Abs Neuts (Manual) 8.9 H Differential Comment . Toxic Granulation 1+ H Platelet Estimate Normal Platelet Morphology Normal Ovalocytes 1+ H Sodium 139 Potassium 3.6 Chloride 104 Carbon Dioxide 25.6 Anion Gap 9 BUN 55 H Creatinine 1.55 H Estimated GFR 44 L Random Glucose 89 Calcium 9.5 Magnesium 1.7 Iron 18 L TIBC 143 L % Saturation 12.6 L Total Bilirubin 0.9 AST 15 ALT 17 Alkaline Phosphatase 94 Total Protein 6.9 D Albumin 4.1 Assessment and Plan - Assessment (1) HTN (hypertension) Code(s): I10 - Essential (primary) hypertension Status: Chronic (2) ANIA (acute kidney injury) Code(s): N17.9 - Acute kidney failure, unspecified Status: Acute - Plan This is a 77-year-old male admitted secondary to back pain wit 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 Retroperitoneal squamous cell carcinoma Continuing radiation started on 12/02 Continue Morphine, Oxycodone, and Zofran PRN Appreciate oncology recommendations, further recommendations can be discharged, case management working on placement Onc Reccs 12/07: Palliative radiation started on Saturday. Patient has received treatment 5 of 15 treatments. Pneumonia, has completed antibiotics. Continue Epogen for chronic renal insufficiency on Saturday. The patient will need PET scan as outpatient. From an oncology standpoint, the patient could be discharged home. However, the patient states he cannot go home because his house has black mold in it. He also states he needs a place to stay that can accommodate his dog. It appears case management is working on placement issues. If he is placed, he will need daily transportation for his radiation treatments. 2. Healthcare associated pneumonia, resolved s/p ABX, treatment completed Bld Cx NG at 5 days x4 (final) 3. Hx of COPD No acute exacerbation Continue Duonebs and Mucinex PRN Encourage incentive spirometry and ambulation 3. Back pain Aggravated by hard table for radiation treatments Cont. Morphine and Oxycodone PRN 4. 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 Patient is undergoing radiation We will sign off for now on Allopurinol 100 mg daily 5. Hypokalemia, resolved K3.6 today Follow-up K in AM, Mag WNL today 6. DVT PPX: Heparin 7. Hypothyroidism Continue Levothyroxine 8. Anemia Hgb 8.6 from 9.4 Will obtain Fe studies Cont. to monitor 9. Hypertension Continue Atenolol Continue to monitor BP's Adjust dose as needed 10. Gout Prophylaxis Continue Allopurinol at 100mg QD (low-dose due to renal insufficiency) 11. Dispo: Pending placement, CM working on D/C planning, Home health care recommended but his home has black mold. Code Status: full Discussed Condition With: patient, RN
[2017-12-09] MEDS: oxyCODONE/Acetaminophen 10/325 Tablet PO PRN ×2 (13:50→17:54)
[2017-12-09 19:19] LABS: % Iron Saturation 12.2 % (20-50)
[2017-12-10] MEDS: Heparin - SQ 10,000 UNITS/ML Vial SQ SCH ×2 (05:42→19:14)
[2017-12-10] MEDS: Levothyroxine 112 MCG Tablet PO SCH (05:42)
[2017-12-10 07:11] LABS: Baso % (Auto) 0.5 % (0.0-2.0); Eos # (Auto) 0.2 th/mm3 (0.0-0.4); Hematocrit 24.7 % (39.0-51.0); Hemoglobin 8.3 gm/dL (13.0-17.0); Lymph # (Auto) 0.4 th/mm3 (1.0-4.8); Lymph % (Auto) 4.3 % (9.0-44.0); Mean Corpuscular HGB Conc 33.6 % (32.0-36.0); Mean Corpuscular Hemoglobin 29.3 pg (27.0-34.0); Mean Corpuscular Volume 87.3 fL (80.0-100.0); Mean Platelet Volume 7.4 fL (7.0-11.0); Mono # (Auto) 0.8 th/mm3 (0.0-0.9); Mono % (Auto) 8.8 % (0.0-8.0); Neut # (Auto) 7.2 th/mm3 (1.8-7.7); Neut % (Auto) 84.4 % (16.0-70.0); Platelet Count 176 th/mm3 (150-450); Red Blood Count 2.84 mil/mm3 (4.50-5.90); Red Cell Distribution Width 15.8 % (11.6-17.2); White Blood Count 8.5 th/mm3 (4.0-11.0)
[2017-12-10 07:34] LABS: Alanine Aminotransferase 18 U/L (12-78); Anion Gap 9 meq/L (5-15); Aspartate Aminotransferase 15 U/L (15-37); Blood Urea Nitrogen 55 mg/dL (7-18); Calcium 9.6 mg/dL (8.5-10.1); Carbon Dioxide 26.7 meq/L (21.0-32.0); Chloride 105 meq/L (98-107); Glomerular Filtration Rate 43 mL/min (>89); Glucose,Random 91 mg/dL (74-106); Potassium 3.6 meq/L (3.5-5.1); Sodium 141 meq/L (136-145)
[2017-12-10 07:36] LABS: Alkaline Phosphatase 94 U/L (45-117); Total Protein 6.9 g/dL (6.4-8.2)
[2017-12-10] MEDS: Albumin Human 25% Inj 100 ML IV.SIG SCH (09:09)
[2017-12-10] MEDS: Morphine Sulfate 30 MG SR Tablet PO SCH (09:09)
[2017-12-10] MEDS: Furosemide 20 MG Tablet PO SCH (09:09)
[2017-12-10] MEDS: guaiFENesin 600 MG ER Tablet PO SCH (09:09)
[2017-12-10] MEDS: Atenolol 50 MG Tablet PO SCH (09:09)
[2017-12-10] MEDS: Allopurinol 100 MG Tablet PO SCH (09:09)
[2017-12-10] MEDS: Sodium Chloride 0.9% 2 ML Flush BID IV.FLUSH SCH (09:10)
--- NOTE | 2017-12-10 14:10 | P.PN ---
Subjective Interval history: Patient doing well, reports that his daughter is still trying to find a place for her to stay. Patient is tolerating PO, voiding/stooling well. Physical Exam Vital signs: Vital Signs 12/09/17 16:00 12/09/17 18:28 12/09/17 20:00 Temperature 97.7 F 98.5 F Pulse Rate 84 83 Respiratory Rate 20 24 20 Blood Pressure 124/67 116/64 Pulse Oximetry 95 93 L 12/09/17 23:42 12/10/17 00:00 12/10/17 04:00 Temperature 98.5 F 98.3 F Pulse Rate 80 70 74 Respiratory Rate 20 18 Blood Pressure 118/72 128/62 Pulse Oximetry 96 91 L 12/10/17 08:00 12/10/17 12:00 Temperature 98.1 F 98.4 F Pulse Rate 83 89 Respiratory Rate 18 16 Blood Pressure 144/68 H 117/62 Pulse Oximetry 93 L 94 L Intake & Output 12/09/17 12/10/17 12/10/17 18:59 06:59 18:59 Intake Total 100 / 100 1060 / 1060 Output Total 500 / 500 1350 / 1350 Balance -400 / -400 -290 / -290 Weight 98.1 kg Intake: IV 100 / 100 100 / 100 Flexbumin 25% Inj 100 ML @ 60 100 / 100 100 / 100 mls/hr IV.SIG Q12H JAVIER Rx#: [id number] Oral 960 / 960 Output: Urine 500 / 500 1350 / 1350 Other: # Voids 2 Date of Last Bowel Movement 12/09/17 12/07/17 12/07/17 # Bowel Movements 1 1 Narrative: GENERAL: Well-nourished male, in no acute distress, lying comfortably in bed SKIN: Warm and dry. HEAD: Normocephalic. EYES: No scleral icterus. No injection or drainage. PERRLA. NECK: Supple, trachea midline. No JVD or lymphadenopathy. CARDIOVASCULAR: Regular rate and rhythm without murmurs, gallops, or rubs. RESPIRATORY: Breath sounds equal bilaterally. No accessory muscle use. GASTROINTESTINAL: Abdomen soft, non-tender, nondistended. MUSCULOSKELETAL: No cyanosis, or edema. BACK: Nontender without obvious deformity. No CVA tenderness. NEURO: AAO x3, no focal deficits. Results - Labs CBC & Chem 7: 12/10/17 06:06 12/10/17 06:06 Laboratory Results - last 24 hr 12/09/17 12/10/17 12/10/17 16:17 06:06 06:06 WBC 8.5 RBC 2.84 L Hgb 8.3 L Hct 24.7 L MCV 87.3 MCH 29.3 MCHC 33.6 RDW 15.8 Plt Count 176 MPV 7.4 Neut % (Auto) 84.4 H Lymph % (Auto) 4.3 L [place] % (Auto) 8.8 H Eos % (Auto) 2.0 Baso % (Auto) 0.5 Neut # (Auto) 7.2 Lymph # (Auto) 0.4 L [place] # (Auto) 0.8 Eos # (Auto) 0.2 Baso # (Auto) 0.0 WBC Differential . 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 Retroperitoneal squamous cell carcinoma Continuing radiation daily, started on 12/02 Continue Morphine, Oxycodone, and Zofran PRN Appreciate oncology recommendations, per their recommendations can be discharged , case management working on placement today Onc Reccs 12/07: Palliative radiation started on Saturday. Patient has received treatment 5 of 15 treatments. Pneumonia, has completed antibiotics. Continue Epogen for chronic renal insufficiency on Saturday. The patient will need PET scan as outpatient. From an oncology standpoint, the patient could be discharged home. However, the patient states he cannot go home because his house has black mold in it. He also states he needs a place to stay that can accommodate his dog. It appears case management is working on placement issues. If he is placed, he will need daily transportation for his radiation treatments. 2. Healthcare associated pneumonia, resolved s/p ABX, treatment completed Bld Cx NG at 5 days x4 (final) 3. Hx of COPD No acute exacerbation Continue Duonebs and Mucinex PRN Encourage incentive spirometry and ambulation 3. Back pain Aggravated by hard table for radiation treatments Cont. Morphine and Oxycodone PRN 4. 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 Patient is undergoing radiation We will sign off for now on Allopurinol 100 mg daily 5. Hypokalemia, resolved K3.5 today Follow-up K in AM, Mag WNL today 6. DVT PPX: Heparin 7. Hypothyroidism Continue Levothyroxine 8. Anemia, ion Def Hgb 8.3 from 8.6 SANNA per studies Rx FeSulfate 9. Hypertension Continue Atenolol Continue to monitor BP's Adjust dose as needed 10. Gout Prophylaxis Continue Allopurinol at 100mg QD (low-dose due to renal insufficiency) 11. Dispo: Pending placement, CM working on D/C planning, Home health care recommended but his home has black mold. Code Status: full Discussed Condition With: patient, risk management analyst Planning: patient, RN
--- NOTE | 2017-12-10 14:28 | P.DS ---
Date of admission: 11/26/17 17:01 Primary care physician: UNKNOWN Brief History from admission: This is a pleasant 77 y/o male with Hypertension, COPD, Retroperitoneal mass recently diagnosed as squamous cell carcinoma presents to the emergency department for evaluation of SOB despite being on ABX as an outpatient for PNA. Patient reports continued cough, shortness of breath, and fatigue. Patient denies sick contacts. Patient states that he was Dx 2 months ago by his Urologist, Dr. Dunlap, with a nonfunctional R kidney.Patient complained of chronic low back pain which is at baseline. Patient was recently discharged from this facility, when he was sent here again by PCP due to low O2 saturations. On that admission, CT chest showed numerous bilateral irregular masses. CT abdomen showed 2 lesions in the liver and a 7 cm lobular right retrocrural mass, Liver biopsy and retroperitoneal biopsy demonstrated SCC. DS: Diagnosis - Discharge Diagnosis (1) HTN (hypertension) Status: Chronic (2) ANIA (acute kidney injury) Status: Ruled-out (3) Diabetes Status: Chronic (4) Pneumonia Status: Resolved DS: Medications - Discharge Medications Prescriptions: allopurinol [Zyloprim] 100 mg PO DAILY #30 tab levothyroxine [Synthroid] 112 mcg PO DAILY@0600 #30 tab DS: Summary Hospital Course: Patient was admitted for pneumonia, healthcare associated, and was managed with Vancomycin and Cefepime x7 days. Patient also had acute kidney injury with creatinine 1.58 the day of discharge from creatinine 2.0 on admission. Nephrology was also consulted during the hospitalization and managed the patient with Lasix, Neupogen, and albumin and cleared him for D/C on 12/08. Due to the patient's retroperitoneal squamous cell carcinoma and ongoing radiation, he continued daily radiation while he was hospitalized, including a treatment on the day of discharge. Patient was found to have iron deficiency anemia with a hemoglobin of 8.3 on the day of discharge, patient was started on ferrous sulfate. Due to the acute on chronic renal insufficiency on albuterol, the dose for gout prophylaxis was decreased to 100mg daily. Although it was recommended the patient be transferred to a intermediate facility on discharge, patient reported that he had a dog at home and that he really wanted to be there. On the day of discharge patient has stable vital signs and was advised to follow-up as an outpatient with oncology for continued radiation. - Time Spent with Patient Total time spent providing and/or coordinating discharge services: Greater than 30 minutes Exam Vital signs: Vital Signs 12/09/17 16:00 12/09/17 18:28 12/09/17 20:00 Temperature 97.7 F 98.5 F Pulse Rate 84 83 Respiratory Rate 20 24 20 Blood Pressure 124/67 116/64 Pulse Oximetry 95 93 L 12/09/17 23:42 12/10/17 00:00 12/10/17 04:00 Temperature 98.5 F 98.3 F Pulse Rate 80 70 74 Respiratory Rate 20 18 Blood Pressure 118/72 128/62 Pulse Oximetry 96 91 L 12/10/17 08:00 12/10/17 12:00 Temperature 98.1 F 98.4 F Pulse Rate 83 89 Respiratory Rate 18 16 Blood Pressure 144/68 H 117/62 Pulse Oximetry 93 L 94 L Intake & Output 12/09/17 12/10/17 12/10/17 18:59 06:59 18:59 Intake Total 100 / 100 1060 / 1060 Output Total 500 / 500 1350 / 1350 Balance -400 / -400 -290 / -290 Weight 98.1 kg Intake: IV 100 / 100 100 / 100 Flexbumin 25% Inj 100 ML @ 60 100 / 100 100 / 100 mls/hr IV.SIG Q12H JAVIER Rx#: [id number] Oral 960 / 960 Output: Urine 500 / 500 1350 / 1350 Other: # Voids 2 Date of Last Bowel Movement 12/09/17 12/07/17 12/07/17 # Bowel Movements 1 1 Narrative: GENERAL: Well-nourished male, in no acute distress, lying comfortably in bed SKIN: Warm and dry. HEAD: Normocephalic. EYES: No scleral icterus. No injection or drainage. PERRLA. NECK: Supple, trachea midline. No JVD or lymphadenopathy. CARDIOVASCULAR: Regular rate and rhythm without murmurs, gallops, or rubs. RESPIRATORY: Breath sounds equal bilaterally. No accessory muscle use. GASTROINTESTINAL: Abdomen soft, non-tender, nondistended. MUSCULOSKELETAL: No cyanosis, or edema. BACK: Nontender without obvious deformity. No CVA tenderness. NEURO: AAO x3, no focal deficits. Results Procedures completed during hospitalization: radiation Labs on day of discharge: Labs from last 24 hours 10/12/10/17 12/09/17 06:06 06:06 16:17 WBC 8.5 RBC 2.84 L Hgb 8.3 L Hct 24.7 L MCV 87.3 MCH 29.3 MCHC 33.6 RDW 15.8 Plt Count 176 MPV 7.4 Neut % (Auto) 84.4 H Lymph % (Auto) 4.3 L [place] % (Auto) 8.8 H Eos % (Auto) 2.0 Baso % (Auto) 0.5 Neut # (Auto) 7.2 Lymph # (Auto) 0.4 L [place] # (Auto) 0.8 Eos # (Auto) 0.2 Baso # (Auto) 0.0 WBC Differential . Differential Comment Auto diff final Sodium 141 Potassium 3.6 Chloride 105 Carbon Dioxide 26.7 Anion Gap 9 BUN 55 H Creatinine 1.58 H Estimated GFR 43 L Random Glucose 91 Calcium 9.6 Iron 19 L TIBC 155 L % Saturation 12.2 L Total Bilirubin 0.8 AST 15 ALT 18 Alkaline Phosphatase 94 Total Protein 6.9 Albumin 4.0 - Impressions ITS Impressions Abdomen/Bladder Ultrasound 11/26/17 00:00 CONCLUSION: 1. Diffuse abnormal appearance of the right kidney consistent with a large mass. This appears to invade into the liver. 2. 4.4 cm cyst at the superior aspect of the left kidney. Chest X-Ray 11/26/17 14:28 CONCLUSION: New small right-sided effusion with a new mild right lower lung infiltrate. Venous Doppler Study 11/26/17 14:28 CONCLUSION: 1. No evidence of DVT. No significant change. Discharge Plan - Discharge Disposition Patient Disposition: 01 Discharge Home - Discharge Condition Condition: Good - Discharge Order Discharge Orders: Discharge Order (Routine); Ordered 12/10/17 Ordered By: Gabby Grant - Physicians Team Primary Care Provider: UNKNOWN, Attending Provider: Gabby Grant Other Providers: [employer] ; Michelle Jade MD ; Alonzo Hooker MD ; Minor Rogers MD
[2017-12-10] MEDS: oxyCODONE/Acetaminophen 10/325 Tablet PO PRN (16:07)
[2017-12-10] MEDS ORDERED: Ferrous Sulfate 325 MG Tablet PO SCH (17:00)
[2017-12-10 17:10] VITALS: BP 145/23; PULSE 77; RESP 18; TEMP 98.2; O2SAT 96
== END 2017-12-10 18:04 | disposition home or self-care (01) ==
LOC: NEPC 13:55 → NEDA 17:01 → N05 18:35
PROVIDERS: ADMIT Family Medicine; ATTEND Family Medicine

== ENCOUNTER 2018-01-13 19:27 | Inpatient (IN) ==
[2018-01-13] MEDS ORDERED: Morphine Sulfate Inj 2 MG/ML Vial IV.PUSH ONE (20:22)
--- NOTE | 2018-01-13 20:35 | ED ---
HPI General Chief Complaint: Chest Pain Stated Complaint: chest pain, tired Time Seen by Provider: 01/13/18 20:08 Source: patient Mode of arrival: wheelchair Limitations: physical limitation History of Present Illness HPI narrative: Mr Max is a 77 year old male who presents to the ED with chest pain that began this morning. He states the pain is a constant sharp pain that is rated a 7/10 and increases with inspiration and movement. He took hydrocodone at 4pm due to the pain with no relief. The patient has been diagnosed with right sided lung cancer and kidney cancer and is currently being treated. He denies cough, fatigue, nausea vomiting, or syncope. His PMH is positive for the lung and kidney cancer and hypothyroidism. He is not taking any blood thinners to his knowledge, but cannot remember all of his medications. The patient smoked cigarettes for 50 years but quit 12 years ago, drinks alcohol 1-2 times per year, and smokes marijuana for pain relief. The last time he smoked marijuana was earlier today. Related Data Home Medications Medication Instructions Recorded Confirmed atenolol 50 mg PO DAILY 10/29/17 01/14/18 Previous Rx's Medication Instructions Recorded oxycodone-acetaminophen 1 tab PO Q4H PRN #18 tab 11/22/17 zolpidem 10 mg PO HS PRN #3 tab 11/22/17 allopurinol [Zyloprim] 100 mg PO DAILY #30 tab 12/10/17 levothyroxine [Synthroid] 112 mcg PO DAILY@0600 #30 tab 12/10/17 Allergies Allergy/AdvReac Type Severity Reaction Status Date / Time No Known Allergies Allergy Verified 01/13/18 20:07 [facility] Medical History Medical History CKD (chronic kidney disease) (Acute) COPD (chronic obstructive pulmonary disease) (Acute) Gout (Acute) Hydronephrosis, right (Acute) Hypertension (Acute) Hypothyroidism (Acute) Pneumonia (Acute) Surgical History Surgical History Heel bone fracture (Acute) History of appendectomy (Acute) History of tonsillectomy (Acute) Family History Family History Mother CAD (coronary artery disease) Social History Social History Substance History: Active Abuse Second Hand Smoke Exposure: No Smoking Status: Former smoker (Quit smoking in 2005) Tobacco Type: Cigarettes Smoking End Date: 2005 How Often Do You Have a Drink Containing Alcohol: Monthly or less Recent Travel in [facility] within the Last 8 Weeks: No Recent Out of Country Travel within the Last 8 Weeks: No Exam Narrative Exam Narrative: GENERAL: Patient is a thin male who appears in moderate distress. SKIN: Warm and dry. HEAD: Atraumatic. Normocephalic. EYES: Pupils equal and round. No scleral icterus. No injection or drainage. ENT: No nasal bleeding or discharge. Mucous membranes pink and moist. NECK: Trachea midline. No JVD. CARDIOVASCULAR: Regular rate and rhythm. No murmurs rubs or gallops. RESPIRATORY: No accessory muscle use. Minimal inspiratory effort secondary to pain. Clear to auscultation. Breath sounds equal bilaterally. GASTROINTESTINAL: Abdomen soft, non-tender, nondistended. Hepatic and splenic margins not palpable. MUSCULOSKELETAL: Extremities without clubbing, or cyanosis. 2+ pitting edema in bilateral lower extremities up to the knees. Bilateral DP pulses 3+. NEUROLOGICAL: Awake and alert. No obvious cranial nerve deficits. Motor grossly within normal limits. Five out of 5 muscle strength in the arms and legs. Normal speech. PSYCHIATRIC: Appropriate mood and affect; insight and judgment normal. Course Initial Documented Vital Signs Temperature 97.6 F 01/13/18 20:03 Pulse Rate 80 01/13/18 20:03 Respiratory Rate 24 01/13/18 20:03 Blood Pressure 98/51 L 01/13/18 20:03 Pulse Oximetry 100 01/13/18 20:03 Last Documented Vital Signs Temperature 98 F 01/15/18 08:30 Pulse Rate 67 01/15/18 18:00 Respiratory Rate 23 01/15/18 18:00 Blood Pressure 131/72 01/15/18 18:00 Pulse Oximetry 100 01/15/18 19:55 Medical Decision Making LETY Attestation LETY supervised visit: Yes Attestation: I, Dr. Oleary, have reviewed the advance practice practitioner's documentation and am in agreement, met with the patient face to face, made the diagnosis, and the medical decision making was done by me. The patient was initially evaluated by Gabe, the LETY. Please see their complete history and physical. *My assessment and Findings: The patient presents with a history of right-sided chest pain, upper back pain that he reports is 7 out of 10 in severity and began in the morning earlier today. The patient reports that the pain is sharp in character. The patient reports a prior history of lung cancer and kidney cancer. The patient reports that his last radiation treatment was 2 weeks ago. He denies being on any chemotherapy currently. The patient's examination is remarkable for lower extremity edema that is 3+. During the course of the patient's emergency department visit, the patient's history, examination, and differential diagnosis were reviewed with the patient. The patient was placed on a leadership program associate with oximetry and frequent blood pressure monitoring. The patient had IV access obtained and blood work sent for analysis. The patient was initially provided morphine for pain, Zofran for nausea, normal saline IV fluids. Due to the patient's chest pain the patient did require additional doses of narcotic pain medication and was changed to Dilaudid for further pain control. The patient's diagnostic studies were reviewed and remarkable for a white count of 9.7, hemoglobin 10, platelets 181 with 87.6 neutrophils, lymphocytes 3.9, Chemistries remarkable for sodium of 135, BUN 34, creatinine 1.9, therefore a VQ scan was ordered to rule out PE instead of a CTA, glucose 107 total bilirubin 1.1, AST 13, ALT 10, alk phos 144, CPK and troponin I within normal limits, BNP 210, lipase within normal limits. A chest x-ray shows minimal right perihilar density likely infiltrate. Gallbladder x-ray reveals gallbladder wall thickening with a large gallstone, no biliary ductal dilatation heterogeneous right kidney similar to November 26. VQ scan reveals matching segment perfusion and ventilation defect in the right lung associated with consolidation, findings are indeterminate probability for PE. Given the patient's symptoms, the patient was started on heparin per PE protocol. The patient's case including history, pertinent physical examination findings, and laboratory studies were discussed with Dr. Olguin. It was agreed that the patient would be admitted to the hospitalist service. The patient's results were discussed with the patient, including the plan of care. I explained that further testing and/ or monitoring is indicated based on the patient's history, examination, and/ or laboratory findings. Therefore, I recommended admission for additional evaluation. The patient expressed understanding and was agreeable with this plan. The patient was admitted to the hospital in guarded condition and sent to a bed under the care of [facility] service. MDM Narrative Medical decision making narrative: 77 yo male here for evaluation of chest pain. Labs and imaging ordered. Labs and imaging showed possible PE. Case discussed with my attending Dr Oleary. Signed out to her pending admission to medical team Dr Olguin. Patient given morphine with improvement of pain. Started on Heparin per my attending's recommendations. Medical Screen Exam Complete: Yes Emergency Medical Condition: Yes Differential Diagnosis Differential Diagnosis: chest pain vs PE vs metastatic cancer Medical Records Medical records reviewed: Yes I reviewed the patient's medical records. Lab Data Lab results reviewed: Yes I reviewed the patient's lab results. Result diagrams: 01/15/18 03:39 01/15/18 03:39 Lab Results 01/13/18 01/13/18 01/13/18 Range/Units 20:30 20:30 20:30 WBC 9.7 (4.0-11.0) th/mm3 RBC 3.39 L (4.50-5.90) mil/mm3 Hgb 10.0 L (13.0-17.0) gm/dL Hct 29.5 L (39.0-51.0) % MCV 86.9 (80.0-100.0) fL MCH 29.5 (27.0-34.0) pg MCHC 34.0 (32.0-36.0) % RDW 18.2 H (11.6-17.2) % Plt Count 181 (150-450) th/mm3 MPV 7.0 (7.0-11.0) fL Neut % (Auto) 87.6 H (16.0-70.0) % Lymph % (Auto) 3.9 L (9.0-44.0) % Clark % (Auto) 7.3 (0.0-8.0) % Eos % (Auto) 0.7 (0.0-4.0) % Baso % (Auto) 0.5 (0.0-2.0) % Neut # (Auto) 8.5 H (1.8-7.7) th/mm3 Lymph # (Auto) 0.4 L (1.0-4.8) th/mm3 Clark # (Auto) 0.7 (0.0-0.9) th/mm3 Eos # (Auto) 0.1 (0.0-0.4) th/mm3 Baso # (Auto) 0.0 (0.0-0.2) th/mm3 WBC Differential . Differential Comment Auto diff final PT 11.1 (9.8-11.6) sec INR 1.1 Ratio APTT 31.0 (23.4-31.7) sec Sodium 135 L (136-145) meq/L Potassium 3.9 (3.5-5.1) meq/L Chloride 99 (98-107) meq/L Carbon Dioxide 26.2 (21.0-32.0) meq/L Anion Gap 10 (5-15) meq/L BUN 34 H (7-18) mg/dL Creatinine 1.90 H (0.60-1.30) mg/dL Estimated GFR 35 L (>89) mL/min Random Glucose 107 H (74-106) mg/dL Calcium 9.6 (8.5-10.1) mg/dL Magnesium 1.7 (1.5-2.5) mg/dL Total Bilirubin 1.1 H (0.2-1.0) mg/dL AST 13 L (15-37) U/L ALT 10 L (12-78) U/L Alkaline Phosphatase 144 H (45-117) U/L Total Creatine Kinase 15 L (39-308) U/L Troponin I Less than 0.02 L (0.02-0.05) ng/mL B-Natriuretic Peptide (0-100) pg/mL Total Protein 7.4 (6.4-8.2) g/dL Albumin 3.5 (3.4-5.0) g/dL Lipase 81 (73-393) U/L 01/13/18 01/14/18 01/14/18 Range/Units 20:30 00:55 04:37 WBC (4.0-11.0) th/mm3 RBC (4.50-5.90) mil/mm3 Hgb (13.0-17.0) gm/dL Hct (39.0-51.0) % MCV (80.0-100.0) fL MCH (27.0-34.0) pg MCHC (32.0-36.0) % RDW (11.6-17.2) % Plt Count (150-450) th/mm3 MPV (7.0-11.0) fL Neut % (Auto) (16.0-70.0) % Lymph % (Auto) (9.0-44.0) % Clark % (Auto) (0.0-8.0) % Eos % (Auto) (0.0-4.0) % Baso % (Auto) (0.0-2.0) % Neut # (Auto) (1.8-7.7) th/mm3 Lymph # (Auto) (1.0-4.8) th/mm3 Clark # (Auto) (0.0-0.9) th/mm3 Eos # (Auto) (0.0-0.4) th/mm3 Baso # (Auto) (0.0-0.2) th/mm3 WBC Differential Differential Comment PT 15.1 H (9.8-11.6) sec INR 1.5 Ratio APTT 46.2 H D (23.4-31.7) sec Sodium (136-145) meq/L Potassium (3.5-5.1) meq/L Chloride (98-107) meq/L Carbon Dioxide (21.0-32.0) meq/L Anion Gap (5-15) meq/L BUN (7-18) mg/dL Creatinine (0.60-1.30) mg/dL Estimated GFR (>89) mL/min Random Glucose (74-106) mg/dL Calcium (8.5-10.1) mg/dL Magnesium (1.5-2.5) mg/dL Total Bilirubin (0.2-1.0) mg/dL AST (15-37) U/L ALT (12-78) U/L Alkaline Phosphatase (45-117) U/L Total Creatine Kinase (39-308) U/L Troponin I Less than 0.02 L (0.02-0.05) ng/mL B-Natriuretic Peptide 210 H (0-100) pg/mL Total Protein (6.4-8.2) g/dL Albumin (3.4-5.0) g/dL Lipase (73-393) U/L 01/14/18 01/14/18 01/14/18 Range/Units 06:12 11:05 13:54 WBC (4.0-11.0) th/mm3 RBC (4.50-5.90) mil/mm3 Hgb (13.0-17.0) gm/dL Hct (39.0-51.0) % MCV (80.0-100.0) fL MCH (27.0-34.0) pg MCHC (32.0-36.0) % RDW (11.6-17.2) % Plt Count (150-450) th/mm3 MPV (7.0-11.0) fL Neut % (Auto) (16.0-70.0) % Lymph % (Auto) (9.0-44.0) % Clark % (Auto) (0.0-8.0) % Eos % (Auto) (0.0-4.0) % Baso % (Auto) (0.0-2.0) % Neut # (Auto) (1.8-7.7) th/mm3 Lymph # (Auto) (1.0-4.8) th/mm3 Clark # (Auto) (0.0-0.9) th/mm3 Eos # (Auto) (0.0-0.4) th/mm3 Baso # (Auto) (0.0-0.2) th/mm3 WBC Differential Differential Comment PT (9.8-11.6) sec INR Ratio APTT 29.6 D 59.8 H D (23.4-31.7) sec Sodium (136-145) meq/L Potassium (3.5-5.1) meq/L Chloride (98-107) meq/L Carbon Dioxide (21.0-32.0) meq/L Anion Gap (5-15) meq/L BUN (7-18) mg/dL Creatinine (0.60-1.30) mg/dL Estimated GFR (>89) mL/min Random Glucose (74-106) mg/dL Calcium (8.5-10.1) mg/dL Magnesium (1.5-2.5) mg/dL Total Bilirubin (0.2-1.0) mg/dL AST (15-37) U/L ALT (12-78) U/L Alkaline Phosphatase (45-117) U/L Total Creatine Kinase (39-308) U/L Troponin I Less than 0.02 L (0.02-0.05) ng/mL B-Natriuretic Peptide (0-100) pg/mL Total Protein (6.4-8.2) g/dL Albumin (3.4-5.0) g/dL Lipase (73-393) U/L 01/14/18 01/15/18 01/15/18 Range/Units 19:27 03:39 03:39 WBC 7.2 (4.0-11.0) th/mm3 RBC 2.91 L (4.50-5.90) mil/mm3 Hgb 8.3 L (13.0-17.0) gm/dL Hct 25.2 L (39.0-51.0) % MCV 86.7 (80.0-100.0) fL MCH 28.6 (27.0-34.0) pg MCHC 32.9 (32.0-36.0) % RDW 18.2 H (11.6-17.2) % Plt Count 142 L (150-450) th/mm3 MPV 6.7 L (7.0-11.0) fL Neut % (Auto) 88.2 H (16.0-70.0) % Lymph % (Auto) 3.1 L (9.0-44.0) % Clark % (Auto) 7.5 (0.0-8.0) % Eos % (Auto) 0.6 (0.0-4.0) % Baso % (Auto) 0.6 (0.0-2.0) % Neut # (Auto) 6.3 (1.8-7.7) th/mm3 Lymph # (Auto) 0.2 L (1.0-4.8) th/mm3 Clark # (Auto) 0.5 (0.0-0.9) th/mm3 Eos # (Auto) 0.0 (0.0-0.4) th/mm3 Baso # (Auto) 0.0 (0.0-0.2) th/mm3 WBC Differential . Differential Comment Auto diff final PT (9.8-11.6) sec INR Ratio APTT 74.5 H D (23.4-31.7) sec Sodium 137 (136-145) meq/L Potassium 3.3 L (3.5-5.1) meq/L Chloride 104 (98-107) meq/L Carbon Dioxide 25.8 (21.0-32.0) meq/L Anion Gap 7 (5-15) meq/L BUN 29 H (7-18) mg/dL Creatinine 1.51 H (0.60-1.30) mg/dL Estimated GFR 45 L (>89) mL/min Random Glucose 100 (74-106) mg/dL Calcium 8.6 D (8.5-10.1) mg/dL Magnesium (1.5-2.5) mg/dL Total Bilirubin (0.2-1.0) mg/dL AST (15-37) U/L ALT (12-78) U/L Alkaline Phosphatase (45-117) U/L Total Creatine Kinase (39-308) U/L Troponin I (0.02-0.05) ng/mL B-Natriuretic Peptide (0-100) pg/mL Total Protein (6.4-8.2) g/dL Albumin (3.4-5.0) g/dL Lipase (73-393) U/L 01/15/18 Range/Units 03:39 WBC (4.0-11.0) th/mm3 RBC (4.50-5.90) mil/mm3 Hgb (13.0-17.0) gm/dL Hct (39.0-51.0) % MCV (80.0-100.0) fL MCH (27.0-34.0) pg MCHC (32.0-36.0) % RDW (11.6-17.2) % Plt Count (150-450) th/mm3 MPV (7.0-11.0) fL Neut % (Auto) (16.0-70.0) % Lymph % (Auto) (9.0-44.0) % Clark % (Auto) (0.0-8.0) % Eos % (Auto) (0.0-4.0) % Baso % (Auto) (0.0-2.0) % Neut # (Auto) (1.8-7.7) th/mm3 Lymph # (Auto) (1.0-4.8) th/mm3 Clark # (Auto) (0.0-0.9) th/mm3 Eos # (Auto) (0.0-0.4) th/mm3 Baso # (Auto) (0.0-0.2) th/mm3 WBC Differential Differential Comment PT (9.8-11.6) sec INR Ratio APTT 69.6 H (23.4-31.7) sec Sodium (136-145) meq/L Potassium (3.5-5.1) meq/L Chloride (98-107) meq/L Carbon Dioxide (21.0-32.0) meq/L Anion Gap (5-15) meq/L BUN (7-18) mg/dL Creatinine (0.60-1.30) mg/dL Estimated GFR (>89) mL/min Random Glucose (74-106) mg/dL Calcium (8.5-10.1) mg/dL Magnesium (1.5-2.5) mg/dL Total Bilirubin (0.2-1.0) mg/dL AST (15-37) U/L ALT (12-78) U/L Alkaline Phosphatase (45-117) U/L Total Creatine Kinase (39-308) U/L Troponin I (0.02-0.05) ng/mL B-Natriuretic Peptide (0-100) pg/mL Total Protein (6.4-8.2) g/dL Albumin (3.4-5.0) g/dL Lipase (73-393) U/L Imaging Data Attestation: I personally reviewed and interpreted this imaging study as follows : Radiologist's impression: Chest X-Ray 01/13/18 20:09 CONCLUSION: Minimal right perihilar density likely infiltrate. Pulmonary Perfusion Imaging 01/13/18 21:33 CONCLUSION: 1. Matching segmental perfusion and ventilation defect in the right lung associated with consolidation. Finding is intermediate probability for pulmonary embolus. Gallbladder Ultrasound 01/13/18 21:37 CONCLUSION: 1. Gallbladder wall thickening with a large gallstone. No biliary ductal dilatation. 2. Enlarged heterogeneous right kidney similar in appearance to November 26. This has been previously evaluated on CT. Venous Doppler Study 01/14/18 00:27 CONCLUSION: 1. Development of extensive deep venous thrombosis in bilateral lower extremities extending from the common femoral vein through the popliteal and peroneal and posterior tibial veins. Chest CT 01/14/18 00:45 CONCLUSION: 1. Interval development of multiple cavitary nodules in both lungs as above, probably metastatic disease. 2. Marked progression of bony destructive lesion and soft tissue mass in the right posterior chest wall around the seventh rib now measuring up to about 5 cm in diameter. 3. Progression of right-sided retrocrural mass and mass in right renal fossa is prior exam. 4. Calcified gallstone. Moderate coronary calcifications. No effusions. ECG Data Attestation: I personally reviewed and interpreted this ECG as follows: Interpretation: EKG shows sinus rhythm with no sign of acute ischemia or arrhythmia read by me and attending. Discharge Plan Discharge Disposition Patient Disposition: 30 Still Patient Discharge Condition Condition: Fair Discharge Order Discharge Orders: Discharge Order (Routine); Ordered 01/15/18 Ordered By: Jacklyn Maria Discharge Details Anticipated Discharge Date: 01/15/18 Diagnosis: Chest pain, Metastatic disease, Pulmonary embolism Physicians Team ED Provider: Jihan Oleary ED Midlevel Provider: Gabe Colvin Primary Care Provider: Bay Moreno Attending Provider: Jacklyn Maria Other Providers: Cat Shelton ; Ruperto Russell ; Alonzo Hooker ; Nadine Castorena Status ED Status: Left Department Discharge Information Discharge Date/Time: 01/15/18 20:19
--- NOTE | 2018-01-13 20:50 | XR ---
EXAM DATE: 01/13/2018 8:45 PM EST AGE/SEX: 77 years / Male INDICATIONS: Chest pain and weakness. CLINICAL DATA: This is the patient's initial encounter. Patient reports that signs and symptoms have been present for 1 day and indicates a pain score of 8/10. MEDICAL/SURGICAL HISTORY: . Chronic obstructive pulmonary disease. Hypothyroidism. Hypertension . Hydronephrosis, right. Pneumonia. Appendectomy. Tonsillectomy. . [place] [facility] [place]. . FINDINGS: A single AP view of the chest demonstrates minimal right perihilar density. Left lung clear. Heart no rmal in size. Right-sided port unchanged The cardiomediastinal contours are unremarkable. Osseous st ructures are intact. CONCLUSION: Minimal right perihilar density likely infiltrate. Electronically signed by: Olaf oRbles MD 01/13/2018 8:49 PM EST
[2018-01-13] MEDS ORDERED: Sodium Chlor 0.9% Inj 500 ML IV.SIG SCH (21:00)
[2018-01-13 21:10] LABS: Baso % (Auto) 0.5 % (0.0-2.0); Eos # (Auto) 0.1 th/mm3 (0.0-0.4); Eos % (Auto) 0.7 % (0.0-4.0); Hematocrit 29.5 % (39.0-51.0); Lymph # (Auto) 0.4 th/mm3 (1.0-4.8); Lymph % (Auto) 3.9 % (9.0-44.0); Mean Corpuscular Hemoglobin 29.5 pg (27.0-34.0); Mean Corpuscular Volume 86.9 fL (80.0-100.0); Mono # (Auto) 0.7 th/mm3 (0.0-0.9); Mono % (Auto) 7.3 % (0.0-8.0); Neut # (Auto) 8.5 th/mm3 (1.8-7.7); Neut % (Auto) 87.6 % (16.0-70.0); Platelet Count 181 th/mm3 (150-450); Red Blood Count 3.39 mil/mm3 (4.50-5.90); Red Cell Distribution Width 18.2 % (11.6-17.2); White Blood Count 9.7 th/mm3 (4.0-11.0)
[2018-01-13 21:22] LABS: INR 1.1 Ratio; Prothrombin Time 11.1 sec (9.8-11.6)
[2018-01-13 21:26] LABS: Alanine Aminotransferase 10 U/L (12-78); Albumin 3.5 g/dL (3.4-5.0); Anion Gap 10 meq/L (5-15); Aspartate Aminotransferase 13 U/L (15-37); Blood Urea Nitrogen 34 mg/dL (7-18); Calcium 9.6 mg/dL (8.5-10.1); Carbon Dioxide 26.2 meq/L (21.0-32.0); Chloride 99 meq/L (98-107); Glomerular Filtration Rate 35 mL/min (>89); Glucose,Random 107 mg/dL (74-106); Lipase 81 U/L (73-393); Magnesium 1.7 mg/dL (1.5-2.5); Potassium 3.9 meq/L (3.5-5.1); Sodium 135 meq/L (136-145)
[2018-01-13 21:30] LABS: Alkaline Phosphatase 144 U/L (45-117); Total Protein 7.4 g/dL (6.4-8.2)
[2018-01-13 21:35] LABS: Creatine Kinase 15 U/L (39-308)
--- NOTE | 2018-01-13 23:23 | US ---
EXAM DATE: 01/13/2018 11:06 PM EST AGE/SEX: 77 years / Male INDICATIONS: Right upper quadrant pain. CLINICAL DATA: This is the patient's initial encounter. Patient reports that signs and symptoms have been present for 1 day and indicates a pain score of 4/10. MEDICAL/SURGICAL HISTORY: Chronic obstructive pulmonary disease. Hypertension. Hypothyroidism . Hydronephrosis. Appendectomy. Tonsillectomy. COMPARISON: [facility] [place] NEEDLE BIOPSY ABDOMEN, 11/15/2017. . MEASUREMENTS: Liver:__ 19.3 cm. Common Bile Duct:__ 6mm. FINDINGS: There is abnormal mural thickening of the gallbladder to about 4 mm gallstone present. Gallstone meenu ures up to 2.8 cm in diameter. No sonographic Marie's sign. Common bile duct measures about 6 mm in diameter. Increased liver echogenicity enlarged to 19.3 cm. The right kidney is enlarged with heterogeneous mell al mass similar in appearance to November 26. CONCLUSION: 1. Gallbladder wall thickening with a large gallstone. No biliary ductal dilatation. 2. Enlarged heterogeneous right kidney similar in appearance to November 26. This has been previously evaluated on CT. Electronically signed by: Fermin Phillips MD 01/13/2018 11:22 PM EST
--- NOTE | 2018-01-14 00:04 | NM ---
EXAM DATE: 01/13/2018 11:28 PM EST AGE/SEX: 77 years / Male INDICATIONS: Chest pain, rule out embolus. CLINICAL DATA: This is the patient's initial encounter. Patient reports that signs and symptoms have been present for 1 day and indicates a pain score of 3/10. MEDICAL/SURGICAL HISTORY: Chronic obstructive pulmonary disease. Hypertension. Hypothyroidism . Right hydronephrosis, pneumonia. Appendectomy. Tonsillectomy. COMPARISON: [facility], CHEST 1V SINGLE AP, 01/13/2018. . DOSE: 1.5 mCi Tc99m DTPA aerosol 8.8 mCi Tc99m MAA IV TECHNIQUE: Following five minutes of tidal breathing of DTPA aerosol, planar images of the lungs wer e performed in eight projections. The patient was then injected with MAA, and eight-view perfusion s can was performed. FINDINGS: There is a matching segmental perfusion defect in the right lung on both ventilation and perfusion im ages. Chest x-ray reveals an area of consolidation. No other segmental perfusion defects identified. CONCLUSION: 1. Matching segmental perfusion and ventilation defect in the right lung associated with consolidati on. Finding is intermediate probability for pulmonary embolus. Electronically signed by: Fermin Phillips MD 01/14/2018 12:03 AM EST
[2018-01-14] MEDS ORDERED: Heparin Drip 25,000 UNIT/250 ML BAG IV.CONT PRN (00:47)
[2018-01-14] MEDS ORDERED: Morphine Inj 4 MG/ML Vial IV.PUSH ONE (00:52)
[2018-01-14] MEDS ORDERED: HYDROmorphone PF Inj 2 MG/ML Vial IV.PUSH ONE (01:43)
--- NOTE | 2018-01-14 02:01 | US ---
EXAM DATE: 01/14/2018 1:47 AM EST AGE/SEX: 77 years / Male INDICATIONS: Bilateral leg swelling. CLINICAL DATA: This is the patient's subsequent encounter. Patient reports that signs and symptoms h ave been present for 2 months and indicates a pain score of 10/10. MEDICAL/SURGICAL HISTORY: . Kidney and lung cancer. Radiation. None. COMPARISON: [facility] [place], [place] VENOUS DOPPLER LEG BI, 11/26/2017. . TECHNIQUE: Venous ultrasound of both lower extremities was performed from the inguinal ligament to t he proximal calf. Real-time, color Doppler and spectral tracing, compression and augmentation techni ques were used. FINDINGS: Extensive deep venous thrombosis in the left and right lower extremity extending from the common femo ral vein femoral vein, popliteal vein and peroneal and posterior tibial veins. CONCLUSION: 1. Development of extensive deep venous thrombosis in bilateral lower extremities extending from the common femoral vein through the popliteal and peroneal and posterior tibial veins. Electronically signed by: Fermin Phillips MD 01/14/2018 2:00 AM EST
[2018-01-14 02:19] LABS: Activated Partial Thrombo Time 46.2 sec (23.4-31.7); INR 1.5 Ratio; Prothrombin Time 15.1 sec (9.8-11.6)
--- NOTE | 2018-01-14 02:21 | CT ---
EXAM DATE: 01/14/2018 2:09 AM EST AGE/SEX: 77 years / Male INDICATIONS: Shortness of breath. Evaluate for infiltrate. CLINICAL DATA: This is the patient's initial encounter. Patient reports that signs and symptoms have been present for 1 day and indicates a pain score of 0/10. MEDICAL/SURGICAL HISTORY: Chronic obstructive pulmonary disease. Hypertension. Hypothyroidism. Ap pendectomy. Tonsillectomy. RADIATION DOSE: 12.63 CTDI (mGy) [place] [facility] [place]14[place]. . TECHNIQUE: Multiple contiguous axial images were obtained through the chest without contrast. Image s were obtained in suspended respiration using multiple row detector helical technique. Using automa celena exposure control and adjustment of the mA and/or kV according to patient size, radiation dose was kept as low as reasonably achievable to obtain optimal diagnostic quality images. DICOM format imag e data is available electronically for review and comparison. FINDINGS: [id number] is present in superior vena cava. There is interval development of multiple cavitary no dules in both lungs ranging in size from subcentimeter to about 2.8 cm in diameter in the left lower lobe with clear progression from November 14. There is an irregular noncavitary nodule in the left l ower lobe measuring up to 2.7 x 2.6 cm. There is marked progression of the bony destructive lesion with soft tissue mass in the right seventh rib posteriorly measuring up to about 5 cm in diameter. Right-sided retrocrural mass measures up to 7.7 x 4.8 cm, slightly increased since prior exam. Mass i n the upper right renal fossa has increased in size with probable invasion into the right lobe of the liver. Oblique AP diameter is increased from about 11.3 to 13.3 cm in diameter. CONCLUSION: 1. Interval development of multiple cavitary nodules in both lungs as above, probably metastatic dis ease. 2. Marked progression of bony destructive lesion and soft tissue mass in the right posterior chest w all around the seventh rib now measuring up to about 5 cm in diameter. 3. Progression of right-sided retrocrural mass and mass in right renal fossa is prior exam. 4. Calcified gallstone. Moderate coronary calcifications. No effusions. Electronically signed by: Fermin Phillips MD 01/14/2018 2:20 AM EST
[2018-01-14] MEDS ORDERED: Acetaminophen 325 MG Tablet PO PRN (03:44)
[2018-01-14] MEDS ORDERED: Bisacodyl 10 MG Supp RECTAL PRN (03:44)
[2018-01-14] MEDS: Sod Chloride 0.9% Inj 1,000 ML IV.CONT SCH ×2 (08:14→20:31)
--- NOTE | 2018-01-14 10:45 | MB ---
cc: Ruperto Russell MD DATE: 01/14/2018 HISTORY OF PRESENT ILLNESS: The patient is a 77-year-old male with a past medical history of hypertension, COPD, metastatic lung CA, and renal cancer, status post palliative radiation treatment 15 sessions total, ended a couple of weeks ago. He presented to [facility] ED with generalized weakness, fatigue, right flank pain, shortness of breath and edema of lower extremities. The patient was found to have acute kidney injury with a creatinine level of 1.9. Venous Doppler ultrasound of the lower extremities showed development of extensive DVT bilateral lower extremities, extending from the common femoral vein through the popliteal and peroneal and posterior tibial veins. He was started on a heparin drip. The patient also had a V/Q scan which showed intermediate probability for pulmonary embolism. A CT scan of the chest was obtained earlier this morning, which showed progression of multiple cavitary nodules in both lungs, in addition to progression of bony destructive lesion and soft tissue mass in the right posterior chest wall around the 7th rib, measures about 5 cm and the progression of right-sided retrocrural mass and a mass in the right renal fossa. The patient denies any cough or constitutional symptoms. In addition, he denies any wheezing or exposure to sick contacts. PAST MEDICAL HISTORY: Significant for hypertension, metastatic lung cancer, renal cancer, status post palliative radiation treatment, COPD. PAST SURGICAL HISTORY: As above. ALLERGIES: NO KNOWN DRUG ALLERGIES. SOCIAL HISTORY: Ex-smoker, quit smoking 12 years ago and used to smoke a pack and half a day for about 50 years. Occasional drinker. FAMILY HISTORY: Noncontributing to present illness. MEDICATIONS AT HOME: Include: 1. Levothyroxine. 2. Atenolol. 3. Allopurinol. REVIEW OF SYSTEMS: As per HPI. The rest of review of systems unremarkable. PHYSICAL EXAMINATION: GENERAL: A 77-year-old male lying in bed, in no acute distress. VITAL SIGNS: Afebrile, temperature of 97.6, pulse of 70, respiratory rate 24, blood pressure 104/51 with a MAP of 68, saturation 100%. HEENT: Atraumatic, normocephalic. Pupils are equal, round, and reactive to light and accommodation. Extraocular muscles intact. Conjunctivae are pink. Nonicteric sclerae. Oral mucosa within normal. NECK: Supple. No JVD, adenopathy or thyromegaly. Trachea in the midline. CARDIOVASCULAR: Regular rate and rhythm. Normal S1, S2. No murmurs, rubs or gallops noted. PULMONARY: Bilaterally clear. No rales or wheezing. ABDOMEN: Soft, nontender. No distention. Positive bowel sounds. EXTREMITIES: No cyanosis, clubbing, 3+ edema. NEUROLOGIC: No focal sensory deficit. LABORATORY DATA: WBC 9.7, hemoglobin 10, hematocrit 29.5, platelet count of 181. Sodium 135, potassium 3.9, chloride 99, CO2 of 26, BUN 34, creatinine 1.90, glucose 107. Troponin less than 0.02 x2 sets. RADIOGRAPHIC STUDIES: A chest CT showed multiple cavitary liver lesions in both lungs, probably metastatic disease, and a progression of bony destructive lesion and soft tissue mass in the right posterior chest wall around the 7th rib and the right renal mass. V/Q scan showed an intermediate probability for a pulmonary embolism. Doppler ultrasound of lower extremities showed bilateral DVT. IMPRESSION: 1. Respiratory insufficiency. 2. Multiple cavitary lung nodules, likely related to metastatic disease. 3. Metastatic squamous cell carcinoma. 4. Renal carcinoma. 5. Bilateral deep venous thrombosis lower extremity. 6. Chronic obstructive pulmonary disease. 7. History of tobacco abuse. 8. Acute kidney injury. 9. Anemia. RECOMMENDATIONS: 1. Continue with oxygen and maintain saturations above 92%. 2. Bronchodilators in the form of DuoNeb every 4 hours plus every 2 hours p.r.n. for shortness of breath. 3. Place on Symbicort 160/4.5 two puffs b.i.d. 4. BiPAP p.r.n. for respiratory distress. 5. Continue with heparin drip and monitor PTT per protocol. 6. Obtain a 2-D echo to evaluate LV function. 7. Hematology service has been consulted by the primary team. The patient status post palliative radiation treatment to his kidneys, which ended a few weeks ago. He was supposed to start chemotherapy; however, that was placed on hold per patient due to his overall poor general condition. 8. Monitor for signs of infection, which include fever and WBC. We will obtain a sputum culture with Gram stain. 9. A CT scan of the chest showed development of multiple cavitary nodules in both lungs with progression from 11/14/2017 CT study. This is likely related to metastatic lung disease. 10. Continue other medical management per primary team. 12. Further recommendations will be based on hospital course. Thank you for the consultation and allowing us to participate in this patient's care. MD GALLO Falcon/jhon , 10:03 AM , 10:17 AM
--- NOTE | 2018-01-14 11:31 | P.HP ---
History of Present Illness Service: [facility] Hospitalist service Primary Care Physician: Bay Moreno MD Chief Complaint: Chest pain, shortness of breath History of Present Illness: Patient is a 77-year-old male diagnosed with metastatic squamous cell carcinoma status and renal cell carcinoma. Patient just completed 15 treatments of radiation therapy about 2 weeks ago[address] Followed by Dr. Gong from oncology service and Dr. Boggs from radiation oncology. The plan was for patient to start possible chemotherapy this coming Saturday. Patient baseline is still independent with ADLs however for the past 1 week now has been complaining of shortness of breath, poor p.o. appetite. Patient complains of pain all over mainly on the right flank area. This morning in addition patient also complained of right-sided chest pain and pain on both legs- right > left. On exam patient also was noted to have bilateral leg swelling per patient has been going on for about a week now right more than left. Patient states at one point he was on baby aspirin but is not taking this on a regular basis. On evaluation the ER was noted to have extensive DVT of both lower extremity more on the right. Pulmonary angiogram was intermediate for pulmonary embolism. CTA was not done because of BUN and creatinine of 1.9. Patient admitted for further evaluation and management. Inpatient Certification: I certify that the inpatient services were ordered in accordance with Medicare regulations governing the order. This includes certification that hospital inpatient services are reasonable and necessary and in the case of services not specified as inpatient-only under 42 CFR 419.22(n), that they are appropriately provided as inpatient services in accordance to with the 2-midnight benchmark under 43 CFR 412.3(e) Estimated Total Length of Stay (Days): 3 Plans for Post Hospital Care: Not yet determined Review of Systems Afebrile. Easy fatigability, shortness of breath Denies any bleeding tendencies Poor p.o. appetite Occasional dry cough No nausea no vomiting Denies any melena or hematochezia bowel movements constipation every 3-4 days Bilateral leg swelling as stated in HPI PMFSH - History History Provided By: Patient - Medical History Medical History: Medical History (Last Reviewed 01/14/18 @ 13:20 by NIKKIE Crowe) COPD (chronic obstructive pulmonary disease) Hydronephrosis, right Hypertension Hypothyroidism Pneumonia - Surgical History Surgical History: Surgical History (Last Reviewed 01/14/18 @ 13:20 by NIKKIE Crowe) Heel bone fracture History of appendectomy History of tonsillectomy - Family History Family History: Family History (Last Reviewed 01/14/18 @ 13:20 by NIKKIE Crowe) Mother CAD (coronary artery disease) - Tobacco History Second Hand Smoke Exposure: No Smoking Status: Former smoker Tobacco Type: Cigarettes Smoking End Date: 2005 - Alcohol History How Often Do You Have a Drink Containing Alcohol: Monthly or less - Substance Use History 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 - Travel History Recent Travel in the [place] Within the Last 8 Weeks: No Recent Travel Out of the Country Within the Last 8 Weeks: No - Immunization History Tetanus Immunization: >5 Years Medications and Allergies Active Medications: Active Medications Acetaminophen (Tylenol) 650 mg PO Q4H PRN PRN Reason: Temp > 100.4 Albuterol (Duoneb Neb (Eric)) 1 ampul NEB Q4HR NEB ERIC Last Admin: 01/14/18 10:20 Dose: 1 ampul Albuterol (Duoneb Neb (Prn)) 1 ampul NEB Q2HR NEB PRN PRN Reason: DYSPNEA Bisacodyl (Dulcolax Supp) 10 mg RECTAL DAILY PRN PRN Reason: SEVERE CONSITIPATION Budesonide/Formoterol Fumarate (Symbicort 160/4.5 Mcg Inh) 2 puff INH BID [facility] Heparin Sodium/Dextrose (Heparin/D5w 25,000 U/250 Ml) 25,000 unit in 250 mls @ 0 mls/hr IV.CONT TITRATE PRN; Protocol PRN Reason: Per Protocol Last Admin: 01/14/18 07:45 Dose: 1,800 units/hr, 18 mls/hr Sodium Chloride (Ns Inj) 1,000 mls @ 75 mls/hr IV.CONT .[id number] [facility] Last Admin: 01/14/18 08:14 Dose: 75 mls/hr Ondansetron HCl (Zofran Inj) 4 mg IV.PUSH Q6H PRN PRN Reason: NAUSEA OR VOMITING Sennosides (Senokot) 17.2 mg PO Q12H PRN PRN Reason: Moderate Constipation Sodium Chloride (Ns Flush) 2 ml IV.FLUSH UNSCH PRN PRN Reason: FLUSH AFTER USING IV ACCESS Allergies Allergy/AdvReac Type Severity Reaction Status Date / Time No Known Allergies Allergy Verified 01/13/18 20:07 Home Medications Medication Instructions Recorded Confirmed Type atenolol 50 mg PO DAILY 10/29/17 01/14/18 History Exam Vital signs: Vital Signs 01/13/18 20:03 01/13/18 20:07 01/13/18 20:09 Temperature 97.6 F Pulse Rate 80 75 75 Respiratory Rate 24 25 H 25 H Blood Pressure 98/51 L 134/76 134/76 Pulse Oximetry 100 100 100 01/14/18 00:58 01/14/18 07:00 01/14/18 10:22 Temperature Pulse Rate 74 70 68 Respiratory Rate 22 24 21 Blood Pressure 105/55 L 104/51 L Pulse Oximetry 100 100 01/14/18 11:11 01/14/18 11:12 Temperature Pulse Rate 72 Respiratory Rate 20 Blood Pressure 99/51 L Pulse Oximetry 100 100 Intake & Output 01/13/18 01/14/18 01/14/18 18:59 06:59 18:59 Intake Total 500 / 500 Balance 500 / 500 Weight 90.718 kg Intake: IV 500 / 500 NS Inj 500 ML @ 1000 mls/hr IV. 500 / 500 SIG BOLUS ERIC Rx#:[id number] Narrative: Awake alert oriented x3 not in any form of distress at present on exam Chest pain most likely with pulmonary embolism with extensive DVT on both lower extremity -Patient started on heparin drip. -Oncology consulted patient known to and the value. Will defer to them regarding starting newer oral anticoagulants like Eliquis. Metastatic lung cancer, renal cell carcinoma, Status post radiation treatment 15 sessions 2 weeks ago -PRN pain meds Plan was to do chemotherapy. Will defer to oncology service History of gout continue on allopurinol 100 mg daily History of hypertension continue atenolol 50 mg daily History of hypothyroidism continue on Synthroid 100 mcg daily Results - Labs CBC & Chem 7: 01/15/18 03:39 01/15/18 03:39 Labs: Laboratory Results - last 24 hr 01/13/18 01/13/18 01/13/18 20:30 20:30 20:30 WBC 9.7 RBC 3.39 L Hgb 10.0 L Hct 29.5 L MCV 86.9 MCH 29.5 MCHC 34.0 RDW 18.2 H Plt Count 181 MPV 7.0 Neut % (Auto) 87.6 H Lymph % (Auto) 3.9 L Caswell % (Auto) 7.3 Eos % (Auto) 0.7 Baso % (Auto) 0.5 Neut # (Auto) 8.5 H Lymph # (Auto) 0.4 L Caswell # (Auto) 0.7 Eos # (Auto) 0.1 Baso # (Auto) 0.0 WBC Differential . Differential Comment Auto diff final PT 11.1 INR 1.1 APTT 31.0 Sodium 135 L Potassium 3.9 Chloride 99 Carbon Dioxide 26.2 Anion Gap 10 BUN 34 H Creatinine 1.90 H Estimated GFR 35 L Random Glucose 107 H Calcium 9.6 Magnesium 1.7 Total Bilirubin 1.1 H AST 13 L ALT 10 L Alkaline Phosphatase 144 H Total Creatine Kinase 15 L Troponin I Less than 0.02 L B-Natriuretic Peptide Total Protein 7.4 Albumin 3.5 Lipase 81 01/13/18 01/14/18 01/14/18 20:30 00:55 04:37 WBC RBC Hgb Hct MCV MCH MCHC RDW Plt Count MPV Neut % (Auto) Lymph % (Auto) Caswell % (Auto) Eos % (Auto) Baso % (Auto) Neut # (Auto) Lymph # (Auto) Caswell # (Auto) Eos # (Auto) Baso # (Auto) WBC Differential Differential Comment PT 15.1 H INR 1.5 APTT 46.2 H D Sodium Potassium Chloride Carbon Dioxide Anion Gap BUN Creatinine Estimated GFR Random Glucose Calcium Magnesium Total Bilirubin AST ALT Alkaline Phosphatase Total Creatine Kinase Troponin I Less than 0.02 L B-Natriuretic Peptide 210 H Total Protein Albumin Lipase 01/14/18 06:12 WBC RBC Hgb Hct MCV MCH MCHC RDW Plt Count MPV Neut % (Auto) Lymph % (Auto) Caswell % (Auto) Eos % (Auto) Baso % (Auto) Neut # (Auto) Lymph # (Auto) Caswell # (Auto) Eos # (Auto) Baso # (Auto) WBC Differential Differential Comment PT INR APTT 29.6 D Sodium Potassium Chloride Carbon Dioxide Anion Gap BUN Creatinine Estimated GFR Random Glucose Calcium Magnesium Total Bilirubin AST ALT Alkaline Phosphatase Total Creatine Kinase Troponin I B-Natriuretic Peptide Total Protein Albumin Lipase - Imaging Impressions Chest X-Ray 01/13/18 20:09 CONCLUSION: Minimal right perihilar density likely infiltrate. Pulmonary Perfusion Imaging 01/13/18 21:33 CONCLUSION: 1. Matching segmental perfusion and ventilation defect in the right lung associated with consolidation. Finding is intermediate probability for pulmonary embolus. Gallbladder Ultrasound 01/13/18 21:37 CONCLUSION: 1. Gallbladder wall thickening with a large gallstone. No biliary ductal dilatation. 2. Enlarged heterogeneous right kidney similar in appearance to November 26. This has been previously evaluated on CT. Venous Doppler Study 01/14/18 00:27 CONCLUSION: 1. Development of extensive deep venous thrombosis in bilateral lower extremities extending from the common femoral vein through the popliteal and peroneal and posterior tibial veins. Chest CT 01/14/18 00:45 CONCLUSION: 1. Interval development of multiple cavitary nodules in both lungs as above, probably metastatic disease. 2. Marked progression of bony destructive lesion and soft tissue mass in the right posterior chest wall around the seventh rib now measuring up to about 5 cm in diameter. 3. Progression of right-sided retrocrural mass and mass in right renal fossa is prior exam. 4. Calcified gallstone. Moderate coronary calcifications. No effusions. Caprini VTE Risk Assessment Caprini Risk Assessment Model: Point Value = 1 Point Value = 2 Point Value = 3 Point Value = 5 Age 41-60 Minor surgery BMI > 25 kg/m2 Swollen legs Varicose veins or History of unexplained or recurrent spontaneous Oral contraceptives or hormone replacement Sepsis (< 1 month) Serious lung disease, including pneumonia (< 1 month) Abnormal pulmonary function Acute myocardial infarction Congestive heart failure (< 1 month) History of inflammatory bowel disease Medical patient at bed rest Age 61-74 Arthroscopic surgery Major open surgery (> 45 min) Laparoscopic surgery (> 45 min) Malignancy Confined to bed (> 72 hours) Immobilizing plaster cast Central venous access Age >= 75 History of VTE Family history of VTE Factor V Leiden Prothrombin [id number] Lupus anticoagulant Anticardiolipin antibodies Elevated serum homocysteine Heparin-induced thrombocytopenia Other congenital or acquired thrombophilia Stroke (< 1 month) Elective arthroplasty Hip, pelvis, or leg fracture Acute spinal cord injury (< 1 month) Prophylaxis Regimen: Total Risk Factor Score Risk Level Prophylaxis Regimen 0-1 Low Early ambulation 2 Moderate Order ONE of the following: *Sequential Compression Device (SCD) *Heparin 5000 units SQ BID 3-4 Higher Order ONE of the following medications: *Heparin 5000 units SQ TID *Enoxaparin/Lovenox 40 mg SQ daily (WT < 150 kg, CrCl > 30 mL/min) *Enoxaparin/Lovenox 30 mg SQ daily (WT < 150 kg, CrCl > 10-29 mL/min) *Enoxaparin/Lovenox 30 mg SQ BID (WT < 150 kg, CrCl > 30 mL/min) AND/OR *Sequential Compression Device (SCD) 5 or more Highest Order ONE of the following medications: *Heparin 5000 units SQ TID (Preferred with Epidurals) *Enoxaparin/Lovenox 40 mg SQ daily (WT < 150 kg, CrCl > 30 mL/min) *Enoxaparin/Lovenox 30 mg SQ daily (WT < 150 kg, CrCl > 10-29 mL/min) *Enoxaparin/Lovenox 30 mg SQ BID (WT < 150 kg, CrCl > 30 mL/min) AND *Sequential Compression Device (SCD) Assessment and Plan - Plan 77 ywars old male presenting with chest pain /shortness of breath and leg pain/ swelling Likely Pulmonary embolism with extensive DVT on both lower extremity R > L Acute Bilateral LE DVT -Patient started on heparin drip. - 12 LEKG- no acute changes, SR , occ PVCs. troponins x 3 negative -Oncology consulted patient known to Dr. Gong. Will defer to them regarding starting newer oral anticoagulants like Eliquis or Lovenox in the setting of malignancy -02 prn - VQ scan intermediate, CTA not performed due to elevated creatinine Metastatic lung cancer, renal cell carcinoma, mets to 7th rib Status post radiation treatment 15 sessions 2 weeks ago - Pulmonary service consulted - PRN pain meds.- continue on Oxycodone /APA 10/325 mg po q 4 prn for pain - 02 prn - Plan was to do eventual chemotherapy. Will defer to oncology service History of gout continue on allopurinol 100 mg daily History of hypertension continue atenolol 50 mg daily History of hypothyroidism continue on Synthroid 100 mcg daily CKI with history of Renal carcinoma - creatine near baseline Constipation- - colace 100 mg bid Incidental gallstone - LFTs normal Poor po appetite- dietitian consult will need d/w patient advance directives will await for Oncology recommendation
[2018-01-14] MEDS: Budesonide-Formoterol 160/4.5 MCG 6 GM Inhaler INH SCH ×2 (11:48→21:28)
[2018-01-14] MEDS: oxyCODONE/Acetaminophen 10/325 Tablet PO PRN ×2 (13:35→18:45)
[2018-01-14] MEDS: Senna/Docusate Sodium 8.6/50 MG Tablet PO SCH ×2 (14:19→21:28)
--- NOTE | 2018-01-14 15:29 | MB ---
cc: Alonzo Hooker MD DATE: 01/14/2018 REQUESTING PHYSICIAN: Hospitalist. REASON FOR CONSULTATION: Evaluation of metastatic lung cancer and new onset DVTs. HISTORY OF PRESENT ILLNESS: Mr. Max is a 77-year-old gentleman, who is known to me from prior management of his metastatic cancer. He presented with a large retroperitoneal right-sided abdominal mass that was biopsy positive for metastatic squamous cell cancer. Initially, it was thought to be of renal origin, but being squamous cell, it was decided that it is most likely a lung primary as he did have a lung mass and had a history of smoking. The patient was in severe pain from the right posterior abdominal mass that was engulfing the right kidney and he had radiation for pain relief, which was actually quite successful. His general condition deteriorated. He came to my office about a week ago with his daughter, and they were discussing hospice versus supportive care as he is generally not doing well, especially also living alone and having social issues with his home, etc. The patient has been more and more care dependent according to the daughter. Currently, he is admitted with chest pain and shortness of breath and on questioning, he is complaining of pain all over, specifically in the right posterior chest wall and abdominal wall. He is asking for pain medication. He does not have any acute shortness of breath at rest, but he has been having shortness of breath with increasing leg swellings over the last several weeks. REVIEW OF SYSTEMS: Denies any headaches, motor or sensory symptoms. No blurring of vision. No blackouts. No hemoptysis. No cough or abdominal pain, distention, nausea, vomiting, blood in the stool or black stools. His appetite is poor. He is eating less and he is losing weight. He has no fevers or night sweats. PAST MEDICAL HISTORY: As above. In addition, he has history of COPD, hypertension, right-sided hydronephrosis caused by the tumor and pneumonia. PAST SURGICAL HISTORY: He had appendectomy, tonsillectomy and CT-guided biopsy of the right upper abdominal mass in the renal angle. A heavy history of smoking in the past and alcohol use, currently away from alcohol for the last few months. SOCIAL HISTORY: He lives alone and has issues with his home and also takes care of his dog. He had a social work consultation in the past and his daughter lives 1-2 miles away from his home. MEDICATIONS: Reviewed. PHYSICAL EXAMINATION: GENERAL: Elderly gentleman, chronically ill-appearing with evidence of recent weight loss, mild distress secondary to pain. VITAL SIGNS: Stable. He is afebrile. Pallor present. No icterus. No palpable adenopathy in the neck or axilla. Alert and oriented x4. No meningeal signs. Nonfocal. No JVD. CARDIOVASCULAR: S1, S2, regular rate and rhythm. LUNGS: Clear with decreased air entry to the bases. No crackles or wheeze. ABDOMEN: Slightly distended, soft with right upper quadrant and right posterior abdominal tenderness. No free fluid or guarding. EXTREMITIES: 3-4+ bipedal edema and ultrasound Doppler is positive for lower extremity DVTs and CT angiogram negative for PE, pulmonary perfusion imaging positive for matching segmental perfusion and ventilation defect in the right lung associated consolidation of intermediate probability for pulmonary embolus and venous Dopplers positive for bilateral lower extremity DVTs extending from the common femoral vein through the popliteal vein, peroneal, and posterior tibial veins. CT of the chest could not be performed because of the creatinine of 1.[address] chest showed interval development of multiple cavitary nodules in both lungs. Marked progression of bony destructive soft tissue mass in the right posterior chest wall around the seventh rib, now measuring approximately 5 cm in diameter, progression of right-sided retrocrural mass and mass in the right renal fossa. IMPRESSION: Metastatic lung cancer to retroperitoneal mass and right kidney as well as multiple bony metastases, all increasing in extent of disease as well as causing bilateral lower extremity deep venous thromboses. At this point, he is not a candidate for aggressive systemic therapy as discussed with patient and his daughter last week in the office. He had a PET CT scan, which was pending and he is not a candidate for repeat biopsy for molecular markers, etc. at this time for the reasons mentioned above. Hence, I would recommend pain management, narcotics supportive care and will not give him Megace at this point because of the deep venous thromboses and possible pulmonary emboli and anticoagulation per primary team. I will be available for further consultation as needed. I have asked Mr. Max for his daughter to call me to discuss further care. Alonzo V. Andavolu, MD MVA/ct , 02:19 PM , 02:32 PM
--- NOTE | 2018-01-14 15:33 | ECG ---
Date Performed: 01/14/2018 Time Performed: 05:37:28 PTAGE: 77 years EKG: Sinus rhythm WITH OCCASIONAL VENTRICULAR PREMATURE COMPLEXES BORDERLINE ECG PREVIOUS TRACING : 01/13/2018 20.16 Since the previous tracing, no significant change noted DOCTOR: Victor M Norris Interpretating Date/Time 01/14/2018 15:31:26
--- NOTE | 2018-01-14 15:33 | ECG ---
Date Performed: 01/13/2018 Time Performed: 20:16:48 PTAGE: 77 years EKG: Sinus rhythm NONSPECIFIC T-WAVE ABNORMALITY BORDERLINE ECG PREVIOUS TRACING :11/27/2017 @17.14 Since the previous tracing, no significant change noted DOCTOR: Victor M Norris Interpretating Date/Time 01/14/2018 15:31:18
--- NOTE | 2018-01-14 18:48 | ECHRPT ---
Indication: SHORT OF BREATH CONCLUSIONS Normal left ventricular size. Mild concentric left ventricular hypertrophy. The left ventricular systolic function is low normal with an estimated ejection fraction in the rang e of 50- 55%. The right ventricle is moderately dilated. Mitral annular calcification is present. Earom-pu-ritn mitral valve regurgitation. Mild thickening of the aortic valve leaflets. Trivial pulmonary valve regurgitation. The estimated pulmonary arterial pressure is 30 mmHg. BP: / HR: Rhythm: MEASUREMENTS (Male / Female) Normal Values Technical Quality: 2D ECHO LV Diastolic Diameter PLAX 3.9 cm 4.2 - 5.9 / 3.9 - 5.3 cm LV Systolic Diameter PLAX 2.7 cm IVS Diastolic Thickness 1.8 cm 0.6 - 1.0 / 0.6 - 0.9 cm LVPW Diastolic Thickness 1.3 cm 0.6 - 1.0 / 0.6 - 0.9 cm LV Relative Wall Thickness 0.8 RV Internal Dim ED PLAX 3.5 cm LVOT Diameter 2.6 cm Aortic Root Diameter 3.2 cm LA Systolic Diameter LX 3.5 cm 3.0 - 4.0 / 2.7 - 3.8 cm LV Ejection Fraction MOD 4C 49.3 % LV Ejection Fraction 4C AL 53.4 % M-MODE Aortic Root Diameter MM 3.7 cm LA Systolic Diameter MM 4.4 cm LA Ao Ratio MM 1.2 AV Cusp Separation MM 2.1 cm DOPPLER AV Peak Velocity 100.0 cm/s AV Peak Gradient 4.0 mmHg LVOT Peak Velocity 100.0 cm/s LVOT Peak Gradient 4.0 mmHg AV Area Cont Eq pk 5.3 cm Mitral E Point Velocity 56.8 cm/s Mitral A Point Velocity 83.4 cm/s Mitral E to A Ratio 0.7 LV E' Lateral Velocity 5.1 cm/s Mitral E to LV E' Lateral Ratio 11.2 LV E' Septal Velocity 5.9 cm/s Mitral E to LV E' Septal Ratio 9.5 TR Peak Velocity 223.0 cm/s TR Peak Gradient 19.9 mmHg Right Atrial Pressure 10.0 mmHg Pulmonary Artery Systolic Pressu 29.9 mmHg Right Ventricular Systolic Press 29.9 mmHg PV Peak Velocity 103.0 cm/s PV Peak Gradient 4.2 mmHg FINDINGS LEFT VENTRICLE Normal left ventricular size. Mild concentric left ventricular hypertrophy. The left ventricular systolic function is low normal with an estimated ejection fraction in the rang e of 50- 55%. RIGHT VENTRICLE The right ventricle is moderately dilated. LEFT ATRIUM The left atrial size is normal. RIGHT ATRIUM The right atrial size is normal. ATRIAL SEPTUM Normal atrial septal thickness without atrial level shunting by limited color doppler interrogation. AORTA The aortic root and proximal ascending aorta are not well visualized. MITRAL VALVE Mitral annular calcification is present. [id number] mitral valve regurgitation. AORTIC VALVE The aortic valve is not well visualized. Mild thickening of the aortic valve leaflets. No aortic valve stenosis or regurgitation. TRICUSPID VALVE The tricuspid valve is not well visualized. There is mild tricuspid valve regurgitation. The estimated pulmonary arterial pressure is 30 mmHg. PULMONARY VALVE Trivial pulmonary valve regurgitation. VESSELS The inferior vena cava was not well visualized. PERICARDIUM No pericardial effusion. Jorge Mays (Electronically Signed) Final Date:14 January 2018 18:47
[2018-01-15 03:50] LABS: Baso % (Auto) 0.6 % (0.0-2.0); Eos % (Auto) 0.6 % (0.0-4.0); Hematocrit 25.2 % (39.0-51.0); Hemoglobin 8.3 gm/dL (13.0-17.0); Lymph # (Auto) 0.2 th/mm3 (1.0-4.8); Lymph % (Auto) 3.1 % (9.0-44.0); Mean Corpuscular HGB Conc 32.9 % (32.0-36.0); Mean Corpuscular Hemoglobin 28.6 pg (27.0-34.0); Mean Corpuscular Volume 86.7 fL (80.0-100.0); Mean Platelet Volume 6.7 fL (7.0-11.0); Mono # (Auto) 0.5 th/mm3 (0.0-0.9); Mono % (Auto) 7.5 % (0.0-8.0); Neut # (Auto) 6.3 th/mm3 (1.8-7.7); Neut % (Auto) 88.2 % (16.0-70.0); Platelet Count 142 th/mm3 (150-450); Red Blood Count 2.91 mil/mm3 (4.50-5.90); Red Cell Distribution Width 18.2 % (11.6-17.2); White Blood Count 7.2 th/mm3 (4.0-11.0)
[2018-01-15] MEDS: oxyCODONE/Acetaminophen 10/325 Tablet PO PRN ×2 (03:56→09:48)
[2018-01-15 04:18] LABS: Calcium 8.6 mg/dL (8.5-10.1); Carbon Dioxide 25.8 meq/L (21.0-32.0); Potassium 3.3 meq/L (3.5-5.1)
[2018-01-15] MEDS ORDERED: Levothyroxine 112 MCG Tablet PO SCH (06:00)
--- NOTE | 2018-01-15 08:42 | P.PNPL ---
Subjective Interval history: Patient is lying in bed in NAD. Afebrile. States that he hasn't's slept for days. Physical Exam Vital signs: Vital Signs 01/14/18 10:22 01/14/18 11:11 01/14/18 11:12 Temperature Pulse Rate 68 72 Respiratory Rate 21 20 Blood Pressure 99/51 L Pulse Oximetry 100 100 01/14/18 15:08 01/14/18 15:31 01/14/18 19:33 Temperature Pulse Rate 78 75 74 Respiratory Rate 20 22 18 Blood Pressure 98/57 L Pulse Oximetry 96 01/14/18 19:47 01/14/18 22:07 01/14/18 23:33 Temperature Pulse Rate 80 82 96 H Respiratory Rate 24 28 H Blood Pressure 94/53 L 100/61 Pulse Oximetry 100 99 100 01/14/18 23:49 01/15/18 01:00 01/15/18 07:54 Temperature Pulse Rate 86 98 H Respiratory Rate 16 23 Blood Pressure 90/54 L Pulse Oximetry 100 100 01/15/18 08:30 Temperature 98 F Pulse Rate 71 Respiratory Rate 18 Blood Pressure 95/53 L Pulse Oximetry 97 Intake & Output 01/14/18 01/15/18 01/15/18 18:59 06:59 18:59 Intake Total 1000 / 1000 Output Total 600 / 600 Balance 400 / 400 Intake: IV 1000 / 1000 Heparin/D5W 25,000 U/250 mL 25, 0 / 0 000 unit In 250 ml @ Per Protocol IV.CONT TITRATE PRN Rx #:[id number] NS Inj 1,000 ML @ 75 mls/hr IV. 1000 / 1000 CONT .[id number] [facility] Rx#:[id number] Output: Urine 600 / 600 - Constitutional no acute distress - Routine HEENT Exam Head: Present: normocephalic, atraumatic Eye: Present: EOMI, PERRL, normal accommodation, conjunctivae pink ENT: Present: mucous membranes moist - Routine Neck Exam Present: supple, full ROM, trachea midline - Routine Respiratory Exam Present: CTA bilaterally - Routine Cardiovascular Exam Present: RRR, S1, S2 - Routine Abdominal Exam Present: soft, normoactive bowel sounds - Routine Extremities Exam Present: full ROM, pulses intact, normal capillary refill - Routine Skin Exam Present: intact - Routine Neurological Exam Present: alert, oriented X3, CN II-XII intact Assessment and Plan - Plan 1. Respiratory insufficiency. 2. Multiple cavitary lung nodules, likely related to metastatic disease. 3. Metastatic squamous cell carcinoma. 4. Renal carcinoma. 5. Bilateral deep venous thrombosis lower extremity. 6. COPD. 7. History of tobacco abuse. 8. Acute kidney injury. 9. Anemia. Plan Continue with oxygen and maintain sats> 92%. Bronchodilators(DuoNeb, Symbicort) Continue with heparin drip and monitor PTT per protocol. Echo showed EF 50-55%, PAP 30mmHg Short course IV steroids ( Solumederol 40mg IV Q6 x 4doses)- mild increase work of breathing CT chest showed development of multiple cavitary nodules in both lungs with progression from 11/14/2017 CT study. This is likely related to metastatic lung disease. Oncology is following-Metastatic lung cancer to retroperitoneal mass and right kidney as well as multiple bony metastases, all increasing in extent of disease. Patient is not a candidate for aggressive systemic therapy per Oncology due to poor functional status. Consult palliative care to asses with goals of care. Continue pain control/supportive care .
[2018-01-15] MEDS ORDERED: Allopurinol 100 MG Tablet PO SCH (09:00)
[2018-01-15] MEDS ORDERED: Atenolol 50 MG Tablet PO SCH (09:00)
[2018-01-15] MEDS: Budesonide-Formoterol 160/4.5 MCG 6 GM Inhaler INH SCH (09:30)
--- NOTE | 2018-01-15 11:12 | P.CONPAL ---
Consult Service: Palliative Care Requesting Physician: Abbi Li Reason for Consult: a. To assist with evaluation and management of symptoms including: pain, anxiety, insomnia b. To assist medical decision maker(s) with: better understanding of current medical conditions; weighing benefits/burdens of medical treatment options; making medical treatment decisions. Primary Care Provider: Bay Moreno MD History of Present Illness History of Present Illness: Mr. Max is a 77 year old male who presented to [facility] on 01/13/2018 with sharp chest pain that began earlier in the day. Pain was rated 7/10 and worsened with inspiration or movement. Patient was recently diagnosed with metastatic lung cancer and renal cell carcinoma. Patient completed 15 treatments of radiation therapy approximately 2 weeks ago. Followed by Dr. Gong from oncology service and Dr. Boggs from radiation oncology. The tentative plan was for the patient to start chemotherapy Today 01/15/18. Diagnostic data: * Vital signs: Pulse 80, respirations 24, BP 98/51, oxygen saturation 100% on room air and oral temperature 97.6 * WBC: 9.7, hemoglobin 10.0, hematocrit 29.5, platelets 181, neutrophils 87.6% * PT: 11.1, INR 1.1, APTT 31.0 * Sodium: 135, potassium 3.9, chloride 99, carbon dioxide 26.2, random glucose 107, calcium 9.6, magnesium 1.7 * BUN: 34, creatinine 1.90, GFR 35 * Total bilirubin: 1.1, AST 13, ALT 10, alkaline phosphatase 144 * Total creatine kinase: 15 * Troponin: <0.02 * BNP: 210 * Total protein: 7.4, albumin 3.5 * Chest x-ray showing minimal right perihilar density, likely infiltrate * Gallbladder ultrasound revealed gallbladder wall thickening with a large gallstone; no biliary ductal dilatation; enlarged heterogeneous right kidney similar in appearance to previous imaging on 11/26/17 The patient was initially provided morphine for pain, ondansetron for nausea, IV fluids. On exam, patient was noted to have 3+ edema in lower extremities bilaterally. V/Q scan showed intermediate probability for pulmonary embolism; patient started on heparin drip per PE protocol. Pulmonology and oncology were consulted. Venous Doppler of the bilateral lower extremities showed development of extensive DVT in both legs extending from the common femoral vein through the popliteal and peroneal and posterior tibial veins. CT chest with interval development of multiple cavitary nodules in both lungs, probably metastatic disease. Marked progression of bony destructive lesions and soft tissue mass in the right posterior chest wall around the 7th rib now measuring approximately 5 cm in diameter; progression of right-sided retrocrural mass and a mass in the right renal fossa. Dr. Li, pulmonology, evaluated the patient. Patient was started on scheduled and PRN DuoNeb treatments and Symbicort. We will continue heparin drip and monitor PTT per protocol. An echocardiogram showed low-normal left ventricular systolic function with an estimated EF of 50-55% Dr. Hooker, oncology, is familiar with this patient with metastatic lung cancer to retroperitoneal mass and right kidney as well as multiple bony metastasis, all with disease progression. As discussed with the patient and his daughter during a recent office visit, he is not a candidate for aggressive systemic therapy at this time. Dr. Hooker recommending pain management and supportive care at this time. Palliative Care was consulted to assist with symptom management and to discuss with the patient the benefits and burdens of his current illnesses and the options regarding future care. Patient reports he has become progressively more weak and his appetite has been poor. He tells me the radiation treatments have not worked, and he has been told he is not a candidate for further aggressive interventions at this time due to disease progression and poor performance status. Per review of notes, the patient has lost > 40 pounds in the past few months. Patient complains of severe pain in his left chest/torso that is somewhat relieved for a short period of time after receiving Percocet 10/325mg which is currently available every 4 hours as needed. Patient tells me he has not slept in 3 days because of his pain and what his worsening medical condition. Patient does not wish for further diagnostic procedures or aggressive interventions. He states his primary goal at this time is symptom management. He thinks it is probably time to transition to comfort focused care and has asked to speak with someone from hospice. The process of cardiopulmonary resuscitation was discussed at length; patient requesting CODE STATUS be changed to NO CODE-DNR/DNI. Discussed with patient's RN, Samantha, and Dr. Maria. Hospice was consulted; hospice intake noted. Function/Cognitive Trajectory: Patient states he was living in his home alone, but there were "social issues." He has been staying with a friend but does not think he can go back there. His step-daughter who is the HCS lives a few miles down the road; she feels the patient is becoming increasingly weak and requiring more assistance with care. Review of Systems Constitutional: Reports anorexia, Reports lack of energy, Reports weight loss ( Approximately 40lb unintentional weight loss in recent months) Cardiovascular: Reports chest pain Respiratory: Reports pain on inspiration Musculoskeletal: Reports decreased muscle mass PMFSH - History History Provided By: Patient - Medical History Medical History: Medical History (Last Updated 01/15/18 @ 10:59 by ANJALI Muniz) CKD (chronic kidney disease) Gout COPD (chronic obstructive pulmonary disease) Hydronephrosis, right Hypertension Hypothyroidism Pneumonia - Surgical History Surgical History: Surgical History (Last Reviewed 01/14/18 @ 13:20 by NIKKIE Crowe) Heel bone fracture History of appendectomy History of tonsillectomy - Family History Family History: Family History (Last Reviewed 01/14/18 @ 13:20 by NIKKIE Crowe) Mother CAD (coronary artery disease) - Social History I have reviewed the patient's Social History: Yes - Tobacco History Second Hand Smoke Exposure: No Smoking Status: Former smoker (Quit smoking in 2005) Tobacco Type: Cigarettes Smoking End Date: 2005 - Alcohol History How Often Do You Have a Drink Containing Alcohol: Monthly or less - Substance Use History 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 Reason for Use: Calm Down - Travel History Recent Travel in the [place] Within the Last 8 Weeks: No Recent Travel Out of the Country Within the Last 8 Weeks: No - Immunization History Tetanus Immunization: >5 Years Medications and Allergies Active Medications: Active Medications Acetaminophen (Tylenol) 650 mg PO Q4H PRN PRN Reason: Temp > 100.4 Albuterol (Duoneb Neb (Eric)) 1 ampul NEB Q4HR NEB ERIC Last Admin: 01/15/18 07:54 Dose: Not Given Albuterol (Duoneb Neb (Prn)) 1 ampul NEB Q2HR NEB PRN PRN Reason: DYSPNEA Allopurinol (Zyloprim) 100 mg PO DAILY ERIC Atenolol (Tenormin) 50 mg PO DAILY ERIC Bisacodyl (Dulcolax Supp) 10 mg RECTAL DAILY PRN PRN Reason: SEVERE CONSITIPATION Budesonide/Formoterol Fumarate (Symbicort 160/4.5 Mcg Inh) 2 puff INH BID [facility] Last Admin: 01/14/18 21:28 Dose: 2 puff Heparin Sodium/Dextrose (Heparin/D5w 25,000 U/250 Ml) 25,000 unit in 250 mls @ 0 mls/hr IV.CONT TITRATE PRN; Protocol PRN Reason: Per Protocol Last Titration: 01/14/18 21:39 Dose: 1,800 units/hr, 18 mls/hr Sodium Chloride (Ns Inj) 1,000 mls @ 75 mls/hr IV.CONT .[id number] [facility] Last Admin: 01/14/18 20:31 Dose: 75 mls/hr Levothyroxine Sodium (Synthroid) 112 mcg PO DAILY@0600 [facility] Last Admin: 01/15/18 06:14 Dose: 112 mcg Methylprednisolone Sodium Succinate (Solumedrol Inj) 40 mg IV.PUSH Q6HR [facility] Ondansetron HCl (Zofran Inj) 4 mg IV.PUSH Q6H PRN PRN Reason: NAUSEA OR VOMITING Oxycodone/Acetaminophen (Percocet 10/325 Mg) 1 tab PO Q4H PRN PRN Reason: PAIN SCALE 6 TO 10 Last Admin: 01/15/18 09:48 Dose: 1 tab Senna/Docusate Sodium (Diane-Colace) 1 tab PO BID [facility] Last Admin: 01/14/18 21:28 Dose: 1 tab Sennosides (Senokot) 17.2 mg PO Q12H PRN PRN Reason: Moderate Constipation Sodium Chloride (Ns Flush) 2 ml IV.FLUSH UNSCH PRN PRN Reason: FLUSH AFTER USING IV ACCESS Zolpidem Tartrate (Ambien) 10 mg PO HS PRN PRN Reason: INSOMNIA Last Admin: 01/14/18 22:12 Dose: 10 mg Allergies Allergy/AdvReac Type Severity Reaction Status Date / Time No Known Allergies Allergy Verified 01/13/18 20:07 Home Medications Medication Instructions Recorded Confirmed Type atenolol 50 mg PO DAILY 10/29/17 01/14/18 History Advance Directives Healthcare Surrogate: Yes Health Care Surrogate Name and Number: Emi [place] (step-daughter) Power of Ham Clerk Relationship to Patient: Other (step-daughter) Today's verbally stated goals: Patient states his primary goal is symptom management. He complains ongoing pain and insomnia, both of which contribute to his anxiety Family/friends goals: No family present Ethical and Legal Issues: No known ethical or legal issues at this time. Physical Exam Vital Signs: Vital Signs - 24 hr 01/14/18 11:11 01/14/18 11:12 01/14/18 15:08 Temperature Pulse Rate 72 78 Respiratory Rate 20 20 Blood Pressure 99/51 L 98/57 L Pulse Oximetry 100 100 01/14/18 15:31 01/14/18 19:33 01/14/18 19:47 Temperature Pulse Rate 75 74 80 Respiratory Rate 22 18 24 Blood Pressure 94/53 L Pulse Oximetry 96 100 01/14/18 22:07 01/14/18 23:33 01/14/18 23:49 Temperature Pulse Rate 82 96 H 86 Respiratory Rate 28 H 16 Blood Pressure 100/61 Pulse Oximetry 99 100 01/15/18 01:00 01/15/18 07:54 01/15/18 08:30 Temperature 98 F Pulse Rate 98 H 71 Respiratory Rate 23 18 Blood Pressure 90/54 L 95/53 L Pulse Oximetry 100 100 97 01/15/18 08:34 Temperature Pulse Rate Respiratory Rate Blood Pressure Pulse Oximetry 100 I&O: Intake & Output 01/13/18 01/14/18 01/15/18 01/16/18 06:59 06:59 06:59 06:59 Intake Total 500 / 500 1000 / 1000 Output Total 600 / 600 Balance 500 / 500 400 / 400 Weight 90.718 kg Physical Exam: CONSTITUTIONAL/GENERAL: This is a frail, disheveled appearing elderly male patient in no acute distress TUBES/LINES/DRAINS: PIV x 2, VAD right chest, nasal cannula SKIN: No jaundice, rashes, or lesions. No wounds seen anteriorly. Skin temperature appropriate. Not diaphoretic. HEAD: Atraumatic. Normocephalic. EYES: Pupils equal and round and reactive. Extraocular motions intact. No scleral icterus. No injection or drainage. Fundi not examined. ENT: Hearing grossly normal. Nose without bleeding or purulent drainage. Throat without visible erythema, exudates, masses, or lesions. Oral mucosa moist NECK: Trachea midline. Supple, nontender. No palpable thyroid enlargement or nodularity. CARDIOVASCULAR: Regular rate and rhythm without murmurs. No JVD. Peripheral pulses symmetric. RESPIRATORY/CHEST: Symmetric, unlabored respirations. Breath sounds diminished bilaterally. No wheezes, rales, or rhonchi. GASTROINTESTINAL: Abdomen soft, non-tender, nondistended. No hepato-splenomegaly , or palpable masses. No guarding. Bowel sounds present. GENITOURINARY: Without palpable bladder distension. MUSCULOSKELETAL: Extremities without clubbing or cyanosis. 3+ edema in bilateral lower extremities LYMPHATICS: No palpable cervical or supraclavicular adenopathy. NEUROLOGICAL: Awake and alert. Motor and sensory grossly within normal limits. Follows commands. Cognitively sharp. Moves all extremities. PSYCHIATRIC: No obvious anxiety/depression. No apparent hallucinations or other psychotic thought process. Diagnostic Tests Laboratory: Laboratory Results - last 72 hr 01/13/18 01/13/18 01/13/18 20:30 20:30 20:30 WBC 9.7 RBC 3.39 L Hgb 10.0 L Hct 29.5 L MCV 86.9 MCH 29.5 MCHC 34.0 RDW 18.2 H Plt Count 181 MPV 7.0 Neut % (Auto) 87.6 H Lymph % (Auto) 3.9 L Ashley % (Auto) 7.3 Eos % (Auto) 0.7 Baso % (Auto) 0.5 Neut # (Auto) 8.5 H Lymph # (Auto) 0.4 L Ashley # (Auto) 0.7 Eos # (Auto) 0.1 Baso # (Auto) 0.0 WBC Differential . Differential Comment Auto diff final PT 11.1 INR 1.1 APTT 31.0 Sodium 135 L Potassium 3.9 Chloride 99 Carbon Dioxide 26.2 Anion Gap 10 BUN 34 H Creatinine 1.90 H Estimated GFR 35 L Random Glucose 107 H Calcium 9.6 Magnesium 1.7 Total Bilirubin 1.1 H AST 13 L ALT 10 L Alkaline Phosphatase 144 H Total Creatine Kinase 15 L Troponin I Less than 0.02 L B-Natriuretic Peptide Total Protein 7.4 Albumin 3.5 Lipase 81 01/13/18 01/14/18 01/14/18 20:30 00:55 04:37 WBC RBC Hgb Hct MCV MCH MCHC RDW Plt Count MPV Neut % (Auto) Lymph % (Auto) Ashley % (Auto) Eos % (Auto) Baso % (Auto) Neut # (Auto) Lymph # (Auto) Ashley # (Auto) Eos # (Auto) Baso # (Auto) WBC Differential Differential Comment PT 15.1 H INR 1.5 APTT 46.2 H D Sodium Potassium Chloride Carbon Dioxide Anion Gap BUN Creatinine Estimated GFR Random Glucose Calcium Magnesium Total Bilirubin AST ALT Alkaline Phosphatase Total Creatine Kinase Troponin I Less than 0.02 L B-Natriuretic Peptide 210 H Total Protein Albumin Lipase 01/14/18 01/14/18 01/14/18 06:12 11:05 13:54 WBC RBC Hgb Hct MCV MCH MCHC RDW Plt Count MPV Neut % (Auto) Lymph % (Auto) Ashley % (Auto) Eos % (Auto) Baso % (Auto) Neut # (Auto) Lymph # (Auto) Ashley # (Auto) Eos # (Auto) Baso # (Auto) WBC Differential Differential Comment PT INR APTT 29.6 D 59.8 H D Sodium Potassium Chloride Carbon Dioxide Anion Gap BUN Creatinine Estimated GFR Random Glucose Calcium Magnesium Total Bilirubin AST ALT Alkaline Phosphatase Total Creatine Kinase Troponin I Less than 0.02 L B-Natriuretic Peptide Total Protein Albumin Lipase 01/14/18 01/15/18 01/15/18 19:27 03:39 03:39 WBC 7.2 RBC 2.91 L Hgb 8.3 L Hct 25.2 L MCV 86.7 MCH 28.6 MCHC 32.9 RDW 18.2 H Plt Count 142 L MPV 6.7 L Neut % (Auto) 88.2 H Lymph % (Auto) 3.1 L Ashley % (Auto) 7.5 Eos % (Auto) 0.6 Baso % (Auto) 0.6 Neut # (Auto) 6.3 Lymph # (Auto) 0.2 L Ashley # (Auto) 0.5 Eos # (Auto) 0.0 Baso # (Auto) 0.0 WBC Differential . Differential Comment Auto diff final PT INR APTT 74.5 H D Sodium 137 Potassium 3.3 L Chloride 104 Carbon Dioxide 25.8 Anion Gap 7 BUN 29 H Creatinine 1.51 H Estimated GFR 45 L Random Glucose 100 Calcium 8.6 D Magnesium Total Bilirubin AST ALT Alkaline Phosphatase Total Creatine Kinase Troponin I B-Natriuretic Peptide Total Protein Albumin Lipase 01/15/18 03:39 WBC RBC Hgb Hct MCV MCH MCHC RDW Plt Count MPV Neut % (Auto) Lymph % (Auto) Ashley % (Auto) Eos % (Auto) Baso % (Auto) Neut # (Auto) Lymph # (Auto) Ashley # (Auto) Eos # (Auto) Baso # (Auto) WBC Differential Differential Comment PT INR APTT 69.6 H Sodium Potassium Chloride Carbon Dioxide Anion Gap BUN Creatinine Estimated GFR Random Glucose Calcium Magnesium Total Bilirubin AST ALT Alkaline Phosphatase Total Creatine Kinase Troponin I B-Natriuretic Peptide Total Protein Albumin Lipase Result Diagrams: 01/15/18 03:39 01/15/18 03:39 Imaging: Chest X-Ray 01/13/18 20:09 CONCLUSION: Minimal right perihilar density likely infiltrate. Pulmonary Perfusion Imaging 01/13/18 21:33 CONCLUSION: 1. Matching segmental perfusion and ventilation defect in the right lung associated with consolidation. Finding is intermediate probability for pulmonary embolus. Gallbladder Ultrasound 01/13/18 21:37 CONCLUSION: 1. Gallbladder wall thickening with a large gallstone. No biliary ductal dilatation. 2. Enlarged heterogeneous right kidney similar in appearance to November 26. This has been previously evaluated on CT. Venous Doppler Study 01/14/18 00:27 CONCLUSION: 1. Development of extensive deep venous thrombosis in bilateral lower extremities extending from the common femoral vein through the popliteal and peroneal and posterior tibial veins. Chest CT 01/14/18 00:45 CONCLUSION: 1. Interval development of multiple cavitary nodules in both lungs as above, probably metastatic disease. 2. Marked progression of bony destructive lesion and soft tissue mass in the right posterior chest wall around the seventh rib now measuring up to about 5 cm in diameter. 3. Progression of right-sided retrocrural mass and mass in right renal fossa is prior exam. 4. Calcified gallstone. Moderate coronary calcifications. No effusions. Patient/Family Conference Present at Family Conference: Spoke with patient at bedside Family Conference Location: Bedside Issues Discussed: * Palliative care role, purpose, approach * Additional medical, psychosocial, and spiritual history * Patients general health, functional status, and cognitive changes in the months leading up to the current hospitalization * Patient/family understanding of the current medical problems * Patient/family understanding of prognosis * Patients goals of care as best understood from advance directives and/or conversations and/or values * Current medical treatment options and benefits/burdens of those options * Likely scenarios comparing ongoing aggressive care with a transition to comfort measures only * Questions answered to the best of my ability * Palliative care contact information provided Assessment and Plan - Disease Oriented Problem List (1) ANIA (acute kidney injury) (2) COPD (chronic obstructive pulmonary disease) (3) Respiratory insufficiency (4) Lung nodules (5) Metastatic squamous cell carcinoma (6) Renal carcinoma (7) DVT (deep venous thrombosis) Pertinent Non-Medical Issues: Psychosocial: Patient is originally from [place]. 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 He remains legally but is and has not seen his in over a year. Patient has a stepdaughter, Emi Membreno, with whom he is very close. He has designated her as his healthcare surrogate decision-maker Spiritual: Non-church Legal: Healthcare surrogate designation form completed 01/15/2018. Patient was given the original document. Copies were placed in the patient's paper chart and given to be hospice admission nurse. Emi Barcenas, is designated as the healthcare surrogate decision-maker. Ethical issues impacting care: No known ethical issues impacting care at this time. Important Contacts: Emi Membreno, family/other: [phone] Prognosis: 77 year old male with metastatic squamous cell carcinoma with progressive decline in functional status and unmanaged pain. Currently, he is not a candidate for further treatment due to disease progression and poor performance status. Patient does not wish to pursue further diagnostic procedures or aggressive interventions. He is requesting hospice services for end-of-life care and symptom management. Life expectancy is less than 6 months. Code Status: No Code DNR Plan: CODE STATUS changed to NO CODE per patient request after lengthy discussion Joel the process of cardiopulmonary resuscitation * Decision making: Patient currently has insight and judgment related to his medical conditions. Healthcare surrogate designation form completed 01/15/2018. Patient was given the original document. Copies were placed in the patient's paper chart and given to be hospice admission nurse. Emi Barcenas , is designated as the healthcare surrogate decision-maker. * Patient reports he has become progressively more weak and his appetite has been poor. He tells me the radiation treatments have not worked, and he has been told he is not a candidate for further aggressive interventions at this time due to disease progression and poor performance status. He states his primary goal at this time is symptom management. Patient does not wish for further diagnostic procedures or aggressive interventions. He thinks it is probably time to transition to comfort focused care and has asked to speak with someone from hospice. * Discussed with patient's RN, Samantha, and Dr. Maria. Hospice was consulted; hospice intake noted. Symptom management: * Pain: Patient complains of severe pain in his left chest/torso that is somewhat relieved for a short period of time after receiving Percocet 10/325mg which is currently available every 4 hours as needed. Recent CT chest showed multiple cavitary nodules in both lungs. Marked progression of bony destructive lesions and soft tissue mass in the right posterior chest wall around the seventh rib measuring approximately 5 cm in diameter. Progression of right sided retrocrural mass and a mass in the right renal fossa. Patient states his primary goal at this time is pain management. Discussed with Dr. Maria. Percocet discontinued. Patient started on oxycodone 7.5 mg to 10 mg every 4 hours as needed for pain. * Anxiety: Multifactoral. Contributing factors include decline in functional status, loss of independence, recent diagnosis of metastatic cancer, disease progression, unmanaged pain, insomnia and uncertainty regarding the future/ living arrangements. Patient started on Lorazepam 1 mg PO q6 PRN for anxiety/ insomnia * Insomnia: Patient states he has not slept in 3 days. He was taking Ambien 10mg PO at bedtime as needed at home; patient states he occasionally used marijuana because it helped calm him down. Encouraged patient to request PRN Lorazepam for management of both anxiety and insomnia. Palliative care will continue to follow this patient throughout his hospitalization to establish stress, assist with symptom management and clarification of medical treatment goals. Appreciation Thank you for the opportunity to participate in the care of Vasile Max. Attestation Attestation: To help prompt me to consider important information that might be impacting today's encounter and assessment, information from prior notes written by myself or my colleagues may have been "brought forward" into today's note. My signature on this note, however, is an attestation that I personally performed the exam, history, and/or decision-making noted today, and, unless otherwise indicated, the interactions with patient, family, and staff as well as the review of records all occurred today. I also attest that the listed assessment and stated plan reflect my best clinical judgment today based on the combination of historical information, prior notes, and today's exam/ interactions. When time spent is documented, it refers only to time spent today by the signer, or if indicated, combined time spent today by collaborating physician/nurse practitioner.
[2018-01-15] MEDS: Sod Chloride 0.9% Inj 1,000 ML IV.CONT SCH (11:46)
[2018-01-15] MEDS: MethylPREDNISolone Sod Succinate Inj 40 MG/ML Vial IV.PUSH SCH ×2 (12:00→18:00)
[2018-01-15] MEDS: Senna/Docusate Sodium 8.6/50 MG Tablet PO SCH (12:03)
[2018-01-15] MEDS ORDERED: LORazepam 1 MG Tablet PO PRN (12:52)
--- NOTE | 2018-01-15 14:00 | P.PN ---
Subjective Interval history: awake and alert complaining of right sided chest apin/discomfort Physical Exam Vital signs: Vital Signs 01/14/18 15:08 01/14/18 15:31 01/14/18 19:33 Temperature Pulse Rate 78 75 74 Respiratory Rate 20 22 18 Blood Pressure 98/57 L Pulse Oximetry 96 01/14/18 19:47 01/14/18 22:07 01/14/18 23:33 Temperature Pulse Rate 80 82 96 H Respiratory Rate 24 28 H Blood Pressure 94/53 L 100/61 Pulse Oximetry 100 99 100 01/14/18 23:49 01/15/18 01:00 01/15/18 07:54 Temperature Pulse Rate 86 98 H Respiratory Rate 16 23 Blood Pressure 90/54 L Pulse Oximetry 100 100 01/15/18 08:30 01/15/18 08:34 01/15/18 11:30 Temperature 98 F Pulse Rate 71 75 Respiratory Rate 18 24 Blood Pressure 95/53 L 121/54 L Pulse Oximetry 97 100 100 Intake & Output 01/14/18 01/15/18 01/15/18 18:59 06:59 18:59 Intake Total 1000 / 1000 1000 / 1000 Output Total 600 / 600 Balance 400 / 400 1000 / 1000 Intake: IV 1000 / 1000 1000 / 1000 Heparin/D5W 25,000 U/250 mL 25, 0 / 0 0 / 0 000 unit In 250 ml @ Per Protocol IV.CONT TITRATE PRN Rx #:[id number] NS Inj 1,000 ML @ 75 mls/hr IV. 1000 / 1000 1000 / 1000 CONT .[id number] JAVIER Rx#:[id number] Output: Urine 600 / 600 Narrative: Awake alert oriented x3 anciteric neck supple lungs- no rales rgular rhythm abdomen soft, nontender extremities- right LE- marked swelling Results - Labs CBC & Chem 7: 01/15/18 03:39 01/15/18 03:39 Laboratory Results - last 24 hr 01/14/18 01/14/18 01/15/18 13:54 19:27 03:39 WBC 7.2 RBC 2.91 L Hgb 8.3 L Hct 25.2 L MCV 86.7 MCH 28.6 MCHC 32.9 RDW 18.2 H Plt Count 142 L MPV 6.7 L Neut % (Auto) 88.2 H Lymph % (Auto) 3.1 L [place] % (Auto) 7.5 Eos % (Auto) 0.6 Baso % (Auto) 0.6 Neut # (Auto) 6.3 Lymph # (Auto) 0.2 L [place] # (Auto) 0.5 Eos # (Auto) 0.0 Baso # (Auto) 0.0 WBC Differential . Differential Comment Auto diff final APTT 59.8 H D 74.5 H D Sodium Potassium Chloride Carbon Dioxide Anion Gap BUN Creatinine Estimated GFR Random Glucose Calcium 01/15/18 01/15/18 03:39 03:39 WBC RBC Hgb Hct MCV MCH MCHC RDW Plt Count MPV Neut % (Auto) Lymph % (Auto) [place] % (Auto) Eos % (Auto) Baso % (Auto) Neut # (Auto) Lymph # (Auto) [place] # (Auto) Eos # (Auto) Baso # (Auto) WBC Differential Differential Comment APTT 69.6 H Sodium 137 Potassium 3.3 L Chloride 104 Carbon Dioxide 25.8 Anion Gap 7 BUN 29 H Creatinine 1.51 H Estimated GFR 45 L Random Glucose 100 Calcium 8.6 D Assessment and Plan - Plan 77 ywars old male presenting with chest pain /shortness of breath and leg pain/ swelling Likely Pulmonary embolism with extensive DVT on both lower extremity R > L Acute Bilateral LE DVT -Patient started on heparin drip. - 12 LEKG- no acute changes, SR , occ PVCs. troponins x 3 negative -Oncology consulted patient known to Dr. Gong. Will defer to them regarding starting newer oral anticoagulants like Eliquis or Lovenox in the setting of malignancy -02 prn - VQ scan intermediate, CTA not performed due to elevated creatinine - change to Lovenox 1.5 mg SQ daily with current renal functions. 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 give IV dilaudid prn for pain - 02 prn - seen by Oncology and palliative care - Hospice consulted- possible Hiospice care candidate History of gout continue on allopurinol 100 mg daily History of hypertension continue atenolol 50 mg daily History of hypothyroidism continue on Synthroid 100 mcg daily CKI with history of Renal carcinoma - creatine near baseline Constipation- - colace 100 mg bid Incidental gallstone - LFTs normal Poor po appetite- dietitian consult DNR if DC to [facility]- Lovenox 1.5 mg/kg sq daily-
[2018-01-15] MEDS ORDERED: HYDROmorphone PF Inj 2 MG/ML Vial IV.PUSH PRN (14:01)
--- NOTE | 2018-01-15 14:31 | P.PNONC ---
Subjective Interval history: Patient lying on his right side, awake and alert on approach. He reports he has not slept in 3 days due to pain. Right lateral rib pain, worse with movement. Patient unable to eat due to the severity of the pain when he sits upright. He is awaiting hospice consult. Objective Vital Signs/Intake & Output: Vital Signs 01/14/18 15:08 01/14/18 15:31 01/14/18 19:33 Temperature Pulse Rate 78 75 74 Respiratory Rate 20 22 18 Blood Pressure 98/57 L Pulse Oximetry 96 01/14/18 19:47 01/14/18 22:07 01/14/18 23:33 Temperature Pulse Rate 80 82 96 H Respiratory Rate 24 28 H Blood Pressure 94/53 L 100/61 Pulse Oximetry 100 99 100 01/14/18 23:49 01/15/18 01:00 01/15/18 07:54 Temperature Pulse Rate 86 98 H Respiratory Rate 16 23 Blood Pressure 90/54 L Pulse Oximetry 100 100 01/15/18 08:30 01/15/18 08:34 01/15/18 11:30 Temperature 98 F Pulse Rate 71 75 Respiratory Rate 18 24 Blood Pressure 95/53 L 121/54 L Pulse Oximetry 97 100 100 Intake & Output 01/14/18 01/15/18 01/15/18 18:59 06:59 18:59 Intake Total 1000 / 1000 1000 / 1000 Output Total 600 / 600 Balance 400 / 400 1000 / 1000 Intake: IV 1000 / 1000 1000 / 1000 Heparin/D5W 25,000 U/250 mL 25, 0 / 0 0 / 0 000 unit In 250 ml @ Per Protocol IV.CONT TITRATE PRN Rx #:[id number] NS Inj 1,000 ML @ 75 mls/hr IV. 1000 / 1000 1000 / 1000 CONT .[id number] ERIC Rx#:[id number] Output: Urine 600 / 600 Result Diagrams: 01/15/18 03:39 01/15/18 03:39 Laboratory Results: Laboratory Results - last 24 hr 01/14/18 01/15/18 01/15/18 19:27 03:39 03:39 WBC 7.2 RBC 2.91 L Hgb 8.3 L Hct 25.2 L MCV 86.7 MCH 28.6 MCHC 32.9 RDW 18.2 H Plt Count 142 L MPV 6.7 L Neut % (Auto) 88.2 H Lymph % (Auto) 3.1 L [place] % (Auto) 7.5 Eos % (Auto) 0.6 Baso % (Auto) 0.6 Neut # (Auto) 6.3 Lymph # (Auto) 0.2 L [place] # (Auto) 0.5 Eos # (Auto) 0.0 Baso # (Auto) 0.0 WBC Differential . Differential Comment Auto diff final APTT 74.5 H D Sodium 137 Potassium 3.3 L Chloride 104 Carbon Dioxide 25.8 Anion Gap 7 BUN 29 H Creatinine 1.51 H Estimated GFR 45 L Random Glucose 100 Calcium 8.6 D 01/15/18 03:39 WBC RBC Hgb Hct MCV MCH MCHC RDW Plt Count MPV Neut % (Auto) Lymph % (Auto) [place] % (Auto) Eos % (Auto) Baso % (Auto) Neut # (Auto) Lymph # (Auto) [place] # (Auto) Eos # (Auto) Baso # (Auto) WBC Differential Differential Comment APTT 69.6 H Sodium Potassium Chloride Carbon Dioxide Anion Gap BUN Creatinine Estimated GFR Random Glucose Calcium Medications: Active Medications Generic Name Dose Route Start Last Admin Trade Name Freq PRN Reason Stop Dose Admin Albuterol 1 ampul 01/14/18 12:00 01/15/18 11:06 Duoneb Neb (Eric) NEB Not Given Q4HR NEB ERIC Allopurinol 100 mg 01/15/18 09:00 01/15/18 12:02 Zyloprim PO 100 mg DAILY ERIC Administration Atenolol 50 mg 01/15/18 09:00 01/15/18 12:02 Tenormin PO 50 mg DAILY ERIC Administration Budesonide/Formoterol Fumarate 2 puff 01/14/18 11:00 01/15/18 09:30 Symbicort 160/4.5 Mcg Inh INH 2 puff BID ERIC Administration Sodium Chloride 1,000 mls @ 75 mls/hr 01/14/18 03:45 01/15/18 11:46 Ns Inj IV.CONT 75 mls/hr .[id number] ERIC Administration Levothyroxine Sodium 112 mcg 01/15/18 06:00 01/15/18 06:14 Synthroid PO 112 mcg DAILY@0600 ERIC Administration Methylprednisolone Sodium Succinate 40 mg 01/15/18 12:00 01/15/18 12:00 Solumedrol Inj IV.PUSH 40 mg Q6HR ERIC Administration Senna/Docusate Sodium 1 tab 01/14/18 14:00 01/15/18 12:03 Diane-Colace PO Not Given BID ERIC Zolpidem Tartrate 10 mg 01/14/18 21:00 01/14/18 22:12 Ambien PO 10 mg HS PRN Administration INSOMNIA Objective Remarks: GENERAL: Chronically ill-appearing elderly gentleman, in no acute distress. SKIN: Warm and dry. HEAD: Normocephalic. EYES: No scleral icterus. No injection or drainage. NECK: Supple, trachea midline. CARDIOVASCULAR: Regular rate and rhythm without murmurs. RESPIRATORY: Breath sounds distant. No accessory muscle use. O2 via nasal cannula. GASTROINTESTINAL: Abdomen soft, non-tender, nondistended. EXTREMITIES: No cyanosis. 4+ RLE edema, 3+ elderly edema. MUSCULOSKELETAL: Decreased muscle tone. NEUROLOGICAL: No obvious focal deficit. Awake, alert, and oriented x3. PSYCHIATRIC: Appropriate mood and affect; insight and judgment normal. Assessment/Plan - Plan Mr. Max is a pleasant 77-year-old gentleman with metastatic lung cancer to retroperitoneal and right kidney as well as multiple bony metastasis. Currently hospitalized and found to have bilateral lower extremity deep vein thrombosis. Recommendations: 1. Bilateral DVTs, currently on heparin drip. Patient will be bridged to Lovenox today, attending ordered with renal dose modification. 2. Metastatic lung cancer, patient is not a candidate for aggressive systemic therapy. Recommend supportive care. 3. Palliative care has consulted and the patient states he is awaiting hospice consult. One of his daughters lives locally and has been assisting him during this process. 4. Discussed with attending, she is ordered Dilaudid for breakthrough pain. 5. Recommend supportive care. - Attending Statement Pt in considerable pain. C/o being sleepless. Doing generally poorly. Case d/w pt's daughter yesterday and with pt today. They both are aware of his poor overall prognosis and poor candidacy for systemic chemotherapy. Hence requested Hospice eval - will order the same. Pain management per Primary team until transferred to hospice. Continue anticoagulation for DVT and ? PE. Prognosis poor. Pt DNR.
[2018-01-15] MEDS ORDERED: Enoxaparin Inj 120 MG/0.8 ML Syringe SQ SCH (15:00)
[2018-01-15] MEDS ORDERED: Sodium Chloride 0.9% 2 ML Flush PRN IV.FLUSH (15:04)
--- NOTE | 2018-01-15 15:16 | P.DIET ---
Nutritional Evaluation Type of nutrition evaluation: initial Nutrition consult regarding: Diet Evaluation Nutrition screening: Poor PO Intake Screening comments: 01/15 [facility] for Poor PO intake Objective - Diagnosis pulmonary embolism, hx of lung mass - Objective Body Mass Index: 26.4 % IBW: 108 (IBW = 184lb) Body Weight Used for Calculations: Actual (90.7kg) Energy Needs - Lower Range (kCal/kg): 22 Energy Needs - Upper Range (kCal/kg): 28 Lower Limit kCal/kg (kCals): 1,996 Upper Limit kCal/kg (kCals): 2,540 Lower Limit Protein Factor (Grams per Kg): 1.1 Upper Limit Protein Factor (Grams per Kg): 1.3 Lower Protein Needs (Protein): 100 Upper Protein Needs (Protein): 118 Dietitian Reviewed in Medical Record: Current diet, Curent medications, Intake & Output, Labs, Medical history Diet Order: cardiac diet Objective Comments: PMH: CKD, COPD, gout, R hydronephrosis, HTN, hypothyroidism, pneumonia Meds: synthroid, zofran Labs: K+3.3, BUN 29, Cr 1.51, GFR 45 Assessment Assessment: Pt currently at nutritional risk r/t reported poor PO intake. Wt loss will be expected from acuity of disease. Pt received radiation therapy x 15 times 2 weeks ago per MD note. RD to recommend Ensure Enlive TID PO supplement for additional nutrition. Continue to monitor PO and supplement intake. Labs reviewed, dietitian following. Recommendations: 1. Wt loss will be expected from acuity of disease 2. RD to recommend Ensure Enlive TID PO supplement for additional nutrition 3. Continue to monitor PO and supplement intake 4. Dietitian following Dietitian to Monitor: Lab values, Supplement acceptance, Intake & Output, Diet tolerance, PO Intake, Medical course
--- NOTE | 2018-01-15 19:16 | P.DS ---
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 Patient just completed 15 treatments of radiation therapy about 2 weeks ago[address] Followed by Dr. Gong from oncology service and Dr. Boggs from radiation oncology. The plan was for patient to start possible chemotherapy this coming Saturday. Patient baseline is still independent with ADLs however for the past 1 week now has been complaining of shortness of breath, poor p.o. appetite. Patient complains of pain all over mainly on the right flank area. This morning in addition patient also complained of right-sided chest pain and pain on both legs- right > left. On exam patient also was noted to have bilateral leg swelling per patient has been going on for about a week now right more than left. Patient states at one point he was on baby aspirin but is not taking this on a regular basis. On evaluation the ER was noted to have extensive DVT of both lower extremity more on the right. Pulmonary angiogram was intermediate for pulmonary embolism. CTA was not done because of BUN and creatinine of 1.9. Patient admitted for further evaluation and management. Patient update on day of discharge: awake and alert, no acute distress, good sats pain meds helping DS: Summary Hospital Course: 77 ywars old male presenting with chest pain /shortness of breath and leg pain/ swelling Likely Pulmonary embolism with extensive DVT on both lower extremity R > L Acute Bilateral LE DVT -Patient started on heparin drip. - 12 LEKG- no acute changes, SR , occ PVCs. troponins x 3 negative -Oncology consulted patient known to Dr. Gong. Will defer to them regarding starting newer oral anticoagulants like Eliquis or Lovenox in the setting of malignancy -02 prn - VQ scan intermediate, CTA not performed due to elevated creatinine - change to Lovenox 1.5 mg SQ daily with current renal functions. 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 give IV dilaudid prn for pain - 02 prn - seen by Oncology and palliative care - Hospice consulted- possible Hiospice care candidate History of gout continue on allopurinol 100 mg daily History of hypertension continue atenolol 50 mg daily History of hypothyroidism continue on Synthroid 100 mcg daily CKI with history of Renal carcinoma - creatine near baseline Constipation- - colace 100 mg bid Incidental gallstone - LFTs normal Poor po appetite- dietitian consult DNR once DC to Hospice care center- Lovenox 1.5 mg/kg sq daily- - Time Spent with Patient Total time spent providing and/or coordinating discharge services: Greater than 30 minutes Exam Vital signs: Vital Signs 01/14/18 19:33 01/14/18 19:47 01/14/18 22:07 Temperature Pulse Rate 74 80 82 Respiratory Rate 18 24 Blood Pressure 94/53 L Pulse Oximetry 96 100 99 01/14/18 23:33 01/14/18 23:49 01/15/18 01:00 Temperature Pulse Rate 96 H 86 98 H Respiratory Rate 28 H 16 23 Blood Pressure 100/61 90/54 L Pulse Oximetry 100 100 01/15/18 07:54 01/15/18 08:30 01/15/18 08:34 Temperature 98 F Pulse Rate 71 Respiratory Rate 18 Blood Pressure 95/53 L Pulse Oximetry 100 97 100 01/15/18 11:30 01/15/18 14:30 01/15/18 18:00 Temperature Pulse Rate 75 70 67 Respiratory Rate 24 16 23 Blood Pressure 121/54 L 96/60 L 131/72 Pulse Oximetry 100 Intake & Output 01/15/18 01/15/18 01/16/18 06:59 18:59 06:59 Intake Total 1000 / 1000 1000 / 1000 Output Total 600 / 600 Balance 400 / 400 1000 / 1000 Intake: IV 1000 / 1000 1000 / 1000 Heparin/D5W 25,000 U/250 mL 25, 0 / 0 0 / 0 000 unit In 250 ml @ Per Protocol IV.CONT TITRATE PRN Rx #:[id number] NS Inj 1,000 ML @ 75 mls/hr IV. 1000 / 1000 1000 / 1000 CONT .[id number] JAVIER Rx#:[id number] Output: Urine 600 / 600 Narrative: Awake alert oriented x3 anciteric neck supple lungs- no rales rgular rhythm abdomen soft, nontender extremities- right LE- marked swelling Results Labs on day of discharge: Labs from last 24 hours 01/15/18 01/15/18 01/15/18 03:39 03:39 03:39 WBC 7.2 RBC 2.91 L Hgb 8.3 L Hct 25.2 L MCV 86.7 MCH 28.6 MCHC 32.9 RDW 18.2 H Plt Count 142 L MPV 6.7 L Neut % (Auto) 88.2 H Lymph % (Auto) 3.1 L [place] % (Auto) 7.5 Eos % (Auto) 0.6 Baso % (Auto) 0.6 Neut # (Auto) 6.3 Lymph # (Auto) 0.2 L [place] # (Auto) 0.5 Eos # (Auto) 0.0 Baso # (Auto) 0.0 WBC Differential . Differential Comment Auto diff final APTT 69.6 H Sodium 137 Potassium 3.3 L Chloride 104 Carbon Dioxide 25.8 Anion Gap 7 BUN 29 H Creatinine 1.51 H Estimated GFR 45 L Random Glucose 100 Calcium 8.6 D 01/14/18 19:27 WBC RBC Hgb Hct MCV MCH MCHC RDW Plt Count MPV Neut % (Auto) Lymph % (Auto) [place] % (Auto) Eos % (Auto) Baso % (Auto) Neut # (Auto) Lymph # (Auto) [place] # (Auto) Eos # (Auto) Baso # (Auto) WBC Differential Differential Comment APTT 74.5 H D Sodium Potassium Chloride Carbon Dioxide Anion Gap BUN Creatinine Estimated GFR Random Glucose Calcium - Impressions ITS Impressions Chest X-Ray 01/13/18 20:09 CONCLUSION: Minimal right perihilar density likely infiltrate. Pulmonary Perfusion Imaging 01/13/18 21:33 CONCLUSION: 1. Matching segmental perfusion and ventilation defect in the right lung associated with consolidation. Finding is intermediate probability for pulmonary embolus. Gallbladder Ultrasound 01/13/18 21:37 CONCLUSION: 1. Gallbladder wall thickening with a large gallstone. No biliary ductal dilatation. 2. Enlarged heterogeneous right kidney similar in appearance to November 26. This has been previously evaluated on CT. Venous Doppler Study 01/14/18 00:27 CONCLUSION: 1. Development of extensive deep venous thrombosis in bilateral lower extremities extending from the common femoral vein through the popliteal and peroneal and posterior tibial veins. Chest CT 01/14/18 00:45 CONCLUSION: 1. Interval development of multiple cavitary nodules in both lungs as above, probably metastatic disease. 2. Marked progression of bony destructive lesion and soft tissue mass in the right posterior chest wall around the seventh rib now measuring up to about 5 cm in diameter. 3. Progression of right-sided retrocrural mass and mass in right renal fossa is prior exam. 4. Calcified gallstone. Moderate coronary calcifications. No effusions. Discharge Plan - Discharge Disposition Patient Disposition: [facility] Hospice[facility]Med Facility - Discharge Condition Condition: Fair - Discharge Order Discharge Orders: Discharge Order (Routine); Ordered 01/15/18 Ordered By: Jacklyn Maria - Discharge Details Anticipated Discharge Date: 01/15/18 - Physicians Team Primary Care Provider: Bay Moreno Attending Provider: Jacklyn Maria Other Providers: Cat Shelton ; Ruperto Russell MD ; Alonzo Hooker MD ; Nadine Castorena MD
[2018-01-15] MEDS ORDERED: Sodium Chloride 0.9% 2 ML Flush BID IV.FLUSH SCH (21:00)
== END 2018-01-15 20:20 | disposition hospice, inpatient (51) ==
LOC: NEPE 19:27 → NEDA 01-14 01:39 → INTOOBSV 01-14 01:39 → NEDH 01-14 08:04
PROVIDERS: ADMIT Internal Medicine; ATTEND Internal Medicine